=== PATIENT | female | born 1950 | race Caucasian/White ===

== ENCOUNTER → 2016-11-06 | Outpatient (CLI) | payer OTHER ==
[~2016-11-06] MED LIST: ASPI81TA21 PO; ATEN-175 PO; ATV/1 PO; BNC/4025 PO; CLX20 PO; COEN100C15 PO; INSU1INJ7 SC; LPT/40 PO; NAPR1TAB9 PO; OXYC-57 PO
[2016-11-06 18:10] LABS: ALT/SGPT 20 U/L (12-78); BLOOD UREA NITROGEN 31 mg/dl (7-18); BUN/CREATININE RATIO 24.1 (10-20); CALCIUM 9.5 mg/dl (8.5-10.1); CARBON DIOXIDE 25 mmol/L (21-32); CHLORIDE 103 mmol/L (98-107); GLUCOSE 123 mg/dl (70-99); POTASSIUM 4.5 mmol/L (3.5-5.1); SODIUM 139 mmol/L (136-145)
[2016-11-06 18:20] LABS: ALB/GLOB RATIO 0.8 (0.9-2); ALKALINE PHOSPHATASE 66 U/L (45-117); AST/SGOT 17 U/L (15-37)
[2016-11-06 18:44] LABS: BASO % 0.6 %; BASO ABS # 0.06 K/uL (0-0.2); COMPLETE YES; EOS % 3.8 %; HEMATOCRIT 38.4 % (37-47); IG% 0.2 %; LYMPH % 19.2 %; LYMPH ABS # 1.87 K/uL (1.2-3.4); MEAN CELL VOLUME 91.6 fL (80-100); MEAN CORPUSCULAR HGB CONC 34.9 g/dl (32-36); MEAN PLATELET VOLUME 10.2 fL (7.4-10.4); MONO % 5.8 %; NEUT % 70.4 %; PLATELET COUNT 258 K/uL (130-400); RED BLOOD COUNT 4.19 M/uL (4.2-5.4); WHITE BLOOD COUNT 9.76 K/uL (4.8-10.8)
[2016-11-07 05:57] LABS: ESTIMATED AVERAGE GLUCOSE 163 mg/dl; HA1C FLAG Normal (Normal)
== END | disposition home or self-care (01) ==
LOC: C.LABPBG 12:28
PROVIDERS: ATTEND Internal Medicine Geriatric Medicine
DX: I10 Essential (primary) hypertension (principal); I65.29 Occlusion and stenosis of unspecified carotid artery; E78.5 Hyperlipidemia, unspecified; E55.9 Vitamin D deficiency, unspecified; E11.51 Type 2 diabetes mellitus with diabetic peripheral angiopathy without gangrene; E11.65 Type 2 diabetes mellitus with hyperglycemia; Z86.2 Personal history of diseases of the blood and blood-forming organs and certain disorders involving the immune mechanism

== ENCOUNTER → 2017-03-21 | Outpatient (CLI) | payer OTHER ==
[~2017-03-21] MED LIST changes: +ASPI325T39 PO; +ATOR-26 PO; +CALC600T PO; +CHOL2000 PO; +CITA20TA9 PO; +CRG25 PO; +CZR25 PO; +FERR325T5 PO; +HYDR12.56 PO; +HYDR25TA4 PO; +HYG25 PO; +HYZ/10015 PO; +IMDSR30 PO; +INSDGI SC; +INSU100I SC; +LBT200 PO; +VITA400C3 PO
--- NOTE | 2017-03-22 14:23 | MAMMOGRAPHY REPORT ---
BILATERAL DIGITAL SCREENING MAMMOGRAM WITH CAD: 03/21/2017 CLINICAL HISTORY: Routine screening. Patient has no complaints. TECHNIQUE: Bilateral CC and MLO views were obtained. Current study was also evaluated with a Compute r Aided Detection (CAD) system. COMPARISON: Comparison is made to exams dated: 12/02/2015 mammogram, 09/18/2013 mammogram, 09/09/2013 mammogram - [facility], 09/05/2012 mammogram, and 08/30/2011 mammogram - [facility]. BREAST COMPOSITION: There are scattered areas of fibroglandular density in both breasts. FINDINGS: There are possible faint grouped microcalcifications in the upper outer middle to posterio r right breast, for which additional spot magnification views are recommended. There is a stable circumscribed lobulated 12 mm mass in the medial right breast. Stable benign-appea ring grouped round microcalcifications in the anterior upper outer right breast. No other suspicious mass, architectural distortion or cluster of microcalcifications is seen. IMPRESSION: ACR BI-RADS CATEGORY 0: INCOMPLETE EVALUATION: NEED ADDITIONAL IMAGING EVALUATION The possible faint grouped microcalcifications in the upper outer right breast need additional evalua tion. The patient will be called to schedule an appointment. Approximately 10% of breast cancers are not detected with mammography. A negative mammographic report should not delay biopsy if a clinically suggestive mass is present. Lexus Smart M.D. ay/:03/21/2017 16:31:33 Tugger Operator: Poppy ALEJANDRO(R)(Kevin)(BD), [facility] letter sent: Addl Imaging 0 BI-RADS Code: ACR BI-RADS Category 0: Incomplete Evaluation: Need Additional Imaging Evaluation
== END | disposition home or self-care (01) ==
LOC: C.MAMM 14:30
PROVIDERS: ATTEND Internal Medicine Geriatric Medicine
DX: Z12.31 Encounter for screening mammogram for malignant neoplasm of breast (principal); R92.0 Mammographic microcalcification found on diagnostic imaging of breast

== ENCOUNTER → 2017-03-28 | Outpatient (CLI) | payer OTHER ==
--- NOTE | 2017-03-28 14:44 | MAMMOGRAPHY REPORT ---
UNILATERAL RIGHT DIGITAL DIAGNOSTIC MAMMOGRAM: 03/28/2017 CLINICAL HISTORY: Callback from screening mammogram for right breast calcifications. TECHNIQUE: Spot magnification right cc and ML views were obtained. COMPARISON: Comparison is made to exams dated: 03/21/2017 mammogram, 12/02/2015 mammogram, 09/18/2013 m ammogram, 09/09/2013 mammogram - [facility], 09/05/2012 mammogram, and 08/30/2011 m ammogram - [facility]. BREAST COMPOSITION: There are scattered areas of fibroglandular density in the right breast. FINDINGS: Spot magnification views of the right breast demonstrate a small 9 mm group of faint calci fications in the right upper outer quadrant. The calcifications are predominately punctate but are s omewhat linear in distribution. Given the linear distribution, the calcifications are indeterminate and stereotactic biopsy is recommended for further evaluation. Other scattered benign-appearing calc ifications in the right breast on the additional views are stable compared to prior exams. IMPRESSION: ACR BI-RADS CATEGORY 4: SUSPICIOUS Grouped faint calcifications in a linear distribution in the right upper outer quadrant. The calcifi cations are indeterminate and stereotactic biopsy is recommended for further evaluation. A phone call was made to the physician's office to confirm faxed results were received. The patient has been verbally notified of the results. She tentatively scheduled the biopsy before leaving the [facility]. I will leave it up to the patient's physician if she can safely discontinue aspirin for 5 -7 days prior to the procedure. Approximately 10% of breast cancers are not detected with mammography. A negative mammographic report should not delay biopsy if a clinically suggestive mass is present. Katarina Alejandro M.D. /:03/28/2017 11:33:44 Individual Pension Consultant: Melonie ALEJANDRO(R)(M), [facility] letter sent: Abnormal 4/5 BI-RADS Code: ACR BI-RADS Category 4: Suspicious
== END | disposition home or self-care (01) ==
LOC: C.MAMM 10:56
PROVIDERS: ATTEND Internal Medicine Geriatric Medicine
DX: R92.0 Mammographic microcalcification found on diagnostic imaging of breast (principal)

== ENCOUNTER → 2017-04-02 | Outpatient (CLI) | payer OTHER ==
--- NOTE | 2017-04-02 13:30 | Discharge Instructions ---
Discharge Instructions Procedure Procedure Date: Apr 02, 2017. Reason for visit: Right Calcs. Discharge Discharge Date: Apr 02, 2017. Discharge Diagnosis: post right breast stereotactic guided biopsy Medications Restart Stopped Medication(s): Remain on Aspirin as per usual Instructions Activity Recommendations: Additional Limitations (see below) Return to School/Work: no limitations Recommended Home Diet: No Limitations Provider Instructions: ACTIVITY RECOMMENDATIONS: * No lifting, pushing, pulling or exercising the affected side for three days. RETURN TO SCHOOL/WORK: * You may return to work/school after the procedure, but do not perform any strenuous activities for 24 to 48 hours. MEDICATIONS: * Tylenol (two 325 mg) every four to six hours if needed for mild pain (if not allergic to Tylenol). DIET: * Resume previous diet. SPECIAL CARE INSTRUCTIONS: * Keep biopsy site dry for 24 hours. May shower after 24 hours, but do not soak (bathe) incision. * May remove Tegaderm (plastic patch) tomorrow AFTER showering. * Leave the steri-strips on for one week. Allow the steri-strips to fall off by themselves. If not off after one week, you may remove them. You may place a Bandaid crosswise over the strips, if desired. * Apply ice 10 minutes on and 10 minutes off as needed. * Wear a bra at bedtime to sleep more comfortably for 2-3 days. * Your referring physician should have the results after approximately 5 to 7 business days. * Call for unusual bleeding, fever, drainage, etc or if you have any questions call [phone] during normal business hours or after hours call Dr Smart, . FOLLOW UP VISIT: Follow-up with Referring Physician as scheduled. Allergies Coded Allergies: Hydrochlorothiazide (Unverified Allergy, Unknown, UNKNOWN, 04/28/13) Lisinopril (Unverified Allergy, Unknown, 04/28/13) Sulfa Drugs (Verified Allergy, Unknown, 04/28/13) Patrick Sexton Recommendations: Call your doctor if: * Temperature above 101 degrees * Pain not relieved by pain medicine ordered * There is increased drainage or redness from any incision * You have any unanswered questions or concerns. Your Doctors Instructions noted above were prepared by provider Lexus Smart. Patient Signature Section: Patient Instructions Signature Page Jessika Doll Patient (or Guardian) Signature/Date: I have read and understand the instructions given to me by my caregivers. Caregiver/RN/Doctor Signature/Date: The above-named patient and/or guardian has received patient instructions on this date. + Original Patient Signature Page (only) stays with chart. Please make copy for patient.
--- NOTE | 2017-04-02 14:43 | MAMMOGRAPHY REPORT ---
UNILATERAL RIGHT DIGITAL DIAGNOSTIC MAMMOGRAM: 04/02/2017 CLINICAL HISTORY: Status post right breast stereotactic guided biopsy of linear punctate microcalcifi cations in the right upper outer quadrant. Please refer to the report from right breast stereotactic biopsy performed at the same time for full detail. IMPRESSION: POST PROCEDURE IMAGING FOR MARKER PLACEMENT Please refer to the report from right breast stereotactic biopsy performed at the same time for full detail. Approximately 10% of breast cancers are not detected with mammography. A negative mammographic report should not delay biopsy if a clinically suggestive mass is present. Lexus Smart M.D. ay/:04/02/2017 13:32:04 Commodities Clerk: Elizabeth ALEJANDRO(R)(M), [facility] BI-RADS Code: Post Procedure Imaging For Marker Placement
--- NOTE | 2017-04-02 16:06 | MAMMOGRAPHY REPORT ---
STEREOTACTIC GUIDED BIOPSY RIGHT BREAST: 04/02/2017 CLINICAL HISTORY: Linear punctate microcalcifications in the upper outer quadrant of the right breast . Patient presents for stereotactic guided biopsy. COMPARISON: Comparison is made to exams dated: 03/28/2017 mammogram, 03/21/2017 mammogram, 12/02/2015 [facility] mogram, 09/18/2013 mammogram, 09/09/2013 mammogram - [facility], and 09/05/2012 [facility] mogram - [facility]. PATIENT CONSENT: After explaining the risks, benefits and alternatives of the procedure to the patien t, informed consent was obtained both verbally and in writing. Specific risks include: Bleeding, inf ection, puncture of adjacent structure, pain, nontarget biopsy, sampling error, metal allergy and med ication reaction. PROCEDURE DESCRIPTION: A time-out was performed and the right breast was confirmed as the site of bio psy. The patient was placed prone on the stereotactic biopsy table and the breast was placed in later almedial compression. A help desk coordinator image was obtained that faintly demonstrated the clustered microcalcif ications in question. They are amenable to sterotactic biopsy. Then +15 and -15 stereo pair images were obtained. The calcifications were targeted utilizing the coordinates obtained by the computer. The skin was prepped with Betadine. 1% Lidocaine with and without epinipherine was administered as l ocal anesthesia. A small skin incision was made. Through the incision, the needle was inserted to th e depth determined by the computer. 8 samples were obtained using a [employer] 9-gauge vacuum-assist ed biopsy device. The specimen radiograph demonstrated several petroleum products sales representative clustered microcalcific ations, therefore, a metallic marker was placed at the biopsy site. There was no immediate complicati on. Hemostasis was achieved after several minutes of manual compression. The samples were sent to [facility] in two appropriately labeled containers, "with calcifications" and "without calcifications". All of the samples were obtained from the same single biopsy site. Postprocedure CC and ML views of the right breast were obtained. There is a new dumbbell shaped met allic biopsy marker at the site of the biopsied microcalcifications in the upper outer middle one thi rd of the breast. There is distal (medial) migration of the biopsy marker from the site of the biops ied microcalcifications by approximately 17 mm, along the needle tract. A small, 1 cm hematoma is se en at the biopsy site, best appreciated on the MLO view. COMPARISON: Comparison is made to exams dated: 03/28/2017 mammogram, 03/21/2017 mammogram, 12/02/2015 [facility] mogram, 09/18/2013 mammogram, 09/09/2013 mammogram - [facility], and 09/05/2012 [facility] mogram - [facility]. A stereotactic guided biopsy was performed for the abnormality located in the right breast at 10 o'cl ock middle depth. The skin was prepped in the usual manner. A biopsy needle was placed adjacent to the abnormality under computer guidance and confirmatory stereotactic mammography images were obtaine d to document needle placement. Once the needle was documented to be in the correct location, a spec imen was obtained using an automated biopsy gun. The specimen was sent to the laboratory for patholo gical analysis. IMPRESSION: STEREOTACTIC GUIDED BIOPSY Status post right breast stereotactic guided biopsy of linear punctate microcalcifications in the upp er outer quadrant, with biopsy marker placed at the site. The patient will receive notification of the biopsy results from her referring physician. Lexus Smart M.D. ay/:04/02/2017 15:23:18 Information Resources Manager: Elizabeth MENDEZ)(M), [facility]
== END | disposition home or self-care (01) ==
LOC: C.MAMM 12:41
PROVIDERS: ATTEND Internal Medicine Geriatric Medicine
DX: R92.0 Mammographic microcalcification found on diagnostic imaging of breast (principal)

== ENCOUNTER → 2017-07-24 | Outpatient (CLI) | payer OTHER ==
[~2017-07-24] MED LIST changes: -ASPI325T39 PO; -ATOR-26 PO; -CALC600T PO; -CHOL2000 PO; -CITA20TA9 PO; -CRG25 PO; -CZR25 PO; -FERR325T5 PO; -HYDR12.56 PO; -HYDR25TA4 PO; -HYG25 PO; -HYZ/10015 PO; -IMDSR30 PO; -INSDGI SC; -INSU100I SC; -LBT200 PO; -VITA400C3 PO
[2017-07-24 17:49] LABS: URINE APPEARANCE CLEAR (CLEAR); URINE BILIRUBIN NEG (NEG); URINE COLOR DK YELLOW; URINE EPITHELIAL CELL AUTO >30 /lpf (0-5); URINE NITRITE NEG (NEG); URINE SPECIFIC GRAVITY 1.035 (1.000-1.030); UROBILINOGEN NEG (NEG)
[2017-07-24 17:58] LABS: MANUAL MICROSCOPIC REQUIRED? NO; REVIEW REQ? YES
== END | disposition home or self-care (01) ==
LOC: C.LABSPEC 16:53
PROVIDERS: ATTEND Physician Assistant
DX: R30.0 Dysuria (principal)

== ENCOUNTER → 2017-07-29 | Outpatient (CLI) | payer OTHER ==
--- NOTE | 2017-07-29 13:15 | DIAGNOSTIC IMAGING REPORT ---
ULTRASOUND KIDNEYS AND BLADDER CLINICAL HISTORY: Acute flank pain. COMPARISON STUDY: Renal ultrasound dated 09/07/2013. TECHNIQUE: Real-time, grayscale, and color flow sonography of the kidneys and bladder is performed. Images are reviewed in the transverse and longitudinal planes. FINDINGS: Kidneys: There is asymmetric cortical atrophy of the left kidney as compared to the right. The right kidney measures 11.8 cm in length and the left kidney measures 8.6 cm in length. The left kidney demonstrates increased echotexture consistent with medical renal disease. A 2.3 cm cyst is noted in the right kidney. There is no hydronephrosis. No shadowing renal calculi are identified. There is no sonographic evidence of contour deforming renal mass lesion. No perinephric fluid is identified. Bladder: The partially decompressed bladder is grossly normal in appearance. The right ureteral jet was seen. IMPRESSION: 1. There is asymmetric cortical atrophy of the left kidney as compared to the right. The left kidney is echogenic consistent with medical renal disease and this is similar to the 2013 examination. 2. There is no hydronephrosis. 3. The bladder is partially decompressed and normal as visualized. Electronically signed by: Fabio Shafer M.D. 07/29/2017 1:14 PM Dictated Date/Time: 07/29/2017 1:12 PM
== END | disposition home or self-care (01) ==
LOC: C.ULTR 12:21
PROVIDERS: ATTEND Physician Assistant
DX: R10.9 Unspecified abdominal pain (principal); N26.1 Atrophy of kidney (terminal)

== ENCOUNTER → 2017-08-06 | Outpatient (CLI) | payer OTHER ==
[2017-08-06 12:42] LABS: URINE APPEARANCE CLEAR (CLEAR); URINE BILIRUBIN NEG (NEG); URINE COLOR YELLOW; URINE EPITHELIAL CELL AUTO >30 /lpf (0-5); URINE NITRITE NEG (NEG); UROBILINOGEN NEG (NEG); ZZUR CULT IF INDIC CLEAN CATCH NO
[2017-08-06 12:44] LABS: MANUAL MICROSCOPIC REQUIRED? NO; REVIEW REQ? YES
== END | disposition home or self-care (01) ==
LOC: C.LABSPEC 09:03
PROVIDERS: ATTEND Physician Assistant
DX: R35.0 Frequency of micturition (principal)

== ENCOUNTER 2017-08-14 16:45 | Inpatient (IN) | payer OTHER ==
[~2017-08-14] VITALS: Ht 160 cm; Wt 88.9 kg
[2017-08-14] MEDS ORDERED: SODIUM CHLORIDE 0.9% 500ML 500 ML IV STA (17:10)
[2017-08-14] MEDS ORDERED: METOPROLOL TARTRATE 100 MG TAB PO STA (17:14)
[2017-08-14] MEDS ORDERED: INSULIN HUMAN REGULAR SC STA (17:21)
--- NOTE | 2017-08-14 17:21 | EMERGENCY ROOM VISIT NOTE ---
History Report prepared by Naomi: Marcelino Andrade Under the Supervision of: Dr. Ion Arroyo M.D. First contact with patient: 17:01 Chief Complaint: HYPERTENSION Stated Complaint: HIGH BLOOD PRESSURE, LEG HURT, CHEST, SOB History of Present Illness The patient is a 66 year old female who presents to the Emergency Room with complaints of waxing and waning hypertension beginning one year ago. The patient states that she went to the dentist today for a cleaning, where her dentist recognized that her blood pressure was hypertensive and told her to come to the emergency department. She notes that she was not anxious to go to the dentist. She reports that she was in [place] a year ago, and was taking Amlodipine for her hypertension. The patient states that when she returned to [employer], she began to develop a rash from the medication. She notes that her PCP took her off of the Amlodipine and that she has had difficulty controlling her blood pressure since then. She reports that she is also experiencing symptoms of SOB beginning a few weeks ago that worsens when she walks. The patient states that she has a previous history of heart attacks and blockages, but does not have a stent placed. She notes that the only blood thinner that she takes is an aspirin. 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 Source of History: patient Onset: a year ago Position: other (global) Quality: other Timing: waxes/wanes Associated Symptoms: + SOB Review of Systems See HPI for pertinent positives & negatives. A total of 10 systems reviewed and were otherwise negative. Past Medical & Surgical Medical Problems: (1) Heart attack Family History No pertinent family history stated. Social History Smoking Status: Never Smoker Marital Status: single Occupation Status: retired Current/Historical Medications Scheduled Aspirin (Aspirin Ec), 325 MG PO DAILY Atenolol (Tenormin), 100 MG PO DAILY Atorvastatin (Lipitor), 80 MG PO DAILY Calcium Carbonate (Calcium 600), 1 TAB PO DAILY Cholecalciferol (Vitamin D3), 1 CAP PO DAILY Citalopram Hydrobromide (Celexa), 20 MG PO DAILY Ferrous Sulfate (Ferrous Sulfate), 1 TAB PO DAILY Hctz/Losartan (Hyzaar 25MG/100MG), 1 TAB PO DAILY Hydrochlorothiazide (Hctz), 12.5 MG PO DAILY Hydrochlorothiazide (Hctz), 25 MG PO DAILY Insulin Glargine (Lantus), 34 UNITS SC BID Insulin Lispro (Human) (Humalog), 30 UNITS SC BID Vitamin E (Vitamin E 400 Iu), 400 INTER.UNIT PO DAILY Scheduled PRN Lorazepam (Ativan), 1 MG PO BID PRN for Anxiety and/or Sedation Allergies Coded Allergies: Hydrochlorothiazide (Unverified Allergy, Unknown, UNKNOWN, 04/28/13) Lisinopril (Unverified Allergy, Unknown, 04/28/13) Sulfa Drugs (Verified Allergy, Unknown, 04/28/13) Physical Exam Vital Signs Date Time Temp Pulse Resp B/P (MAP) Pulse Ox O2 Delivery O2 Flow Rate FiO2 08/14/17 17:28 69 12 197/90 99 Room Air 08/14/17 17:23 100 Room Air 08/14/17 17:23 100 Room Air 08/14/17 16:56 36.8 70 18 249/103 98 Room Air Physical Exam GENERAL: Patient is a healthy-appearing well-nourished female HEAD: Normocephalic atraumatic EYES: Ocular movements intact pupils equal and react to light OROPHARYNX mucous membranes are moist no exudates present no erythema or edema present NECK: Supple no nuchal rigidity CHEST: Good equal expansion LUNGS: Clear and equal to auscultation CARDIAC: Normal S1 and S2 ABDOMEN: Soft nontender no guarding BACK: No CVA tenderness EXTREMITIES: No pain upon palpation normal muscle strength in all groups no clubbing cyanosis or edema NEURO: Patient is following commands is answering questions appropriately. Alert and oriented x3 Cranial Nerves 2-12 grossly intact Medical Decision & Procedures ER Provider Diagnostic Interpretation: Radiology results as stated below per my review and radiologist interpretation: CHEST ONE VIEW PORTABLE FINDINGS: Cardiomediastinal and hilar silhouettes are within normal limits. Atherosclerosis of the aorta. No pneumothorax, pleural effusion, focal airspace consolidation or overt pulmonary edema. Bones appear grossly intact. IMPRESSION: No acute cardiopulmonary process. The above report was generated using voice recognition software. It may contain grammatical, syntax or spelling errors. Electronically signed by: Ton Dowell M.D. 08/14/2017 5:[address] NONCONTRAST Findings: The paranasal sinuses and mastoid air cells are clear. The calvarium and skull base are intact. The ventricles and sulci are within normal limits. There is no mass, hematoma, midline shift, or acute infarct. Focal area of encephalomalacia within the left frontal lobe consistent with an old MAREN territory infarct. Impression: No acute intracranial abnormality. Old left frontal lobe infarct. Electronically signed by: Andrez Frank M.D. 08/14/2017 6:10 PM Laboratory Results 08/14/17 17:22 Red Blood Count 4.35, Mean Corpuscular Volume 89.9, Mean Corpuscular Hemoglobin 30.1, Mean Corpuscular Hemoglobin Concent 33.5, Mean Platelet Volume 9.5, Neutrophils (%) (Auto) 62.9, Lymphocytes (%) (Auto) 24.5, Monocytes (%) (Auto) 6.9, Eosinophils (%) (Auto) 4.8, Basophils (%) (Auto) 0.5, Neutrophils # (Auto) 6.46, Lymphocytes # (Auto) 2.52, Monocytes # (Auto) 0.71, Eosinophils # (Auto) 0.49, Basophils # (Auto) 0.05 08/14/17 17:22 Test 08/14/17 17:22 08/14/17 17:47 08/14/17 17:50 White Blood Count 10.27 K/uL (4.8-10.8) Red Blood Count 4.35 M/uL (4.2-5.4) Hemoglobin 13.1 g/dL (12.0-16.0) Hematocrit 39.1 % (37-47) Mean Corpuscular Volume 89.9 fL (80-100) Mean Corpuscular Hemoglobin 30.1 pg (25-34) Mean Corpuscular Hemoglobin Concent 33.5 g/dl (32-36) Platelet Count 235 K/uL (130-400) Mean Platelet Volume 9.5 fL (7.4-10.4) Neutrophils (%) (Auto) 62.9 % Lymphocytes (%) (Auto) 24.5 % Monocytes (%) (Auto) 6.9 % Eosinophils (%) (Auto) 4.8 % Basophils (%) (Auto) 0.5 % Neutrophils # (Auto) 6.46 K/uL (1.4-6.5) Lymphocytes # (Auto) 2.52 K/uL (1.2-3.4) Monocytes # (Auto) 0.71 K/uL (0.11-0.59) Eosinophils # (Auto) 0.49 K/uL (0-0.5) Basophils # (Auto) 0.05 K/uL (0-0.2) Bedside Hemoglobin 12.6 g/dl (12.0-16.0) Bedside Hematocrit 37 % (37-47) RDW Standard Deviation 38.7 fL (36.4-46.3) RDW Coefficient of Variation 11.9 % (11.5-14.5) Immature Granulocyte % (Auto) 0.4 % Immature Granulocyte # (Auto) 0.04 K/uL (0.00-0.02) Prothrombin Time 10.0 SECONDS (9.0-12.0) Prothromb Time International Ratio 0.9 (0.9-1.1) Activated Partial Thromboplast Time 24.9 SECONDS (21.0-31.0) Partial Thromboplastin Ratio 1.0 Bedside Sodium 139 mEq/L (135-144) Bedside Potassium 4.0 mEq/L (3.3-5.0) Bedside Chloride 103 mEq/L (101-112) Bedside Total CO2 26 mEq/l (24-31) Anion Gap 16.0 mmol/L (16-25) Bedside Blood Urea Nitrogen 42 mg/dl (7-18) Bedside Creatinine 1.6 mg/dl (0.6-1.3) Est Creatinine Clear Calc Drug Dose 37.1 ml/min Estimated GFR () 36.0 Estimated GFR (Non- 31.1 BUN/Creatinine Ratio 25.6 (10-20) Bedside Glucose (other) 259 mg/dl (70-99) Calcium Level 8.4 mg/dl (8.5-10.1) Bedside Ionized Calcium (Rex) 1.19 mmol/l (1.12-1.32) Total Bilirubin 0.3 mg/dl (0.2-1) Direct Bilirubin < 0.1 mg/dl (0-0.2) Aspartate Amino Transf (AST/SGOT) 16 U/L (15-37) Alanine Aminotransferase (ALT/SGPT) 25 U/L (12-78) Alkaline Phosphatase 82 U/L (45-117) Total Creatine Kinase 142 U/L (26-192) Creatine Kinase MB 2.3 ng/ml (0.5-3.6) Creatine Kinase MB Ratio 1.6 (0-3.0) Troponin I < 0.015 ng/ml (0-0.045) Pro-B-Type Natriuretic Peptide 2264 pg/ml (0-900) Total Protein 7.4 gm/dl (6.4-8.2) Albumin 3.0 gm/dl (3.4-5.0) Lipase 254 U/L (73-393) Beta-Hydroxybutyric Acid 0.86 mg/dL (0.2-2.81) Thyroid Stimulating Hormone (TSH) 3.060 uIu/ml (0.300-4.500) Urine Color YELLOW Urine Appearance CLEAR (CLEAR) Urine pH 6.5 (4.5-7.5) Urine Specific [place] 1.015 (1.000-1.030) Urine Protein 3+ (NEG) Urine Glucose (UA) 2+ (NEG) Urine Ketones NEG (NEG) Urine Occult Blood TRACE (NEG) Urine Nitrite NEG (NEG) Urine Bilirubin NEG (NEG) Urine Urobilinogen NEG (NEG) Urine Leukocyte Esterase NEG (NEG) Urine WBC (Auto) 1-5 /hpf (0-5) Urine RBC (Auto) 0-4 /hpf (0-4) Urine Hyaline Casts (Auto) 0 /lpf (0-5) Urine Epithelial Cells (Auto) 10-20 /lpf (0-5) Urine Bacteria (Auto) NEG (NEG) Labs reviewed by ED physician. Medications Administered Medications (Trade) Dose Ordered Sig/[place] Route Start Time Stop Time Status Last Admin Dose Admin Sodium Chloride 500 ml @ 999 mls/hr Q31M STAT IV 08/14/17 17:10 08/14/17 17:40 DC 08/14/17 17:10 999 MLS/HR Metoprolol Tartrate (Lopressor Tab) 100 mg STK-MED ONCE .ROUTE 08/14/17 17:31 08/14/17 17:32 DC 08/14/17 17:41 100 MG Insulin Human Regular (novoLIN-R U-100 PER UNIT) 10 units NOW STAT SC 08/14/17 17:37 08/14/17 17:38 DC 08/14/17 17:49 10 UNITS ECG Indication: SOB/dyspnea Rate (beats per minute): 70 Rhythm: normal sinus Findings: PAC, no acute ischemic change Change: no significant change ED Course 1702: Past medical records reviewed. The patient was evaluated in room C9. A complete history and physical examination was performed. 1714: Metoprolol Tartrate 100mg PO 1721: Insulin Human Regular 10 units SC 1750: I reevaluated and updated the patient. Medical Decision Prior records/ancillary studies reviewed. Triage Nursing notes reviewed. Additional history obtained from the family. The patient's history was concerning for respiratory difficulties. Differential diagnosis: Etiologies such as infections, reactive airway disease, pneumonia, pneumothorax , COPD, CHF, cardiac ischemia, pulmonary embolism, musculoskeletal, gastrointestinal, as well as others were entertained. This is a 66 year old with a history of Left kidney failure. The patient's ultrasound of her kidney was reviewed from 2 weeks ago. The patient presents with concerns over out of control Blood pressure that has been ongoing for the past year since a return from [place]. The patient's blood pressure was found to be very elevated in the emergency department. She also has hyperglycemia. For this reason she was given a NSS bolus and Insulin. Because of the patient' s SOB as well as her heart history she was sent for a b/l US of her legs. This was found to be normal. The patient does have a large MAREN infarct to the frontal lobe and I believe this maybe affecting her decision making capacity. Based on the fact that the patient did not know about this CVA, her HTN, her kidney status and her diabetes, I believe she should be admitted for a CVA workup. I did discuss the case with both case management as well as the hospitalist who agreed to admit the patient. Pt took two 325 mg ASA tablets today. Medication Reconcilliation Current Medication List: was personally reviewed by me Blood Pressure Screening Patient's blood pressure: Elevated blood pressure Blood pressure disposition: Referred to PCP Impression Primary Impression: Hypertension Additional Impressions: CVA (cerebral vascular accident) Kidney disease Hyperglycemia Scribe Attestation The scribe's documentation has been prepared under my direction and personally reviewed by me in its entirety. I confirm that the note above accurately reflects all work, treatment, procedures, and medical decision making performed by me. Departure Information Dispostion Home / Self-Care Referrals Bob Guzman M.D. (PCP) Patient Instructions [facility] Problem Qualifiers Primary Impression: Hypertension Hypertension type: unspecified Qualified Codes: I10 - Essential (primary) hypertension Additional Impressions: CVA (cerebral vascular accident) CVA mechanism: unspecified Qualified Codes: I63.9 - Cerebral infarction, unspecified
[2017-08-14 17:26] LABS: BASO % 0.5 %; BASO ABS # 0.05 K/uL (0-0.2); COMPLETE YES; EOS % 4.8 %; HEMATOCRIT 39.1 % (37-47); IG% 0.4 %; LYMPH % 24.5 %; LYMPH ABS # 2.52 K/uL (1.2-3.4); MEAN CELL VOLUME 89.9 fL (80-100); MEAN CORPUSCULAR HEMOGLOBIN 30.1 pg (25-34); MEAN CORPUSCULAR HGB CONC 33.5 g/dl (32-36); MEAN PLATELET VOLUME 9.5 fL (7.4-10.4); MONO % 6.9 %; NEUT % 62.9 %; PLATELET COUNT 235 K/uL (130-400); RED BLOOD COUNT 4.35 M/uL (4.2-5.4); WHITE BLOOD COUNT 10.27 K/uL (4.8-10.8)
[2017-08-14] MEDS ORDERED: METOPROLOL TARTRATE 50 MG TAB ONE (17:31)
[2017-08-14 17:33] LABS: ISTAT CREATININE 1.6 mg/dl (0.6-1.3); ISTAT HEMOGLOBIN 12.6 g/dl (12.0-16.0); ISTAT IONIZED CALCIUM 1.19 mmol/l (1.12-1.32)
[2017-08-14] MEDS ORDERED: NovoLIN-R INSULIN PER UNIT CHARGE SC STA (17:37)
[2017-08-14 17:38] LABS: INR 0.9 (0.9-1.1)
[2017-08-14 17:44] LABS: ALT/SGPT 25 U/L (12-78); AST/SGOT 16 U/L (15-37); BLOOD UREA NITROGEN 44 mg/dl (7-18); BUN/CREATININE RATIO 25.6 (10-20); CALCIUM 8.4 mg/dl (8.5-10.1); CARBON DIOXIDE 25 mmol/L (21-32); CHLORIDE 106 mmol/L (98-107); GLUCOSE 263 mg/dl (70-99); SODIUM 138 mmol/L (136-145)
[2017-08-14 17:55] LABS: ALKALINE PHOSPHATASE 82 U/L (45-117); CKMB/CK RATIO 1.6 (0-3.0)
--- NOTE | 2017-08-14 17:57 | DIAGNOSTIC IMAGING REPORT ---
CHEST ONE VIEW PORTABLE HISTORY: 66 years-old Female severe hypertension acute hypertension COMPARISON: Chest CT 06/26/2016 TECHNIQUE: Portable upright AP view of the chest FINDINGS: Cardiomediastinal and hilar silhouettes are within normal limits. Atherosclerosis of the aorta. No pneumothorax, pleural effusion, focal airspace consolidation or overt pulmonary edema. Bones appear grossly intact. IMPRESSION: No acute cardiopulmonary process. The above report was generated using voice recognition software. It may contain grammatical, syntax or spelling errors. Electronically signed by: Ton Dowell M.D. 08/14/2017 5:56 PM Dictated Date/Time: 08/14/2017 5:55 PM
--- NOTE | 2017-08-14 18:12 | DIAGNOSTIC IMAGING REPORT ---
HEAD CT NONCONTRAST CT DOSE: 537.48 mGy.cm HISTORY: Headache. Pt c/o HTN TECHNIQUE: Multiaxial CT images of the head were performed without the use of intravenous contrast. Automated exposure control was utilized for this study. A dose lowering technique was utilized adhering to the principles of ALARA. Comparison: Head CT 05/22/2006. Findings: The paranasal sinuses and mastoid air cells are clear. The calvarium and skull base are intact. The ventricles and sulci are within normal limits. There is no mass, hematoma, midline shift, or acute infarct. Focal area of encephalomalacia within the left frontal lobe consistent with an old MAREN territory infarct. Impression: No acute intracranial abnormality. Old left frontal lobe infarct. Electronically signed by: Andrez Frank M.D. 08/14/2017 6:10 PM Dictated Date/Time: 08/14/2017 6:05 PM
[2017-08-14] MEDS ORDERED: ATOR-26 PO (18:16)
[2017-08-14] MEDS ORDERED: VITA400C3 PO (18:16)
[2017-08-14] MEDS ORDERED: INSDGI SC (18:16)
[2017-08-14] MEDS ORDERED: CHOL2000 PO (18:16)
[2017-08-14] MEDS ORDERED: HYDR25TA4 PO (18:16)
[2017-08-14] MEDS ORDERED: FERR325T5 PO (18:16)
[2017-08-14] MEDS ORDERED: ATV/1 PO (18:16)
[2017-08-14] MEDS ORDERED: HYZ/10015 PO (18:16)
[2017-08-14] MEDS ORDERED: ASPI325T39 PO (18:16)
[2017-08-14] MEDS ORDERED: HYDR12.56 PO (18:16)
[2017-08-14] MEDS ORDERED: CALC600T PO (18:16)
[2017-08-14] MEDS ORDERED: CITA20TA9 PO (18:16)
[2017-08-14] MEDS ORDERED: ATEN-175 PO (18:16)
[2017-08-14] MEDS ORDERED: INSU100I SC (18:16)
[2017-08-14 18:26] LABS: URINE APPEARANCE CLEAR (CLEAR); URINE BILIRUBIN NEG (NEG); URINE COLOR YELLOW; URINE NITRITE NEG (NEG); URINE PH 6.5 (4.5-7.5); URINE SPECIFIC GRAVITY 1.015 (1.000-1.030); UROBILINOGEN NEG (NEG)
[2017-08-14 18:31] LABS: MANUAL MICROSCOPIC REQUIRED? NO; REVIEW REQ? NO
--- NOTE | 2017-08-14 18:32 | DIAGNOSTIC IMAGING REPORT ---
BILATERAL LOWER EXTREMITY VENOUS DOPPLER HISTORY: Acute shortness of breath with concern for deep venous thrombosis Pt c/o SOB COMPARISON STUDY: DVT study 08/10/2016. FINDINGS: There is normal compressibility, flow, and augmentation within the bilateral lower extremity deep venous systems. IMPRESSION: No sonographic evidence of deep venous thrombosis within the right or left lower extremity. Electronically signed by: Ton Dowell M.D. 08/14/2017 6:31 PM Dictated Date/Time: 08/14/2017 6:30 PM
[2017-08-14] MEDS ORDERED: ACETAMINOPHEN 500 MG TAB PO STA (19:10)
[2017-08-14] MEDS ORDERED: POLYETHYLENE (MIRALAX) 17 GM PACK PO PRN (20:00)
[2017-08-14] MEDS ORDERED: ALUMINUM/MAGNESIUM/SIMETH (MAALOX MAX) 30 ML UDC PO PRN (20:00)
[2017-08-14] MEDS ORDERED: MAGNESIUM HYDROXIDE SUSP 30 ML UDC PO PRN (20:00)
[2017-08-14] MEDS ORDERED: ONDANSETRON INJ 2 MG/ML 2 ML VIAL IV PRN (20:00)
[2017-08-14] MEDS ORDERED: HydrALAZINE HCL 20 MG/ML VIAL IV. PRN (20:15)
[2017-08-14] MEDS ORDERED: HydrALAZINE HCL 20 MG/ML VIAL IV. ONE ×2 (20:30→22:45)
[2017-08-14 20:55] VITALS: BMI 38.9
--- NOTE | 2017-08-14 21:07 | History and Physical ---
History & Physical Date & Time of Service: Aug 14, 2017 at 20:58 Chief Complaint: High Blood Pressure, Leg Hurt, Chest, Sob Primary Care Physician: Bob Guzman M.D. History of Present Illness Source: patient, family Ms. 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 Patient has had difficulty maintaining BP and had recent adjustments to her HCTZ on 08/06. She was at the dentist today and reports they said her BP was 213/122 and was referred to the ED. She states her BP runs from 160-190s/90s on average and normally not this high. She reports better control while on Norvasc approx. one year ago but had to stop due to lower extremity edema and rash. She is currently on HCTZ 25 mg daily, Losartan/ HCTZ 100 mg/25 mg, and Atenolol 100 mg daily. She reports associated fluid retention that has continued since stopping Norvasc and feels that her lower extremities and abdomen seems to hold fluids. She denies H/O CHF. She also reports poor control of her diabetes and is meeting with a pharmaceutical operator to start implementing dietary changes. She reports her current regimen leaves her with normal glucose 120-200 but in the AM has 300+ glucose readings even with BID Lantus coverage. She is dietary non-compliant as she states she doesn't know how to properly eat with diabetes. She states she has not really felt well over the past year with easy fatigability and feeling rundown. She does report over the past couple days that she has had more YI than normal and reporting an epigastric/low chest discomfort that comes on after short ambulation. This discomfort wax and wanes and does not radiate. On head CT in ED she was found to have an old L frontal lobe infarct that was present on MRI in 2014. Patient initially did not recall knowing she had a stroke but after further discussion, slightly recalls being told she may have had a small one and was started on 325 mg ASA daily. She reports, and family confirms, that she has seemed to have a personality change person the past year. She reports easy irritability. She also reports some anxiousness and frustration with her medical conditions and not being as compliant as she should be. She denies new focal neurodeficits. As well, cannot recall a time where she had focal neuro deficits. Past Medical/Surgical History 1. Secondary Resistant HTN 2/2 Renal Artery Stenosis 2. CKD Stage III 2/2 Renal Artery Stenosis and T2DM 3. T2DM, Uncontrolled 4. CAD with RCA Disease and S/P HI 5. Carotid Stenosis 6. HLD Family History Diabetes mellitus Hypertension Social History Smoking Status: Never Smoker Smokeless Tobacco Use: No Alcohol Use: none Drug Use: none Marital Status: single Housing status: lives with family Occupational Status: retired Immunizations History of Tetanus Vaccine?: Unknown History of Pneumococcal: Unknown History of Hepatitis B Vaccine: Unknown Multi-Drug Resistant Organisms History of MDRO: No Allergies Coded Allergies: Hydrochlorothiazide (Unverified Allergy, Unknown, UNKNOWN, 04/28/13) Lisinopril (Unverified Allergy, Unknown, 04/28/13) Sulfa Drugs (Verified Allergy, Unknown, 04/28/13) Home Medications Scheduled Aspirin (Aspirin Ec), 325 MG PO DAILY Atenolol (Tenormin), 100 MG PO DAILY Atorvastatin (Lipitor), 80 MG PO DAILY Calcium Carbonate (Calcium 600), 1 TAB PO DAILY Cholecalciferol (Vitamin D3), 1 CAP PO DAILY Citalopram Hydrobromide (Celexa), 20 MG PO DAILY Ferrous Sulfate (Ferrous Sulfate), 1 TAB PO DAILY Hctz/Losartan (Hyzaar 25MG/100MG), 1 TAB PO DAILY Hydrochlorothiazide (Hctz), 12.5 MG PO DAILY Hydrochlorothiazide (Hctz), 25 MG PO DAILY Insulin Glargine (Lantus), 34 UNITS SC BID Insulin Lispro (Human) (Humalog), 30 UNITS SC BID Vitamin E (Vitamin E 400 Iu), 400 INTER.UNIT PO DAILY Scheduled PRN Lorazepam (Ativan), 1 MG PO BID PRN for Anxiety and/or Sedation Review of Systems Constitutional: + problem reported (posterior headache), No fever, No chills Eyes: No worsening of vision ENT: No nasal symptoms, No sore throat, No trouble swallowing Respiratory: + dyspnea on exertion, No cough Cardiovascular: No chest pain, No palpitations Abdomen: + pain (burning epigastric pain), No nausea, No vomiting, No diarrhea , No constipation Musculoskeletal: + swelling (bilateral lower legs), No calf pain Genitourinary - Female: No dysuria Neurologic: No weakness, No numbness/tingling, No balance problems Psychiatric: + anxiety, + problem reported (reporting easy irritibility), No substance abuse Hematologic / Lymphatic: No abnormal bleeding/bruising, No clotting problems Integumentary: No rash Physical Exam Vital Signs Date Time Temp Pulse Resp B/P (MAP) Pulse Ox O2 Delivery O2 Flow Rate FiO2 08/14/17 20:48 63 18 185/66 97 08/14/17 20:33 61 18 194/66 98 Room Air 08/14/17 20:21 61 08/14/17 19:45 64 18 218/90 99 Room Air 08/14/17 18:48 68 17 219/104 95 08/14/17 17:28 69 12 197/90 99 Room Air 08/14/17 17:23 100 Room Air 08/14/17 17:23 100 Room Air 08/14/17 16:56 36.8 70 18 249/103 98 Room Air General Appearance: WD/WN, no apparent distress, + obese Head: normocephalic, atraumatic Eyes: sclerae normal ENT: hearing grossly normal Neck: supple, no JVD, trachea midline Respiratory/Chest: lungs clear, normal breath sounds, no respiratory distress, no accessory muscle use Cardiovascular: regular rate, rhythm, no gallop, no murmur Abdomen/GI: normal bowel sounds, non tender, soft Extremities/Musculoskelatal: no calf tenderness, + swelling (trace bilateral lower extremity edema at ankles) Neurologic/Psych: alert, oriented x 3 Skin: normal color, warm/dry Diagnostics Laboratory Results Results Past 24 Hours Test 08/14/17 17:22 08/14/17 17:50 08/14/17 19:43 Range/Units White Blood Count 10.27 4.8-10.8 K/uL Red Blood Count 4.35 4.2-5.4 M/uL Hemoglobin 13.1 12.0-16.0 g/dL Hematocrit 39.1 37-47 % Mean Corpuscular Volume 89.9 80-100 fL Mean Corpuscular Hemoglobin 30.1 25-34 pg Mean Corpuscular Hemoglobin Concent 33.5 32-36 g/dl Platelet Count 235 130-400 K/uL Mean Platelet Volume 9.5 7.4-10.4 fL Neutrophils (%) (Auto) 62.9 % Lymphocytes (%) (Auto) 24.5 % Monocytes (%) (Auto) 6.9 % Eosinophils (%) (Auto) 4.8 % Basophils (%) (Auto) 0.5 % Neutrophils # (Auto) 6.46 1.4-6.5 K/uL Lymphocytes # (Auto) 2.52 1.2-3.4 K/uL Monocytes # (Auto) 0.71 0.11-0.59 K/uL Eosinophils # (Auto) 0.49 0-0.5 K/uL Basophils # (Auto) 0.05 0-0.2 K/uL Bedside Hemoglobin 12.6 12.0-16.0 g/dl Bedside Hematocrit 37 37-47 % RDW Standard Deviation 38.7 36.4-46.3 fL RDW Coefficient of Variation 11.9 11.5-14.5 % Immature Granulocyte % (Auto) 0.4 % Immature Granulocyte # (Auto) 0.04 0.00-0.02 K/uL Prothrombin Time 10.0 9.0-12.0 SECONDS Prothromb Time International Ratio 0.9 0.9-1.1 Activated Partial Thromboplast Time 24.9 21.0-31.0 SECONDS Partial Thromboplastin Ratio 1.0 Bedside Sodium 139 135-144 mEq/L Sodium Level 138 136-145 mmol/L Bedside Potassium 4.0 3.3-5.0 mEq/L Potassium Level 4.0 3.5-5.1 mmol/L Bedside Chloride 103 101-112 mEq/L Chloride Level 106 98-107 mmol/L Carbon Dioxide Level 25 21-32 mmol/L Bedside Total CO2 26 24-31 mEq/l Anion Gap 16.0 16-25 mmol/L Bedside Blood Urea Nitrogen 42 7-18 mg/dl Blood Urea Nitrogen 44 7-18 mg/dl Creatinine 1.70 0.60-1.20 mg/dl Bedside Creatinine 1.6 0.6-1.3 mg/dl Est Creatinine Clear Calc Drug Dose 37.1 ml/min Estimated GFR () 36.0 Estimated GFR (Non- 31.1 BUN/Creatinine Ratio 25.6 10-20 Bedside Glucose (other) 259 70-99 mg/dl Random Glucose 263 70-99 mg/dl Calcium Level 8.4 8.5-10.1 mg/dl Bedside Ionized Calcium (Rex) 1.19 1.12-1.32 mmol/l Total Bilirubin 0.3 0.2-1 mg/dl Direct Bilirubin < 0.1 0-0.2 mg/dl Aspartate Amino Transf (AST/SGOT) 16 15-37 U/L Alanine Aminotransferase (ALT/SGPT) 25 12-78 U/L Alkaline Phosphatase 82 45-117 U/L Total Creatine Kinase 142 26-192 U/L Creatine Kinase MB 2.3 0.5-3.6 ng/ml Creatine Kinase MB Ratio 1.6 0-3.0 Troponin I < 0.015 0-0.045 ng/ml Pro-B-Type Natriuretic Peptide 2264 0-900 pg/ml Total Protein 7.4 6.4-8.2 gm/dl Albumin 3.0 3.4-5.0 gm/dl Lipase 254 73-393 U/L Beta-Hydroxybutyric Acid 0.86 0.2-2.81 mg/dL Thyroid Stimulating Hormone (TSH) 3.060 0.300-4.500 uIu/ml Urine Color YELLOW Urine Appearance CLEAR CLEAR Urine pH 6.5 4.5-7.5 Urine Specific [place] 1.015 1.000-1.030 Urine Protein 3+ NEG Urine Glucose (UA) 2+ NEG Urine Ketones NEG NEG Urine Occult Blood TRACE NEG Urine Nitrite NEG NEG Urine Bilirubin NEG NEG Urine Urobilinogen NEG NEG Urine Leukocyte Esterase NEG NEG Urine WBC (Auto) 1-5 0-5 /hpf Urine RBC (Auto) 0-4 0-4 /hpf Urine Hyaline Casts (Auto) 0 0-5 /lpf Urine Epithelial Cells (Auto) 10-20 0-5 /lpf Urine Bacteria (Auto) NEG NEG Bedside Glucose 143 70-90 mg/dl Diagnostic Radiology HEAD CT NONCONTRAST Findings: The paranasal sinuses and mastoid air cells are clear. The calvarium and skull base are intact. The ventricles and sulci are within normal limits. There is no mass, hematoma, midline shift, or acute infarct. Focal area of encephalomalacia within the left frontal lobe consistent with an old MAREN territory infarct. Impression: No acute intracranial abnormality. Old left frontal lobe infarct. BILATERAL LOWER EXTREMITY VENOUS DOPPLER FINDINGS: There is normal compressibility, flow, and augmentation within the bilateral lower extremity deep venous systems. IMPRESSION: No sonographic evidence of deep venous thrombosis within the right or left lower extremity. EKG Sinus rhythm with Premature supraventricular complexes Possible Left atrial enlargement Borderline ECG When compared with ECG of 22-MAY-2006 11:13, Premature supraventricular complexes are now Present Confirmed by KIM SANTOS ([id number]) on 08/14/2017 8:30:14 PM Impression Assessment and Plan Ms. 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 Hypertensive Urgency: Resistent Secondary HTN 2/2 Renal Artery Stenosis - Patient is mentating appropriately, has mild MELCHOR but largely asymptomatic - Given Lopressor 100 mg po X 1 dose in ED which improved BP from 249/103 to 197 /90 but did not sustain - Give Hydralazine 2.5 mg IV x 1 dose (improved to 185/66) which is continuing to keep and continue this dose Q6H PRN for SBP >180 -- Overnight plan to keep SBP around 180 to prevent too quickly of correction - D/C Losartan/HCTZ - given renal stenosis and CKD this likely is not the best option - D/C Atenolol and convert to Labetolol 100 mg BID to start in AM - Leave HCTZ at 12.5 mg daily (was recently increased to 25 mg daily) - Possible DC reg may be Hydralazine, Labetolol, low-dose HCTZ Acute Elevation of Kidney Function and CKD Stage III: - Suggests baseline Cr 1.1-1.5 but has been up to 1.9 - currently 1.7 - continue to monitor - Was seen by nephrology in the past - possibly re-establishment would be warranted - UA with proteinuria and glucose Old L Frontal Lobe Infarct: - Documented on MRI in 2014 and currently on high dose ASA therapy - no focal neurological deficits - Would defer further neurological work-up at this time unless change in clinical status Possible Diastolic Dysfunction: - Reporting fluid retention and YI - no documented history but given co- morbidities and elevated BNP will obtain echo - BNP may be more related to HTN and known CAD - does not look in overt failure on exam or imaging T2DM: UNCONTROLLED - Obtain A1c - Lantus 34 units SC BID and hold Humalog 30 units SC BID - Cover with SSI with correction and carb coverage - Reporting rebound hyperglycemia in AM - documented non-compliance history vs Somogyi effect - Scheduled to see Boot Repairer in October - placed peer educator consultation CAD with RCA Disease S/P HI and Carotid Stenosis and HLD: - Significant vascular disease likely from uncontrolled DM and HLD - reinforced importance of dietary compliance and better control of diabetes as likely contributing to her overall feelings of easy fatigue - ASA 325 mg daily - Atorvastatin 80 mg daily DVT Prophylaxis: DAMIEN/SCD/Ambulation Disposition: - Trend BP and slowly improve - first 24 hours would recommend SBP around 180 - Would recommend a change in her BP regimen as increased dosing has not been effective - Continued education and encouragement on compliance is necessary - If blood pressure improved and feeling well can be D/C'd with outpatient follow-up - Recommendations for BP regimen -- HCTZ 12.5 mg daily, Labetolol 100 mg BID, and Hydralazine 25 mg TID Physician Supervision Note: I was present with Johanna COLON during the history and exam. I discussed the case with the PA and agree with the findings and plan as documented in the note. Any exceptions or clarifications are listed here: 66 y/o F Hx Solitary kidney and renal A stenosis, HPL, HTN, DMII - poorly controlled - presenting due to elevated BP reading which were confirmed at her dentist office. She has a mild MELCHOR but was otherwise asymptomatic - a CT head revealed a small old frontal CVA OE AAO x 3 S1,2 R CTAB NT, ND 1+ edema No deficits P: Provided with Metop in ER which has not had desired effect - administered low- dose Hydralazine which has been effective She takes Losartan which is not advised in presence of stenosis HCTZ was increased this week by PCP - renal function may have suffered due to both as creat shows slight increase We will decrease HCTZ and start Labetalol AM Possible DC reg may be Hydralazine, Labetolol, low-dose HCTZ Placed on SS from DM and is on ASA and Statin reg old/silent CVA Documented By: Ibrahima Infante Level of Care Telemetry Resuscitation Status FULL RESUSCITATION VTE Prophylaxis VTE Risk Assessment Done? Y/N: Yes Risk Level: Moderate Social Service Consult None Apply
[2017-08-14 21:08] VITALS: BP 182/92; PULSE 59; TEMP 37; O2SAT 98
[2017-08-14] MEDS ORDERED: IV FLUIDS COMPLETED PRN (21:15)
[2017-08-14] MEDS: LORAZEPAM 1 MG TAB PO PRN (21:22)
[2017-08-14] MEDS ORDERED: GLUCAGON FOR INJ 1 MG VIAL SQ PRN (21:45)
[2017-08-14] MEDS ORDERED: GLUCOSE 10 TABS/TUBE PO PRN (21:45)
[2017-08-14] MEDS ORDERED: GLUCOSE 40% GEL 15 GM TUBE PO PRN (21:45)
[2017-08-14] MEDS ORDERED: DEXTROSE 50% 50 ML SYR IV PRN (21:45)
[2017-08-14] MEDS: ATORVASTATIN 40 MG TAB PO SCH (21:52)
[2017-08-14 22:09] VITALS: BP_SYST 197; BP_SYST 224; BP_DIAS 114; BP_DIAS 81
[2017-08-14 22:40] VITALS: BP 220/90
[2017-08-14] MEDS ORDERED: NURSING VERBAL MED ORDER ONE ×2 (22:45→23:45)
[2017-08-14 22:54] VITALS: BP 161/83
[2017-08-15] VITALS (13 sets, daily range): BP systolic 123–191; BP diastolic 59–82; PULSE 61–86; TEMP 36.6–36.9; O2SAT 97–98; Ht 160 cm; Wt 88.9 kg
[2017-08-15 05:02] LABS: BLOOD UREA NITROGEN 41 mg/dl (7-18); BUN/CREATININE RATIO 25.5 (10-20); CALCIUM 8.4 mg/dl (8.5-10.1); CARBON DIOXIDE 25 mmol/L (21-32); CHLORIDE 108 mmol/L (98-107); CREATININE 1.62 mg/dl (0.60-1.20); GLUCOSE 94 mg/dl (70-99); POTASSIUM 3.9 mmol/L (3.5-5.1); SODIUM 141 mmol/L (136-145)
[2017-08-15 06:41] LABS: ESTIMATED AVERAGE GLUCOSE 220 mg/dl; HA1C FLAG Normal (Normal)
[2017-08-15 07:16] LABS: HEMATOCRIT 34.6 % (37-47); MEAN CELL VOLUME 90.1 fL (80-100); MEAN CORPUSCULAR HGB CONC 34.4 g/dl (32-36); MEAN PLATELET VOLUME 9.7 fL (7.4-10.4); PLATELET COUNT 213 K/uL (130-400); RED BLOOD COUNT 3.84 M/uL (4.2-5.4)
[2017-08-15] MEDS ORDERED: INSULIN ASPART 100 UNITS/ML 3 ML PEN SC SCH (07:30)
[2017-08-15] MEDS: INSULIN ASPART 100 UNITS/ML 3 ML PEN SC SCH ×4 (07:45→21:00)
[2017-08-15] MEDS: INSULIN GLARGINE SOLOSTAR 100 UNITS/ML 3 ML PEN SC SCH ×2 (07:47→21:32)
[2017-08-15] MEDS: CITALOPRAM 20 MG TAB PO SCH (07:50)
[2017-08-15] MEDS: ASPIRIN 325 MG ECTAB PO SCH (07:51)
[2017-08-15] MEDS: FERROUS SULFATE 325 MG TAB PO SCH (07:51)
[2017-08-15] MEDS: LABETALOL HCL 100 MG TAB PO SCH ×2 (07:52→19:20)
[2017-08-15] MEDS: HYDROCHLOROTHIAZIDE 25 MG TAB PO SCH (07:52)
[2017-08-15] MEDS: ACETAMINOPHEN 325 MG TAB PO PRN ×2 (09:56→16:12)
--- NOTE | 2017-08-15 10:15 | ECHOCARDIOGRAM REPORT ---
*NOTICE TO RECEIVING DEMOCRAT AGENCY This information is strictly Confidential and protected under [place] law. [place] law prohibits you from making any further disclosure of this information unless further disclosure is expressly permitted by the written consent of the person to whom it pertains or is authorized by law. A general authorization for the release of medical or other information is not sufficient for this purpose. Hospital accepts no responsibility if the information is made available to any other person, INCLUDING THE PATIENT. Interpretation Summary * Name: RUFUS HARTMAN Study Date: 08/15/2017 08:30 AM BP: 156/78 mmHg * [facility]: [facility] HR: 65 * : 1950 (M/d/yyyy) Gender: Female Height: 63 in * Age: 66 yrs Ethnicity: CA Weight: 219 lb * Ordering Physician: Johanna Hill * Referring Physician: Bob Guzman * Performed By: Liliya Montgomery RCS * * Reason For Study: CHF * BSA: 2.0 m2 * -- Conclusions -- * There is moderate concentric left ventricular hypertrophy. * Left ventricular systolic function is normal. * Grade I diastolic dysfunction, (abnormal relaxation pattern). * Borderline left atrial enlargement. Procedure Details * A complete two-dimensional transthoracic echocardiogram was performed (2D, M-mode, Doppler and color flow Doppler). Left Ventricle * The left ventricle is normal in size. * There is moderate concentric left ventricular hypertrophy. * Ejection Fraction = 60-65%. * Left ventricular systolic function is normal. * Grade I diastolic dysfunction, (abnormal relaxation pattern). * The left ventricular wall motion is normal. Right Ventricle * The right ventricle is normal in size and function. Atria * Borderline left atrial enlargement. * Right atrial size is normal. Mitral Valve * The mitral valve anatomy is normal. * Significant mitral regurgitation is absent. Tricuspid Valve * There is mild tricuspid regurgitation. * Right ventricular systolic pressure is normal. Aortic Valve * The aortic valve is normal in structure and function. * No hemodynamically significant valvular aortic stenosis. * No aortic regurgitation is present. Great Vessels * The aortic root is normal size. Pericardium/Pleural * There is no pericardial effusion. MMode 2D Measurements and Calculations IVSd 1.1 cm IVSs 1.6 cm LVIDd 4.5 cm LVIDs 2.7 cm LVPWd 1.1 cm LVPWs 1.5 cm IVS/LVPW 0.96 FS 40.8 % EDV(Teich) 94.3 ml ESV(Teich) 26.6 ml EF(Teich) 71.7 % EDV(cubed) 93.4 ml ESV(cubed) 19.3 ml EF(cubed) 79.3 % % IVS thick 42.2 % % LVPW thick 34.3 % LV mass(C)d 181.4 grams LV mass(C)dI 90.3 grams/m\S\2 LV mass(C)s 144.7 grams LV mass(C)sI 72.0 grams/m\S\2 SV(Teich) 67.6 ml SI(Teich) 33.7 ml/m\S\2 SV(cubed) 74.1 ml SI(cubed) 36.9 ml/m\S\2 Ao root diam 3.3 cm Ao root area 8.8 cm\S\2 ACS 1.5 cm LA dimension 4.0 cm asc Aorta Diam 3.2 cm LA/Ao 1.2 EDV(MOD-sp4) 95.8 ml ESV(MOD-sp4) 38.4 ml EF(MOD-sp4) 59.9 % EDV(MOD-sp2) 120.9 ml ESV(MOD-sp2) 35.9 ml EF(MOD-sp2) 70.3 % SV(MOD-sp4) 57.4 ml SI(MOD-sp4) 28.5 ml/m\S\2 SV(MOD-sp2) 85.0 ml SI(MOD-sp2) 42.3 ml/m\S\2 Doppler Measurements and Calculations MV E max josé miguel 99.2 cm/sec MV A max josé miguel 136.3 cm/sec MV E/A 0.73 MV P1/2t max josé miguel 93.2 cm/sec MV P1/2t 87.2 msec MVA(P1/2t) 2.5 cm\S\2 MV dec slope 312.8 cm/sec\S\2 MV dec time 0.34 sec Ao V2 max 86.7 cm/sec Ao max PG 5.5 mmHg Ao max PG (full) 1.0 mmHg LV V1 max PG 4.5 mmHg LV V1 max 105.9 cm/sec PA V2 max 148.9 cm/sec PA max PG 8.9 mmHg TR max josé miguel 221.7 cm/sec
--- NOTE | 2017-08-15 11:43 | Nephrology Consultation ---
Nephrology Consultation Date & Providers Date of Consultation: Aug 15, 2017. Primary Care Provider: Bob Guzman M.D. Referring Provider: Reason for Consultation Hypertensive urgency, CKD History of Present Illness Ms. Doll is a 66 year old white female who is seen at the request of Dr. Garcia for evaluation of hypertensive urgency and CKD. Medical records in the EMR were reviewed and are summarized as follows: Ms. Doll has stage III CKD ( moderate impairment). Her baseline creatinine has been 1.5 - 1.9 w/ EGFR 33 cc/ min. In the past she has been evaluated by myself. Ms. Doll was lost to follow up after 2013. More recently she has established care w/ Dr. Frye 11/06. Nephrology evaluation has revealed that the left kidney is atrophic and nonfunctional. Her medical history is significant for hypercholesterolemia, ASCVD, carotid stenosis, HEATHER w/ atrophy of L kidney, HTN, AODM, obesity and depression. Previously her vascular disease was being monitored by Dr. Boyd at [facility] [place]. She has recently transitioned her care locally to Dr. Carrizales. Ms. Doll reports that her blood pressure has been labile. She did not tolerate Amlodipine due to rash and fluid retention. Her most recent medical regimen has consisted of Atenolol 100 mg daily, Hyzaar 100/25 mg daily and HCTZ 25 mg daily. Over the last 10 months she has had blood pressure ranging from 160 - 190 mm HG. Yesterday Ms. Doll presented to the dentist for routine evaluation. SBP was > 200 mm HG. She was referred to [facility] ED for evaluation. In the ED bp was 249/103 w/ P 70. Creatinine was stable at 1.6. Patient has been admitted to PCU for monitoring. Hyzaar has been stopped. Blood pressure is now controlled (120 - 140 mm HG) with Labetalol 100 mg BID and HCTZ 12.5 mg daily. Past Medical/Surgical History Medical: # Stage III CKD w/ baseline creatinine has been 1.5 - 1.9 w/ EGFR 33 cc/min # Atrophic L kidney # HTN # Carotid stenosis # ASCVD # Hypercholesterolemia # AODM # Obesity # Depression Surgical: # Lumpectomy # Hysterectomy # Carpal tunnel decompression # PROMISE Allergies Coded Allergies: Lisinopril (Unverified Allergy, Unknown, 04/28/13) Sulfa Drugs (Verified Allergy, Unknown, 04/28/13) Inpatient Medications Current Inpatient Medications Medications (Trade) Dose Ordered Sig/[place] Route Start Time Stop Time Status Last Admin Dose Admin Acetaminophen (Tylenol Tab) 650 mg Q4H PRN PO 08/14/17 20:00 09/13/17 19:59 08/15/17 09:56 650 MG Al Hydrox/Mg Hydrox/Simethicone (Maalox Max Susp) 15 ml Q4H PRN PO 08/14/17 20:00 09/13/17 19:59 Magnesium Hydroxide (Milk Of Magnesia Susp) 30 ml Q12H PRN PO 08/14/17 20:00 09/13/17 19:59 Ondansetron HCl (Zofran Inj) 4 mg Q6H PRN IV 08/14/17 20:00 09/13/17 19:59 Polyethylene (Miralax Powder Packet) 17 gm DAILY PRN PO 08/14/17 20:00 09/13/17 19:59 Aspirin (Ecotrin Tab) 325 mg DAILY PO 08/15/17 09:00 09/14/17 08:59 08/15/17 07:51 325 MG Atorvastatin Calcium (Lipitor Tab) 80 mg DAILY PO 08/15/17 09:00 09/14/17 08:59 08/14/17 21:52 80 MG Citalopram Hydrobromide (celeXA TAB) 20 mg DAILY PO 08/15/17 09:00 09/14/17 08:59 Ferrous Sulfate (Feosol Tab) 325 mg DAILY PO 08/15/17 09:00 09/14/17 08:59 08/15/17 07:51 325 MG Hydrochlorothiazide (Hydrochlorothiazide Tab) 12.5 mg DAILY PO 08/15/17 09:00 09/14/17 08:59 08/15/17 07:52 12.5 MG Lorazepam (Ativan Tab) 1 mg BID PRN PO 08/14/17 20:15 09/13/17 20:14 08/14/17 21:22 1 MG Hydralazine HCl (HydrALAZINE INJ) 2.5 mg Q6H PRN IV. 08/14/17 20:15 09/13/17 20:14 Labetalol HCl (Normodyne Tab) 100 mg BID PO 08/15/17 09:00 09/14/17 08:59 08/15/17 07:52 100 MG Miscellaneous (Iv Fluids Completed) 1 ea PRN PRN N/A 08/14/17 21:15 08/14/18 21:14 Insulin Glargine (Lantus Solostar Pen) 34 units BID SC 08/15/17 09:00 09/14/17 08:59 08/15/17 07:47 34 UNITS Glucose (Glucose 40% Gel) 15-30 GRAMS 15 GRAMS... UD PRN PO 08/14/17 21:45 09/13/17 21:44 Glucose (Glucose Chew Tab) 4-8 Tablets 4 Tabl... UD PRN PO 08/14/17 21:45 09/13/17 21:44 Dextrose (Dextrose 50% 50ML Syringe) 25-50ML OF 50% DW IV FOR... UD PRN IV 08/14/17 21:45 09/13/17 21:44 Glucagon (Glucagon Inj) 1 mg UD PRN SQ 08/14/17 21:45 09/13/17 21:44 Insulin Aspart (novoLOG ASPART) SLIDING SCALE G... ACHS SC 08/15/17 07:00 09/14/17 06:59 08/15/17 07:45 3 UNITS Family History Diabetes mellitus Hypertension Negative for CKD / ESRD Social History Smoking Status: Never Smoker Smokeless Tobacco Use: No Alcohol Use: none Drug Use: none Marital Status: single Housing Status: lives with family Occupation: retired Lives in [place], [place]. . Two daughters in good health. 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 Denies tobacco or alcohol use. Review of Systems Constitutional: No fever Respiratory: No cough Cardiovascular: No chest pain Abdomen: No pain, No nausea, No vomiting Genitourinary - Female: No dysuria Neurologic: + problem reported (headache) A complete review of systems was performed. Pertinent positives are noted above. All other systems are negative. Physical Exam Date Time Temp Pulse Resp B/P (MAP) Pulse Ox O2 Delivery O2 Flow Rate FiO2 08/15/17 09:56 73 149/71 (97) 08/15/17 08:00 97 Room Air 08/15/17 07:58 36.9 65 18 156/78 (104) 97 Room Air 08/15/17 04:00 Room Air 08/15/17 03:08 36.6 61 18 123/59 (80) 97 Room Air 08/15/17 00:01 97 Room Air 08/15/17 00:00 36.6 64 16 150/71 (97) 97 Room Air 08/14/17 22:54 161/83 (109) 08/14/17 22:40 220/90 (133) 08/14/17 22:09 224/114 (150) 197/81 (119) 08/14/17 21:08 37.0 59 18 182/92 (122) 98 Room Air 08/14/17 20:55 Room Air 08/14/17 20:48 63 18 185/66 97 08/14/17 20:33 61 18 194/66 98 Room Air 08/14/17 20:21 61 08/14/17 19:45 64 18 218/90 99 Room Air 08/14/17 18:48 68 17 219/104 95 08/14/17 17:28 69 12 197/90 99 Room Air 08/14/17 17:23 100 Room Air 08/14/17 17:23 100 Room Air 08/14/17 16:56 36.8 70 18 249/103 98 Room Air General Appearance: no apparent distress Head: normocephalic, atraumatic Eyes: PERRL, EOMI Neck: no adenopathy Respiratory/Chest: lungs clear, no respiratory distress Cardiovascular: regular rate, rhythm Abdomen/GI: normal bowel sounds, non tender, soft Extremities/Musculoskelatal: no calf tenderness, no pedal edema Neurologic/Psych: alert, oriented x 3 Laboratory Results ECHOCARDIOGRAM 08/06: LVEF 60 - 65% w/ moderate LVH Last 24 Hours Test 08/14/17 17:22 08/14/17 17:50 08/14/17 19:43 08/14/17 21:57 White Blood Count 10.27 K/uL Red Blood Count 4.35 M/uL Hemoglobin 13.1 g/dL Hematocrit 39.1 % Mean Corpuscular Volume 89.9 fL Mean Corpuscular Hemoglobin 30.1 pg Mean Corpuscular Hemoglobin Concent 33.5 g/dl Platelet Count 235 K/uL Mean Platelet Volume 9.5 fL Neutrophils (%) (Auto) 62.9 % Lymphocytes (%) (Auto) 24.5 % Monocytes (%) (Auto) 6.9 % Eosinophils (%) (Auto) 4.8 % Basophils (%) (Auto) 0.5 % Neutrophils # (Auto) 6.46 K/uL Lymphocytes # (Auto) 2.52 K/uL Monocytes # (Auto) 0.71 K/uL Eosinophils # (Auto) 0.49 K/uL Basophils # (Auto) 0.05 K/uL Bedside Hemoglobin 12.6 g/dl Bedside Hematocrit 37 % RDW Standard Deviation 38.7 fL RDW Coefficient of Variation 11.9 % Immature Granulocyte % (Auto) 0.4 % Immature Granulocyte # (Auto) 0.04 K/uL Prothrombin Time 10.0 SECONDS Prothromb Time International Ratio 0.9 Activated Partial Thromboplast Time 24.9 SECONDS Partial Thromboplastin Ratio 1.0 Bedside Sodium 139 mEq/L Sodium Level 138 mmol/L Bedside Potassium 4.0 mEq/L Potassium Level 4.0 mmol/L Bedside Chloride 103 mEq/L Chloride Level 106 mmol/L Carbon Dioxide Level 25 mmol/L Bedside Total CO2 26 mEq/l Anion Gap 16.0 mmol/L Bedside Blood Urea Nitrogen 42 mg/dl Blood Urea Nitrogen 44 mg/dl Creatinine 1.70 mg/dl Bedside Creatinine 1.6 mg/dl Est Creatinine Clear Calc Drug Dose 37.1 ml/min Estimated GFR () 36.0 Estimated GFR (Non- 31.1 BUN/Creatinine Ratio 25.6 Bedside Glucose (other) 259 mg/dl Random Glucose 263 mg/dl Estimated Average Glucose 220 mg/dl Hemoglobin A1c 9.3 % Calcium Level 8.4 mg/dl Bedside Ionized Calcium (Rex) 1.19 mmol/l Total Bilirubin 0.3 mg/dl Direct Bilirubin < 0.1 mg/dl Aspartate Amino Transf (AST/SGOT) 16 U/L Alanine Aminotransferase (ALT/SGPT) 25 U/L Alkaline Phosphatase 82 U/L Total Creatine Kinase 142 U/L Creatine Kinase MB 2.3 ng/ml Creatine Kinase MB Ratio 1.6 Troponin I < 0.015 ng/ml Pro-B-Type Natriuretic Peptide 2264 pg/ml Total Protein 7.4 gm/dl Albumin 3.0 gm/dl Lipase 254 U/L Beta-Hydroxybutyric Acid 0.86 mg/dL Thyroid Stimulating Hormone (TSH) 3.060 uIu/ml Urine Color YELLOW Urine Appearance CLEAR Urine pH 6.5 Urine Specific [place] 1.015 Urine Protein 3+ Urine Glucose (UA) 2+ Urine Ketones NEG Urine Occult Blood TRACE Urine Nitrite NEG Urine Bilirubin NEG Urine Urobilinogen NEG Urine Leukocyte Esterase NEG Urine WBC (Auto) 1-5 /hpf Urine RBC (Auto) 0-4 /hpf Urine Hyaline Casts (Auto) 0 /lpf Urine Epithelial Cells (Auto) 10-20 /lpf Urine Bacteria (Auto) NEG Bedside Glucose 143 mg/dl 92 mg/dl Test 08/14/17 23:12 08/15/17 04:33 08/15/17 07:09 08/15/17 10:01 Troponin I < 0.015 ng/ml < 0.015 ng/ml White Blood Count 9.30 K/uL Red Blood Count 3.84 M/uL Hemoglobin 11.9 g/dL Hematocrit 34.6 % Mean Corpuscular Volume 90.1 fL Mean Corpuscular Hemoglobin 31.0 pg Mean Corpuscular Hemoglobin Concent 34.4 g/dl RDW Standard Deviation 39.7 fL RDW Coefficient of Variation 12.3 % Platelet Count 213 K/uL Mean Platelet Volume 9.7 fL Nucleated RBC Absolute Count (auto) 0.00 K/uL Nucleated Red Blood Cells % 0.0 % Sodium Level 141 mmol/L Potassium Level 3.9 mmol/L Chloride Level 108 mmol/L Carbon Dioxide Level 25 mmol/L Anion Gap 8.0 mmol/L Blood Urea Nitrogen 41 mg/dl Creatinine 1.62 mg/dl Est Creatinine Clear Calc Drug Dose 39.0 ml/min Estimated GFR () 38.2 Estimated GFR (Non- 33.0 BUN/Creatinine Ratio 25.5 Random Glucose 94 mg/dl Calcium Level 8.4 mg/dl Bedside Glucose 121 mg/dl 193 mg/dl Test 08/15/17 11:09 08/15/17 11:19 Bedside Glucose 192 mg/dl Impression (1) Hypertensive urgency (2) Atrophy of left kidney (3) Carotid stenosis, bilateral (4) Coronary artery disease (5) Hyperlipemia (6) Diabetes (7) Depression Recommendations CHRONIC KIDNEY DISEASE: -- Kidney function remains stable at this time. Will monitor PRP -- Urine sediment is acellular. Patient does have proteinuria. Will check UPCR once bp is controlled -- 11/06 Renal US report reviewed: L kidney is atrophic measuring < 8 cm HYPERTENSION: -- Will obtain renal artery doppler -- Low sodium diet -- Hypertension at presentation w/ HR 70's and immediate improvement with low dose Labetalol and low dose HCTZ raises concern for medication nonadherence -- Continue to monitor bp. If renal artery doppler is negative recommend reinstitution of ARB therapy PVD: -- Will order carotid doppler studies
--- NOTE | 2017-08-15 12:06 | Family Medicine Progress Note ---
Progress Note Date of Service Aug 15, 2017. Subjective Pt evaluation today including: conversation w/ patient, physical exam, chart review, lab review Pain: Denies any pain PO Intake: Good Voiding: no voiding problems 66-year-old female with a past medical history of secondary resistant hypertension, renal artery stenosis, CAD stage III, coronary artery disease with RCA disease, hyperlipidemia, carotid stenosis, history of frontal lobe infarct, Type 2 diabetes presents to the ER after she was found to have an elevated blood pressure at the dentist office. Her home medications for blood pressure were atenolol 100 mg daily, Hyzaar 100/ 25 mg daily and Hydrochlorothiazide 25 mg daily. She was admitted to telemetry and switched to labetalol 100 mg twice a day and Hydrochlorothiazide 12.5 mg daily. Complains of headaches, palpitations, dizziness and blurry vision. Denies any numbness, tingling, motor weakness. Constitutional: No fever, No chills Eyes: + worsening of vision, + problem reported (Blurriness of vision) ENT: No hearing loss Respiratory: No cough, No sputum Cardiovascular: + palpitations, No chest pain Breast: No breast lump Abdomen: No pain, No nausea Musculoskeletal: No joint pain Female : No dysuria Neurologic: + problem reported, No paralysis (Headache), No weakness, No numbness/tingling Heme: No abnormal bleeding/bruising Medications Current Inpatient Medications Medications (Trade) Dose Ordered Sig/[place] Route Start Time Stop Time Status Last Admin Dose Admin Acetaminophen (Tylenol Tab) 650 mg Q4H PRN PO 08/14/17 20:00 09/13/17 19:59 08/15/17 16:12 650 MG Al Hydrox/Mg Hydrox/Simethicone (Maalox Max Susp) 15 ml Q4H PRN PO 08/14/17 20:00 09/13/17 19:59 Magnesium Hydroxide (Milk Of Magnesia Susp) 30 ml Q12H PRN PO 08/14/17 20:00 09/13/17 19:59 Ondansetron HCl (Zofran Inj) 4 mg Q6H PRN IV 08/14/17 20:00 09/13/17 19:59 Polyethylene (Miralax Powder Packet) 17 gm DAILY PRN PO 08/14/17 20:00 09/13/17 19:59 Aspirin (Ecotrin Tab) 325 mg DAILY PO 08/15/17 09:00 09/14/17 08:59 08/15/17 07:51 325 MG Atorvastatin Calcium (Lipitor Tab) 80 mg DAILY PO 08/15/17 09:00 09/14/17 08:59 08/14/17 21:52 80 MG Citalopram Hydrobromide (celeXA TAB) 20 mg DAILY PO 08/15/17 09:00 09/14/17 08:59 Ferrous Sulfate (Feosol Tab) 325 mg DAILY PO 08/15/17 09:00 09/14/17 08:59 08/15/17 07:51 325 MG Hydrochlorothiazide (Hydrochlorothiazide Tab) 12.5 mg DAILY PO 08/15/17 09:00 09/14/17 08:59 08/15/17 07:52 12.5 MG Lorazepam (Ativan Tab) 1 mg BID PRN PO 08/14/17 20:15 09/13/17 20:14 08/14/17 21:22 1 MG Hydralazine HCl (HydrALAZINE INJ) 2.5 mg Q6H PRN IV. 08/14/17 20:15 09/13/17 20:14 Labetalol HCl (Normodyne Tab) 100 mg BID PO 08/15/17 09:00 09/14/17 08:59 08/15/17 07:52 100 MG Miscellaneous (Iv Fluids Completed) 1 ea PRN PRN N/A 08/14/17 21:15 08/14/18 21:14 Insulin Glargine (Lantus Solostar Pen) 34 units BID SC 08/15/17 09:00 09/14/17 08:59 08/15/17 07:47 34 UNITS Glucose (Glucose 40% Gel) 15-30 GRAMS 15 GRAMS... UD PRN PO 08/14/17 21:45 09/13/17 21:44 Glucose (Glucose Chew Tab) 4-8 Tablets 4 Tabl... UD PRN PO 08/14/17 21:45 09/13/17 21:44 Dextrose (Dextrose 50% 50ML Syringe) 25-50ML OF 50% DW IV FOR... UD PRN IV 08/14/17 21:45 09/13/17 21:44 Glucagon (Glucagon Inj) 1 mg UD PRN SQ 08/14/17 21:45 09/13/17 21:44 Insulin Aspart (novoLOG ASPART) SLIDING SCALE G... ACHS SC 08/15/17 07:00 09/14/17 06:59 08/15/17 16:59 3 UNITS Objective Vital Signs Date Time Temp Pulse Resp B/P (MAP) Pulse Ox O2 Delivery O2 Flow Rate FiO2 08/15/17 16:00 Room Air 08/15/17 15:33 36.6 71 19 168/81 (110) 98 Room Air 08/15/17 12:06 36.6 84 18 166/78 (107) 98 Room Air 08/15/17 12:00 97 Room Air 08/15/17 09:56 73 149/71 (97) 08/15/17 08:00 97 Room Air 08/15/17 07:58 36.9 65 18 156/78 (104) 97 Room Air 08/15/17 04:00 Room Air 08/15/17 03:08 36.6 61 18 123/59 (80) 97 Room Air 08/15/17 00:01 97 Room Air 08/15/17 00:00 36.6 64 16 150/71 (97) 97 Room Air 08/14/17 22:54 161/83 (109) 08/14/17 22:40 220/90 (133) 08/14/17 22:09 224/114 (150) 197/81 (119) 08/14/17 21:08 37.0 59 18 182/92 (122) 98 Room Air 08/14/17 20:55 Room Air 08/14/17 20:48 63 18 185/66 97 08/14/17 20:33 61 18 194/66 98 Room Air 08/14/17 20:21 61 08/14/17 19:45 64 18 218/90 99 Room Air 08/14/17 18:48 68 17 219/104 95 Physical Exam General Appearance: WD/WN Eyes: normal inspection ENT: hearing grossly normal, TMs normal Neck: supple Respiratory/Chest: lungs clear, normal breath sounds, no respiratory distress Cardiovascular: regular rate, rhythm Abdomen: normal bowel sounds, non tender, soft Extremities: normal range of motion, non-tender, no pedal edema Neurologic/Psychiatric: group art supervisor II-XII nml as tested, no motor/sensory deficits, alert, normal mood/affect, oriented x 3 Skin: normal color Laboratory Results 08/15/17 04:33 08/15/17 04:33 Test 08/14/17 17:50 08/15/17 04:33 08/15/17 11:09 08/15/17 11:35 Urine Color YELLOW Urine Appearance CLEAR (CLEAR) Urine pH 6.5 (4.5-7.5) Urine Specific [place] 1.015 (1.000-1.030) Urine Protein 3+ (NEG) Urine Glucose (UA) 2+ (NEG) Urine Ketones NEG (NEG) Urine Occult Blood TRACE (NEG) Urine Nitrite NEG (NEG) Urine Bilirubin NEG (NEG) Urine Urobilinogen NEG (NEG) Urine Leukocyte Esterase NEG (NEG) Urine WBC (Auto) 1-5 /hpf (0-5) Urine RBC (Auto) 0-4 /hpf (0-4) Urine Hyaline Casts (Auto) 0 /lpf (0-5) Urine Epithelial Cells (Auto) 10-20 /lpf (0-5) Urine Bacteria (Auto) NEG (NEG) Red Blood Count 3.84 M/uL (4.2-5.4) Mean Corpuscular Volume 90.1 fL (80-100) Mean Corpuscular Hemoglobin 31.0 pg (25-34) Mean Corpuscular Hemoglobin Concent 34.4 g/dl (32-36) RDW Standard Deviation 39.7 fL (36.4-46.3) RDW Coefficient of Variation 12.3 % (11.5-14.5) Mean Platelet Volume 9.7 fL (7.4-10.4) Nucleated RBC Absolute Count (auto) 0.00 K/uL (0-0) Nucleated Red Blood Cells % 0.0 % Anion Gap 8.0 mmol/L (3-11) Est Creatinine Clear Calc Drug Dose 39.0 ml/min Estimated GFR () 38.2 Estimated GFR (Non- 33.0 BUN/Creatinine Ratio 25.5 (10-20) Calcium Level 8.4 mg/dl (8.5-10.1) Troponin I < 0.015 ng/ml (0-0.045) Bedside Glucose 192 mg/dl (70-90) Random Cortisol 6.08 mcg/dl Assessment and Plan 66-year-old female with a past medical history of secondary resistant hypertension, renal artery stenosis, CAD stage III, coronary artery disease with RCA disease, hyperlipidemia, carotid stenosis, history of frontal lobe infarct, Type 2 diabetes presents to the ER after she was found to have an elevated blood pressure at the dentist office. Her home medications for blood pressure were atenolol 100 mg daily, Hyzaar 100/ 25 mg daily and Hydrochlorothiazide 25 mg daily. She was admitted to telemetry and switched to labetalol 100 mg twice a day and Hydrochlorothiazide 12.5 mg daily. Uncontrolled blood pressure: - Resistant secondary hypertension, history of renal artery stenosis - Continue Lopressor 100 mg twice a day and hydrochlorothiazide 12.5 mg daily, may use hydralazine as needed for blood pressures more than 170 - Renal artery ultrasound ordered - Other causes of secondary hypertension explored including nocturnal pulse ox for sleep apnea, 24-hour urine metanephrines for pheochromocytoma, renin/ aldosterone, cortisol level - Nephrology consult- appreciate input History of left frontal lobe infarct/history of carotid stenosis - No residual deficits - Ultrasound of the carotid arteries ordered - Continue high-dose aspirin CKD stage III/History of atrophic left kidney - Creatinine currently bumped at1.6 - Urine/creatinine ratio ordered - Nephrology consult Type 2 diabetes: History of noncompliance - Hemoglobin A1c at 9.3 - Poorly controlled diet- She will need education for managing diet and using insulin appropriately - Continue Lantus 34 units twice a day with sliding scale - project manager interior design consult CAD/RCA disease/Hyperlipidemia - Continue aspirin and atorvastatin - Echo ordered DVT Prophylaxis: SCDs Disposition: -Telemetry Resident Tracking Resident Involvement: Resident Care Provided Care Provided: Adult Hospital Medicine
--- NOTE | 2017-08-15 15:36 | DIAGNOSTIC IMAGING REPORT ---
DOPPLER ULTRASOUND OF THE RENAL ARTERIES CLINICAL HISTORY: Hypertension. COMPARISON STUDY: Renal ultrasound dated 07/29/2017. TECHNIQUE: Doppler sonography of the renal arteries was performed to assess renal artery stenosis. Images are reviewed in the transverse and longitudinal planes. Examination is degraded by large body habitus and by abdominal bowel gas. FINDINGS: There is asymmetric cortical atrophy of the left kidney as compared to the right. Right kidney measures 10.5 cm in length. The left Kidney measures 7.4 cm in length. There is no hydronephrosis. A 2.2 cm cyst is noted on the right. On the right, intrarenal arterial resistive indices range from 0.69 to 0.73. Intrarenal arterial waveforms are normal with brisk upstrokes. The right renal arterial waveform is normal, and velocities within the right renal artery measure up to 139 cm/sec. The right renal vein is patent. On the left, intrarenal arterial resistive indices range from 0.74 to 0.77. Intrarenal arterial waveforms are normal with brisk upstrokes. The proximal to mid portions of the left renal artery are not well visualized. The left renal arterial waveform is normal, and velocities in the distal left renal artery measure up to 74 cm/sec. The left renal vein is patent. The abdominal aorta is patent. Velocities within the abdominal aorta measure up to 170 cm/s. IMPRESSION: 1. There is no convincing sonographic evidence of renal artery stenosis. 2. There is asymmetric cortical atrophy of the left kidney as compared to the right. 3. Elevated resistive indices suggests medical renal disease. Electronically signed by: Fabio Shafer M.D. 08/15/2017 3:35 PM Dictated Date/Time: 08/15/2017 3:31 PM
--- NOTE | 2017-08-15 15:57 | DIAGNOSTIC IMAGING REPORT ---
CAROTID DOPPLER NECK ART CLINICAL HISTORY: 66 years-old Female with bruit, htn. Hypertension with carotid bruit. History of occluded right common carotid artery with retrograde flow within the right external carotid artery. Also, history of left ICA occlusion COMPARISON: Carotid ultrasound 10/05/2011 TECHNIQUE: Multiple real time sonographic images of the carotid bifurcations were obtained assessing woo scale, color Doppler and spectral wave form appearance FINDINGS: RIGHT CAROTID: The peak systolic velocity measured 94 cm/sec. The end diastolic velocity measured 37 cm/sec. These findings correlate with a stenosis of 0-50%. Chronic occlusion of the right common artery is again seen with retrograde flow of the external carotid artery supplying the right ICA. Extensive plaquing is seen at the right carotid bulb, mostly atheromatous. LEFT CAROTID: Left common carotid artery is patent. Chronic occlusion of the left internal carotid artery beginning at the level of the carotid bulb. This finding appears unchanged from comparison. There is normal antegrade vertebral flow bilaterally. IMPRESSION: 1. Stable exam with redemonstration of chronic occlusion involving the right common carotid artery with retrograde flow of the external carotid artery supplying the right ICA. 2. Chronic occlusion of the left internal carotid artery beginning at the level of the carotid bulb is also unchanged from comparison. 3. Antegrade flow of the bilateral vertebral arteries. The above report was generated using voice recognition software. It may contain grammatical, syntax or spelling errors. Electronically signed by: Ton Dowell M.D. 08/15/2017 3:56 PM Dictated Date/Time: 08/15/2017 3:50 PM
[2017-08-15] MEDS: LORAZEPAM 1 MG TAB PO PRN (21:33)
[2017-08-15] MEDS ORDERED: NURSING VERBAL MED ORDER STA (22:13)
[2017-08-16 00:01] VITALS: O2SAT 98
[2017-08-16 03:39] VITALS: BP 173/72; PULSE 92; TEMP 36.6; O2SAT 98
[2017-08-16] MEDS: INSULIN ASPART 100 UNITS/ML 3 ML PEN SC SCH ×2 (07:00→11:56)
[2017-08-16 07:17] LABS: HEMATOCRIT 33.9 % (37-47); MEAN CELL VOLUME 89.7 fL (80-100); MEAN CORPUSCULAR HEMOGLOBIN 30.7 pg (25-34); MEAN CORPUSCULAR HGB CONC 34.2 g/dl (32-36); MEAN PLATELET VOLUME 9.5 fL (7.4-10.4); PLATELET COUNT 195 K/uL (130-400); RED BLOOD COUNT 3.78 M/uL (4.2-5.4); WHITE BLOOD COUNT 7.15 K/uL (4.8-10.8)
[2017-08-16] MEDS: LABETALOL HCL 100 MG TAB PO SCH (07:26)
[2017-08-16] MEDS: ASPIRIN 325 MG ECTAB PO SCH (07:26)
[2017-08-16] MEDS: ATORVASTATIN 40 MG TAB PO SCH (07:27)
[2017-08-16] MEDS: HYDROCHLOROTHIAZIDE 25 MG TAB PO SCH (07:27)
[2017-08-16] MEDS: CITALOPRAM 20 MG TAB PO SCH ×2 (07:27→07:28)
[2017-08-16] MEDS: FERROUS SULFATE 325 MG TAB PO SCH (07:27)
[2017-08-16 07:30] VITALS: BP 157/82; PULSE 86; TEMP 36.7; O2SAT 97
[2017-08-16 07:47] LABS: BUN/CREATININE RATIO 27.8 (10-20); CALCIUM 8.8 mg/dl (8.5-10.1); CREATININE 1.52 mg/dl (0.60-1.20)
[2017-08-16] MEDS: INSULIN GLARGINE SOLOSTAR 100 UNITS/ML 3 ML PEN SC SCH (08:04)
--- NOTE | 2017-08-16 08:05 | Clinical Documentation Query ---
CLINICAL DOCUMENTATION QUERY QUERY 1 OF 2 A 66 y/o female with PMHx of Secondary Resistant HTN due to Renal Artery Stenosis, CKD Stage III, CAD with RCA Disease In your clinical opinion is this patient being managed for: ( x) Hypertensive urgency and CKD 3 with chronic diastolic CHF ( ) Not Agree ( ) Other explanation of clinical findings (Please Explain) ( ) Unable to determine (Please Define) ( ) Need to Discuss The medical record reflects the following clinical findings, treatment, and risk factors. Clinical Indicators: Documented hypertension, CKD 3, pro-BNP = 2264, echo = moderate left ventricular hypertrophy, EF = 60-65%, SOB with exertion Treatment: Telemetry, I&O, low sodium diet, echo, daily weights Risk Factors: HTN, atrophied left kidney, s/p NC, carotid stenosis, DM2 QUERY 2 OF 2 In your clinical opinion is this patient being managed for: (x ) Acute kidney failure ( ) Not Agree ( ) Other explanation of clinical findings (Please Explain) ( ) Unable to determine (Please Define) ( ) Need to Discuss The medical record reflects the following clinical findings, treatment, and risk factors. Clinical Indicators: Creatinine 1.7 trending up from baseline of 1.30, proteinuria, hypertension Treatment: Serial PRP's, I&Os, telemetry, low sodium diet Risk Factors: Atrophied left kidney, CKD 3, hypertensive urgency Please clarify and document your clinical opinion in the progress notes and discharge summary. Terms such as "probable", "suspected", "likely", "questionable", "possible", or "still to be ruled out" are acceptable. IF IN AGREEMENT, YOU MUST DOCUMENT ABOVE DIAGNOSTIC STATEMENT IN DAILY PROGRESS NOTES AND DISCHARGE SUMMARY. This document is not part of the patient's record. Thank You, Ameena Moran RN [phone]
[2017-08-16 09:00] VITALS: BP 126/74
[2017-08-16] MEDS ORDERED: LABETALOL HCL 100 MG TAB PO ONE (09:45)
[2017-08-16] MEDS ORDERED: HYDROCHLOROTHIAZIDE 25 MG TAB PO ONE (09:45)
--- NOTE | 2017-08-16 10:11 | Nephrology Progress Note ---
Nephrology Progress Note Date of Service Aug 16, 2017. Chief Complaint Hypertensive urgency, CKD Subjective Ms. Doll was seen & examined in the PCU this morning. She c/o mild MELCHOR but denies angina, dyspnea or visual change. She is tolerating Labetalol without palpitations. She reports SBP 150 - 170 mm Hg overnight. Ms. Doll reports that she has been compliant w/ her home medications. Review of Systems Constitutional: No fever Cardiovascular: No chest pain Respiratory: No dyspnea at rest Abdomen: No pain, No nausea, No vomiting Extremities: No leg edema A complete review of systems was performed. Pertinent positives are noted above. All other systems are negative. Vital Signs Last 8 Hrs Date Time Temp Pulse Resp B/P (MAP) Pulse Ox O2 Delivery O2 Flow Rate FiO2 08/16/17 09:00 126/74 (91) 08/16/17 08:00 Room Air 08/16/17 07:30 36.7 86 20 157/82 (107) 97 Room Air 08/16/17 04:00 Room Air 08/16/17 03:39 36.6 92 18 173/72 (105) 98 Room Air Last Recorded Weight Weight (Kilograms): 88.900 Physical Exam General Appearance: no apparent distress Head: normocephalic, atraumatic Eyes: PERRL, EOMI Neck: supple, no adenopathy Respiratory/Chest: lungs clear Cardiovascular: regular rate, rhythm Abdomen/GI: normal bowel sounds, non tender, soft Extremities/Musculoskelatal: no calf tenderness, no pedal edema Neurologic/Psych: alert, oriented x 3 Family History Diabetes mellitus Hypertension Negative for CKD / ESRD Social History Smoking Status: Never smoker Smokeless Tobacco Use: No Alcohol Use: none Drug Use: none Marital Status: single Housing Status: lives with family Occupation: retired Lives in [place], [place]. . Two daughters in good health. 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 Denies tobacco or alcohol use. Laboratory Results Past 24 Hours 08/16/17 06:55 08/16/17 06:55 Test 08/15/17 11:09 08/15/17 11:35 08/15/17 16:14 08/15/17 19:56 Bedside Glucose 192 mg/dl (70-90) 113 mg/dl (70-90) 168 mg/dl (70-90) Random Cortisol 6.08 mcg/dl Test 08/16/17 06:55 Red Blood Count 3.78 M/uL (4.2-5.4) Mean Corpuscular Volume 89.7 fL (80-100) Mean Corpuscular Hemoglobin 30.7 pg (25-34) Mean Corpuscular Hemoglobin Concent 34.2 g/dl (32-36) RDW Standard Deviation 39.5 fL (36.4-46.3) RDW Coefficient of Variation 12.3 % (11.5-14.5) Mean Platelet Volume 9.5 fL (7.4-10.4) Anion Gap 8.0 mmol/L (3-11) Est Creatinine Clear Calc Drug Dose 39.0 ml/min Estimated GFR () 41.3 Estimated GFR (Non- 35.6 BUN/Creatinine Ratio 27.8 (10-20) Calcium Level 8.8 mg/dl (8.5-10.1) Allergies Coded Allergies: Lisinopril (Unverified Allergy, Unknown, 04/28/13) Sulfa Drugs (Verified Allergy, Unknown, 04/28/13) Medications Current Inpatient Medications Medications (Trade) Dose Ordered Sig/[place] Route Start Time Stop Time Status Last Admin Dose Admin Acetaminophen (Tylenol Tab) 650 mg Q4H PRN PO 08/14/17 20:00 09/13/17 19:59 08/15/17 16:12 650 MG Al Hydrox/Mg Hydrox/Simethicone (Maalox Max Susp) 15 ml Q4H PRN PO 08/14/17 20:00 09/13/17 19:59 Magnesium Hydroxide (Milk Of Magnesia Susp) 30 ml Q12H PRN PO 08/14/17 20:00 09/13/17 19:59 Ondansetron HCl (Zofran Inj) 4 mg Q6H PRN IV 08/14/17 20:00 09/13/17 19:59 Polyethylene (Miralax Powder Packet) 17 gm DAILY PRN PO 08/14/17 20:00 09/13/17 19:59 Aspirin (Ecotrin Tab) 325 mg DAILY PO 08/15/17 09:00 09/14/17 08:59 08/16/17 07:26 325 MG Atorvastatin Calcium (Lipitor Tab) 80 mg DAILY PO 08/15/17 09:00 09/14/17 08:59 08/16/17 07:27 80 MG Citalopram Hydrobromide (celeXA TAB) 20 mg DAILY PO 08/15/17 09:00 09/14/17 08:59 Ferrous Sulfate (Feosol Tab) 325 mg DAILY PO 08/15/17 09:00 09/14/17 08:59 08/16/17 07:27 325 MG Lorazepam (Ativan Tab) 1 mg BID PRN PO 08/14/17 20:15 09/13/17 20:14 08/15/17 21:33 1 MG Hydralazine HCl (HydrALAZINE INJ) 2.5 mg Q6H PRN IV. 08/14/17 20:15 09/13/17 20:14 Miscellaneous (Iv Fluids Completed) 1 ea PRN PRN N/A 08/14/17 21:15 08/14/18 21:14 Insulin Glargine (Lantus Solostar Pen) 34 units BID SC 08/15/17 09:00 09/14/17 08:59 08/16/17 08:04 34 UNITS Glucose (Glucose 40% Gel) 15-30 GRAMS 15 GRAMS... UD PRN PO 08/14/17 21:45 09/13/17 21:44 Glucose (Glucose Chew Tab) 4-8 Tablets 4 Tabl... UD PRN PO 08/14/17 21:45 09/13/17 21:44 Dextrose (Dextrose 50% 50ML Syringe) 25-50ML OF 50% DW IV FOR... UD PRN IV 08/14/17 21:45 09/13/17 21:44 Glucagon (Glucagon Inj) 1 mg UD PRN SQ 08/14/17 21:45 09/13/17 21:44 Insulin Aspart (novoLOG ASPART) SLIDING SCALE G... ACHS SC 08/15/17 07:00 09/14/17 06:59 08/15/17 16:59 3 UNITS Labetalol HCl (Normodyne Tab) 200 mg BID PO 08/16/17 21:00 09/15/17 20:59 Chlorthalidone (Hygroton Tab) 25 mg DAILY@0600 PO 08/17/17 06:00 09/16/17 05:59 Impression (1) Hypertensive urgency (2) Atrophy of left kidney (3) Carotid stenosis, bilateral (4) Coronary artery disease (5) Hyperlipemia (6) Diabetes (7) Depression Recommendations CHRONIC KIDNEY DISEASE: -- Kidney function remains stable at this time. Will monitor PRP -- Urine sediment is acellular. Patient does have proteinuria. Will check UPCR once bp is controlled -- 08/06 Renal US report reviewed: L kidney is atrophic measuring < 8 cm. No HEATHER identified HYPERTENSION: -- Low sodium diet -- Blood pressure remained elevated yesterday. Will increase Labetalol to 200 mg po BID and change HCTZ to Chlorthalidone 25 mg each morning -- Patient educated today on how to download and use the free eloise "[employer] " to assist her with home medication administration PVD: -- Carotid doppler report reviewed. Patient has chronic obstruction of bilateral ICA. She fills from collateral flow via the ECA's OTHER: -- When discharge is anticipated please have patient schedule Nephrology follow up appointment w/ Dr. Denny for 1 - 2 weeks. I have placed orders in [facility] EMR to have NONfasting PRP and CBC completed 24 - 48 hours prior to her office visit
--- NOTE | 2017-08-16 10:51 | Family Medicine Progress Note ---
Progress Note Date of Service Aug 16, 2017.
[2017-08-16 12:10] VITALS: BP 144/69; PULSE 81; TEMP 37.1; O2SAT 96
[2017-08-16] MEDS ORDERED: HYG25 PO (13:14)
--- NOTE | 2017-08-16 15:07 | Discharge Instructions ---
Discharge Instructions Date of Service Aug 16, 2017. Admission Reason for Admission: Hypertension Discharge Discharge Diagnosis / Problem: Hypertensive Urgency Discharge Goals Goal(s): Decrease discomfort, Improve function, Increase independence, Improve disease control, Improve nutritional status, Learn about illness, Diagnostic testing, Therapeutic intervention, Screening, Prevent Disease Progression, Specific goals Activity Recommendations Activity Limitations: resume your previous activity . Instructions / Follow-Up Instructions / Follow-Up You came into the hospital with elevated Blood pressure. You were treated acutely with antihypertensive medication. Labs are pending to identify a particular cause of the hypertension. This can be followed up in clinic Follow up with your healthcare provider (Dr. Brothers) [facility] at [address] in addition to pet stylist Dr. Denny ( [facility]) within 1-2 wks : -You will need to return to have your blood pressure checked and other tests Monitor your blood pressure at home: -Take your blood pressure while in a seated position. -Take it at least twice a day, such as morning and evening. -Keep a log of your blood pressure readings and bring it to your follow-up visits. Contact your healthcare provider if: -You run out of medicine. -You have questions or concerns about your condition or care. Seek care immediately or call 911 if: You take your blood pressure and it is 180/110 or higher. -You have a severe headache. -You have chest pain or shortness of breath. -You have weakness or numbness in your face, arms, or legs. -You cannot see or talk as well as usual. Current Hospital Diet Patient's current hospital diet: Diabetes Type 2 Diet, AHA Diet (Heart Healthy) Discharge Diet Recommended Diet: Low Sodium Diet (2gm Na) Pending Studies Studies pending at discharge: yes List of pending studies: Renin Aldosterone Metanephrines Laboratory Results Hemoglobin A1c Test 08/14/17 17:22 Range/Units Estimated Average Glucose 220 mg/dl Hemoglobin A1c 9.3 H 4.5-5.6 % Medical Emergencies . Who to Call and When: Medical Emergencies: If at any time you feel your situation is an emergency, please call 911 immediately. . Non-Emergent Contact Non-Emergency issues call your: Primary Care Provider, Television Inspector Call Non-Emergent contact if: you have a fever, your pain is not controlled, your pain is worsening, your pain is unusual for you, your pain is concerning you, you have any medication questions . . "Provider Documentation" section prepared by Marco Brothers. . VTE Core Measure Inpt VTE Proph given/why not?: SCD's
[2017-08-16 15:16] VITALS: BP 144/69; PULSE 81; TEMP 37.1; O2SAT 96
[2017-08-16] MEDS ORDERED: LBT200 PO (15:42)
--- NOTE | 2017-08-16 19:23 | Discharge Summary ---
Discharge Summary Date of Service Aug 16, 2017. Discharge Summary Admission Date: Aug 15, 2017 at 17:19 Discharge Date: Aug 16, 2017 Discharge Disposition: Home Principal Diagnosis: Hypertensive Urgency Immunizations: History of Tetanus Vaccine?: Unknown History of Pneumococcal: Unknown History of Hepatitis B Vaccine: Unknown Procedures: CAROTID DOPPLER NECK ART CLINICAL HISTORY: 66 years-old Female with bruit, htn. Hypertension with carotid bruit. History of occluded right common carotid artery with retrograde flow within the right external carotid artery. Also, history of left ICA occlusion COMPARISON: Carotid ultrasound 10/05/2011 TECHNIQUE: Multiple real time sonographic images of the carotid bifurcations were obtained assessing woo scale, color Doppler and spectral wave form appearance FINDINGS: RIGHT CAROTID: The peak systolic velocity measured 94 cm/sec. The end diastolic velocity measured 37 cm/sec. These findings correlate with a stenosis of 0-50%. Chronic occlusion of the right common artery is again seen with retrograde flow of the external carotid artery supplying the right ICA. Extensive plaquing is seen at the right carotid bulb, mostly atheromatous. LEFT CAROTID: Left common carotid artery is patent. Chronic occlusion of the left internal carotid artery beginning at the level of the carotid bulb. This finding appears unchanged from comparison. There is normal antegrade vertebral flow bilaterally. IMPRESSION: 1. Stable exam with redemonstration of chronic occlusion involving the right common carotid artery with retrograde flow of the external carotid artery supplying the right ICA. 2. Chronic occlusion of the left internal carotid artery beginning at the level of the carotid bulb is also unchanged from comparison. 3. Antegrade flow of the bilateral vertebral arteries. DOPPLER ULTRASOUND OF THE RENAL ARTERIES CLINICAL HISTORY: Hypertension. COMPARISON STUDY: Renal ultrasound dated 07/29/2017. TECHNIQUE: Doppler sonography of the renal arteries was performed to assess renal artery stenosis. Images are reviewed in the transverse and longitudinal planes. Examination is degraded by large body habitus and by abdominal bowel gas. FINDINGS: There is asymmetric cortical atrophy of the left kidney as compared to the right. Right kidney measures 10.5 cm in length. The left Kidney measures 7.4 cm in length. There is no hydronephrosis. A 2.2 cm cyst is noted on the right. On the right, intrarenal arterial resistive indices range from 0.69 to 0.73. Intrarenal arterial waveforms are normal with brisk upstrokes. The right renal arterial waveform is normal, and velocities within the right renal artery measure up to 139 cm/sec. The right renal vein is patent. On the left, intrarenal arterial resistive indices range from 0.74 to 0.77. Intrarenal arterial waveforms are normal with brisk upstrokes. The proximal to mid portions of the left renal artery are not well visualized. The left renal arterial waveform is normal, and velocities in the distal left renal artery measure up to 74 cm/sec. The left renal vein is patent. The abdominal aorta is patent. Velocities within the abdominal aorta measure up to 170 cm/s. IMPRESSION: 1. There is no convincing sonographic evidence of renal artery stenosis. 2. There is asymmetric cortical atrophy of the left kidney as compared to the right. 3. Elevated resistive indices suggests medical renal disease. ] CHEST ONE VIEW PORTABLE HISTORY: 66 years-old Female severe hypertension acute hypertension COMPARISON: Chest CT 06/26/2016 TECHNIQUE: Portable upright AP view of the chest FINDINGS: Cardiomediastinal and hilar silhouettes are within normal limits. Atherosclerosis of the aorta. No pneumothorax, pleural effusion, focal airspace consolidation or overt pulmonary edema. Bones appear grossly intact. IMPRESSION: No acute cardiopulmonary process. HEAD CT NONCONTRAST CT DOSE: 537.48 mGy.cm HISTORY: Headache. Pt c/o HTN TECHNIQUE: Multiaxial CT images of the head were performed without the use of intravenous contrast. Automated exposure control was utilized for this study. A dose lowering technique was utilized adhering to the principles of ALARA. Comparison: Head CT 05/22/2006. Findings: The paranasal sinuses and mastoid air cells are clear. The calvarium and skull base are intact. The ventricles and sulci are within normal limits. There is no mass, hematoma, midline shift, or acute infarct. Focal area of encephalomalacia within the left frontal lobe consistent with an old MAREN territory infarct. Impression: No acute intracranial abnormality. Old left frontal lobe infarct. ] BILATERAL LOWER EXTREMITY VENOUS DOPPLER HISTORY: Acute shortness of breath with concern for deep venous thrombosis Pt c/o SOB COMPARISON STUDY: DVT study 08/10/2016. FINDINGS: There is normal compressibility, flow, and augmentation within the bilateral lower extremity deep venous systems. IMPRESSION: No sonographic evidence of deep venous thrombosis within the right or left lower extremity. Consultations: Nephrology Medication Reconciliation New Medications: Chlorthalidone (Chlorthalidone) 25 Mg Tab 25 MG PO DAILY@0600 for 30 Days, #30 TAB 2 Refills Labetalol HCl (Labetalol HCl) 200 Mg Tab 200 MG PO BID for 30 Days, #60 TAB 1 Refill Continued Medications: Aspirin (Aspirin Ec) 325 Mg Tab 325 MG PO DAILY Atorvastatin (Lipitor) 80 Mg Tab 80 MG PO DAILY, TAB Calcium Carbonate (Calcium 600) 600 Mg Tab 1 TAB PO DAILY Cholecalciferol (Vitamin D3) 2,000 Unit Cap 1 CAP PO DAILY, CAP Citalopram Hydrobromide (Celexa) 20 Mg Tab 20 MG PO DAILY, TAB Ferrous Sulfate (Ferrous Sulfate) 325 Mg Tab 1 TAB PO DAILY Insulin Glargine (Lantus) 100 Unit/Ml Inj 34 UNITS SC BID Insulin Lispro (Human) (Humalog) 100 Unit/Ml Inj 30 UNITS SC BID Lorazepam (Ativan) 1 Mg Tab 1 MG PO BID PRN for Anxiety and/or Sedation, TAB Vitamin E (Vitamin E 400 Iu) 400 Unit Cap 400 INTER.UNIT PO DAILY, CAP Discontinued Medications: Atenolol (Tenormin) 100 Mg Tab 100 MG PO DAILY, TAB Hctz/Losartan (Hyzaar 25MG/100MG) Tab 1 TAB PO DAILY, TAB Hydrochlorothiazide (Hctz) 12.5 Mg Cap 12.5 MG PO DAILY, TAB Hydrochlorothiazide (Hctz) 25 Mg Tab 25 MG PO DAILY, TAB Discharge Exam Review of Systems: Constitutional: No fever, No chills, No weakness Eyes: No worsening of vision, No diplopia Respiratory: No cough, No shortness of breath, No dyspnea on exertion Cardiovascular: No chest pain, No palpitations Abdomen: No pain, No nausea, No vomiting Genitourinary - Female: No dysuria, No urinary frequency, No urinary urgency Neurologic: + problem reported (MELCHOR), No weakness Integumentary: No rash, No itch Physical Exam: General Appearance: WD/WN, no apparent distress Eyes: normal inspection, PERRL, EOMI Neck: supple, no adenopathy, trachea midline Respiratory/Chest: lungs clear, normal breath sounds, no respiratory distress Cardiovascular: regular rate, rhythm, no edema Abdomen / GI: normal bowel sounds, non tender, soft Extremities: no calf tenderness, no pedal edema Neurologic/Psychiatric: wire winder II-XII nml as tested (grossly), no motor/ sensory deficits, alert, normal mood/affect Skin: normal color, warm/dry, no rash Hospital Course H&P Ms. 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 Patient has had difficulty maintaining BP and had recent adjustments to her HCTZ on 08/06. She was at the dentist today and reports they said her BP was 213/122 and was referred to the ED. She states her BP runs from 160-190s/90s on average and normally not this high. She reports better control while on Norvasc approx. one year ago but had to stop due to lower extremity edema and rash. She is currently on HCTZ 25 mg daily, Losartan/ HCTZ 100 mg/25 mg, and Atenolol 100 mg daily. She reports associated fluid retention that has continued since stopping Norvasc and feels that her lower extremities and abdomen seems to hold fluids. She denies H/O CHF. She also reports poor control of her diabetes and is meeting with a sheet metal erector to start implementing dietary changes. She reports her current regimen leaves her with normal glucose 120-200 but in the AM has 300+ glucose readings even with BID Lantus coverage. She is dietary non-compliant as she states she doesn't know how to properly eat with diabetes. She states she has not really felt well over the past year with easy fatigability and feeling rundown. She does report over the past couple days that she has had more YI than normal and reporting an epigastric/low chest discomfort that comes on after short ambulation. This discomfort wax and wanes and does not radiate. On head CT in ED she was found to have an old L frontal lobe infarct that was present on MRI in 2015. Patient initially did not recall knowing she had a stroke but after further discussion, slightly recalls being told she may have had a small one and was started on 325 mg ASA daily. 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 She reports easy irritability. She also reports some anxiousness and frustration with her medical conditions and not being as compliant as she should be. She denies new focal neurodeficits. As well , cannot recall a time where she had focal neuro deficits. Hospital course: Hypertensive Urgency: - Given Lopressor 100 mg po X 1 dose in ED which improved BP from 249/103 to 197 /90 but did not sustain - Given Hydralazine 2.5 mg IV x 1 dose (improved to 185/66) which is continuing to keep and continue this dose Q6H PRN for SBP >180 - Continued Lopressor 100 mg twice a day and hydrochlorothiazide 12.5 mg daily, may use hydralazine as needed for blood pressures more than 170 - Renal artery ultrasound ordered showing no evidence of Renal artery stenosis. - Nephrology consulted. Renin, Aldosterone, Metanephrines ordered to be discussed outpatient upon results. - Placed on new antihypertensive regimen of Labetolol 100mg BID and HCTZ 12.5 mg daily. BP responded well. On discharge she was placed on Labetolol 200 mg BID , Chlorthalidone 25 mg PO daily. Atenolol, Hyzaar , HCTZ were stopped History of left frontal lobe infarct/history of carotid stenosis - No residual deficits, Head CT s howed no new intracranial abnoramlity - Ultrasound of the carotid arteries ordered shwoing chornic occlusion osf Right common carotid a. and Left internal carotid unchanged from previous studies - Continued high-dose aspirin CKD stage III/History of atrophic left kidney - Creatinine eleavted at1.6 ( baseline (1.1-1.5) - Proteinuria found on UA Type 2 diabetes: History of noncompliance - Hemoglobin A1c at 9.3 - Poorly controlled diet- education for managing diet and using insulin appropriately - Continued Lantus 34 units twice a day with sliding scale - perioperative educator consulted CAD/RCA disease/Hyperlipidemia - Continued aspirin and atorvastatin Echo ordered showing moderate concentric left ventricular hypertrophy.Left ventricular systolic function is normal. Grade I diastolic dysfunction DVT Prophylaxis: SCDs Discharged with follow up to primary care and nephrology Total Time Spent: Less than 30 minutes This includes examination of the patient, discharge planning, medication reconciliation, and communication with other providers. Discharge Instructions Please refer to the electronic Patient Visit Report (Discharge Instructions) for additional information.
[2017-08-16] MEDS ORDERED: LABETALOL HCL 200 MG TAB PO SCH (21:00)
[2017-08-17] MEDS ORDERED: CHLORTHALIDONE 25 MG TAB PO SCH (06:00)
[2017-08-18 17:34] LABS: METANEPHRINE 82 mcg/24 h (90-315); NORMETANEPHRINE UR 208 mcg/24 h (122-676); TOTAL METANEPHRINE 290 mcg/24 h (224-832)
== END 2017-08-16 15:50 | disposition home or self-care (01) | DRG 292 ==
LOC: C.EDB 16:47 → C.2T 19:59 → ENRESERV 20:33 → OBSVTOIN 08-15 17:19
PROVIDERS: ADMIT Internal Medicine; ATTEND Hospitalist
DX: I13.0 Hypertensive heart and chronic kidney disease with heart failure and stage 1 through stage 4 chronic kidney disease, or unspecified chronic kidney disease (principal); I50.32 Chronic diastolic (congestive) heart failure; N17.9 Acute kidney failure, unspecified; I16.0 Hypertensive urgency; Z79.82 Long term (current) use of aspirin; Z79.4 Long term (current) use of insulin; I70.1 Atherosclerosis of renal artery; N18.3 Chronic kidney disease, stage 3 (moderate); E11.65 Type 2 diabetes mellitus with hyperglycemia; I25.10 Atherosclerotic heart disease of native coronary artery without angina pectoris; E78.5 Hyperlipidemia, unspecified; Z83.3 Family history of diabetes mellitus; Z82.49 Family history of ischemic heart disease and other diseases of the circulatory system; Z86.73 Personal history of transient ischemic attack (TIA), and cerebral infarction without residual deficits; I25.2 Old myocardial infarction; N26.1 Atrophy of kidney (terminal); E78.00 Pure hypercholesterolemia, unspecified; E66.9 Obesity, unspecified; F32.9 Major depressive disorder, single episode, unspecified; Z96.649 Presence of unspecified artificial hip joint

== ENCOUNTER 2017-09-23 11:30 | Inpatient (IN) | payer OTHER ==
[~2017-09-23] VITALS: Ht 160 cm; Wt 99.0 kg
[~2017-09-23 11:30] MED LIST changes: +ASPI325T39 PO; -ASPI81TA21 PO; -ATEN-175 PO; +ATOR-26 PO; -BNC/4025 PO; +CALC600T PO; +CHOL2000 PO; +CITA20TA9 PO; -CLX20 PO; -COEN100C15 PO; +FERR325T5 PO; +HYG25 PO; +INSDGI SC; +INSU100I SC; -INSU1INJ7 SC; +LBT200 PO; -LPT/40 PO; -NAPR1TAB9 PO; -OXYC-57 PO; +VITA400C3 PO
[2017-09-23] MEDS ORDERED: HYZ/10015 PO (12:35)
--- NOTE | 2017-09-23 13:00 | DIAGNOSTIC IMAGING REPORT ---
CHEST ONE VIEW PORTABLE CLINICAL HISTORY: Evaluate Fever/Sepsis fever COMPARISON STUDY: 08/14/2017 FINDINGS: The bones soft tissues and hemidiaphragms are normal. The cardiomediastinal silhouette is normal. The lungs are clear. The pulmonary vasculature is normal. IMPRESSION: Negative chest. The above report was generated using voice recognition software. It may contain grammatical, syntax or spelling errors. Electronically signed by: Mc Iraheta M.D. 09/23/2017 12:58 PM Dictated Date/Time: 09/23/2017 12:58 PM
[2017-09-23 13:25] LABS: HEMATOCRIT 34.5 % (37-47); MEAN CELL VOLUME 93.5 fL (80-100); MEAN CORPUSCULAR HEMOGLOBIN 30.9 pg (25-34); MEAN PLATELET VOLUME 9.9 fL (7.4-10.4); PLATELET COUNT 222 K/uL (130-400); RED BLOOD COUNT 3.69 M/uL (4.2-5.4); WHITE BLOOD COUNT 11.06 K/uL (4.8-10.8)
[2017-09-23 13:35] LABS: PARTIAL THROMBOPLASTIN RATIO 0.9
[2017-09-23 13:49] LABS: ALT/SGPT 22 U/L (12-78); BLOOD UREA NITROGEN 66 mg/dl (7-18); BUN/CREATININE RATIO 36.1 (10-20); CALCIUM 8.8 mg/dl (8.5-10.1); CARBON DIOXIDE 23 mmol/L (21-32); CHLORIDE 109 mmol/L (98-107); CREATININE 1.83 mg/dl (0.60-1.20); GLUCOSE 36 mg/dl (70-99); SODIUM 140 mmol/L (136-145)
[2017-09-23 13:55] LABS: ALKALINE PHOSPHATASE 65 U/L (45-117); AST/SGOT 15 U/L (15-37); CKMB/CK RATIO 2.4 (0-3.0)
[2017-09-23 14:26] LABS: BASO % 0.5 %; BASO ABS # 0.06 K/uL (0-0.2); COMPLETE YES; EOS % 4.2 %; IG% 0.6 %; LYMPH % 20.7 %; LYMPH ABS # 2.29 K/uL (1.2-3.4); MONO % 9.4 %; NEUT % 64.6 %
--- NOTE | 2017-09-23 14:26 | EMERGENCY ROOM VISIT NOTE ---
History Report prepared by Naomi: Gamal Robles Under the Supervision of: Dr. Ion Daniel D.O. First contact with patient: 12:26 Chief Complaint: CHEST PAIN Stated Complaint: CHEST PAIN Nursing Triage Summary: Pt reports substernal cp and SOB with exertion. Pt states sx started a couple weeks ago, being tx for HTN. Pts daughter states, "She was at her dr and when they would push on her liver they could see the fluid in her neck." Denies swelling in legs. History of Present Illness The patient is a 67 year old female who presents to the Emergency Room with complaints of constant burning chest pain starting two months ago. The patient additionally states that she has shortness of breath when she walks even small distances. She notes that these symptoms both started after she had an episode of hypertension. The patient reports that she took two full aspirins this morning. Additionally, she states that she has been having fluid in her neck. The patient states that she did not have a stress test or cardiac catheterization done. The patient denies any leg swelling or calf pain. She also notes that she feels like her sugars are low. Source of History: patient Onset: two months ago Position: chest Quality: burning Timing: constant Modifying Factors (Worsening): exertion Associated Symptoms: + SOB Review of Systems See HPI for pertinent positives & negatives. A total of 10 systems reviewed and were otherwise negative. Past Medical & Surgical Medical Problems: (1) accelerated HTN (2) Atrophy of left kidney (3) Carotid stenosis, bilateral (4) Coronary artery disease (5) Depression (6) Diabetes (7) Heart attack (8) Hyperlipemia (9) Hypertensive urgency Family History Diabetes mellitus Hypertension Social History Smoking Status: Never Smoker Drug Use: none Marital Status: single Occupation Status: retired Current/Historical Medications Scheduled Aspirin (Aspirin Ec), 325 MG PO DAILY Atorvastatin (Lipitor), 80 MG PO DAILY Calcium Carbonate (Calcium 600), 1 TAB PO DAILY Chlorthalidone (Chlorthalidone), 25 MG PO DAILY@0600 Cholecalciferol (Vitamin D3), 1 CAP PO DAILY Citalopram Hydrobromide (Celexa), 20 MG PO DAILY Ferrous Sulfate (Ferrous Sulfate), 1 TAB PO DAILY Hctz/Losartan (Hyzaar 25MG/100MG), 1 TAB PO DAILY Insulin Glargine (Lantus), 34 UNITS SC BID Insulin Lispro (Human) (Humalog), 30 UNITS SC BID Labetalol HCl (Labetalol HCl), 200 MG PO BID Vitamin E (Vitamin E 400 Iu), 400 INTER.UNIT PO DAILY Scheduled PRN Lorazepam (Ativan), 1 MG PO BID PRN for Anxiety and/or Sedation Allergies Coded Allergies: Lisinopril (Unverified Allergy, Unknown, 04/28/13) Sulfa Drugs (Verified Allergy, Unknown, 04/28/13) Physical Exam Vital Signs Date Time Temp Pulse Resp B/P (MAP) Pulse Ox O2 Delivery O2 Flow Rate FiO2 09/23/17 13:13 69 20 130/81 09/23/17 12:15 66 09/23/17 11:34 36.6 72 18 145/73 99 Room Air Physical Exam CONSTITUTIONAL/VITAL SIGNS: Reviewed / noted above. GENERAL: Non-toxic in appearance. INTEGUMENTARY: Warm, dry, and [place]. HEAD: Normocephalic. EYES: without scleral icterus or trauma. ENT/OROPHARYNX: clear and moist. LYMPHADENOPATHY/NECK: Is supple without lymphadenopathy or meningismus. RESPIRATORY: Lungs clear and equal. CARDIOVASCULAR: Regular rate and rhythm. GI/ABDOMEN: Soft and nontender. No organomegaly or pulsatile mass. No rebound or guarding. Normal bowel sounds. EXTREMITIES: Warm and well perfused. BACK: No CVA tenderness. NEUROLOGICAL: Intact without focal deficits. PSYCHIATRIC: normal affect. MUSCULOSKELETAL: Normally developed with good muscle tone. Medical Decision & Procedures ER Provider Diagnostic Interpretation: Radiology results as stated below per my review and radiologist interpretation: CHEST ONE VIEW PORTABLE CLINICAL HISTORY: Evaluate Fever/Sepsis fever COMPARISON STUDY: 08/14/2017 FINDINGS: The bones soft tissues and hemidiaphragms are normal. The cardiomediastinal silhouette is normal. The lungs are clear. The pulmonary vasculature is normal. IMPRESSION: Negative chest. The above report was generated using voice recognition software. It may contain grammatical, syntax or spelling errors. Electronically signed by: Mc Iraheta M.D. 09/23/2017 12:58 PM Dictated Date/Time: 09/23/2017 12:58 PM Laboratory Results 09/23/17 12:45 Red Blood Count 3.69, Mean Corpuscular Volume 93.5, Mean Corpuscular Hemoglobin 30.9, Mean Corpuscular Hemoglobin Concent 33.0, Mean Platelet Volume 9.9, Neutrophils (%) (Auto) 64.6, Lymphocytes (%) (Auto) 20.7, Monocytes (%) (Auto) 9.4, Eosinophils (%) (Auto) 4.2, Basophils (%) (Auto) 0.5, Neutrophils # (Auto) 7.14, Lymphocytes # (Auto) 2.29, Monocytes # (Auto) 1.04, Eosinophils # (Auto) 0.46, Basophils # (Auto) 0.06 09/23/17 12:45 Test 09/23/17 12:45 White Blood Count 11.06 K/uL (4.8-10.8) Red Blood Count 3.69 M/uL (4.2-5.4) Hemoglobin 11.4 g/dL (12.0-16.0) Hematocrit 34.5 % (37-47) Mean Corpuscular Volume 93.5 fL (80-100) Mean Corpuscular Hemoglobin 30.9 pg (25-34) Mean Corpuscular Hemoglobin Concent 33.0 g/dl (32-36) Platelet Count 222 K/uL (130-400) Mean Platelet Volume 9.9 fL (7.4-10.4) Neutrophils (%) (Auto) 64.6 % Lymphocytes (%) (Auto) 20.7 % Monocytes (%) (Auto) 9.4 % Eosinophils (%) (Auto) 4.2 % Basophils (%) (Auto) 0.5 % Neutrophils # (Auto) 7.14 K/uL (1.4-6.5) Lymphocytes # (Auto) 2.29 K/uL (1.2-3.4) Monocytes # (Auto) 1.04 K/uL (0.11-0.59) Eosinophils # (Auto) 0.46 K/uL (0-0.5) Basophils # (Auto) 0.06 K/uL (0-0.2) RDW Standard Deviation 42.5 fL (36.4-46.3) RDW Coefficient of Variation 12.5 % (11.5-14.5) Immature Granulocyte % (Auto) 0.6 % Immature Granulocyte # (Auto) 0.07 K/uL (0.00-0.02) Prothrombin Time 10.0 SECONDS (9.0-12.0) Prothromb Time International Ratio 1.0 (0.9-1.1) Activated Partial Thromboplast Time 23.6 SECONDS (21.0-31.0) Partial Thromboplastin Ratio 0.9 Anion Gap 8.0 mmol/L (3-11) Est Creatinine Clear Calc Drug Dose 34.1 ml/min Estimated GFR () 32.7 Estimated GFR (Non- 28.3 BUN/Creatinine Ratio 36.1 (10-20) Calcium Level 8.8 mg/dl (8.5-10.1) Total Bilirubin 0.3 mg/dl (0.2-1) Direct Bilirubin < 0.1 mg/dl (0-0.2) Aspartate Amino Transf (AST/SGOT) 15 U/L (15-37) Alanine Aminotransferase (ALT/SGPT) 22 U/L (12-78) Alkaline Phosphatase 65 U/L (45-117) Total Creatine Kinase 173 U/L (26-192) Creatine Kinase MB 4.1 ng/ml (0.5-3.6) Creatine Kinase MB Ratio 2.4 (0-3.0) Troponin I < 0.015 ng/ml (0-0.045) Total Protein 7.0 gm/dl (6.4-8.2) Albumin 3.1 gm/dl (3.4-5.0) Lipase 343 U/L (73-393) Thyroid Stimulating Hormone (TSH) 1.440 uIu/ml (0.300-4.500) Laboratory results as stated above per my review. ECG Indication: chest pain, SOB/dyspnea Rate (beats per minute): 70 Rhythm: sinus rhythm Findings: PAC, no ectopy, other (No acute injury) ED Course 1226: Previous medical records were reviewed. The patient was evaluated in room A2. A complete history and physical examination was performed. 1408: Discussed the patient's case with KARUNA Epsino. The patient will be evaluated for further treatment and disposition. 1418: I reevaluated the patient, and I updated her on the treatment plan, and she was agreeable. Medical Decision the differential that was considered includes acute myocardial infarction, acute coronary syndrome, myocarditis, pericarditis, pericardial effusions / tamponade, esophageal perforation, thoracic aortic dissection, pulmonary embolism, pneumonia, pneumothorax, pancreatitis, shingles, acute cholecystitis, perforated abdominal viscus. This is a 67-year-old female who presents to the ED with a chief complaint of chest discomfort and shortness of breath with exertion. The patient states that she had some chest pain this morning that is currently not present. She also reports exertional dyspnea since July. She was actually admitted in July for hypertension. At that time she did not have any stress testing or catheterization. The patient states that she took 2 full aspirin today. The patient states that she can walk about 10 and then becomes dyspneic and has to stop her exertion. Her vital signs here today are stable. Her physical exam was unremarkable. Her EKG shows a sinus rhythm at a rate of 70 with some PACs. No acute injury. The patient has a stable hemoglobin. Her glucose was 36 but prior to this, the patient did feel like her sugars were low and she was given something to eat and drink. On reassessment, those symptoms resolved after eating and drinking. Her BUN and creatinine are slightly higher than baseline. Troponin was negative. TSH was normal. Chest x-ray did not show acute process. Because of the exertional component of her symptoms, she will be evaluated as an inpatient for these symptoms. Spoke with the hospitalist who will see the patient. Medication Reconcilliation Current Medication List: was personally reviewed by me Blood Pressure Screening Patient's blood pressure: Elevated blood pressure Monitored by the hospitalist Consults Time Called: 1406 Consulting Physician: KARUNA Espino Returned Call: 1408 Discussed the patient's case with KARUNA Espino. The patient will be evaluated for further treatment and disposition. Impression Primary Impression: Exertional dyspnea Additional Impression: Unstable angina Scribe Attestation The scribe's documentation has been prepared under my direction and personally reviewed by me in its entirety. I confirm that the note above accurately reflects all work, treatment, procedures, and medical decision making performed by me. Departure Information Dispostion Being Evaluated By Hospitalist Referrals No Doctor, Assigned (PCP) Patient Instructions My [facility] Problem Qualifiers
[2017-09-23 14:41] VITALS: BP 131/59; PULSE 71; TEMP 36.6; O2SAT 97; BMI 39.0
[2017-09-23] MEDS ORDERED: POLYETHYLENE (MIRALAX) 17 GM PACK PO PRN (15:30)
[2017-09-23] MEDS ORDERED: ALUMINUM/MAGNESIUM/SIMETH (MAALOX MAX) 30 ML UDC PO PRN (15:30)
[2017-09-23] MEDS ORDERED: ONDANSETRON INJ 2 MG/ML 2 ML VIAL IV PRN (15:30)
[2017-09-23] MEDS ORDERED: ACETAMINOPHEN 325 MG TAB PO PRN (15:30)
[2017-09-23] MEDS ORDERED: ZOLPIDEM TARTRATE 5 MG TAB PO PRN (15:30)
[2017-09-23] MEDS ORDERED: MoRPHine SULFATE 2 MG/ML CARP IV PRN (15:30)
[2017-09-23] MEDS ORDERED: MAGNESIUM HYDROXIDE SUSP 30 ML UDC PO PRN (15:30)
--- NOTE | 2017-09-23 15:57 | History and Physical ---
History & Physical Date of Service Sep 23, 2017. History & Physical chest pain, YI, LORI on CKD, hypoglycemia [id number]
[2017-09-23] MEDS ORDERED: HydrALAZINE HCL 20 MG/ML VIAL IV. PRN (16:00)
[2017-09-23] MEDS ORDERED: INSULIN ASPART 100 UNITS/ML 3 ML PEN SC SCH (16:30)
--- NOTE | 2017-09-23 16:46 | HISTORY & PHYSICAL EXAMINATION ---
DATE OF ADMISSION: 09/23/2017 This is a level 3 inpatient admission, 40 minutes. CHIEF COMPLAINT: Dyspnea on exertion and chest pain. HISTORY OF PRESENT ILLNESS: The patient is a 67-year-old white female with a significant past medical history of accelerated hypertension, recent admission because of accelerated hypertension, history of CVA, CKD stage III; type 2 diabetic, insulin-dependent, uncontrolled diabetes with A1c 9.3; CAD, dyslipidemia, coming to the hospital Emergency Department because of the above chief complaint. The patient was admitted to this hospital in 08/15/2017 because of accelerated hypertension. In previous admission, she was complaining about high blood pressure and she was having history of CAD. Echo was done which shows concentric left ventricular hypertrophy, associated with normal left ventricular systolic function , there was grade 1 diastolic dysfunction. The patient reports after discharge from the hospital, she has been feeling persistent dyspnea on exertion. Sometimes, has middle chest pain, which is associated with when exertion. Denied lower extremity swelling. Denied orthopnea. At nighttime sleep, she only need one pillow. Denied fever or chills. Denied cough, sputum, shortness of breath. Denied lower extremity swelling. Denied cough, sputum, or hemoptysis. Denied nausea, vomiting, abdominal pain, diarrhea, or constipation. Denied dysuria, urgency and frequencies. Denied facial droop, slurry speeches. PAST MEDICAL HISTORY: Like I mentioned in the above, which includes: 1. 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 CKD stage III. 3. Type 2 diabetes, uncontrolled. 4. CAD with right RCA disease, STMI. 5. Carotid artery stenosis. 6. Dyslipidemia, coming to the hospital Emergency Room because of the above chief complaint. FAMILY HISTORY: Includes diabetes, hypertension. SOCIAL HISTORY: Never smoked. Denied alcohol abuse disorder, denied illicit drug abuse. Lives with family. ALLERGIES: HCTZ, LISINOPRIL, AND SULFA DRUGS. HOME MEDICATIONS: Currently include aspirin 325 mg p.o. daily, Lipitor 80 mg p.o. daily, calcium carbonate 600 mg p.o. daily, chlorthalidone 25 mg p.o. daily, Celexa 20 mg p.o. daily, ferrous sulfate 325 mg p.o. daily, Hyzaar 25/100 one tab p.o. daily, insulin Glargine 34 units b.i.d., insulin lispro 30 units subQ b.i.d., labetalol 200 mg p.o. b.i.d., Ativan 1 mg p.o. daily p.r.n. for anxiety, vitamin E 400 international units p.o. daily. REVIEW OF SYSTEMS: Please see HPI, otherwise 14 points organ system review were negative. PHYSICAL EXAMINATION: VITAL SIGNS: Temperature is 36.6, pulse 71, respiration rate 20, blood pressure 131/59 and pulse of 97% in room air. GENERAL: The patient is a white female, awake, alert and orientated, conversational, follows all commands, obesity, BMI 39. HEAD: Normocephalic. EYES: Pupils equal, round responds to light. EARS: Ear was normal. NOSE: Normal. NECK: Supple. Thyroid no enlargement. Trachea in the midline. HEART: Regular rhythm. S1, S2. LUNGS: Decreased breathing sounds. There was no wheezing, rhonchi or crackles. ABDOMEN: Soft, nontender. Bowel sound was positive. Bilateral CVA was nontender. BILATERAL LOWER EXTREMITIES: No swelling, no clubbing, no cyanosis. Pulse was positive and symmetric. SKIN: Has no rashes. NEUROLOGICAL EVALUATION: Cranial nerves II-XII was intact. There was no local deficits. LABORATORY STUDIES: WBC 11, hemoglobin 11, platelet 222. PT/INR was 10/1. BMP: Sodium 140, potassium 4, BUN 66, creatinine 1.83. Blood glucose 36 in the Emergency Room. AST 15, ALT 22. Total CK 173. Troponin negative. TSH 1.4, lipase 344. IMAGING STUDIES: Chest x-ray was negative. EKG in the Emergency Room which shows sinus rhythm with premature supraventricular complexes. There was no obvious ST-T wave changes. ASSESSMENT AND PLAN: A 67-year-old white female with the conditions below: 1. Chest pain with a significant history of coronary artery disease and myocardial infarction. 2. Dyspnea on exertion, etiology unknown. Differential diagnosis include PE, congestive heart failure exacerbation, and gastroesophageal reflux disease. 3. Acute on chronic kidney failure stage III, with creatinine 1.8 from 1.5. 4. Significant hyperglycemia with a history of insulin-dependent diabetes and uncontrolled. 5. History of hypertension. 6. Atrophic of left kidney. Follow up with qm consultant. 7. Bilateral carotid artery stenosis. 8. History of cerebrovascular accident. 9. Depression. 10. Dyslipidemia. The patient has chest pain with a significant history of CAD, SD. Current cardiac enzyme troponin was negative. She possibly need to have stress test to rule out ACS. Because complained about chest pain, like I mentioned in the above differential diagnosis include PE, she is obesity, BMI at 39. Bilateral lower extremity Doppler ultrasound were done in previous admission in July, which was negative. She is not able to do a CT of chest to rule out PE because of acute on chronic kidney failure, and it will be no help to order D-dimer. Therefore, I ordered a V/Q scan to rule out PE. Dyspnea on exertion, possibly from CHF exacerbation. However, patient has no lung crackles; bilateral lower extremity no edema; chest x-ray no pulmonary edema. BMP was not checked. Therefore, I feel CHF exacerbation is very less likely; echo LVEF was normal in July. She does have diastolic grade 1 dysfunction. Therefore, because of acute on chronic kidney failure, currently have no signs of fluid over loaded, I will not give any diuretics for now. Instead, I am holding the medicines any offensive to kidney function such as lisinopril, HCTZ, and chlorthalidone. I will give hydralazine for blood pressure control. I have ordered a BNP, will have cardiology consultation and nephrology consultation. The patient was having significant hypoglycemic episodes with blood glucose 36. I decreased Lantus insulin, start aspart for sliding scale. Diabetic diet. pt may need stress test. For other medical conditions such as coronary artery disease, dyslipidemia, anxiety; we will continue home medication. Deep vein thrombosis prophylaxis is ordered. The patient is full code. I discussed with patient and family and answered all the questions. RUDDY
[2017-09-23 17:00] VITALS: BP 163/91; PULSE 81; TEMP 37; O2SAT 96
[2017-09-23] MEDS ORDERED: GLUCOSE 40% GEL 15 GM TUBE PO PRN (17:00)
[2017-09-23] MEDS ORDERED: DEXTROSE 50% 50 ML SYR IV PRN (17:00)
[2017-09-23] MEDS ORDERED: GLUCOSE 10 TABS/TUBE PO PRN (17:00)
[2017-09-23] MEDS ORDERED: GLUCAGON FOR INJ 1 MG VIAL SQ PRN (17:00)
--- NOTE | 2017-09-23 18:57 | DIAGNOSTIC IMAGING REPORT ---
NUCLEAR MEDICINE VENTILATION AND PERFUSION STUDY CLINICAL HISTORY: Atypical chest pain. Dyspnea on exertion. Renal insufficiency. COMPARISON STUDY: Chest x-ray dated 09/23/2017 FINDINGS: The patient was ventilated utilizing 33 mCi of technetium 99m DTPA aerosol. The patient was subsequent perfusion lysing 5.7 mCi of technetium 99m MAA. There is mild central deposition of the aerosol, suggesting mild airway disease. There is a small matched defect involving the left posterior inferior lung. There are no significant VQ mismatches. This examination is of low probability for acute pulmonary embolism. IMPRESSION: Low probability for acute pulmonary embolism Electronically signed by: Abner Shannon M.D. 09/23/2017 6:56 PM Dictated Date/Time: 09/23/2017 6:54 PM
[2017-09-23 19:31] VITALS: BP 193/95; PULSE 79; TEMP 37.1; O2SAT 97
[2017-09-23] MEDS: INSULIN ASPART 100 UNITS/ML 3 ML PEN SC SCH ×2 (19:49→19:55)
[2017-09-23 19:50] VITALS: BP 188/71; PULSE 74
[2017-09-23] MEDS: LABETALOL HCL 200 MG TAB PO SCH (19:51)
[2017-09-23] MEDS: INSULIN GLARGINE SOLOSTAR 100 UNITS/ML 3 ML PEN SC SCH (19:55)
[2017-09-23] MEDS: HEPARIN SOD 5000 UNIT/0.5 ML CARP SQ SCH (20:50)
[2017-09-23] MEDS: LORAZEPAM 1 MG TAB PO PRN (23:29)
[2017-09-23 23:46] VITALS: BP 171/91; PULSE 64; TEMP 37.2; O2SAT 97
[2017-09-24] VITALS (9 sets, daily range): BP systolic 129–157; BP diastolic 75–81; PULSE 61–67; TEMP 36.3–37; O2SAT 94–98; Ht 160 cm; Wt 99.0 kg
[2017-09-24 05:47] LABS: BASO % 0.6 %; BASO ABS # 0.05 K/uL (0-0.2); COMPLETE YES; EOS % 5.1 %; HEMATOCRIT 32.5 % (37-47); IG% 0.3 %; LYMPH % 32.2 %; LYMPH ABS # 2.91 K/uL (1.2-3.4); MEAN CELL VOLUME 93.7 fL (80-100); MEAN CORPUSCULAR HEMOGLOBIN 30.5 pg (25-34); MEAN CORPUSCULAR HGB CONC 32.6 g/dl (32-36); MEAN PLATELET VOLUME 9.7 fL (7.4-10.4); NEUT % 54.8 %; PLATELET COUNT 181 K/uL (130-400); RED BLOOD COUNT 3.47 M/uL (4.2-5.4); WHITE BLOOD COUNT 9.05 K/uL (4.8-10.8)
[2017-09-24] MEDS ORDERED: CHLORTHALIDONE 25 MG TAB PO SCH (06:00)
[2017-09-24 06:02] LABS: PROTHROMBIN TIME (PATIENT) 10.3 SECONDS (9.0-12.0)
[2017-09-24 06:20] LABS: BLOOD UREA NITROGEN 58 mg/dl (7-18); BUN/CREATININE RATIO 34.8 (10-20); CALCIUM 8.7 mg/dl (8.5-10.1); CARBON DIOXIDE 26 mmol/L (21-32); CHLORIDE 109 mmol/L (98-107); CREATININE 1.66 mg/dl (0.60-1.20); GLUCOSE 80 mg/dl (70-99); MAGNESIUM 2.1 mg/dl (1.8-2.4); POTASSIUM 4.1 mmol/L (3.5-5.1); SODIUM 142 mmol/L (136-145)
[2017-09-24 06:25] LABS: CKMB/CK RATIO 2.1 (0-3.0); PHOSPHORUS 4.1 mg/dl (2.5-4.9)
[2017-09-24] MEDS: INSULIN ASPART 100 UNITS/ML 3 ML PEN SC SCH ×4 (06:30→20:57)
[2017-09-24] MEDS: FERROUS SULFATE 325 MG TAB PO SCH (07:51)
[2017-09-24] MEDS: ASPIRIN 325 MG ECTAB PO SCH (07:51)
[2017-09-24] MEDS: LABETALOL HCL 200 MG TAB PO SCH (07:51)
[2017-09-24] MEDS: CITALOPRAM 20 MG TAB PO SCH (07:51)
[2017-09-24] MEDS: CALCIUM CARBONATE 1250MG TAB PO SCH (07:52)
[2017-09-24] MEDS: TOCOPHERYL, DL-ALPHA 400 INTER.UNIT CAP PO SCH (07:52)
[2017-09-24] MEDS: CHOLECALCIFEROL 1000 INTER.UNIT TAB PO SCH (07:52)
[2017-09-24] MEDS: HEPARIN SOD 5000 UNIT/0.5 ML CARP SQ SCH ×2 (08:00→21:02)
[2017-09-24] MEDS: INSULIN GLARGINE SOLOSTAR 100 UNITS/ML 3 ML PEN SC SCH ×2 (08:00→21:01)
[2017-09-24] MEDS ORDERED: ATORVASTATIN 40 MG TAB PO SCH ×2 (09:00→21:00)
[2017-09-24] MEDS ORDERED: ATROPINE SULFATE 0.1 MG/ML 5ML SYR ONE (11:58)
[2017-09-24] MEDS ORDERED: METOPROLOL TARTRATE 1 MG/ML VIAL ONE (11:58)
[2017-09-24] MEDS ORDERED: DOBUTamine HCL 12.5 MG/ML 20 ML VIAL ONE (11:58)
--- NOTE | 2017-09-24 12:07 | Cardiology Consultation ---
Cardiology Consultation Date of Consultation: Sep 24, 2017. Requesting Physician: Dr. Garcia Attending Physician: Dr. Wilson Reason for Consultation: Chest pain Pt evaluation today including: conversation w/ patient, conversation w/ family , physical exam, chart review, lab review, review of studies, review of inpatient medication list, conversation w/ attending History of Present Illness Mrs. Doll is a 67 year old female with a medical history significant for coronary artery disease (history of NSTEMI, RCA stenosis), hypertension, CKD, dyslipidemia, carotid artery stenosis, renal artery stenosis and diabetes. She is followed in the cardiology clinic by Dr. Carlos. She has a history of coronary artery disease dating back to September 2000 when she suffered a non ST elevation myocardial infarction. She underwent cardiac catheterization October 23, 2000 with coronary calcifications, right dominant circulation, left main, mild irregularities in LAD, mild irregularities left circumflex, total mid RCA occlusion. Right to right and [id number] collaterals. Posterior basal hypokinesis. LV ejection fraction 60 percent. She underwent repeat cardiac catheterization February 21, 2004 with mild irregularities in LAD, collateral flow from LAD to distal RCA pump, 20 percent proximal and mid left circumflex stenosis, 30-40 percent ostial and proximal RCA stenosis, subtotal early distal RCA stenosis, the distal RCA gave rise to very small caliber posterior descending posterolateral arteries. Competitive flow from the left coronary artery collaterals present. She also reportedly underwent cardiac catheterization at [facility] with similar findings. She had a dobutamine stress echocardiogram in March 2014 which was negative for ischemia. She was hospitalized in July 2017 with hypertension and an echocardiogram during that admission demonstrated normal LV systolic function (EF 60-65%), normal wall motion, moderate concentric LVH, grade I diastolic dysfunction. She reports that since the time of her hospitalization in July 2017 she has been experiencing exertional dyspnea and chest discomfort. Her symptoms have been progressively worse. She experiences limiting dyspnea with little exertion such as ambulating around her home. She has associated "burning" central chest discomfort which feels like it radiates through to her back. No discomfort in her jaw or upper extremities. Her symptoms typically resolve within 5 minutes of rest. She denies having any chest discomfort or dyspnea at rest. She denies orthopnea, PND or peripheral edema. She was having difficulty with lower extremity edema last year which resolved after changing her antihypertensive regimen but she did not have dyspnea at that time. She reports having a long standing history of palpitations that she typically notices when lying down at night. She describes this as feeling like her heart is "pounding and skipping a beat." She denies presyncope or syncope. No abnormal bleeding including melena, hematochezia or hematuria. Yesterday (09/23/17) she was seen by her primary care physician and was referred to the emergency department because she was told they saw "fluid in my neck." Her chest x-ray upon admission showed no acute process. Her BNP level is normal. Her electrocardiogram shows no ischemic changes and cardiac enzymes have been negative. She currently has no acute complaints. She has not had chest discomfort or dyspnea since admission but she has not been exerting herself. The remainder of her review of systems is unremarkable. Family History Diabetes mellitus Hypertension Family history of CAD. Father of DE at 59. Social History and lives alone in [place]. 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 She has two daughters, Marie, is with her today. She also has multiple grandchildren and great grandchildren. No history of tobacco use. No alcohol or drug use. Allergies Coded Allergies: Lisinopril (Unverified Allergy, Unknown, 04/28/13) Sulfa Drugs (Verified Allergy, Unknown, 04/28/13) Medications Current Inpatient Medications Medications (Trade) Dose Ordered Sig/[place] Route Start Time Stop Time Status Last Admin Dose Admin Heparin Sodium (Porcine) (Heparin Sq 5000 Unit/0.5ml) 5,000 unit Q12 SQ 09/23/17 21:00 10/23/17 20:59 09/24/17 08:00 5,000 UNIT Acetaminophen (Tylenol Tab) 650 mg Q4H PRN PO 09/23/17 15:30 10/23/17 15:29 Al Hydrox/Mg Hydrox/Simethicone (Maalox Max Susp) 15 ml Q4H PRN PO 09/23/17 15:30 10/23/17 15:29 Magnesium Hydroxide (Milk Of Magnesia Susp) 30 ml Q12H PRN PO 09/23/17 15:30 10/23/17 15:29 Zolpidem Tartrate (Ambien Tab) 5 mg HSZ PRN PO 09/23/17 15:30 10/23/17 15:29 Ondansetron HCl (Zofran Inj) 4 mg Q6H PRN IV 09/23/17 15:30 10/23/17 15:29 Morphine Sulfate (MoRPHine SULFATE INJ) 2 mg Q30M PRN IV 09/23/17 15:30 10/07/17 15:29 Polyethylene (Miralax Powder Packet) 17 gm DAILY PRN PO 09/23/17 15:30 10/23/17 15:29 Aspirin (Ecotrin Tab) 325 mg DAILY PO 09/24/17 09:00 10/24/17 08:59 09/24/17 07:51 325 MG Atorvastatin Calcium (Lipitor Tab) 80 mg DAILY PO 09/24/17 09:00 10/24/17 08:59 09/23/17 23:29 80 MG Citalopram Hydrobromide (celeXA TAB) 20 mg DAILY PO 09/24/17 09:00 10/24/17 08:59 09/24/17 07:51 20 MG Ferrous Sulfate (Feosol Tab) 325 mg DAILY PO 09/24/17 09:00 10/24/17 08:59 09/24/17 07:51 325 MG Insulin Glargine (Lantus Solostar Pen) 30 units BID SC 09/23/17 21:00 10/23/17 20:59 09/24/17 08:00 30 UNITS Labetalol HCl (Normodyne Tab) 200 mg BID PO 09/23/17 21:00 10/23/17 20:59 09/24/17 07:51 200 MG Lorazepam (Ativan Tab) 1 mg BID PRN PO 09/23/17 15:45 10/23/17 15:44 09/23/17 23:29 1 MG pi-Sqtsb-Exefymhvvh Acetate (Vitamin E Cap) 400 interunit DAILY PO 09/24/17 09:00 10/24/17 08:59 09/24/17 07:52 400 INTERUNIT Calcium Carbonate (oS-Presley 500 TAB) 1,250 mg DAILY PO 09/24/17 09:00 10/24/17 08:59 09/24/17 07:52 1,250 MG Cholecalciferol (Vitamin D Tab) 2,000 inter.unit DAILY PO 09/24/17 09:00 10/24/17 08:59 09/24/17 07:52 2,000 INTER.UNIT Hydralazine HCl (HydrALAZINE INJ) 20 mg Q6 PRN IV. 09/23/17 16:00 10/23/17 15:59 Glucose (Glucose 40% Gel) 15-30 GRAMS 15 GRAMS... UD PRN PO 09/23/17 17:00 10/23/17 16:59 Glucose (Glucose Chew Tab) 4-8 Tablets 4 Tabl... UD PRN PO 09/23/17 17:00 10/23/17 16:59 Dextrose (Dextrose 50% 50ML Syringe) 25-50ML OF 50% DW IV FOR... UD PRN IV 09/23/17 17:00 10/23/17 16:59 Glucagon (Glucagon Inj) 1 mg UD PRN SQ 09/23/17 17:00 10/23/17 16:59 Insulin Aspart (novoLOG ASPART) SLIDING SCALE G... ACHS SC 09/23/17 17:30 10/23/17 17:29 09/23/17 19:55 4 UNITS Physical Exam Vital Signs Past 12 Hours Date Time Temp Pulse Resp B/P (MAP) Pulse Ox O2 Delivery O2 Flow Rate FiO2 09/24/17 08:01 98 Room Air 09/24/17 04:08 36.3 67 16 142/81 (101) 98 Room Air 09/24/17 04:00 94 Room Air 09/24/17 00:00 94 Room Air 09/23/17 23:46 37.2 64 18 171/91 (117) 97 Room Air General: No acute distress. Alert and oriented. HEENT: Head is normal. PERRLA. EOMI. Sclera anicteric. Ears, nose and throat unremarkable. Neck: Supple without JVD. Bilateral carotid bruits. Lungs: Clear to auscultation bilaterally without rales, rhonchi or wheezing. Cardiac: Regular rate and rhythm. S1 and S2 normal. No appreciable murmur, gallop or rub. Abdomen: Soft and nontender. Bowel sounds present. No mass or organomegaly. No abdominal bruit. Extremities: No cyanosis, clubbing or peripheral edema. Peripheral pulses intact. Skin: No rash or abnormal lesions. Normal turgor. Neurologic: No lateralizing changes. Psychiatric: Affect appropriate. Data Laboratory Results: Last 24 Hours Test 09/23/17 12:45 09/23/17 13:53 09/23/17 17:09 09/23/17 17:18 White Blood Count 11.06 K/uL Red Blood Count 3.69 M/uL Hemoglobin 11.4 g/dL Hematocrit 34.5 % Mean Corpuscular Volume 93.5 fL Mean Corpuscular Hemoglobin 30.9 pg Mean Corpuscular Hemoglobin Concent 33.0 g/dl Platelet Count 222 K/uL Mean Platelet Volume 9.9 fL Neutrophils (%) (Auto) 64.6 % Lymphocytes (%) (Auto) 20.7 % Monocytes (%) (Auto) 9.4 % Eosinophils (%) (Auto) 4.2 % Basophils (%) (Auto) 0.5 % Neutrophils # (Auto) 7.14 K/uL Lymphocytes # (Auto) 2.29 K/uL Monocytes # (Auto) 1.04 K/uL Eosinophils # (Auto) 0.46 K/uL Basophils # (Auto) 0.06 K/uL RDW Standard Deviation 42.5 fL RDW Coefficient of Variation 12.5 % Immature Granulocyte % (Auto) 0.6 % Immature Granulocyte # (Auto) 0.07 K/uL Prothrombin Time 10.0 SECONDS Prothromb Time International Ratio 1.0 Activated Partial Thromboplast Time 23.6 SECONDS Partial Thromboplastin Ratio 0.9 Sodium Level 140 mmol/L Potassium Level 4.0 mmol/L Chloride Level 109 mmol/L Carbon Dioxide Level 23 mmol/L Anion Gap 8.0 mmol/L Blood Urea Nitrogen 66 mg/dl Creatinine 1.83 mg/dl Est Creatinine Clear Calc Drug Dose 34.1 ml/min Estimated GFR () 32.7 Estimated GFR (Non- 28.3 BUN/Creatinine Ratio 36.1 Random Glucose 36 mg/dl Calcium Level 8.8 mg/dl Total Bilirubin 0.3 mg/dl Direct Bilirubin < 0.1 mg/dl Aspartate Amino Transf (AST/SGOT) 15 U/L Alanine Aminotransferase (ALT/SGPT) 22 U/L Alkaline Phosphatase 65 U/L Total Creatine Kinase 173 U/L Creatine Kinase MB 4.1 ng/ml Creatine Kinase MB Ratio 2.4 Troponin I < 0.015 ng/ml Total Protein 7.0 gm/dl Albumin 3.1 gm/dl Lipase 343 U/L Thyroid Stimulating Hormone (TSH) 1.440 uIu/ml Bedside Glucose 95 mg/dl 224 mg/dl D-Dimer 1500 ug/L FEU Test 09/23/17 19:35 09/23/17 22:03 09/24/17 05:15 09/24/17 07:14 Bedside Glucose 201 mg/dl 86 mg/dl Total Creatine Kinase 165 U/L 146 U/L Creatine Kinase MB 3.3 ng/ml 3.0 ng/ml Creatine Kinase MB Ratio 2.0 2.1 Troponin I < 0.015 ng/ml < 0.015 ng/ml White Blood Count 9.05 K/uL Red Blood Count 3.47 M/uL Hemoglobin 10.6 g/dL Hematocrit 32.5 % Mean Corpuscular Volume 93.7 fL Mean Corpuscular Hemoglobin 30.5 pg Mean Corpuscular Hemoglobin Concent 32.6 g/dl Platelet Count 181 K/uL Mean Platelet Volume 9.7 fL Neutrophils (%) (Auto) 54.8 % Lymphocytes (%) (Auto) 32.2 % Monocytes (%) (Auto) 7.0 % Eosinophils (%) (Auto) 5.1 % Basophils (%) (Auto) 0.6 % Neutrophils # (Auto) 4.97 K/uL Lymphocytes # (Auto) 2.91 K/uL Monocytes # (Auto) 0.63 K/uL Eosinophils # (Auto) 0.46 K/uL Basophils # (Auto) 0.05 K/uL RDW Standard Deviation 42.0 fL RDW Coefficient of Variation 12.5 % Immature Granulocyte % (Auto) 0.3 % Immature Granulocyte # (Auto) 0.03 K/uL Prothrombin Time 10.3 SECONDS Prothromb Time International Ratio 1.0 Sodium Level 142 mmol/L Potassium Level 4.1 mmol/L Chloride Level 109 mmol/L Carbon Dioxide Level 26 mmol/L Anion Gap 8.0 mmol/L Blood Urea Nitrogen 58 mg/dl Creatinine 1.66 mg/dl Est Creatinine Clear Calc Drug Dose 37.6 ml/min Estimated GFR () 36.8 Estimated GFR (Non- 31.8 BUN/Creatinine Ratio 34.8 Random Glucose 80 mg/dl Calcium Level 8.7 mg/dl Phosphorus Level 4.1 mg/dl Magnesium Level 2.1 mg/dl Pro-B-Type Natriuretic Peptide 476 pg/ml Test 09/24/17 09:37 Bedside Glucose 104 mg/dl Chest x-ray: Negative study. VQ lung scan: Low probability of PE Electrocardiogram 09/23/17: sinus rhythm with premature atrial complexes at 70 bpm. Cannot rule out anterior infarct. Telemetry reviewed: Sinus rhythm with PACs. No arrhythmia or pause. Assessment & Plan Patient was discussed with Dr. Wilson. 1. Chest pain: Exertional chest discomfort described as "burning" for greater than one month. Her cardiac enzymes are negative and electrocardiogram without ischemic changes. Recommend dobutamine stress echocardiogram to rule out cardiac ischemia as a cause of her symptoms. 2. Exertional dyspnea: She has also been experiencing significant exertional dyspnea which is new. An echocardiogram during her admission in July 2017 shows normal LV systolic function with diastolic dysfunction. She appears euvolemic on exam, BNP level is normal and chest x-ray is negative making acute CHF unlikely. As above recommend dobutamine stress echocardiogram for further evaluation. 3. Coronary artery disease: History of non ST elevation [place] in 1999 and RCA stenosis with collateral flow. No history of PCI. Recommend ischemic evaluation with dobutamine stress echocardiogram in the setting of her current symptoms. Continue medical therapy with ASA, statin and beta sarika. 4. Hypertension: Blood pressure significantly elevated upon admission and has improved since. Continue to monitor. 5. Dyslipidemia: Continue statin therapy. Addendum by Cardiology attending: Patient was seen and examined. Agree with above with the following additions. Exertional dyspnea accompanied by chest discomfort described as a burning sensation, has been occurring intermittently since her medications were change in July of 2017 symptoms resolved within minutes of rest. She denies any rest symptoms. She denies orthopnea. She had edema and rash on amlodipine labetalol was started in place of atenolol 100 mg daily, which she had tolerated well, due to ongoing hypertension. She follows with Nephrology. She said she felt better on her prior medications. Exam notable for: Vitals reviewed. Neck thick but no JVD. Cardiac: Normal S1 and S2. Regular no ventricular heave. 2/6 early peaking systolic ejection murmur best heard at the right upper sternal border. Lungs: Clear to auscultation bilaterally. Extremities: No edema or cyanosis. ECG personally reviewed. ECG 09/23/2017: Sinus rhythm with PACs. 70 bpm. Cannot rule out anterior infarct. ASSESSMENT/PLAN: 1. Exertional dyspnea and chest discomfort: Etiology uncertain. Could be secondary to underlying ischemic heart disease, especially with significant hypertension. Could also be secondary to hypertension itself recommend dobutamine stress echo, which was completed. Unfortunately she did not attain target heart rate. Recommend nuclear perfusion study. Medical therapy for ischemic heart disease also recommended. She appears euvolemic. 2. CAD: Has known occluded RCA with collaterals. Symptoms could be due to ischemic heart disease in the setting of hypertension. Will discontinue labetalol and start carvedilol 25 mg twice daily. Will start isosorbide mononitrate 30 mg daily. This can be further titrated. Optimize antihypertensive regimen if myocardial perfusion study demonstrates higher risk ischemic heart disease, would then consider cardiac catheterization. Otherwise , recommend medical therapy given her CKD and known occluded RCA. She prefers this approach as well. 3. Hypertension: Adjust medications as noted above. 4. Disposition: Cardiology will continue to follow. Plan of care was discussed with Dr. Sam, primary hospitalist.
--- NOTE | 2017-09-24 12:08 | Nephrology Consultation ---
Nephrology Consultation Date & Providers Date of Consultation: Sep 24, 2017. Primary Care Provider: No Doctor, Assigned Referring Provider: Reason for Consultation Evaluation and management for hypertensive urgency and chronic kidney disease History of Present Illness Mrs. Doll is a 67-year-old female with past medical history significant for hypertension, diabetes, chronic kidney disease is diabetic nephropathy admitted to the hospital with an episode of shortness of breath and hypertensive urgency. Nephrologic consult was requested to manage chronic kidney disease hypertensive urgency. Electronic medical records including labs and imaging are reviewed in detail during patient's visit. Jessika presented to ER with shortness of breath. On admission CXR, cardiac enzymes and EKG was unremarkable. V/Q scan was low probability. No sign of volume overload. BP was elevated. Lab showed cr 1.8, which is close to her baseline. She was started on hydralazine, losartan and chlorthalidone on hold. BP started to improve. She has stage 3 CKD b/l cr has been variable from 1.5-1 8. Chronic kidney disease most likely secondary to diabetic nephropathy. Has high grade proteinuria. She has hypertension which lately has been poorly controlled with recurrent hospital admission for hypertensive urgency. Prior workup revealed left atrophic kidney, right kidney 10.4 and left kidney 7.6 cm. She had renal artery Doppler which showed patent right renal artery, left renal artery artery was not well visualized but the visualized portion of the left renal artery did not have any significant stenosis. Resistive indices in both renal arteries were slightly elevated possibly due to chronic kidney disease. She has been following with Dr. Denny as an outpatient, recently her medications were adjusted. She was started on chlorthalidone 25, losartan 25 and labetalol was decreased to 100 twice a day as she was complaining of fatigue. Over last 1 month at home her blood pressure has been much better controlled, systolic for most of the time staying around 130s to 140s. On admission her creatinine was 1.8 which is her baseline. Electrolyte was acceptable. Overall she feels better denies any headache or visual changes. Denies any chest pain or shortness of Breath. Has been voiding normally. Allergies Coded Allergies: Lisinopril (Unverified Allergy, Unknown, 04/28/13) Sulfa Drugs (Verified Allergy, Unknown, 04/28/13) Inpatient Medications Current Inpatient Medications Medications (Trade) Dose Ordered Sig/[place] Route Start Time Stop Time Status Last Admin Dose Admin Heparin Sodium (Porcine) (Heparin Sq 5000 Unit/0.5ml) 5,000 unit Q12 SQ 09/23/17 21:00 10/23/17 20:59 09/24/17 08:00 5,000 UNIT Acetaminophen (Tylenol Tab) 650 mg Q4H PRN PO 09/23/17 15:30 10/23/17 15:29 Al Hydrox/Mg Hydrox/Simethicone (Maalox Max Susp) 15 ml Q4H PRN PO 09/23/17 15:30 10/23/17 15:29 Magnesium Hydroxide (Milk Of Magnesia Susp) 30 ml Q12H PRN PO 09/23/17 15:30 10/23/17 15:29 Zolpidem Tartrate (Ambien Tab) 5 mg HSZ PRN PO 09/23/17 15:30 10/23/17 15:29 Ondansetron HCl (Zofran Inj) 4 mg Q6H PRN IV 09/23/17 15:30 10/23/17 15:29 Morphine Sulfate (MoRPHine SULFATE INJ) 2 mg Q30M PRN IV 09/23/17 15:30 10/07/17 15:29 Polyethylene (Miralax Powder Packet) 17 gm DAILY PRN PO 09/23/17 15:30 10/23/17 15:29 Aspirin (Ecotrin Tab) 325 mg DAILY PO 09/24/17 09:00 10/24/17 08:59 09/24/17 07:51 325 MG Atorvastatin Calcium (Lipitor Tab) 80 mg DAILY PO 09/24/17 09:00 10/24/17 08:59 09/23/17 23:29 80 MG Citalopram Hydrobromide (celeXA TAB) 20 mg DAILY PO 09/24/17 09:00 10/24/17 08:59 09/24/17 07:51 20 MG Ferrous Sulfate (Feosol Tab) 325 mg DAILY PO 09/24/17 09:00 10/24/17 08:59 09/24/17 07:51 325 MG Insulin Glargine (Lantus Solostar Pen) 30 units BID SC 09/23/17 21:00 10/23/17 20:59 09/24/17 08:00 30 UNITS Labetalol HCl (Normodyne Tab) 200 mg BID PO 09/23/17 21:00 10/23/17 20:59 09/24/17 07:51 200 MG Lorazepam (Ativan Tab) 1 mg BID PRN PO 09/23/17 15:45 10/23/17 15:44 09/23/17 23:29 1 MG qk-Ccxjp-Cxebhumxyd Acetate (Vitamin E Cap) 400 interunit DAILY PO 09/24/17 09:00 10/24/17 08:59 09/24/17 07:52 400 INTERUNIT Calcium Carbonate (oS-Presley 500 TAB) 1,250 mg DAILY PO 09/24/17 09:00 10/24/17 08:59 09/24/17 07:52 1,250 MG Cholecalciferol (Vitamin D Tab) 2,000 inter.unit DAILY PO 09/24/17 09:00 10/24/17 08:59 09/24/17 07:52 2,000 INTER.UNIT Hydralazine HCl (HydrALAZINE INJ) 20 mg Q6 PRN IV. 09/23/17 16:00 10/23/17 15:59 Glucose (Glucose 40% Gel) 15-30 GRAMS 15 GRAMS... UD PRN PO 09/23/17 17:00 10/23/17 16:59 Glucose (Glucose Chew Tab) 4-8 Tablets 4 Tabl... UD PRN PO 09/23/17 17:00 10/23/17 16:59 Dextrose (Dextrose 50% 50ML Syringe) 25-50ML OF 50% DW IV FOR... UD PRN IV 09/23/17 17:00 10/23/17 16:59 Glucagon (Glucagon Inj) 1 mg UD PRN SQ 09/23/17 17:00 10/23/17 16:59 Insulin Aspart (novoLOG ASPART) SLIDING SCALE G... ACHS SC 09/23/17 17:30 10/23/17 17:29 09/23/17 19:55 4 UNITS Family History Diabetes mellitus Hypertension Social History Smoking Status: Never Smoker Drug Use: none Marital Status: single Housing Status: lives with family Occupation: retired Review of Systems A complete review of systems was performed. Pertinent positives are noted above. All other systems are negative. Physical Exam Date Time Temp Pulse Resp B/P (MAP) Pulse Ox O2 Delivery O2 Flow Rate FiO2 09/24/17 08:01 98 Room Air 09/24/17 04:08 36.3 67 16 142/81 (101) 98 Room Air 09/24/17 04:00 94 Room Air 09/24/17 00:00 94 Room Air 09/23/17 23:46 37.2 64 18 171/91 (117) 97 Room Air 09/23/17 20:00 Room Air 09/23/17 19:50 74 188/71 (110) 09/23/17 19:31 37.1 79 18 193/95 (127) 97 Room Air 09/23/17 17:00 37.0 81 18 163/91 (115) 96 Room Air 09/23/17 16:27 78 20 168/68 97 09/23/17 14:41 36.6 71 20 131/59 97 Room Air 09/23/17 14:31 131/59 09/23/17 14:30 72 22 97 09/23/17 14:01 118/55 09/23/17 14:00 70 22 97 09/23/17 13:31 150/62 09/23/17 13:30 67 19 99 09/23/17 13:13 69 20 130/81 09/23/17 13:12 130/81 09/23/17 12:15 66 09/23/17 12:01 143/62 09/23/17 11:34 36.6 72 18 145/73 99 Room Air GENERAL: middle aged female, AAA x 3, pleasant, healthy-appearing, not in any distress. HEENT: Atraumatic, normocephalic. NECK: Supple, no JVD, no carotid bruit appreciated. ENT: No sinus tenderness MOUTH and THROAT: Moist oral mucosa, no oral ulcer or pharyngeal erythema RESPIRATORY: Normal breathing efforts, no accessory muscle use, clear to auscultation bilaterally, no wheezes or rales. CARDIOVASCULAR: S1, S2 normal, rate rhythm regular. ABDOMEN: Soft, nontender, positive bowel sound. MUSCULOSKELETAL: No CVA tenderness. No joint swelling, erythema or tenderness. Normal range of motion. SKIN: No skin rash EXTREMITY: No lower extremity edema NEURO: No gross focal neurological deficit, speech fluent. PSYCHIATRY: Normal mood and judgment Laboratory Results Last 24 Hours Test 09/23/17 12:45 09/23/17 13:53 09/23/17 17:09 09/23/17 17:18 White Blood Count 11.06 K/uL Red Blood Count 3.69 M/uL Hemoglobin 11.4 g/dL Hematocrit 34.5 % Mean Corpuscular Volume 93.5 fL Mean Corpuscular Hemoglobin 30.9 pg Mean Corpuscular Hemoglobin Concent 33.0 g/dl Platelet Count 222 K/uL Mean Platelet Volume 9.9 fL Neutrophils (%) (Auto) 64.6 % Lymphocytes (%) (Auto) 20.7 % Monocytes (%) (Auto) 9.4 % Eosinophils (%) (Auto) 4.2 % Basophils (%) (Auto) 0.5 % Neutrophils # (Auto) 7.14 K/uL Lymphocytes # (Auto) 2.29 K/uL Monocytes # (Auto) 1.04 K/uL Eosinophils # (Auto) 0.46 K/uL Basophils # (Auto) 0.06 K/uL RDW Standard Deviation 42.5 fL RDW Coefficient of Variation 12.5 % Immature Granulocyte % (Auto) 0.6 % Immature Granulocyte # (Auto) 0.07 K/uL Prothrombin Time 10.0 SECONDS Prothromb Time International Ratio 1.0 Activated Partial Thromboplast Time 23.6 SECONDS Partial Thromboplastin Ratio 0.9 Sodium Level 140 mmol/L Potassium Level 4.0 mmol/L Chloride Level 109 mmol/L Carbon Dioxide Level 23 mmol/L Anion Gap 8.0 mmol/L Blood Urea Nitrogen 66 mg/dl Creatinine 1.83 mg/dl Est Creatinine Clear Calc Drug Dose 34.1 ml/min Estimated GFR () 32.7 Estimated GFR (Non- 28.3 BUN/Creatinine Ratio 36.1 Random Glucose 36 mg/dl Calcium Level 8.8 mg/dl Total Bilirubin 0.3 mg/dl Direct Bilirubin < 0.1 mg/dl Aspartate Amino Transf (AST/SGOT) 15 U/L Alanine Aminotransferase (ALT/SGPT) 22 U/L Alkaline Phosphatase 65 U/L Total Creatine Kinase 173 U/L Creatine Kinase MB 4.1 ng/ml Creatine Kinase MB Ratio 2.4 Troponin I < 0.015 ng/ml Total Protein 7.0 gm/dl Albumin 3.1 gm/dl Lipase 343 U/L Thyroid Stimulating Hormone (TSH) 1.440 uIu/ml Bedside Glucose 95 mg/dl 224 mg/dl D-Dimer 1500 ug/L FEU Test 12/4/17 19:35 09/23/17 22:03 09/24/17 05:15 09/24/17 07:14 Bedside Glucose 201 mg/dl 86 mg/dl Total Creatine Kinase 165 U/L 146 U/L Creatine Kinase MB 3.3 ng/ml 3.0 ng/ml Creatine Kinase MB Ratio 2.0 2.1 Troponin I < 0.015 ng/ml < 0.015 ng/ml White Blood Count 9.05 K/uL Red Blood Count 3.47 M/uL Hemoglobin 10.6 g/dL Hematocrit 32.5 % Mean Corpuscular Volume 93.7 fL Mean Corpuscular Hemoglobin 30.5 pg Mean Corpuscular Hemoglobin Concent 32.6 g/dl Platelet Count 181 K/uL Mean Platelet Volume 9.7 fL Neutrophils (%) (Auto) 54.8 % Lymphocytes (%) (Auto) 32.2 % Monocytes (%) (Auto) 7.0 % Eosinophils (%) (Auto) 5.1 % Basophils (%) (Auto) 0.6 % Neutrophils # (Auto) 4.97 K/uL Lymphocytes # (Auto) 2.91 K/uL Monocytes # (Auto) 0.63 K/uL Eosinophils # (Auto) 0.46 K/uL Basophils # (Auto) 0.05 K/uL RDW Standard Deviation 42.0 fL RDW Coefficient of Variation 12.5 % Immature Granulocyte % (Auto) 0.3 % Immature Granulocyte # (Auto) 0.03 K/uL Prothrombin Time 10.3 SECONDS Prothromb Time International Ratio 1.0 Sodium Level 142 mmol/L Potassium Level 4.1 mmol/L Chloride Level 109 mmol/L Carbon Dioxide Level 26 mmol/L Anion Gap 8.0 mmol/L Blood Urea Nitrogen 58 mg/dl Creatinine 1.66 mg/dl Est Creatinine Clear Calc Drug Dose 37.6 ml/min Estimated GFR () 36.8 Estimated GFR (Non- 31.8 BUN/Creatinine Ratio 34.8 Random Glucose 80 mg/dl Calcium Level 8.7 mg/dl Phosphorus Level 4.1 mg/dl Magnesium Level 2.1 mg/dl Pro-B-Type Natriuretic Peptide 476 pg/ml Test 09/24/17 09:37 Bedside Glucose 104 mg/dl Impression (1) Hypertensive urgency (2) CKD (chronic kidney disease) stage 3, GFR 30-59 ml/min (3) Proteinuria (4) Atrophy of left kidney (5) Exertional dyspnea (6) Diabetes 67 y o F with CKD with diabetic nephropathy, left atrophic kidney, Hypertension , DM with proteinuria, admitted with Exertional dyspnea and hypertensive urgency. W/U including V/Q scan, CXR, cardiac enzyme and EKG unremarkable. BP improving. Unclear etiology for exertional dyspnea, certainly there is possibility for underlying coronary artery disease with history of diabetes, prior history of carotid stenosis and questionable history of left renal artery stenosis. Prior renal imaging was inconclusive regarding left renal artery, right renal artery was patent. Has stage 3 CKD b/l cr 1.6-1.8 secondary to DM nephropathy. Cr at baseline Recommendations --Resume chlorthalidone and losartan, as her renal function remained at baseline , no contraindication to use those medications. BP already started to improve, expect to continue to improve. Had many w/u previously, unremarkable, no further w/u at this time. --avoid IV fluid, follow low salt diet, avoid NSAID --will check renal panel and electrolyte in am --continue on Labetalol --may need further cardiac w/u for exertional dyspnea Thank you for the consultation. It was a pleasure to see Jessika. Will follow
--- NOTE | 2017-09-24 12:48 | Clinical Documentation Query ---
AGAPITO Hunt : CLINICAL DOCUMENTATION QUERY Patient is a 67 year old female admitted for evaluation and treatment of dyspnea on exertion and chest pain. Chest pain cannot be assumed by the professional brand coordinator to be synonymous with angina, even in a patient with known CAD. As appropriate, consider documentation as suggested below in order to avoid brand coordinator uncertainty at time of discharge. Thank you. In your clinical opinion is this patient being managed for: ( ) Angina pectoris ( ) Not Agree ( ) Other explanation of clinical findings (Please Explain) ( x ) Unable to determine (Please Define) could be angina, could be from bronchospasm from beta sarika ( ) Need to Discuss The medical record reflects the following clinical findings, treatment, and risk factors. Clinical Indicators: As above Treatment: Telemetry, V/Q scan, cardiology consultation, serial cardiac enzymes Risk Factors: Age, obesity, diabetes, hypertension, CAD Please clarify and document your clinical opinion in the progress notes and discharge summary. Terms such as "probable", "suspected", "likely", "questionable", "possible", or "still to be ruled out" are acceptable. IF IN AGREEMENT, YOU MUST DOCUMENT ABOVE DIAGNOSTIC STATEMENT IN DAILY PROGRESS NOTES AND DISCHARGE SUMMARY. This document is not part of the patient's record. Thank You, Alexsander Phipps, RN [phone]
[2017-09-24] MEDS ORDERED: ISOSORBIDE MONONITRATE 30 MG TABCR PO ONE (13:15)
--- NOTE | 2017-09-24 17:25 | DOBUTAMINE ECHO ---
*NOTICE TO RECEIVING [employer] This information is strictly Confidential and protected under [place] law. [place] law prohibits you from making any further disclosure of this information unless further disclosure is expressly permitted by the written consent of the person to whom it pertains or is authorized by law. A general authorization for the release of medical or other information is not sufficient for this purpose. Hospital accepts no responsibility if the information is made available to any other person, INCLUDING THE PATIENT. Interpretation Summary * Name: RUFUS HARTMAN Study Date: 09/24/2017 11:41 AM BP: 167/56 mmHg * Patient Location: [facility]\S\N276\S\2 HR: 64 * : 1950 (M/d/yyyy) Gender: Female Height: 63 in * Age: 67 yrs Ethnicity: [place] Weight: 216 lb * Ordering Physician: Tia Santillan * Referring Physician: UNKNOWN * Performed By: Liliya Montgomery RCS * * Reason For Study: Chest Pain * BSA: 2.0 m2 * -- Conclusions -- * Dobutamine stress echo: * 1. There were no definite ischemic changes suggested on stress echo imaging at 47% MPHR. Target heart rate not attained. Nondiagnostic study. * 2. Nondiagnostic dobutamine ECG for ischemia as target heart rate was not attained. * 3. No arrhythmia. * 4. Hypertensive response to dobutamine and atropine. * 5. Study terminated due to hypertension. * 6. No chest pain reported. Procedure Details * DOBUTAMINE ECHO, CPT#30825 Left Ventricle * The left ventricle is normal in size. * (The inferior basal segment appeared akinetic in stress imaging. Rest imaging did not demonstrate this abnormality, however the two-chamber view act was issue an angle was not the same. Patient has documented akinetic inferior basal segment on prior study in July of 2017.) * There is moderate concentric left ventricular hypertrophy. * Left ventricular systolic function is normal. * At rest, septal basal segment appears akinetic. Two-chamber view at rest did not demonstrate akinesis of the inferior base, however angle acquisition of the two-chamber was different than stress images. Prior study on 08/15/2017 has similar wall motion at rest on the 2 chamber imaging as was seen on current stress imaging with small wall motion abnormality involving the inferior base. Stress Parameters * NSR at 64 bpm. Septal infarct. * Stress ECG: No ST changes. No arrhythmias. * No arrhythmia were noted with stress. * Rest heart rate was '64' BPM. * Rest blood pressure was '167/56' * Maximum heart rate achieved was 73 bpm. * Maximum heart rate was 47 % of maximum age-predicted heart rate. * Maximum blood pressure was '236/69' * Maximum Dobutamine infusion rate was '40' mcg/kg/min. * A total of .25 mg of intravenous Atropine was used to supplement Dobutamine for heart rate response. * Dobutamine infusion was terminated due to increased blood pressure and physician discretion * A total of 5 mg of IV Metoprolol was administered to reverse Dobutamine-induced tachycardia. * The patient exhibited a hypertensive response with stress. * The patient did not exhibit any symptoms during drug infusion. MMode 2D Measurements and Calculations IVSd 1.4 cm LVIDd 4.4 cm LVIDs 2.9 cm LVPWd 1.4 cm IVS/LVPW 0.99 FS 34.2 % EDV(Teich) 89.8 ml ESV(Teich) 32.9 ml EF(Teich) 63.4 % EDV(cubed) 87.8 ml ESV(cubed) 25.0 ml EF(cubed) 71.5 % LV mass(C)d 236.4 grams LV mass(C)dI 118.3 grams/m\S\2 SV(Teich) 56.9 ml SI(Teich) 28.5 ml/m\S\2 SV(cubed) 62.8 ml SI(cubed) 31.4 ml/m\S\2 Ao root diam 3.1 cm Ao root area 7.7 cm\S\2
[2017-09-24] MEDS ORDERED: NURSING VERBAL MED ORDER ONE (18:45)
[2017-09-24] MEDS: LORAZEPAM 1 MG TAB PO PRN (20:14)
[2017-09-24] MEDS: CARVEDILOL 25 MG TAB PO SCH (20:14)
--- NOTE | 2017-09-24 23:35 | Hospitalist Progress Note ---
Hospitalist Progress Note Date of Service Sep 24, 2017. Subjective Pt evaluation today including: conversation w/ patient, chart review, lab review, conversation w/ field technical support consultant (Cardiology) Pt reports having continued YI with minimal exertion here. All symptoms seem to have started after discharge on new BP meds last admission (labetalol and chlorthalidone). Has associated chest tightness with the YI. All Other Systems: Reviewed and Negative Objective Vital Signs Date Time Temp Pulse Resp B/P (MAP) Pulse Ox O2 Delivery O2 Flow Rate FiO2 09/24/17 20:01 36.7 65 18 129/77 (94) 96 Room Air 09/24/17 20:00 Room Air 09/24/17 16:00 Room Air 09/24/17 15:58 36.7 61 61 151/75 (100) 98 Room Air 09/24/17 12:05 98 Room Air 09/24/17 11:29 37.0 62 18 157/80 (105) 96 09/24/17 08:01 98 Room Air 09/24/17 04:08 36.3 67 16 142/81 (101) 98 Room Air 09/24/17 04:00 94 Room Air 09/24/17 00:00 94 Room Air 09/23/17 23:46 37.2 64 18 171/91 (117) 97 Room Air Physical Exam General Appearance: WD/WN, no apparent distress, + obese Eyes: normal inspection, sclerae normal ENT: hearing grossly normal Neck: trachea midline Respiratory/Chest: lungs clear, normal breath sounds, no respiratory distress, no accessory muscle use Cardiovascular: regular rate, rhythm, no edema, no gallop, no murmur Abdomen: normal bowel sounds, non tender, soft Extremities: normal inspection, no pedal edema, no calf tenderness Neurologic/Psychiatric: alert, normal mood/affect, oriented x 3 Skin: normal color, warm/dry, no rash Laboratory Results Last 24 Hours Test 09/24/17 05:15 09/24/17 07:14 09/24/17 09:37 09/24/17 11:35 White Blood Count 9.05 K/uL Red Blood Count 3.47 M/uL Hemoglobin 10.6 g/dL Hematocrit 32.5 % Mean Corpuscular Volume 93.7 fL Mean Corpuscular Hemoglobin 30.5 pg Mean Corpuscular Hemoglobin Concent 32.6 g/dl Platelet Count 181 K/uL Mean Platelet Volume 9.7 fL Neutrophils (%) (Auto) 54.8 % Lymphocytes (%) (Auto) 32.2 % Monocytes (%) (Auto) 7.0 % Eosinophils (%) (Auto) 5.1 % Basophils (%) (Auto) 0.6 % Neutrophils # (Auto) 4.97 K/uL Lymphocytes # (Auto) 2.91 K/uL Monocytes # (Auto) 0.63 K/uL Eosinophils # (Auto) 0.46 K/uL Basophils # (Auto) 0.05 K/uL RDW Standard Deviation 42.0 fL RDW Coefficient of Variation 12.5 % Immature Granulocyte % (Auto) 0.3 % Immature Granulocyte # (Auto) 0.03 K/uL Prothrombin Time 10.3 SECONDS Prothromb Time International Ratio 1.0 Sodium Level 142 mmol/L Potassium Level 4.1 mmol/L Chloride Level 109 mmol/L Carbon Dioxide Level 26 mmol/L Anion Gap 8.0 mmol/L Blood Urea Nitrogen 58 mg/dl Creatinine 1.66 mg/dl Est Creatinine Clear Calc Drug Dose 37.6 ml/min Estimated GFR () 36.8 Estimated GFR (Non- 31.8 BUN/Creatinine Ratio 34.8 Random Glucose 80 mg/dl Calcium Level 8.7 mg/dl Phosphorus Level 4.1 mg/dl Magnesium Level 2.1 mg/dl Total Creatine Kinase 146 U/L Creatine Kinase MB 3.0 ng/ml Creatine Kinase MB Ratio 2.1 Troponin I < 0.015 ng/ml Pro-B-Type Natriuretic Peptide 476 pg/ml Bedside Glucose 86 mg/dl 104 mg/dl 87 mg/dl Test 09/24/17 16:41 09/24/17 20:56 Bedside Glucose 165 mg/dl 141 mg/dl Assessment and Plan Pt is a 67 yo female with a h/o CAD, HTN, HL, chronic diastolic CHF, obesity, MITCHEL, h/o CVA, depression, CKD stage III, and DMII who presents with persistent YI and associated chest tightness since recent discharge 6 weeks ago for accelerated HTN. CP/YI/CAD/HTN/HL/Chronic diastolic CHF/MITCHEL/h/o CVA- CP and YI could be angina. Has known CAD, Dobutamine Stress today was submax and terminated due to severe HTN. All symptoms started after last admission after starting labetalol and chlorthalidone (after stopping atenolol, losartan/HCT). Recent ECHO with preserved EF. V/Q scan low prob for PE. CXR normal Trop neg x 3 Tele with sinus rhythm with PACs ECG with old anterior infarct but no acute ischemic changes -check Nuc Stress test in AM-keep NPO after midnight -Appreciate Cardio recommendations: dc labetalol in case is culprit for her symptoms, start Coreg 25 bid, start isosorbide mononitrate 30mg and titrate up as needed, restart chlorthalidone and losartan -should do informal 2-step to see if gets hypoxic with exertion -if Cardiac workup negative, consider formal PFTs as outpt -continue ASA, statin high intensity Acute renal insufficiency in setting of CKD stage III-engineering coordinator up to 1.83 on admission, now down to 1.66 at her baseline. Appreciate Nephrology recommendations. Has atrophic left kidney, medical renal dz on Renal US 07/2017 -ok to restart chlorthalidone and losartan -avoid nephrotoxins -renally dose meds Anxiety-stable -continue Celexa, lorazepam prn DMII-uncontrolled, last HgbA1C 9.3% in 07/2017 -continue Lantus and SSI, accuchecks achs -CDE consult Proph-heparin SQ Dispo- to home if BP controlled, Nuc Stress normal tomorrow
[2017-09-25] VITALS (7 sets, daily range): BP systolic 121–127; BP diastolic 72–80; PULSE 66–68; TEMP 36.5–36.6; O2SAT 97–98
[2017-09-25] MEDS: INSULIN ASPART 100 UNITS/ML 3 ML PEN SC SCH ×2 (06:30→11:00)
[2017-09-25] MEDS: CALCIUM CARBONATE 1250MG TAB PO SCH (07:38)
[2017-09-25] MEDS: ASPIRIN 325 MG ECTAB PO SCH (07:39)
[2017-09-25] MEDS: CITALOPRAM 20 MG TAB PO SCH (07:39)
[2017-09-25] MEDS: CHOLECALCIFEROL 1000 INTER.UNIT TAB PO SCH (07:39)
[2017-09-25] MEDS: FERROUS SULFATE 325 MG TAB PO SCH (07:39)
[2017-09-25] MEDS: TOCOPHERYL, DL-ALPHA 400 INTER.UNIT CAP PO SCH (07:39)
[2017-09-25] MEDS: CARVEDILOL 25 MG TAB PO SCH (07:42)
[2017-09-25] MEDS: HEPARIN SOD 5000 UNIT/0.5 ML CARP SQ SCH (07:56)
[2017-09-25] MEDS: INSULIN GLARGINE SOLOSTAR 100 UNITS/ML 3 ML PEN SC SCH (07:56)
[2017-09-25 08:04] LABS: BUN/CREATININE RATIO 32.7 (10-20); CALCIUM 8.8 mg/dl (8.5-10.1); CREATININE 1.71 mg/dl (0.60-1.20); POTASSIUM 4.2 mmol/L (3.5-5.1)
[2017-09-25] MEDS ORDERED: REGADENOSON 0.4 MG/5 ML SYR ONE (08:21)
[2017-09-25] MEDS ORDERED: LOSARTAN POTASSIUM 25 MG TAB PO SCH (09:00)
[2017-09-25] MEDS ORDERED: ISOSORBIDE MONONITRATE 30 MG TABCR PO SCH (09:00)
[2017-09-25] MEDS ORDERED: CHLORTHALIDONE 25 MG TAB PO SCH (09:00)
--- NOTE | 2017-09-25 09:48 | Nephrology Progress Note ---
Nephrology Progress Note Date of Service Sep 25, 2017. Chief Complaint F/U for hypertensive urgency and chronic kidney disease Subjective Jessika was seen and examined in her room this am. Overall feeling better, SOB resolved, was able to do things without getting SOB the way she used to. BP improved. Renal function, electrolyte stable. Review of Systems A complete review of systems was performed. Pertinent positives are noted above. All other systems are negative. Vital Signs Last 8 Hrs Date Time Temp Pulse Resp B/P (MAP) Pulse Ox O2 Delivery O2 Flow Rate FiO2 09/25/17 07:12 36.6 66 18 121/72 (88) 97 Room Air 09/25/17 04:15 36.5 68 16 127/80 (96) 97 Room Air 09/25/17 04:00 98 Room Air Last Recorded Weight Weight (Kilograms): 99.000 Physical Exam GENERAL: middle aged female, AAA x 3, pleasant, healthy-appearing, not in any distress. NECK: Supple, no JVD. RESPIRATORY: Normal breathing efforts, no accessory muscle use, clear to auscultation bilaterally, no wheezes or rales. CARDIOVASCULAR: S1, S2 normal, rate rhythm regular. EXTREMITY: No lower extremity edema NEURO: speech fluent. PSYCHIATRY: Normal mood and judgment Family History Diabetes mellitus Hypertension Social History Smoking Status: Never smoker Drug Use: none Marital Status: single Housing Status: lives with family Occupation: retired Laboratory Results Past 24 Hours 09/25/17 07:23 Test 09/24/17 11:35 09/24/17 16:41 09/24/17 20:56 09/25/17 07:23 Bedside Glucose 87 mg/dl (70-90) 165 mg/dl (70-90) 141 mg/dl (70-90) Anion Gap 6.0 mmol/L (3-11) Est Creatinine Clear Calc Drug Dose 36.3 ml/min Estimated GFR () 35.5 Estimated GFR (Non- 30.7 BUN/Creatinine Ratio 32.7 (10-20) Calcium Level 8.8 mg/dl (8.5-10.1) Test 09/25/17 07:30 Bedside Glucose 106 mg/dl (70-90) Allergies Coded Allergies: Lisinopril (Verified Allergy, Unknown, `, 09/24/17) Sulfa Antibiotics (Verified Allergy, Unknown, `, 09/24/17) Medications Current Inpatient Medications Medications (Trade) Dose Ordered Sig/[place] Route Start Time Stop Time Status Last Admin Dose Admin Heparin Sodium (Porcine) (Heparin Sq 5000 Unit/0.5ml) 5,000 unit Q12 SQ 09/23/17 21:00 10/23/17 20:59 09/25/17 07:56 5,000 UNIT Acetaminophen (Tylenol Tab) 650 mg Q4H PRN PO 09/23/17 15:30 10/23/17 15:29 09/24/17 18:57 650 MG Al Hydrox/Mg Hydrox/Simethicone (Maalox Max Susp) 15 ml Q4H PRN PO 09/23/17 15:30 10/23/17 15:29 Magnesium Hydroxide (Milk Of Magnesia Susp) 30 ml Q12H PRN PO 09/23/17 15:30 10/23/17 15:29 Zolpidem Tartrate (Ambien Tab) 5 mg HSZ PRN PO 09/23/17 15:30 10/23/17 15:29 Ondansetron HCl (Zofran Inj) 4 mg Q6H PRN IV 09/23/17 15:30 10/23/17 15:29 Morphine Sulfate (MoRPHine SULFATE INJ) 2 mg Q30M PRN IV 09/23/17 15:30 10/07/17 15:29 Polyethylene (Miralax Powder Packet) 17 gm DAILY PRN PO 09/23/17 15:30 10/23/17 15:29 Aspirin (Ecotrin Tab) 325 mg DAILY PO 09/24/17 09:00 10/24/17 08:59 09/25/17 07:39 325 MG Citalopram Hydrobromide (celeXA TAB) 20 mg DAILY PO 09/24/17 09:00 10/24/17 08:59 09/25/17 07:39 20 MG Ferrous Sulfate (Feosol Tab) 325 mg DAILY PO 09/24/17 09:00 10/24/17 08:59 09/25/17 07:39 325 MG Insulin Glargine (Lantus Solostar Pen) 30 units BID SC 09/23/17 21:00 10/23/17 20:59 09/25/17 07:56 30 UNITS Lorazepam (Ativan Tab) 1 mg BID PRN PO 09/23/17 15:45 10/23/17 15:44 09/24/17 20:14 1 MG [id number] Acetate (Vitamin E Cap) 400 interunit DAILY PO 09/24/17 09:00 10/24/17 08:59 09/25/17 07:39 400 INTERUNIT Calcium Carbonate (oS-Presley 500 TAB) 1,250 mg DAILY PO 09/24/17 09:00 10/24/17 08:59 09/25/17 07:38 1,250 MG Cholecalciferol (Vitamin D Tab) 2,000 inter.unit DAILY PO 09/24/17 09:00 10/24/17 08:59 09/25/17 07:39 2,000 INTER.UNIT Hydralazine HCl (HydrALAZINE INJ) 20 mg Q6 PRN IV. 09/23/17 16:00 10/23/17 15:59 Glucose (Glucose 40% Gel) 15-30 GRAMS 15 GRAMS... UD PRN PO 09/23/17 17:00 10/23/17 16:59 Glucose (Glucose Chew Tab) 4-8 Tablets 4 Tabl... UD PRN PO 09/23/17 17:00 10/23/17 16:59 Dextrose (Dextrose 50% 50ML Syringe) 25-50ML OF 50% DW IV FOR... UD PRN IV 09/23/17 17:00 10/23/17 16:59 Glucagon (Glucagon Inj) 1 mg UD PRN SQ 09/23/17 17:00 10/23/17 16:59 Insulin Aspart (novoLOG ASPART) SLIDING SCALE G... ACHS SC 09/23/17 17:30 10/23/17 17:29 09/24/17 17:29 5 UNITS Chlorthalidone (Hygroton Tab) 25 mg QAM PO 09/25/17 09:00 10/25/17 08:59 09/25/17 07:41 25 MG Losartan Potassium (coZAAR TAB) 25 mg QAM PO 09/25/17 09:00 10/25/17 08:59 09/25/17 07:40 25 MG Carvedilol (Coreg Tab) 25 mg BID PO 09/24/17 21:00 10/24/17 20:59 09/25/17 07:42 25 MG Isosorbide Mononitrate (Imdur Ext Rel Tab) 30 mg QAM PO 09/25/17 09:00 10/25/17 08:59 09/25/17 07:40 30 MG Atorvastatin Calcium (Lipitor Tab) 80 mg HS PO 09/24/17 21:00 10/24/17 20:59 09/24/17 20:14 80 MG Impression (1) Hypertensive urgency (2) CKD (chronic kidney disease) stage 3, GFR 30-59 ml/min (3) Proteinuria (4) Atrophy of left kidney (5) Exertional dyspnea (6) Diabetes 67 y o F with CKD with diabetic nephropathy, left atrophic kidney, Hypertension , DM with proteinuria, admitted with Exertional dyspnea and hypertensive urgency. W/U including V/Q scan, CXR, cardiac enzyme and EKG unremarkable. BP improving. Unclear etiology for exertional dyspnea, certainly there is possibility for underlying coronary artery disease with history of diabetes, prior history of carotid stenosis and questionable history of left renal artery stenosis. Prior renal imaging was inconclusive regarding left renal artery, right renal artery was patent. Has stage 3 CKD b/l cr 1.6-1.8 secondary to DM nephropathy. Cr at baseline Recommendations --Continue on labetalol 100 BID, chlorthalidone and losartan. --avoid IV fluid, follow low salt diet, avoid NSAID --will check renal panel daily Will follow
[2017-09-25] MEDS ORDERED: IMDSR30 PO (14:18)
[2017-09-25] MEDS ORDERED: CRG25 PO (14:18)
[2017-09-25] MEDS ORDERED: CZR25 PO (14:18)
--- NOTE | 2017-09-25 14:19 | Discharge Summary ---
Discharge Summary Date of Service Sep 25, 2017. Discharge Summary Admission Date: Sep 23, 2017 at 15:35 Discharge Date: Sep 25, 2017 Discharge Disposition: Home Principal Diagnosis: Dyspnea on exertion Problems/Secondary Diagnoses: CAD HTN HLD chronic diastolic CHF- compensated MITCHEL h/o CVA Acute renal insufficiency in setting of CKD stage III Anxiety T2DM- last HgbA1C 9.3% in 07/2017 Immunizations: History of Tetanus Vaccine?: Unknown History of Pneumococcal: Unknown History of Hepatitis B Vaccine: Unknown Procedures: CHEST ONE VIEW PORTABLE CLINICAL HISTORY: Evaluate Fever/Sepsis fever COMPARISON STUDY: 08/14/2017 FINDINGS: The bones soft tissues and hemidiaphragms are normal. The cardiomediastinal silhouette is normal. The lungs are clear. The pulmonary vasculature is normal. IMPRESSION: Negative chest. The above report was generated using voice recognition software. It may contain grammatical, syntax or spelling errors. Electronically signed by: Mc Iraheta M.D. 09/23/2017 12:58 PM Dictated Date/Time: 09/23/2017 12:58 PM The status of this report is Signed. Draft = Not yet reviewed or approved by Radiologist. Signed = Reviewed and approved by Radiologist. NUCLEAR MEDICINE VENTILATION AND PERFUSION STUDY CLINICAL HISTORY: Atypical chest pain. Dyspnea on exertion. Renal insufficiency. COMPARISON STUDY: Chest x-ray dated 09/23/2017 FINDINGS: The patient was ventilated utilizing 33 mCi of technetium 99m DTPA aerosol. The patient was subsequent perfusion lysing 5.7 mCi of technetium 99m MAA. There is mild central deposition of the aerosol, suggesting mild airway disease. There is a small matched defect involving the left posterior inferior lung. There are no significant VQ mismatches. This examination is of low probability for acute pulmonary embolism. IMPRESSION: Low probability for acute pulmonary embolism Electronically signed by: Abner Shannon M.D. 09/23/2017 6:56 PM Dictated Date/Time: 09/23/2017 6:54 PM The status of this report is Signed. Draft = Not yet reviewed or approved by Radiologist. Signed = Reviewed and approved by Radiologist. Myocardial Perfusion Study Rpt Myocardial Perfusion Study Rpt Date of Service 09/25/2017 Myocardial Perfusion Study Rpt Procedure: 1. Myocardial perfusion study performed in multiple views/images 2. Lexiscan pharmacologic stress ECG Indications: 1. Chest pain 2. Dyspnea with exertion 3. CAD 4. Nondiagnostic dobutamine stress echo Consent: Informed written consent was obtained prior to the procedure. Ordering physician: Dr. Wilson Procedural details: For the stress portion of the study, Lexiscan 0.4 mg was intravenously administered followed by a saline flush. This was followed by 33 mCi of technetium 99m Cardiolite, injected at 1:10 p.m. on 09/25/2017. 30 minutes following the injection, imaging of the heart was performed in multiple projections. For the rest portion of the study, 10.4 mCi technetium 99m Cardiolite was injected intravenously at 11:30 a.m. on 09/25/2017. 1 hour following the injection, imaging of the heart was performed in the same projections. Lexiscan stress ECG: Resting ECG demonstrated: NSR at 61 bpm Maximum heart rate: 91 bpm Resting blood pressure: 145/64 mmHg Maximum blood pressure: 147/55 mmHg Maximal, age-predicted heart rate: 59 % Significant ST changes: None Arrhythmia: No arrhythmia. PACs and atrial couplets noted. Symptoms: Transient chest tightness, which spontaneously resolved. Findings: Rotating raw imaging demonstrated no significant lung uptake. There is no significant motion artifact. Heart size appeared normal. Myocardial perfusion was normal without significant fixed or reversible defects to suggest infarct or ischemia. Ejection fraction: 61 % Wall motion: Normal No significant transient ischemic dilation. Impression: 1. Normal myocardial perfusion without significant reversible or fixed defect to suggest ischemia or infarct. 2. Normal left ventricular systolic function; EF 61%. 3. Normal wall motion. 4. Lexiscan induced chest tightness. 5. No arrhythmia. 6. Nondiagnostic Lexiscan ECG. <Electronically signed by Twan Wilson M.D.> Signed: 09/25/17 1537 Signed: The status of this report is Signed * If report status is Draft, the document has not been finalized by the responsible provider. Consultations: Cardiology, Nephrology Medication Reconciliation New Medications: Carvedilol (Carvedilol) 25 Mg Tab 25 MG PO BID for 30 Days, #60 TAB Isosorbide Mononitrate (Isosorbide Mononitrate ER) 30 Mg Tabcr 30 MG PO QAM for 30 Days, #30 TABS Losartan Potassium (Losartan Potassium) 25 Mg Tab 25 MG PO QAM for 30 Days, #30 TAB Continued Medications: Aspirin (Aspirin Ec) 325 Mg Tab 325 MG PO DAILY Atorvastatin (Lipitor) 80 Mg Tab 80 MG PO DAILY, TAB Calcium Carbonate (Calcium 600) 600 Mg Tab 1 TAB PO DAILY Chlorthalidone (Chlorthalidone) 25 Mg Tab 25 MG PO DAILY@0600 for 30 Days, #30 TAB 2 Refills Cholecalciferol (Vitamin D3) 2,000 Unit Cap 1 CAP PO DAILY, CAP Citalopram Hydrobromide (Celexa) 20 Mg Tab 20 MG PO DAILY, TAB Ferrous Sulfate (Ferrous Sulfate) 325 Mg Tab 1 TAB PO DAILY Insulin Glargine (Lantus) 100 Unit/Ml Inj 34 UNITS SC BID Insulin Lispro (Human) (Humalog) 100 Unit/Ml Inj 30 UNITS SC BID Lorazepam (Ativan) 1 Mg Tab 1 MG PO BID PRN for Anxiety and/or Sedation, TAB Vitamin E (Vitamin E 400 Iu) 400 Unit Cap 400 INTER.UNIT PO DAILY, CAP Discontinued Medications: Labetalol HCl (Labetalol HCl) 200 Mg Tab 200 MG PO BID for 30 Days, #60 TAB 1 Refill Referrals At Discharge Follow up Referrals: [facility] Referral - Within a Month with Jb Carlos M.D. Discharge Exam Review of Systems: Constitutional: No fever, No chills, No sweats, No weakness, No fatigue Eyes: No worsening of vision ENT: No hearing loss Respiratory: No cough, No shortness of breath, No dyspnea on exertion, No dyspnea at rest, No hemoptysis Cardiovascular: No chest pain, No edema, No palpitations Abdomen: No pain, No nausea, No vomiting, No diarrhea, No constipation Musculoskeletal: No joint pain, No muscle pain, No swelling, No calf pain Genitourinary - Female: No dysuria, No hematuria Neurologic: No weakness, No numbness/tingling Psychiatric: No depression symptoms, No anxiety Endocrine: No fatigue Hematologic / Lymphatic: No abnormal bleeding/bruising Integumentary: No rash, No itch, No new/changing skin lesions Physical Exam: General Appearance: no apparent distress Eyes: normal inspection, PERRL ENT: hearing grossly normal Neck: supple Respiratory/Chest: lungs clear, no respiratory distress, no accessory muscle use Cardiovascular: regular rate, rhythm Abdomen / GI: normal bowel sounds, non tender, soft Extremities: no calf tenderness, no pedal edema Neurologic/Psychiatric: alert, normal mood/affect, oriented x 3 Skin: normal color, warm/dry, no rash Hospital Course Admission H&P: HISTORY OF PRESENT ILLNESS: The patient is a 67-year-old white female with a significant past medical history of accelerated hypertension, recent admission because of accelerated hypertension, history of CVA, CKD stage III; type 2 diabetic, insulin-dependent, uncontrolled diabetes with A1c 9.3; CAD, dyslipidemia, coming to the hospital Emergency Department because of the above chief complaint. The patient was admitted to this hospital in 08/15/2017 because of accelerated hypertension. In previous admission, she was complaining about high blood pressure and she was having history of CAD. Echo was done which shows concentric left ventricular hypertrophy, associated with normal left ventricular systolic function , there was grade 1 diastolic dysfunction. The patient reports after discharge from the hospital, she has been feeling persistent dyspnea on exertion. Sometimes, has middle chest pain, which is associated with when exertion. Denied lower extremity swelling. Denied orthopnea. At nighttime sleep, she only need one pillow. Denied fever or chills. Denied cough, sputum, shortness of breath. Denied lower extremity swelling. Denied cough, sputum, or hemoptysis. Denied nausea, vomiting, abdominal pain, diarrhea, or constipation. Denied dysuria, urgency and frequencies. Denied facial droop, slurry speeches. PHYSICAL EXAMINATION: VITAL SIGNS: Temperature is 36.6, pulse 71, respiration rate 20, blood pressure 131/59 and pulse of 97% in room air. GENERAL: The patient is a white female, awake, alert and orientated, conversational, follows all commands, obesity, BMI 39. HEAD: Normocephalic. EYES: Pupils equal, round responds to light. EARS: Ear was normal. NOSE: Normal. NECK: Supple. Thyroid no enlargement. Trachea in the midline. HEART: Regular rhythm. S1, S2. LUNGS: Decreased breathing sounds. There was no wheezing, rhonchi or crackles. ABDOMEN: Soft, nontender. Bowel sound was positive. Bilateral CVA was nontender. BILATERAL LOWER EXTREMITIES: No swelling, no clubbing, no cyanosis. Pulse was positive and symmetric. SKIN: Has no rashes. NEUROLOGICAL EVALUATION: Cranial nerves II-XII was intact. There was no local deficits. Hospital Course: Patient is a 67 y/o female with a h/o CAD, HTN, HL, chronic diastolic CHF, obesity, MITCHEL, h/o CVA, depression, CKD stage III, and DMII who presents with persistent YI and associated chest tightness since recent discharge 6 weeks ago for accelerated HTN. CP, YI, ?secondary to Labetalol vs ACS vs HTN vs other etiology: - Admitted to [facility] for cardiac monitoring- no acute events - Trended cardiac enzymes- negative - EKG w/out acute ischemic changes - Recent change in BP medications- on Labetalol and Chlorthalidone at admission (previously on Atenolol, Losartan/HCTZ) -- New regimen: Losartan 25 mg daily, Chlorthalidone 25 mg daily, Imdur 30 mg daily, Coreg 25 mg BID - V/Q scan low prob for PE; CXR unremarkable - Dobutamine stress ECHO on 09/24- nondiagnostic, study terminated due to HTN -- Nuclear stress on 09/25- unremarkable - Cardiology consulted, appreciate recommendations -- f/u w/ Dr. Carlos within 1 month CAD, HTN, HLD, chronic diastolic CHF- compensated, MITCHEL, h/o CVA: ASA 325 mg daily, Lipitor 80 mg HS, Labetelol, Chlorthalidone, Imdur, Coreg Acute renal insufficiency in setting of CKD stage III- baseline Cr 1.6-1.8- STABLE: - Nephrology following, appreciate recommendations -- Continue on Labetalol, Chlorthalidone, Losartan -- Avoid IVF, follow low salt diet, avoid NSAID - Avoid nephrotoxic agents and renally dose medications - Continue to follow PRP Anxiety- STABLE: Continue Celexa 20 mg daily, Ativan 1 mg BID PRN T2DM- last HgbA1C 9.3% in 07/2017: - Lantus 30 u BID w/ BSG ACHS and ISS - Diabetic education counselling completed - Resume outpatient regimen at discharge- f/u w/ PCP DVT prophylaxis: Heparin SQ BID Code Status: LEVEL I, FULL Dispo: Discharge to home Total Time Spent: Greater than 30 minutes This includes examination of the patient, discharge planning, medication reconciliation, and communication with other providers. Discharge Instructions Please refer to the electronic Patient Visit Report (Discharge Instructions) for additional information. Follow-Up Please follow-up with your PCP within 5-7 days Follow-up with Cardiology within 1 month Please follow-up/keep all of your subspecialty appointments Additional Copies To Bob Guzman M.D. Reviewed: Pt Seen/Exam by Me History Physician Se[employer] Fisherman Supervision Note: I interviewed and examined the patient. Discussed with DARLENE Castillo and agree with findings and plan as documented in the note. Any exceptions or clarifications are listed here: Pt had negative Nuc Stress today. Feeling much less YI and no chest tightness since stopping labetalol this admission. Was most likely a medication side effect. She walked the halls and had very minimal dyspnea todya, POx remained at 97% Vitals reviewed, BP excellent control NAD RRR no mgr, very minimal JVD CTAB no wcr Abd +BS soft NT ND Ext no edema Pt is a 67 yo female with a h/o CAD, HTN, HL, chronic diastolic CHF, obesity, MITCHEL, h/o CVA, depression, CKD stage III, and DMII who presents with persistent YI and associated chest tightness since recent discharge 6 weeks ago for accelerated HTN. CP/YI/CAD/HTN/HL/Chronic diastolic CHF/MITCHEL/h/o CVA- CP and YI. Has known CAD, Dobutamine Stress was submax and terminated due to severe HTN. All symptoms started after last admission after starting labetalol and chlorthalidone (after stopping atenolol, losartan/HCT). Recent ECHO with preserved EF. V/Q scan low prob for PE. CXR normal Trop neg x 3 Tele with sinus rhythm with PACs ECG with old anterior infarct but no acute ischemic changes Nuc Stress test negative Symptoms resolving with discontinuation of labetalol -Coreg, isosorbide, chlorthalidone and losartan as above -continue ASA, statin high intensity -f/u Cardio within 1 month F/u PCP within 1 week Documented By: Sonali Sam
--- NOTE | 2017-09-25 15:18 | CARDIOLOGY PROGRESS NOTE ---
DATE: 09/25/2017 DATE: 09/25/2017 TIME: 1451 p.m. SUBJECTIVE: She feels much better today. She is tolerating carvedilol well which was started yesterday in place on labetalol. She has ambulated in her hospital room and denies dyspnea with exertion, feels overall much better. She denies chest pain, syncope, near syncope, palpitations, orthopnea, PND or edema. OBJECTIVE: VITAL SIGNS: Temperature 36.6 degrees, heart rate 66 beats per minute, respiration rate 18, blood pressure 121/72 mmHg and overall her blood pressure has been much improved since last evening. Oxygen saturation is 97% on room air. Weight 99 kg. GENERAL: In no acute distress. She is alert and oriented. NECK: No JVD. CARDIAC EXAMINATION: No ventricular heave. Regular, normal S1, S2. A 2/6 early peaking systolic ejection murmur best heard at the right upper sternal border. No rubs or gallops. LUNGS: Clear to auscultation bilaterally without wheezes, rales or rhonchi. ABDOMEN: Soft, nontender, nondistended. Normoactive bowel sounds. EXTREMITIES: No cyanosis or edema. PSYCHIATRIC: Affect appears appropriate. MEDICATIONS: Include aspirin 325 mg daily, Lipitor 80 mg at bedtime, carvedilol 25 mg p.o. b.i.d., chlorthalidone 25 mg daily, citalopram 20 mg daily, heparin 5,000 units subQ q. 12 hours, isosorbide mononitrate 30 mg daily, Losartan 25 mg daily. LABORATORY DATA: Sodium 141, potassium 4.2, BUN 56, creatinine 1.71. Telemetry personally reviewed. There was an atrial run of approximately 5 beats at 1728 yesterday evening, otherwise sinus rhythm. ASSESSMENT AND PLAN: 1. Exertional dyspnea and chest discomfort: Etiology remains uncertain. She was significantly hypertensive and does have underlying ischemic heart disease. She feels much better now that labetalol has been discontinued in favor of carvedilol and her blood pressure is better controlled. Myocardial perfusion study is pending. Recommend continuing current medical regimen. 2. Coronary artery disease: She has an occluded RCA with collaterals noted in the past. Symptoms could be due to ischemic heart disease, especially given the fact that she was hypertensive. She is doing much better on carvedilol, which has been started in place of labetalol yesterday. Continue isosorbide mononitrate 30 mg daily, which was started yesterday as well. Continue antiplatelet therapy. Aspirin 81 mg daily sufficient from a cardiac standpoint. Myocardial perfusion study is pending. If myocardial perfusion study does not demonstrate significant ischemic territory, would recommend continuation of medical therapy. It is likely that there will be some degree of RCA territory ischemia given known occlusion and filling by collaterals. 3. Hypertension: Blood pressure much better controlled. Continue carvedilol in place of labetalol. 4. Atrial tachycardia: She appeared to have an episode of atrial tachycardia last evening. Continue beta sarika. She denied any symptoms. 5. Disposition: No further inpatient cardiology evaluation recommended if myocardial perfusion study does not demonstrate high risk findings. If there are no high risk findings, would recommend continuation of medical therapy and follow up in the outpatient setting with Dr. Carlos, her primary medical assistant ob gyn.
--- NOTE | 2017-09-25 15:37 | Discharge Instructions ---
Discharge Instructions Date of Service Sep 25, 2017. Admission Reason for Admission: Chest Pain, Soares Discharge Discharge Diagnosis / Problem: dyspnea on exertion Discharge Goals Goal(s): Decrease discomfort, Improve function, Improve disease control, Learn about illness, Diagnostic testing, Therapeutic intervention, Prevent Disease Progression Activity Recommendations Activity Limitations: resume your previous activity . Instructions / Follow-Up Instructions / Follow-Up Hypertension: STOP Labetalol Coreg 25 mg twice daily Imdur 30 mg daily Losartan 25 mg daily Chlorthalidone 25 mg daily Resume all other regular home medications as prescribed FOLLOW-UPS: Please follow-up with your PCP within 5-7 days Follow-up with Dr. Carlos within 1 month Please follow-up/keep all of your subspecialty appointments Current Hospital Diet Patient's current hospital diet: Regular Diet, Diabetes Type 1 Diet, AHA Diet ( Heart Healthy) Discharge Diet Recommended Diet: AHA Diet (Heart Healthy), Diabetes Type 1 Diet Pending Studies Studies pending at discharge: no Laboratory Results Hemoglobin A1c Test 08/14/17 17:22 Range/Units Estimated Average Glucose 220 mg/dl Hemoglobin A1c 9.3 H 4.5-5.6 % Medical Emergencies . Who to Call and When: Medical Emergencies: If at any time you feel your situation is an emergency, please call 911 immediately. . Non-Emergent Contact Non-Emergency issues call your: Primary Care Provider . . "Provider Documentation" section prepared by Anupama Castillo. . VTE Core Measure Inpt VTE Proph given/why not?: Unfractionated heparin SQ
--- NOTE | 2017-09-25 15:37 | Myocardial Perfusion Study ---
Myocardial Perfusion Study Rpt Myocardial Perfusion Study Rpt Date of Service 09/25/2017 Myocardial Perfusion Study Rpt Procedure: 1. Myocardial perfusion study performed in multiple views/images 2. Lexiscan pharmacologic stress ECG Indications: 1. Chest pain 2. Dyspnea with exertion 3. CAD 4. Nondiagnostic dobutamine stress echo Consent: Informed written consent was obtained prior to the procedure. Ordering physician: Dr. Wilson Procedural details: For the stress portion of the study, Lexiscan 0.4 mg was intravenously administered followed by a saline flush. This was followed by 33 mCi of technetium 99m Cardiolite, injected at 1:10 p.m. on 09/25/2017. 30 minutes following the injection, imaging of the heart was performed in multiple projections. For the rest portion of the study, 10.4 mCi technetium 99m Cardiolite was injected intravenously at 11:30 a.m. on 09/25/2017. 1 hour following the injection, imaging of the heart was performed in the same projections. Lexiscan stress ECG: Resting ECG demonstrated: NSR at 61 bpm Maximum heart rate: 91 bpm Resting blood pressure: 145/64 mmHg Maximum blood pressure: 147/55 mmHg Maximal, age-predicted heart rate: 59 % Significant ST changes: None Arrhythmia: No arrhythmia. PACs and atrial couplets noted. Symptoms: Transient chest tightness, which spontaneously resolved. Findings: Rotating raw imaging demonstrated no significant lung uptake. There is no significant motion artifact. Heart size appeared normal. Myocardial perfusion was normal without significant fixed or reversible defects to suggest infarct or ischemia. Ejection fraction: 61 % Wall motion: Normal No significant transient ischemic dilation. Impression: 1. Normal myocardial perfusion without significant reversible or fixed defect to suggest ischemia or infarct. 2. Normal left ventricular systolic function; EF 61%. 3. Normal wall motion. 4. Lexiscan induced chest tightness. 5. No arrhythmia. 6. Nondiagnostic Lexiscan ECG.
[2017-09-25] MEDS ORDERED: HYG25 PO (15:39)
== END 2017-09-25 16:17 | disposition home or self-care (01) | DRG 313 ==
LOC: C.EDB 11:32 → C.MED 15:35 → ENRESERV 16:03 → C.MED 09-25 07:10
PROVIDERS: ADMIT Hospitalist; ATTEND Hospitalist
DX: R07.89 Other chest pain (principal); I50.32 Chronic diastolic (congestive) heart failure; I47.1 Supraventricular tachycardia; N17.9 Acute kidney failure, unspecified; I25.2 Old myocardial infarction; I12.9 Hypertensive chronic kidney disease with stage 1 through stage 4 chronic kidney disease, or unspecified chronic kidney disease; N18.3 Chronic kidney disease, stage 3 (moderate); E78.5 Hyperlipidemia, unspecified; I16.0 Hypertensive urgency; R80.9 Proteinuria, unspecified; E11.21 Type 2 diabetes mellitus with diabetic nephropathy; Z86.73 Personal history of transient ischemic attack (TIA), and cerebral infarction without residual deficits; F41.9 Anxiety disorder, unspecified; Z82.49 Family history of ischemic heart disease and other diseases of the circulatory system; Z79.82 Long term (current) use of aspirin; Z79.4 Long term (current) use of insulin; Z83.3 Family history of diabetes mellitus; I25.10 Atherosclerotic heart disease of native coronary artery without angina pectoris

== ENCOUNTER → 2017-10-17 | Outpatient (CLI) | payer OTHER ==
[~2017-10-17] MED LIST changes: +CRG25 PO; +CZR25 PO; +IMDSR30 PO; -LBT200 PO
[2017-10-17 17:30] LABS: HEMATOCRIT 35.9 % (37-47); MEAN CELL VOLUME 92.3 fL (80-100); MEAN CORPUSCULAR HEMOGLOBIN 30.8 pg (25-34); MEAN CORPUSCULAR HGB CONC 33.4 g/dl (32-36); PLATELET COUNT 249 K/uL (130-400); RED BLOOD COUNT 3.89 M/uL (4.2-5.4); WHITE BLOOD COUNT 9.54 K/uL (4.8-10.8)
[2017-10-17 17:54] LABS: URINE APPEARANCE CLEAR (CLEAR); URINE BILIRUBIN NEG (NEG); URINE COLOR YELLOW; URINE EPITHELIAL CELL AUTO >30 /lpf (0-5); URINE NITRITE NEG (NEG); URINE SPECIFIC GRAVITY 1.026 (1.000-1.030); UROBILINOGEN NEG (NEG)
[2017-10-17 18:11] LABS: MANUAL MICROSCOPIC REQUIRED? NO; REVIEW REQ? YES
[2017-10-17 18:12] LABS: URINE PROTIEN/CREAT RATIO 3.6 (0-0.2); URINE TOTAL PROTEIN 843.1 mg/dl (0-11.9)
[2017-10-17 18:16] LABS: ALT/SGPT 24 U/L (12-78); AST/SGOT 15 U/L (15-37); BLOOD UREA NITROGEN 41 mg/dl (7-18); BUN/CREATININE RATIO 22.5 (10-20); CALCIUM 8.9 mg/dl (8.5-10.1); CARBON DIOXIDE 22 mmol/L (21-32); CHLORIDE 110 mmol/L (98-107); GLUCOSE 136 mg/dl (70-99); POTASSIUM 4.4 mmol/L (3.5-5.1); SODIUM 139 mmol/L (136-145)
[2017-10-17 18:18] LABS: ALB/GLOB RATIO 0.9 (0.9-2); ALKALINE PHOSPHATASE 74 U/L (45-117)
== END | disposition home or self-care (01) ==
LOC: C.LABPBG 14:07
PROVIDERS: ATTEND Internal Medicine Nephrology
DX: I12.9 Hypertensive chronic kidney disease with stage 1 through stage 4 chronic kidney disease, or unspecified chronic kidney disease (principal); R80.9 Proteinuria, unspecified; E55.9 Vitamin D deficiency, unspecified; N18.3 Chronic kidney disease, stage 3 (moderate); I70.1 Atherosclerosis of renal artery

== ENCOUNTER → 2017-12-09 | Outpatient (CLI) | payer OTHER ==
[2017-12-09 15:41] LABS: BASO % 0.6 %; BASO ABS # 0.06 K/uL (0-0.2); EOS % 7.8 %; HEMATOCRIT 33.2 % (37-47); HEMOGLOBIN 11.6 g/dL (12.0-16.0); IG# 0.02 K/uL (0.00-0.02); LYMPH % 24.4 %; LYMPH ABS # 2.49 K/uL (1.2-3.4); MEAN CELL VOLUME 88.3 fL (80-100); MEAN CORPUSCULAR HEMOGLOBIN 30.9 pg (25-34); MEAN CORPUSCULAR HGB CONC 34.9 g/dl (32-36); MEAN PLATELET VOLUME 9.9 fL (7.4-10.4); MONO % 5.5 %; MONO ABS # 0.56 K/uL (0.11-0.59); NEUT % 61.5 %; NEUT ABS # 6.28 K/uL (1.4-6.5); PLATELET COUNT 212 K/uL (130-400); RED CELL DISTRIBUTION WIDTH SD 38.3 fL (36.4-46.3); WHITE BLOOD COUNT 10.21 K/uL (4.8-10.8)
[2017-12-09 16:24] LABS: ALBUMIN 3.3 gm/dl (3.4-5.0); ALT/SGPT 18 U/L (12-78); BLOOD UREA NITROGEN 74 mg/dl (7-18); CALCIUM 8.9 mg/dl (8.5-10.1); CARBON DIOXIDE 20 mmol/L (21-32); CREATININE 2.25 mg/dl (0.60-1.20); GLUCOSE 176 mg/dl (70-99); POTASSIUM 3.9 mmol/L (3.5-5.1); SODIUM 138 mmol/L (136-145)
[2017-12-09 16:26] LABS: ALKALINE PHOSPHATASE 78 U/L (45-117); AST/SGOT 11 U/L (15-37); TOTAL PROTEIN 7.3 gm/dl (6.4-8.2)
== END | disposition home or self-care (01) ==
LOC: C.LAB1850 14:38
PROVIDERS: ATTEND Internal Medicine Cardiovascular Disease
DX: I65.29 Occlusion and stenosis of unspecified carotid artery (principal)

== ENCOUNTER → 2017-12-12 | Outpatient (CLI) | payer OTHER ==
[2017-12-12 10:01] LABS: HEMATOCRIT 34.9 % (37-47); MEAN CELL VOLUME 88.8 fL (80-100); MEAN CORPUSCULAR HEMOGLOBIN 30.5 pg (25-34); MEAN CORPUSCULAR HGB CONC 34.4 g/dl (32-36); PLATELET COUNT 217 K/uL (130-400); RED CELL DISTRIBUTION WIDTH CV 11.8 % (11.5-14.5); RED CELL DISTRIBUTION WIDTH SD 38.1 fL (36.4-46.3); WHITE BLOOD COUNT 10.02 K/uL (4.8-10.8)
[2017-12-12 10:19] LABS: ALBUMIN 3.3 gm/dl (3.4-5.0); ALT/SGPT 19 U/L (12-78); BLOOD UREA NITROGEN 62 mg/dl (7-18); CALCIUM 8.9 mg/dl (8.5-10.1); CARBON DIOXIDE 24 mmol/L (21-32); CHOLESTEROL 133 mg/dl (0-200); CREATININE 1.86 mg/dl (0.60-1.20); GLUCOSE 144 mg/dl (70-99); POTASSIUM 3.8 mmol/L (3.5-5.1); SODIUM 138 mmol/L (136-145)
[2017-12-12 10:22] LABS: ALKALINE PHOSPHATASE 74 U/L (45-117); AST/SGOT 16 U/L (15-37); LDL CHOLESTEROL CALCULATED 70 mg/dl; TOTAL PROTEIN 7.2 gm/dl (6.4-8.2)
== END | disposition home or self-care (01) ==
LOC: C.LAB1850 08:56
PROVIDERS: ATTEND Internal Medicine Nephrology
DX: I12.9 Hypertensive chronic kidney disease with stage 1 through stage 4 chronic kidney disease, or unspecified chronic kidney disease (principal); N18.3 Chronic kidney disease, stage 3 (moderate); R80.9 Proteinuria, unspecified; E11.9 Type 2 diabetes mellitus without complications; E55.9 Vitamin D deficiency, unspecified; R19.7 Diarrhea, unspecified

== ENCOUNTER → 2018-01-24 | Day surgery (SDC) | payer OTHER ==
[2018-01-08 13:22] VITALS: Ht 160 cm; Wt 91.4 kg
[~2018-01-24] VITALS: Ht 160 cm; Wt 91.4 kg
[~2018-01-24] MED LIST changes: -ATV/1 PO; -CALC600T PO; +CALC600T9 PO; +CARV25TA2 PO; -CHOL2000 PO; -CRG25 PO; -CZR25 PO; +FERR1TAB23 PO; -FERR325T5 PO; +HYG/25 PO; -HYG25 PO; -IMDSR30 PO; +ISOS30TA3 PO; +LIDOCAINE HCL 2% 2 ML VIAL (20MG/ML) ONE; +LORA-741 PO; +LOSA1TAB PO; +MIDAZOLAM HCL 1 MG/ML 2ML VIAL ONE; +ONDANSETRON INJ 2 MG/ML 2 ML VIAL ONE; +PROPOFOL IV EMULSION 10 MG/ML 20 ML VIAL IV ONE; +SODIUM CHLORIDE 0.9% 500ML 500 ML IV ONE; -VITA400C3 PO
[2018-01-24 08:16] VITALS: TEMP 36.5
--- NOTE | 2018-01-24 08:32 | Endo History and Physical ---
History & Physical Date of Service: Jan 24, 2018. Chief Complaint: screening Referring Physician: Dr. Santy Cantu History of Present Illness 67 yo CF who presents for screening colonoscopy. Past Surgical History Hx Cardiac Surgery: No Hx Internal Defibrillator: No Hx Pacemaker: No Hx Abdominal Surgery: Yes ([facility]) Hx of Implantable Prosthesis: No Hx Post-Op Nausea and Vomiting: No Hx Cancer Surgery: No Hx Thoracic Surgery: No Hx Orthopedic: Yes (L PROMISE, RT LEG TUMOR REMOVED/RT FEMUR RX REPAIR (HARDWARE), RT/LEFT CTR) Hx Urinary Tract Surgery: No Family History None Social History Smoking Status: Never Smoker Hx Substance Use: No Hx Alcohol Use: No Allergies Coded Allergies: Lisinopril (Verified Allergy, Unknown, COULD NOT TAKE?, 01/08/18) Sulfa Antibiotics (Verified Allergy, Unknown, HIVES, 01/08/18) Current Medications Reported Home Medications Medications Dose Route/Sig Max Daily Dose Days Date Category Dose Instructions Cozaar (Losartan Potassium) 25 Mg Tab 25 Mg PO QAM 01/08/18 Reported Imdur Ext Rel (Isosorbide Mononitrate) 30 Mg Ertab 30 Mg PO QAM 01/08/18 Reported Hygroton (Chlorthalidone) 25 Mg Tab 25 Mg PO QAM 01/08/18 Reported Coreg (Carvedilol) 25 Mg Tab 0.5 Tab PO BID 01/08/18 Reported Ativan (Lorazepam) 0.5 Mg Tab 0.5 Mg PO Q6H PRN 01/08/18 Reported Iron (Ferrous Sulfate) 325 Mg Tab 1 Tab PO QAM 01/08/18 Reported Calcium + D (Calcium Carbonate-Vitamin D) 1 Tab Tab 1 Tab PO QAM 01/08/18 Reported Celexa (Citalopram Hydrobromide) 20 Mg Tab 20 Mg PO QAM 08/14/17 Reported Lipitor (Atorvastatin Calcium) 80 Mg Tab 80 Mg PO QPM 08/14/17 Reported Aspirin Ec (Aspirin) 325 Mg Tab 325 Mg PO QAM 08/14/17 Reported Lantus (Insulin Glargine) 100 Unit/Ml Inj 34 Units SC BID 08/14/17 Reported HAS NOT BEEN TAKING FOR 1 MONTH, INSURANCE/$ PROBLEMS Humalog (Insulin Lispro (Human)) 100 Unit/Ml Inj 30 Units SC BID 08/14/17 Reported Vital Signs Weight (Kilograms): 91.36 Height (Feet): 5 Height (Inches): 3 Date Time Temp Pulse Resp B/P (MAP) Pulse Ox O2 Delivery O2 Flow Rate FiO2 01/24/18 08:16 36.5 82 20 181/73 (109) 97 Room Air Physical Exam General Appearance: WD/WN, no apparent distress Respiratory/Chest: Auscultation: breath sounds normal Cardiovascular: Heart Auscultation: RRR Abdomen: Bowel Sounds: normal Inspection & Palpation: soft, non-distended, no tenderness, guarding & rebound Assessment and Plan Assessment: 67 yo CF who presents for screening colonoscopy. Plan: Proceed with colonoscopy.
--- NOTE | 2018-01-24 09:10 | GI REPORT ---
Procedure Date: 01/24/2018 8:24 AM Procedure: Colonoscopy Indications: Screening for colorectal malignant neoplasm Medicines: Monitored Anesthesia Care Complications: No immediate complications. Estimated Blood Loss: Estimated blood loss: none. Procedure: Pre-Anesthesia Assessment: - Prior to the procedure, a History and Physical was performed, and patient medications and allergies were reviewed. The patient's tolerance of previous anesthesia was also reviewed. The risks and benefits of the procedure and the sedation options and risks were discussed with the patient. All questions were answered, and informed consent was obtained. Prior Anticoagulants: The patient has taken aspirin, last dose was 1 day prior to procedure. ASA Grade Assessment: III - A patient with severe systemic disease. After reviewing the risks and benefits, the patient was deemed in satisfactory condition to undergo the procedure. After I obtained informed consent, the scope was passed under direct vision. Throughout the procedure, the patient's blood pressure, pulse, and oxygen saturations were monitored continuously. The scope was introduced through the anus and advanced to the terminal ileum. The colonoscopy was performed without difficulty. The patient tolerated the procedure well. The quality of the bowel preparation was good. The terminal ileum, ileocecal valve, appendiceal orifice, and rectum were photographed. Findings: The perianal and digital rectal examinations were normal. Non-bleeding internal hemorrhoids were found during retroflexion. The hemorrhoids were small. Impression: - Non-bleeding internal hemorrhoids. - No specimens collected. Recommendation: - Resume previous diet. - Continue present medications. - Repeat colonoscopy in 10 years for surveillance. - Return to primary care physician as previously scheduled. Gera Gomez DO 01/24/2018 9:09:44 AM This report has been signed electronically. Note Initiated On: 01/24/2018 8:24 AM I attest to the content of the Intraoperative Record and orders documented therein, exceptions below
--- NOTE | 2018-01-24 09:32 | Anesthesiology Progress Note ---
Anesthesia Post Op Note Date & Time Jan 24, 2018 at 09:32 Vital Signs Pain Intensity: 0 Vital Signs Past 12 Hours Date Time Temp Pulse Resp B/P (MAP) Pulse Ox O2 Delivery O2 Flow Rate FiO2 01/24/18 09:21 71 18 183/84 (117) 98 Room Air 01/24/18 09:04 70 16 155/65 (95) 98 Room Air 01/24/18 08:16 36.5 82 20 181/73 (109) 97 Room Air Notes Mental Status: alert / awake / arousable, participated in evaluation Pt Amnestic to Procedure: Yes Nausea / Vomiting: adequately controlled Pain: adequately controlled Airway Patency, RR, SpO2: stable & adequate BP & HR: stable & adequate Hydration State: stable & adequate Anesthetic Complications: no major complications apparent
[2018-01-24 09:35] VITALS: BP 189/77; PULSE 70; O2SAT 98
--- NOTE | 2018-01-24 09:38 | Discharge Instructions ---
Endoscopy Patient Instructions Date / Procedure(s) Performed Jan 24, 2018. Colonoscopy Allergy Information Coded Allergies: Lisinopril (Verified Allergy, Unknown, COULD NOT TAKE?, 01/08/18) Sulfa Antibiotics (Verified Allergy, Unknown, HIVES, 01/08/18) Discharge Date / Findings Jan 24, 2018. Internal hemorrhoids Medication Instructions Stopped Medication(s): stopped iron for 5 days,took ASA yesterday OK to resume all medications today as prescribed Reported Home Medications Medications Dose Route/Sig Max Daily Dose Days Date Category Dose Instructions Cozaar (Losartan Potassium) 25 Mg Tab 25 Mg PO QAM 01/08/18 Reported Imdur Ext Rel (Isosorbide Mononitrate) 30 Mg Ertab 30 Mg PO QAM 01/08/18 Reported Hygroton (Chlorthalidone) 25 Mg Tab 25 Mg PO QAM 01/08/18 Reported Coreg (Carvedilol) 25 Mg Tab 0.5 Tab PO BID 01/08/18 Reported Ativan (Lorazepam) 0.5 Mg Tab 0.5 Mg PO Q6H PRN 01/08/18 Reported Iron (Ferrous Sulfate) 325 Mg Tab 1 Tab PO QAM 01/08/18 Reported Calcium + D (Calcium Carbonate-Vitamin D) 1 Tab Tab 1 Tab PO QAM 01/08/18 Reported Celexa (Citalopram Hydrobromide) 20 Mg Tab 20 Mg PO QAM 08/14/17 Reported Lipitor (Atorvastatin Calcium) 80 Mg Tab 80 Mg PO QPM 08/14/17 Reported Aspirin Ec (Aspirin) 325 Mg Tab 325 Mg PO QAM 08/14/17 Reported Lantus (Insulin Glargine) 100 Unit/Ml Inj 34 Units SC BID 08/14/17 Reported HAS NOT BEEN TAKING FOR 1 MONTH, INSURANCE/$ PROBLEMS Humalog (Insulin Lispro (Human)) 100 Unit/Ml Inj 30 Units SC BID 08/14/17 Reported Provider Instructions Activity Restrictions - No exercising or heavy lifting for 24 hours. - Do not drink alcohol the day of the procedure. - Do not drive a car or operate machinery until the day after the procedure. - Do not make any important decisions or sign important papers in 24 hours after the procedure. Following Day: - Return to full activity which may include returning to work/school. Diet Start your diet with liquids and light foods (jello, soup, juice, toast). Then eat your usual diet if not nauseated. Treatment For Common After Affects For mild abdominal pain, bloating, or excessive gas: - Rest - Eat lightly - Lie on right side Follow-Up Information Follow-up with Dr. Santy Cantu as scheduled Anesthesia Information What You Should Know You have had a procedure that required some medicine to reduce anxiety and discomfort. This treatment is called moderate sedation. After receiving the treatment, you may be sleepy, but you will be able to breathe on your own. The effects of the treatment may last for several hours. Follow these instructions along with Activity/Diet recommendations noted above: * Do NOT do anything where dizziness or clumsiness would be dangerous. * Rest quietly at home today, then you can be up and about tomorrow. * Have a responsible person stay with you the rest of today. * You may have had an I.V. today. If so, you may take the dressing off later today. Recommendations Call your doctor if: * Trouble breathing * Continuous vomiting for more than 24 hours * Temperature above 101 degrees * Severe abdominal pain or bloating * Pain not relieved by pain medicine ordered * There is increased drainage or redness from any incision * A large amount of rectal bleeding greater than 2-3 tablespoons. (If you had a polyp/s removed or have hemorrhoids, a small amount of blood - from the rectum is to be expected.) * You have any unanswered questions or concerns. IN THE EVENT OF A SERIOUS EMERGENCY, GO TO THE NEAREST EMERGENCY ROOM Your discharge instructions were prepared by provider Gera Gomez. Patient Instructions Signature Page Jessika Doll Patient (or Guardian) Signature/Date: I have read and understand the instructions given to me by my caregivers. Caregiver/RN/Doctor Signature/Date: The above-named patient and/or guardian has received patient instructions on this date. + Original Patient Signature Page (only) stays with chart. Please make copy for patient.
== END | disposition home or self-care (01) ==
LOC: C.GI 07:49
PROVIDERS: ATTEND Internal Medicine
DX: Z12.11 Encounter for screening for malignant neoplasm of colon (principal); K64.8 Other hemorrhoids; E11.22 Type 2 diabetes mellitus with diabetic chronic kidney disease; I12.9 Hypertensive chronic kidney disease with stage 1 through stage 4 chronic kidney disease, or unspecified chronic kidney disease; N18.3 Chronic kidney disease, stage 3 (moderate); I25.10 Atherosclerotic heart disease of native coronary artery without angina pectoris; F32.9 Major depressive disorder, single episode, unspecified; F41.9 Anxiety disorder, unspecified; I25.2 Old myocardial infarction; Z86.73 Personal history of transient ischemic attack (TIA), and cerebral infarction without residual deficits; Z88.2 Allergy status to sulfonamides; Z88.8 Allergy status to other drugs, medicaments and biological substances; Z79.4 Long term (current) use of insulin; Z79.82 Long term (current) use of aspirin; Z79.899 Other long term (current) drug therapy; Z96.642 Presence of left artificial hip joint; Z98.890 Other specified postprocedural states

== ENCOUNTER → 2018-02-20 | Outpatient (CLI) | payer OTHER ==
[~2018-02-20] MED LIST changes: -LIDOCAINE HCL 2% 2 ML VIAL (20MG/ML) ONE; -MIDAZOLAM HCL 1 MG/ML 2ML VIAL ONE; -ONDANSETRON INJ 2 MG/ML 2 ML VIAL ONE; -PROPOFOL IV EMULSION 10 MG/ML 20 ML VIAL IV ONE; -SODIUM CHLORIDE 0.9% 500ML 500 ML IV ONE
--- NOTE | 2018-02-20 08:48 | DIAGNOSTIC IMAGING REPORT ---
(CHEST) THORAX WITHOUT CT DOSE: 610.80 mGycm CLINICAL HISTORY: 67 years-old Female with PULMONARY NODULES. Follow-up study in a patient with pulmonary nodules TECHNIQUE: Multiaxial CT images of the chest were performed without contrast. A dose lowering technique was utilized adhering to the principles of ALARA. COMPARISON: Chest CT 06/26/2016, 09/16/2015. FINDINGS: No dominant thyroid nodule or pathologic adenopathy identified. The heart is normal in size with coronary arterial calcifications noted within a three-vessel distribution. Mild to moderate calcification of the thoracic aorta and proximal great vessels without aneurysm. The unopacified pulmonary arterial tree appears unremarkable. There is no pneumothorax or pleural effusion. Minimal upper lobe predominant centrilobular emphysema. There is a lobulated solid noncalcified pulmonary nodule of the posterior basal segment left lower lobe measuring 7 x 6 mm on image 199 series 4, previously measuring 6 x 4 mm. Mild dependent subsegmental bibasilar atelectasis. 3 mm solid nodule of the left lower lobe is seen on image 131 series 4, unchanged. 3 mm solid nodule of the right lower lobe on image 200 series 4 is also unchanged. Stable left upper lobe 3 mm nodule on image 62 series 4. Unchanged right upper lobe 3 mm solid nodule. Central airways are patent. No lobar airspace consolidation to suggest pneumonia. No acute process of the imaged upper abdomen. Thickening of the left adrenal gland with suggested 10 mm adenoma redemonstrated. Soft tissues are within normal limits. The bones appear intact. Multilevel endplate spurring about the thoracic spine. IMPRESSION: 1. No acute intrathoracic abnormality identified. 2. Mildly increased size of the lobulated solid nodule of the left lower lobe now measuring 7 x 6 mm. Scattered solid noncalcified pulmonary nodules measuring up to 3 mm appear unchanged. 3. Coronary arterial disease. Please refer to below summary of Fleischner criteria recommendations for follow-up of incidental CT nodules (Catracho Winkler, Guidelines for management of small pulmonary nodules detected on CT scans: A statement from the Fleischner Society, Radiology 237: [phone].) SOLID NODULES Multiple nodules size: 6-8 mm * Low risk patients: follow-up at 3-6 months, then consider further follow-up at 18-24 months * high risk patients: follow-up at 3-6 months, then at 18-24 months if no change Note: newly detected indeterminate nodule in persons 35 years of age or older. * Low risk patients: minimal or absent history of smoking and/or other known risk factors * high risk patients: history of smoking or of other known risk factors (e.g. first degree relative with lung cancer, or exposure to asbestos, radon, uranium) * if a nodule up to 8 mm is partly solid or is ground glass further follow-up is required after 24 months to exclude possible slow growing adenocarcinoma (SUREKHA) The above report was generated using voice recognition software. It may contain grammatical, syntax or spelling errors. Electronically signed by: Ton Dowell M.D. 02/20/2018 8:46 AM Dictated Date/Time: 02/20/2018 8:30 AM
== END | disposition home or self-care (01) ==
LOC: C.CTS 08:05
PROVIDERS: ATTEND Internal Medicine
DX: R91.8 Other nonspecific abnormal finding of lung field (principal)

== ENCOUNTER → 2018-06-12 | Outpatient (CLI) | payer OTHER ==
[2018-06-12 17:07] LABS: ALBUMIN 3.1 gm/dl (3.4-5.0); BLOOD UREA NITROGEN 46 mg/dl (7-18); CALCIUM 8.4 mg/dl (8.5-10.1); CARBON DIOXIDE 22 mmol/L (21-32); CREATININE 1.97 mg/dl (0.60-1.20); GLUCOSE 244 mg/dl (70-99); PHOSPHORUS 3.5 mg/dl (2.5-4.9); POTASSIUM 4.2 mmol/L (3.5-5.1); SODIUM 135 mmol/L (136-145)
== END | disposition home or self-care (01) ==
LOC: C.LABPBG 11:38
PROVIDERS: ATTEND Internal Medicine Nephrology
DX: E55.9 Vitamin D deficiency, unspecified (principal)

== ENCOUNTER 2022-08-03 19:08 | Inpatient (IN) ==
[2022-08-03 20:00] LABS: Basophils # (auto) 0.08 K/uL (0-0.2); Basophils % (auto) 0.8 %; Eosinophils # (auto) 0.58 K/uL (0-0.50); Eosinophils % (auto) 5.6 %; Hematocrit (blood only) 25.3 % (34.1-44.9); Hemoglobin 8.3 g/dl (12.0-16.0); Immature Granulocytes # (auto) 0.04 K/uL (0.00-0.02); Immature Granulocytes % (auto) 0.4 %; Lymphocytes # (auto) 1.54 K/uL (1.2-3.4); Mean Corpuscular Hemoglobin 29.6 pg (25.0-34.0); Mean Corpuscular Hgb Conc 32.8 g/dL (32.0-36.0); Mean Corpuscular Volume 90.4 fL (80.0-100.0); Mean Platelet Volume 9.7 fL (9.4-12.3); Monocytes # (auto) 0.91 K/uL (0.24-0.82); Monocytes % (auto) 8.9 %; Neutrophils # (auto) 7.12 K/uL (1.4-6.5); Neutrophils % (auto) 69.3 %; Platelet Count 230 K/uL (130-400); RDW Coefficient of Variation 13.6 % (11.5-14.5); RDW Standard Deviation 44.8 fL (36.4-46.3); White Blood Count 10.27 K/ul (4.8-10.8)
[2022-08-03 20:22] LABS: INR 1.1 (0.9-1.1); Partial Thromboplastin Ratio 0.9; Partial Thromboplastin Time 24.2 Seconds (21.0-31.0); Prothrombin Time 11.2 Seconds (9.0-12.0)
[2022-08-03 20:23] LABS: Albumin Globulin Ratio 1.2 (0.9-2); Albumin Level 3.7 gm/dl (3.4-5.0); BUN Creatinine Ratio 19.2 (10-20); Bilirubin,Total 0.4 mg/dl (0.2-1.0); Calcium 8.8 mg/dl (8.5-10.1); Creatinine Clr Calc Pharmacy 10.8 ml/min; Est GFR (African American) 9.9 ml/min; Est GFR (Non-African American) 8.6 ml/min; Globulin 3.2 gm/dl (2.5-4.0); Magnesium 1.7 mg/dl (1.7-2.4); Potassium 4.1 mmol/L (3.5-5.1); Total Protein 6.9 gm/dl (6.0-8.3)
--- NOTE | 2022-08-03 20:28 | XRay Report ---
XR chest 1V portable CLINICAL HISTORY: SOB TECHNIQUE: Single frontal radiograph of the chest was obtained. Comparison: Comparison is made to chest radiograph 12/26/2020 FINDINGS: No lines and tubes are seen. Cardiomegaly is noted. The lungs are clear. No evidence of pleural effus ion or pneumothorax. IMPRESSION: No acute abnormalities and in particular no evidence of pneumonia. ACT 112: Negative or not required by law. Electronically signed by: Marko Zaldivar M.D. 08/03/2022 8:27 PM
[2022-08-03] MEDS ORDERED: FUROSEMIDE 40 MG/4 ML VIAL IV ONE (21:25)
[2022-08-03 21:51] LABS: Appearance Urine Clear (Clear); Bacteria Urine Automated Negative (Negative); Bilirubin Urine Negative (Negative); Blood Urine Trace (Negative); Color Urine Orange; Glucose Urine UA 2+ (Negative); Ketones Urine Negative (Negative); Leukocyte Esterase Urine Negative (Negative); Nitrite Urine Negative (Negative); Protein Urine 4+ (Negative); RBC Urine Automated 0-4 /hpf (0-4); Specific Gravity Urine 1.018 (1.000-1.030); Urobilinogen Urine Negative (Negative)
--- NOTE | 2022-08-03 22:12 | History & Physical Report ---
Date of Service August 03, 2022 Assessment & Plan (1) Dyspnea: Plan: 71 year old female w/ PMHx of ESRD, CAD (NSTEMI 2000), HTN, HLD, anxiety, depression, gout, and DM2 on insulin who presents w/ dyspnea and bilateral leg swelling for 2 weeks. - per 1+ BLE, BNP 1.6k, and possible JVD, diuresis started in the ED w/ IV Lasix 40mgx1. reassess in morning regarding if further orders needed. strict Is/Os - w/ ESRD, at higher risk of fluid overload - consulting nephrology (ED physician reached out to) and cardiology - differentials considered: diastolic CHF exacerbation, COPD exacerbation (hx of occupational exposures; consider outpatient PFTs), metabolic acidosis. cxr reassuring. 99% saturation on room air is reassuring. - Hb at 8.3; considered possibility of anemia contributing to dyspnea though usual transfusion threshold would be lower - 01/10/22 echo w/ normal LV systolic function EF 55-60%. moderate MR. mild TR. basal septal and inferior akinesis of LV. repeat echo in AM (2) Anemia: Plan: - normocytic. baseline Hb 9s in past year. considered progression of anemia of chronic disease (kidney function has also worsened), but also consider other etiologies - check iron studies and B12/folate in AM - defer peripheral smear for now - check fecal occult (3) Hyperglycemia: Plan: - reported elevation of BSGs to 400s in past 2 weeks; considered infection; though no obvious source at this time - lantus 15u BID + SSI ordered. adjust as needed as this is less than home regimen - follow BSG - check vbg. anion gap of 12 and low bicarb of 16 noted. consider intravascular depletion if vbg w/ significant acidosis; diuresing as per above - a1c 6.8 on 08/03/22 (4) End stage renal disease: Plan: - baseline Cr 4.0. Cr 5.06, 4.79 today. function is worse than baseline - has av fistula, though has not started dialysis - nephrology consulted as above (5) Coronary artery disease: Plan: - hx of NSTEMI and bilateral carotid disease - hold home aspirin in setting of anemia (6) Hypertension: Plan: - continue home regimen (7) Nonsustained paroxysmal supraventricular tachycardia: Plan: - monitor on tele, had an episode of tachycardia (8) Depression with anxiety: Plan: - was on mitazapine, but ran out of prescription. Per PCP visit, planning to restart. Will order. (9) Hyperlipemia: Plan: - continue home statin Plan FEN/GI: NPO until morning. Diet will be DM2, low Na. No maintenance fluids ordered ppx: SCDs only in context of anemia code: full dispo: med tele History of Present Illness Chief Complaint: anemia. dyspnea. BLE swelling. fell. general malaise x 2 weeks. was taking care of mother for 2 weeks after mother fell. cc: dyspnea. Primary Care Provider: Kisha Cosby MD 71 year old female w/ PMHx of ESRD, CAD (NSTEMI 2000), HTN, HLD, anxiety, depression, gout, and DM2 on insulin who presents w/ dyspnea and bilateral leg swelling for 2 weeks. She was sent from PCP's office for possible blood transfusion as her Hb was 8.0 this morning. She is chronically on chlorthalidone and does have intermittent dependent edema, but is not on any dedicated diuretics. 01/10/22 echo w/ normal EF 55-60%. Patient states she was treated by urgent care w/ fluoroquinolone fo UTI 3 wks ago for dysuria that has since resolved though she has intermittently had suprapubic pressure recently. During the past 2 wks, she has had general malaise and has had poorly controlled BSGs in the 400s. She normally takes Novolin N 30u BID and 10u of Novolin R if her sugars are >300. Denies significant cough, but feels slightly tighter. Denies fever/chills, chest pain, or abd pain. Denies tobacco hx. 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 Has not had pfts. Took AM meds, but did not take insulin today. States diet has not been the best in the past 2 weeks. Per pcp notes, patient does not like seeing doctors and has only had sporadic f/u w/ her specialists (e.g. cardiology, nephrology). She had a mild fall at home yesterday, did not hit head; has mild thigh pain only. ED course: IV Lasix 40mg x1. cxr w/o acute findings. labs: wbc 11.9, 10.27. Hb 8.0, 8.3. Baseline 9s. Anion gap 13, 12. CO2 16. Cr 5.06, 4.79, baseline 4.0. bnp 1652. hs trop 96.5. bsg 255. ecg: sinus 90. PVCs. Allergies Allergy/AdvReac Type Severity Reaction Status Date / Time amlodipine Allergy Unknown Rash Verified 08/03/22 08:08 Sulfa (Sulfonamide Allergy Unknown Hives Verified 08/03/22 08:08 Antibiotics) lisinopril AdvReac Unknown Cough Verified 08/03/22 08:08 Home Medications Medication Instructions Recorded Confirmed Type aspirin 325 mg tablet,delayed 325 mg PO QAM 02/25/19 08/03/22 History release insulin NPH isoph U-100 human 100 30 units subcut BID 02/25/19 08/03/22 History unit/mL subcutaneous suspension (Novolin N NPH U-100 Insulin isophane) insulin regular human 100 unit/mL See Rx Instructions .Route .COMPLEX 02/25/19 08/03/22 History injection solution (Novolin R Regular U-100 Insulin) carvedilol 25 mg tablet (Coreg) 25 mg PO QAM #135 tabs 12/07/21 08/03/22 Rx atorvastatin 80 mg tablet 80 mg PO HS #90 tabs 04/30/22 08/03/22 Rx chlorthalidone 25 mg tablet 25 mg PO QAM #90 tabs 04/30/22 08/03/22 Rx losartan 50 mg tablet 100 mg PO QAM #135 tabs 08/03/22 08/03/22 Rx mirtazapine 7.5 mg tablet 7.5 mg PO HS 08/03/22 08/03/22 History Past Med/Surg History Medical History Anemia Asymptomatic, chronic > monitoring per nephrology 08/2021 note Hgb 10-11 range per chart review Anemia due to chronic kidney disease Asthma Atrophy of left kidney Carotid stenosis, bilateral Chronic occlusion of the right CCA. Right ICA patent and flow is antegrade via retrograde flow from right ECA. Chronic occlusion of the left ICA. Less than 50% stenosis left ECA with antegrade flow. Right and left vertebrals are patent with antegrade flow. No significant change compared to previous 07/31/2019 per report. Chronic sinusitis CMF (chondromyxoid fibroma) Coronary artery disease Follows with Dr. Carlos Depression with anxiety Diabetes IDDM [facility] Gout Hyperglycemia Hyperlipemia Hyperparathyroidism, secondary renal Hyperphosphatemia Hypertension Metabolic acidosis Myocardial infarction NSTEMI 09/2000, cath 10/2000 with total mid RCA occlusion, collaterals present, medically managed Obesity Pulmonary nodules Under surveillance Renal artery stenosis Restless legs syndrome Stage 4 chronic kidney disease Follows with [facility] Plan for future dialysis Surgical History History of bilateral carpal tunnel release 2001 History of bone marrow biopsy 03/18/12 Bx bone trocar or needle deep performed by Dr. Albin Saenz at [facility] [place]. History of cardiac cath 2000 > with total mid RCA occlusion, collaterals present (medical management) 2003 > + collaterals (medical management) History of colonoscopy History of hip replacement, total 2008 History of hysterectomy History of knee surgery History of lumpectomy of both breasts History of open reduction and internal fixation (ORIF) procedure Open treatment femoral shaft fracture with plate performed by Albin Graham 06/10/12 [facility] [place] Excision, tumor, soft tissue of thigh or knee area, subfascial Open treatment proximal femur with fixation or prosthesis History of sinus surgery 1995 Dr. Morrow Family History Mother Heart disease Hypertension Coronary heart disease Anxiety Cancer Father , Age 59 of [place]. Heart disease Diabetes Hypertension Coronary heart disease Stroke Myocardial infarction Brother Hypertension Sister Hypertension Denies family history of Ovarian cancer Prostate cancer Kidney disease Breast cancer Lung cancer Social History Smoking Status: Never smoker Second Hand Exposure: No; Do You Dip or Chew Tobacco: No; Tobacco Cessation Education Requested by Patient: No Hx Alcohol Use: No Hx Substance Use: No Preferred Language: Turkish Communication Ability: Effective Visual Impairment: Limited Hearing Ability: Normal Presser Machine Required: No Beliefs That Will Affect Care: None marital status: Current Living Situation: Spouse current occupational status: 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 NAD. Cooperative. HEENT: Atraumatic, normocephalic. EOMI. Oropharynx wnl. Possible JVD on right. Pulm: CTAB. Good air movement. No respiratory distress. No crackles at bases. No wheezes. Cardiac: RRR, -mrg. Radial pulses intact and symmetrical. 1+ bilateral lower extremity edema. Abdominal: Nontender, nondistended, soft. Integ: Warm, dry, intact. Results & Data Results & Data ([facility]) Vital Signs (Past 12 Hours) Vital Signs Temp Pulse Pulse Resp BP BP Pulse Ox 08/03/22 20:24 171/109 H 08/03/22 19:50 110 H 26 H 97 08/03/22 19:50 08/03/22 19:17 36.7 C 79 24 179/83 H 100 O2 Del Method 08/03/22 20:24 08/03/22 19:50 Room Air 08/03/22 19:50 Room Air 08/03/22 19:17 Laboratory Results Cardiac Enzymes 08/03/22 08/03/22 08/03/22 Range/Units 18:32 19:37 19:37 AST 10 L (13-39) U/L Troponin I High Sens 96.5 H* (0-14) pg/ml B-Natriuretic Peptide 1652 H (0-100) pg/ml Coagulation 08/03/22 08/03/22 Range/Units 18:32 19:37 PT 11.2 (9.0-12.0) Seconds APTT 24.2 (21.0-31.0) Seconds B-Natriuretic Peptide 1652 H (0-100) pg/ml CBC 08/03/22 Range/Units 19:37 WBC 10.27 (4.8-10.8) K/ul RBC 2.80 L (3.93-5.22) M/uL Hgb 8.3 L (12.0-16.0) g/dl Hct 25.3 L (34.1-44.9) % Plt Count 230 (130-400) K/uL Neut # (Auto) 7.12 H (1.4-6.5) K/uL Lymph # (Auto) 1.54 (1.2-3.4) K/uL [place] # (Auto) 0.91 H (0.24-0.82) K/uL Eos # (Auto) 0.58 H (0-0.50) K/uL Baso # (Auto) 0.08 (0-0.2) K/uL Comprehensive Metabolic Panel 08/03/22 Range/Units 19:37 Sodium 136 (136-145) mmol/L Potassium 4.1 (3.5-5.1) mmol/L Chloride 108 H (98-107) mmol/L Carbon Dioxide 16 L (21-32) mmol/L BUN 92 H (6-23) mg/dl Creatinine 4.79 H* (0.6-1.2) mg/dl Glucose 255 H (70-99(Fasting)) mg/dl Calcium 8.8 (8.5-10.1) mg/dl AST 10 L (13-39) U/L ALT 9 (7-52) U/L Alkaline Phosphatase 63 (34-104) U/L Total Protein 6.9 (6.0-8.3) gm/dl Albumin 3.7 (3.4-5.0) gm/dl Intake and Output 08/03/22 08/03/22 08/03/22 06:59 14:59 22:59 Other: Weight 81.1 kg Weight Measurement Method Chair Scale Patient Weight 08/04/22 06:59 Weight 81.1 kg Diagnostic Findings Chest X-Ray 08/03/22 19:24 XR chest 1V portable CLINICAL HISTORY: SOB TECHNIQUE: Single frontal radiograph of the chest was obtained. Comparison: Comparison is made to chest radiograph 12/26/2020 FINDINGS: No lines and tubes are seen. Cardiomegaly is noted. The lungs are clear. No evidence of pleural effusion or pneumothorax. IMPRESSION: No acute abnormalities and in particular no evidence of pneumonia. ACT 112: Negative or not required by law. Electronically signed by: Marko Zaldivar M.D. 08/03/2022 8:27 PM Code Status & VTE Plan Code Status full VTE Prophylaxis Plan VTE Prophylaxis will be ordered: Yes Supervising Physician Co-Signing Physician Notes Attending addendum: I have physically seen this patient, have supervised the medical residents activities, and agree with the H&P unless as otherwise noted. Assessment and Plan: Elevated troponin/CHF/hypertension/CAD- The patient will be admitted to telemetry for serial cardiac enzymes, serial EKG's, cardiac rhythm monitoring. Most recent echo 01/10/22 with EF 55-60, moderate MR, mild TR Continue carvedilol, aspirin, chlorthalidone and losartan Given furosemide 40 mg IV from the ED, continue every morning Anemia- Hemoglobin 8.3 on admission, with range 8.0-9.9 Check iron, B12 folic acid Check Hemoccult Likely due to anemia of chronic disease No indication for transfusion at this time End-stage renal disease- Creatinine 4.79, with range 2.61-5.06 Has left arm AV fistula Has not started dialysis at this point Consult nephrology Diabetes mellitus- Continue Novolin N 30 and subcu twice daily Hold Novolin R Placed on Accu-Cheks with NovoLog coverage per scale Remaining orders and notations as noted Resident Activity Tracking Resident Involvement: Resident Care Provided Care Provided: Adult Hospital Medicine
[2022-08-03] MEDS ORDERED: GLUCOSE 10 TAB/TUBE PO PRN (23:22)
[2022-08-03] MEDS ORDERED: GLUCOSE 40% GEL 15 GM TUBE PO PRN (23:22)
[2022-08-03] MEDS ORDERED: LANTUS PER UNIT CHARGE SQ STA (23:22)
[2022-08-03] MEDS ORDERED: CARBOHYDRATES FOR HYPOGLYCEMIA PO PRN (23:22)
[2022-08-03] MEDS ORDERED: DEXTROSE 50% 50 ML SYRINGE IV PRN (23:22)
[2022-08-03] MEDS ORDERED: GLUCAGON FOR INJ 1 MG VIAL SQ PRN (23:22)
--- NOTE | 2022-08-03 23:33 | Emergency Department Note ---
History of Present Illness General Chief Complaint: Shortness of Breath/Dyspnea Stated Complaint: SHORT OF BREATH, BLOOD TRANSFUSION Time Seen by Provider: 08/03/22 20:26 History of Present Illness Provider Complaint: shortness of breath Onset (ago): week(s) (1) Severity: moderate Consistency/Duration: + progressively worsening Relieved By: + nothing Exacerbated By: + lying flat and + exertion Context: no choking/aspiration or no recent travel Associated symptoms: + chest congestion; no chest pain, no fever, no cough, no wheezing, no sputum production, no polyuria, no paresthesias, no palpitations, no hemoptysis, no diaphoresis, no nausea/vomiting, no syncope, no abdominal pain or no rash HPI Narrative: Patient has CKD stage V and was referred to her doctor because they are concerned that her hemoglobin might be low. Patient has an AV fistula in her left upper extremity but has not started dialysis yet. Home Medications Medication Instructions Recorded Confirmed Type aspirin 325 mg tablet,delayed 325 mg PO QAM 02/25/19 08/03/22 History release insulin NPH isoph U-100 human 100 30 units subcut BID 02/25/19 08/03/22 History unit/mL subcutaneous suspension (Novolin N NPH U-100 Insulin isophane) insulin regular human 100 unit/mL See Rx Instructions .Route .COMPLEX 02/25/19 08/03/22 History injection solution (Novolin R Regular U-100 Insulin) carvedilol 25 mg tablet (Coreg) 25 mg PO QAM #135 tabs 12/07/21 08/03/22 Rx atorvastatin 80 mg tablet 80 mg PO HS #90 tabs 04/30/22 08/03/22 Rx chlorthalidone 25 mg tablet 25 mg PO QAM #90 tabs 04/30/22 08/03/22 Rx losartan 50 mg tablet 100 mg PO QAM #135 tabs 08/03/22 08/03/22 Rx mirtazapine 7.5 mg tablet 7.5 mg PO HS 08/03/22 08/03/22 History Allergies Allergy/AdvReac Type Severity Reaction Status Date / Time amlodipine Allergy Unknown Rash Verified 08/03/22 08:08 Sulfa (Sulfonamide Allergy Unknown Hives Verified 08/03/22 08:08 Antibiotics) lisinopril AdvReac Unknown Cough Verified 08/03/22 08:08 Past Med/Surg History Medical History Anemia Asymptomatic, chronic > monitoring per nephrology 08/2021 note Hgb 10-11 range per chart review Asthma Atrophy of left kidney Carotid stenosis, bilateral Chronic occlusion of the right CCA. Right ICA patent and flow is antegrade via retrograde flow from right ECA. Chronic occlusion of the left ICA. Less than 50% stenosis left ECA with antegrade flow. Right and left vertebrals are patent with antegrade flow. No significant change compared to previous 07/31/2019 per report. Chronic sinusitis CMF (chondromyxoid fibroma) Coronary artery disease Follows with Dr. Carlos Depression with anxiety Diabetes IDDM [facility] Gout Hyperglycemia Hyperlipemia Hyperparathyroidism, secondary renal Hypertension Myocardial infarction NSTEMI 09/2000, cath 10/2000 with total mid RCA occlusion, collaterals present, medically managed Obesity Pulmonary nodules Under surveillance Renal artery stenosis Restless legs syndrome Stage 4 chronic kidney disease Follows with [facility] Plan for future dialysis Surgical History History of bilateral carpal tunnel release 2001 History of bone marrow biopsy 03/18/12 Bx bone trocar or needle deep [place]. Albin Saenz [place] [facility] [place] of cardiac cath 2000 > with total mid RCA occlusion, collaterals present (medical management) 2003 > + collaterals (medical management) History of colonoscopy History of hip replacement, total 2008 History of hysterectomy History of knee surgery History of lumpectomy of both breasts History of open reduction and internal fixation (ORIF) procedure Open treatment femoral shaft fracture with plate performed by Albin Graham 06/10/12 [facility] [place]cision, tumor, soft tissue of thigh or knee area, subfascial Open treatment proximal femur with fixation or prosthesis History of sinus surgery 1995 Dr. Morrow Family History Mother Heart disease Hypertension Coronary heart disease Anxiety Cancer Father , Age 59 of [place]. 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 Beliefs That Will Affect Care: None marital status: Current Living Situation: Alone current occupational status: 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 Safe at Home: Yes Childhood Exposure to Second-Hand Smoke: No caffeine: Yes Dental Care, Regularly: Yes Physical Activity Frequency: Does not Exercise Seatbelt Use: always Sunscreen Use: Yes Assistive Devices: Contacts and Glasses Review of Systems A total of 10 systems reviewed and were otherwise negative Physical Exam Vital Signs: Vital Signs - 24 hr 08/03/22 19:17 08/03/22 19:50 08/03/22 19:50 Temperature 36.7 C Temperature Source Temporal Artery Sc an Pulse Rate 79 Pulse Rate [Right Finger] 110 H Respiratory Rate 24 26 H Respiratory Effort / Characteristics Non-Labored Sponta neous Labored Respiratory Depth Normal Blood Pressure 179/83 H Blood Pressure [Ri ght Arm] Blood Pressure Patience n 115 Blood Pressure Patience n [Right Arm] Blood Pressure Pos ition Sitting Pulse Oximetry 100 97 Oxygen Delivery Me thod Room Air Room Air Sepsis Recent Feve r Within 48 Hours No Sepsis New/Unexpla ined Change in Men hang Status N/A Sepsis Action Take n by Nursing No Action Required Pulse Oximetry Pos t Tiitration 97 08/03/22 20:24 08/03/22 22:44 Temperature Temperature Source Pulse Rate Pulse Rate [Right Finger] 81 Respiratory Rate 22 Respiratory Effort / Characteristics Respiratory Depth Blood Pressure Blood Pressure [Ri ght Arm] 171/109 H Blood Pressure Patience n Blood Pressure Patience n [Right Arm] 129 Blood Pressure Pos ition Pulse Oximetry 100 Oxygen Delivery Me thod Room Air Sepsis Recent Feve r Within 48 Hours Sepsis New/Unexpla ined Change in Men hang Status Sepsis Action Take n by Nursing Pulse Oximetry Pos t Tiitration Physical Exam: Physical Exam HENT: Exam performed. -Head: Normocephalic and atraumatic. -Right Ear: External ear normal. No mastoid tenderness. -Left Ear: External ear normal. No mastoid tenderness. -Mouth/Throat: The oropharynx is clear and moist. No trismus in the jaw. No dental abscesses or uvula swelling. No oropharyngeal exudate or tonsillar abscesses. EYES: Conjunctivae and EOM are normal. Pupils are equal, round, and reactive to light. Right eye exhibits no discharge. Left eye exhibits no discharge. No scleral icterus. NECK: Normal range of motion. Neck supple. JVD present. No spinous process tenderness present. No carotid bruit present. No rigidity. No tracheal deviation and normal range of motion present. No Brudzinski's sign and no Kernig's sign noted. CV: Normal rate, regular rhythm, normal heart sounds and intact distal pulses. 1+ pitting edema of the bilateral lower extremities. Palpable radial pulses bue. PULM/CHEST: Slight rales at the bases of the bilateral lungs. ABD: The abdomen is soft. Bowel sounds are normal. She has no distension. No mass is present. There is no tenderness. There is no rebound, no guarding, no Edwards's sign and no tenderness at McBurney's point. Rovsig negative MUSC/SKEL: Normal range of motion. There is no tenderness or deformity. LYMPH: No cervical adenopathy. NEURO: She is alert and oriented to person, place, and time. She has normal strength. No cranial nerve deficit or sensory deficit. Coordination and gait normal. GCS eye subscore is 4. GCS verbal subscore is 5. GCS motor subscore is 6. Cerebellar tests wnl. SKIN: Skin is warm and dry. She is not diaphoretic. PSYCH: She has a normal mood and affect. Behavior is normal. Judgment and thought content normal. Course Course 2025: The patient was evaluated in room A9. A complete history and physical exam was performed Cardiac monitoring: An order was placed for continuous cardiac monitoring. The monitor shows a rate of 80 with sinus rhythm EMR reviewed. Blood work from today she had a hemoglobin of 8 and a BUN of 91. Creatinine 5.06. It appears that his BUN usually runs from 60 and his creatinine usually runs around 4. 2125: Vital signs stable. Repeat labs in the emergency department show a BUN of 92 creatinine 4.79 potassium 4.1. Troponin is elevated at 96.5 and BNP is elevated at 1652. Patient reports no chest pain. It is thought that the troponin elevation is secondary to her CKD. Patient does appear clinically fluid overloaded. Discussed with Dr. Padilla nephrology both she and I feel like the patient should be admitted for IV diuresis and evaluation by nephrology in the morning. Patient is in agreement. Dr. Fernandez [facility] hospitalist team will be notified. Administered Medications Discontinued Medications Furosemide (Furosemide 40 Mg/4 Ml Vial) 40 mg IV ONE ONE Stop: 08/03/22 21:26 Last Admin: 08/03/22 21:35 Dose: 40 mg Documented By: ELIEZER Medical Decision Making Laboratory Data Result diagrams: 08/03/22 19:37 08/03/22 19:37 Lab Results 08/03/22 08/03/22 08/03/22 Range/Units 18:32 19:37 19:37 WBC 10.27 (4.8-10.8) K/ul RBC 2.80 L (3.93-5.22) M/uL Hgb 8.3 L (12.0-16.0) g/dl Hct 25.3 L (34.1-44.9) % MCV 90.4 (80.0-100.0) fL MCH 29.6 (25.0-34.0) pg MCHC 32.8 (32.0-36.0) g/dL RDW Std Deviation 44.8 (36.4-46.3) fL RDW Coeff of Nilda 13.6 (11.5-14.5) % Plt Count 230 (130-400) K/uL MPV 9.7 (9.4-12.3) fL Immature Gran % (Auto) 0.4 % Neut % (Auto) 69.3 % Lymph % (Auto) 15.0 % Tift % (Auto) 8.9 % Eos % (Auto) 5.6 % Baso % (Auto) 0.8 % Neut # (Auto) 7.12 H (1.4-6.5) K/uL Lymph # (Auto) 1.54 (1.2-3.4) K/uL Tift # (Auto) 0.91 H (0.24-0.82) K/uL Eos # (Auto) 0.58 H (0-0.50) K/uL Baso # (Auto) 0.08 (0-0.2) K/uL Immature Gran # (Auto) 0.04 H (0.00-0.02) K/uL PT 11.2 (9.0-12.0) Seconds INR 1.1 (0.9-1.1) APTT 24.2 (21.0-31.0) Seconds PTT Ratio 0.9 Sodium (136-145) mmol/L Potassium (3.5-5.1) mmol/L Chloride (98-107) mmol/L Carbon Dioxide (21-32) mmol/L Anion Gap (3-11) BUN (6-23) mg/dl Creatinine (0.6-1.2) mg/dl Est Cr Clr Drug Dosing ml/min Est GFR ( Amer) ml/min Est GFR (Non-Af Amer) ml/min BUN/Creatinine Ratio (10-20) Glucose (70-99(Fasting)) mg/dl Calcium (8.5-10.1) mg/dl Magnesium (1.7-2.4) mg/dl Total Bilirubin (0.2-1.0) mg/dl AST (13-39) U/L ALT (7-52) U/L Alkaline Phosphatase (34-104) U/L Troponin I High Sens (0-14) pg/ml B-Natriuretic Peptide 1652 H (0-100) pg/ml Total Protein (6.0-8.3) gm/dl Albumin (3.4-5.0) gm/dl Globulin (2.5-4.0) gm/dl Albumin/Globulin Ratio (0.9-2) Urine Color Urine Appearance (Clear) Urine pH (4.5-7.5) Ur Specific Norton (1.000-1.030) Urine Protein (Negative) Urine Glucose (UA) (Negative) Urine Ketones (Negative) Urine Blood (Negative) Urine Nitrite (Negative) Urine Bilirubin (Negative) Urine Urobilinogen (Negative) Ur Leukocyte Esterase (Negative) Urine WBC (Auto) (0-5) /hpf Urine RBC (Auto) (0-4) /hpf U Hyaline Cast (Auto) (0-5) /lpf U Epithel Cells (Auto) (0-5) /lpf Urine Bacteria (Auto) (Negative) SARS-CoV-2, RNA, NAAT (NEGATIVE) 08/03/22 08/03/22 08/03/22 Range/Units 19:37 19:37 19:37 WBC (4.8-10.8) K/ul RBC (3.93-5.22) M/uL Hgb (12.0-16.0) g/dl Hct (34.1-44.9) % MCV (80.0-100.0) fL MCH (25.0-34.0) pg MCHC (32.0-36.0) g/dL RDW Std Deviation (36.4-46.3) fL RDW Coeff of Nilda (11.5-14.5) % Plt Count (130-400) K/uL MPV (9.4-12.3) fL Immature Gran % (Auto) % Neut % (Auto) % Lymph % (Auto) % Tift % (Auto) % Eos % (Auto) % Baso % (Auto) % Neut # (Auto) (1.4-6.5) K/uL Lymph # (Auto) (1.2-3.4) K/uL Tift # (Auto) (0.24-0.82) K/uL Eos # (Auto) (0-0.50) K/uL Baso # (Auto) (0-0.2) K/uL Immature Gran # (Auto) (0.00-0.02) K/uL PT (9.0-12.0) Seconds INR (0.9-1.1) APTT (21.0-31.0) Seconds PTT Ratio Sodium 136 (136-145) mmol/L Potassium 4.1 (3.5-5.1) mmol/L Chloride 108 H (98-107) mmol/L Carbon Dioxide 16 L (21-32) mmol/L Anion Gap 12 H (3-11) BUN 92 H (6-23) mg/dl Creatinine 4.79 H* (0.6-1.2) mg/dl Est Cr Clr Drug Dosing 10.8 ml/min Est GFR ( Amer) 9.9 ml/min Est GFR (Non-Af Amer) 8.6 ml/min BUN/Creatinine Ratio 19.2 (10-20) Glucose 255 H (70-99(Fasting)) mg/dl Calcium 8.8 (8.5-10.1) mg/dl Magnesium 1.7 (1.7-2.4) mg/dl Total Bilirubin 0.4 (0.2-1.0) mg/dl AST 10 L (13-39) U/L ALT 9 (7-52) U/L Alkaline Phosphatase 63 (34-104) U/L Troponin I High Sens 96.5 H* (0-14) pg/ml B-Natriuretic Peptide (0-100) pg/ml Total Protein 6.9 (6.0-8.3) gm/dl Albumin 3.7 (3.4-5.0) gm/dl Globulin 3.2 (2.5-4.0) gm/dl Albumin/Globulin Ratio 1.2 (0.9-2) Urine Color Urine Appearance (Clear) Urine pH (4.5-7.5) Ur Specific Norton (1.000-1.030) Urine Protein (Negative) Urine Glucose (UA) (Negative) Urine Ketones (Negative) Urine Blood (Negative) Urine Nitrite (Negative) Urine Bilirubin (Negative) Urine Urobilinogen (Negative) Ur Leukocyte Esterase (Negative) Urine WBC (Auto) (0-5) /hpf Urine RBC (Auto) (0-4) /hpf U Hyaline Cast (Auto) (0-5) /lpf U Epithel Cells (Auto) (0-5) /lpf Urine Bacteria (Auto) (Negative) SARS-CoV-2, RNA, NAAT NEGATIVE (NEGATIVE) 08/03/22 Range/Units 21:09 WBC (4.8-10.8) K/ul RBC (3.93-5.22) M/uL Hgb (12.0-16.0) g/dl Hct (34.1-44.9) % MCV (80.0-100.0) fL MCH (25.0-34.0) pg MCHC (32.0-36.0) g/dL RDW Std Deviation (36.4-46.3) fL RDW Coeff of Nilda (11.5-14.5) % Plt Count (130-400) K/uL MPV (9.4-12.3) fL Immature Gran % (Auto) % Neut % (Auto) % Lymph % (Auto) % Tift % (Auto) % Eos % (Auto) % Baso % (Auto) % Neut # (Auto) (1.4-6.5) K/uL Lymph # (Auto) (1.2-3.4) K/uL Tift # (Auto) (0.24-0.82) K/uL Eos # (Auto) (0-0.50) K/uL Baso # (Auto) (0-0.2) K/uL Immature Gran # (Auto) (0.00-0.02) K/uL PT (9.0-12.0) Seconds INR (0.9-1.1) APTT (21.0-31.0) Seconds PTT Ratio Sodium (136-145) mmol/L Potassium (3.5-5.1) mmol/L Chloride (98-107) mmol/L Carbon Dioxide (21-32) mmol/L Anion Gap (3-11) BUN (6-23) mg/dl Creatinine (0.6-1.2) mg/dl Est Cr Clr Drug Dosing ml/min Est GFR ( Amer) ml/min Est GFR (Non-Af Amer) ml/min BUN/Creatinine Ratio (10-20) Glucose (70-99(Fasting)) mg/dl Calcium (8.5-10.1) mg/dl Magnesium (1.7-2.4) mg/dl Total Bilirubin (0.2-1.0) mg/dl AST (13-39) U/L ALT (7-52) U/L Alkaline Phosphatase (34-104) U/L Troponin I High Sens (0-14) pg/ml B-Natriuretic Peptide (0-100) pg/ml Total Protein (6.0-8.3) gm/dl Albumin (3.4-5.0) gm/dl Globulin (2.5-4.0) gm/dl Albumin/Globulin Ratio (0.9-2) Urine Color [place] Urine Appearance Clear (Clear) Urine pH 5.0 (4.5-7.5) Ur Specific Norton 1.018 (1.000-1.030) Urine Protein 4+ H (Negative) Urine Glucose (UA) 2+ H (Negative) Urine Ketones Negative (Negative) Urine Blood Trace H (Negative) Urine Nitrite Negative (Negative) Urine Bilirubin Negative (Negative) Urine Urobilinogen Negative (Negative) Ur Leukocyte Esterase Negative (Negative) Urine WBC (Auto) 1-5 (0-5) /hpf Urine RBC (Auto) 0-4 (0-4) /hpf U Hyaline Cast (Auto) 1-5 (0-5) /lpf U Epithel Cells (Auto) 10-20 H (0-5) /lpf Urine Bacteria (Auto) Negative (Negative) SARS-CoV-2, RNA, NAAT (NEGATIVE) Imaging Data Radiologist's Impression: Chest X-Ray 08/03/22 19:24 XR chest 1V portable CLINICAL HISTORY: SOB TECHNIQUE: Single frontal radiograph of the chest was obtained. Comparison: Comparison is made to chest radiograph 12/26/2020 FINDINGS: No lines and tubes are seen. Cardiomegaly is noted. The lungs are clear. No evidence of pleural effusion or pneumothorax. IMPRESSION: No acute abnormalities and in particular no evidence of pneumonia. ACT 112: Negative or not required by law. Electronically signed by: Marko Zaldivar M.D. 08/03/2022 8:27 PM ECG Data Interpretation: Sinus rhythm with a rate of 90. HI QRS and QTc intervals within normal limits. No ST elevation or ST depression. PVC present. [facility] Narrative 2025: The patient was evaluated in room A9. A complete history and physical exam was performed Cardiac monitoring: An order was placed for continuous cardiac monitoring. The monitor shows a rate of 80 with sinus rhythm EMR reviewed. Blood work from today she had a hemoglobin of 8 and a BUN of 91. Creatinine 5.06. It appears that his BUN usually runs from 60 and his creatinine usually runs around 4. 2125: Vital signs stable. Repeat labs in the emergency department show a BUN of 92 creatinine 4.79 potassium 4.1. Troponin is elevated at 96.5 and BNP is elevated at 1652. Patient reports no chest pain. It is thought that the troponin elevation is secondary to her CKD. Patient does appear clinically f luid overloaded. Discussed with Dr. Padilla nephrology both she and I feel like the patient should be admitted for IV diuresis and evaluation by nephrology in the morning. Patient is in agreement. Dr. Fernandez [facility] hospitalist team will be notified. Impression & Plan Acute kidney injury superimposed on CKD, Fluid overload Discharge Plan Visit Data Chief Complaint: Shortness of Breath/Dyspnea Stated Complaint: SHORT OF BREATH, BLOOD TRANSFUSION ED Provider: Torin Ambrosio Discharge Problem: Acute kidney injury superimposed on CKD, Fluid overload Patient Disposition: Admitted As Inpatient Forms Stand Alone Forms: My [facility] Prescriptions Prescriptions: No Action carvedilol [Coreg] 25 mg tablet 25 mg PO QAM Qty: 135 3RF atorvastatin 80 mg tablet 80 mg PO HS Qty: 90 3RF chlorthalidone 25 mg tablet 25 mg PO QAM Qty: 90 3RF losartan 50 mg tablet 100 mg PO QAM Qty: 135 1RF aspirin 325 mg Tablet,Delayed Release (Dr/Ec) 325 mg PO QAM Novolin R Regular U-100 Insuln 100 unit/mL solution See Rx Instructions .ROUTE .COMPLEX Rx Instructions: sliding scale ...pt using when feels as though she needs it. but usually only checks her bsg at bedtime Novolin N NPH U-100 Insulin 100 unit/mL suspension 30 units subcut BID mirtazapine 7.5 mg tablet 7.5 mg PO HS Referrals Referrals: Kisha Cosby MD [Primary Care Provider] -
[2022-08-03] MEDS ORDERED: MIRTAZAPINE TAB 15 MG TAB PO STA (23:56)
[2022-08-03] MEDS ORDERED: ATORVASTATIN 40 MG TAB PO STA (23:56)
[2022-08-04 00:06] LABS: Base Excess VBG -11.2 mEq/L; HCO3 VBG 14 mmol/L; Oxygen Saturation VBG 81.8 %; PCO2 VBG 29 mmHg (38-50); PO2 VBG 51 mmHg; pH VBG 7.29 (7.36-7.41)
[2022-08-04] MEDS ORDERED: INSULIN HUMAN REGULAR PER UNIT 7 UNITS in SYRINGE 6.93 ML IV ONE (02:30)
[2022-08-04 07:32] LABS: Basophils # (auto) 0.09 K/uL (0-0.2); Eosinophils # (auto) 0.65 K/uL (0-0.50); Eosinophils % (auto) 7.2 %; Hematocrit (blood only) 23.7 % (34.1-44.9); Hemoglobin 7.8 g/dl (12.0-16.0); Immature Granulocytes # (auto) 0.02 K/uL (0.00-0.02); Immature Granulocytes % (auto) 0.2 %; Lymphocytes # (auto) 1.46 K/uL (1.2-3.4); Lymphocytes % (auto) 16.1 %; Mean Corpuscular Hemoglobin 29.5 pg (25.0-34.0); Mean Corpuscular Hgb Conc 32.9 g/dL (32.0-36.0); Mean Corpuscular Volume 89.8 fL (80.0-100.0); Mean Platelet Volume 9.5 fL (9.4-12.3); Monocytes # (auto) 0.87 K/uL (0.24-0.82); Monocytes % (auto) 9.6 %; Neutrophils # (auto) 5.96 K/uL (1.4-6.5); Neutrophils % (auto) 65.9 %; Platelet Count 209 K/uL (130-400); RDW Coefficient of Variation 13.8 % (11.5-14.5); RDW Standard Deviation 44.7 fL (36.4-46.3); Red Blood Count 2.64 M/uL (3.93-5.22); White Blood Count 9.05 K/ul (4.8-10.8)
[2022-08-04 07:34] LABS: Base Excess VBG -9.8 mEq/L; HCO3 VBG 15 mmol/L; Oxygen Saturation VBG 79.5 %; PCO2 VBG 30 mmHg (38-50); PO2 VBG 47 mmHg; pH VBG 7.31 (7.36-7.41)
[2022-08-04] MEDS: carvediloL 25 MG TAB PO SCH (08:00)
[2022-08-04] MEDS: CHLORTHALIDONE 25 MG TAB PO SCH (08:00)
[2022-08-04] MEDS: LOSARTAN POTASSIUM 50 MG TAB PO SCH (08:00)
[2022-08-04] MEDS: INSULIN ASPART PER UNIT SC SCH ×5 (08:03→22:04)
[2022-08-04] MEDS: LANTUS PER UNIT CHARGE SQ SCH ×2 (08:04→22:04)
[2022-08-04 08:06] LABS: Ovalocytes 1+
--- NOTE | 2022-08-04 08:17 | Hospitalist Progress Note ---
Date of Service August 04, 2022 Assessment & Plan (1) Dyspnea: Plan: Jessika is a 71 y/o F with history of anemia, asthma, carotid stenosis, CAD, DM, CKD4, and renal artery stenosis who presented for 2 weeks of dyspnea and BL lower extremity edema with associated malaise. ESRD w/ associated dyspnea (pleural effusion) and LE Edema - Received Lasix 40 mg IV in ED w/ subsequent symptom (dyspnea/edema) resolution - Ongoing hypertension (BP 171/63), anemia (7.8), elevated BUN/Cr (91/4.4), and hyperphosphatemia (5.9) - AV fistula in place - Nephrology Consultation * Recommended initation of dialysis today, will perform 2 hours 08/04 and monitor overnight, considering discharge 08/05 if stable * Discussed with case management to refer to [facility] for outpatient dialysis, nurse will be in touch with patient and [facility] admission on Saturday to set up next dialysis either next Saturday or Saturday * Starting Venofer 200 mg IV daily, Epogen 61846 units w/ dialysis, low potassium diet, avoidance of NSAIDS, and 40 mg Lasix daily * Initiating left arm nephrology precautions and dosing medications for eGFR < 10 - Cardiology Consultation * Echo unchanged from 12/2021 and ECG enzymes do not suggest acute ischemia, raya specting renal insufficiency, moderate left ventricular hypertrophy with associated diastolic dysfunction and recent dietary indiscretion have resulted in volume overload. * She is mildly hypertensive and should be continued on carvedilol, suspect her BP will improve with volume unloading * Not recommending stress testing or ischemic evaluation since asymptomatic - Trop: 96.5 to 112.3, asymptomatic - Hgb 7.8 from 8.3, no evidence of acute bleeding, FOBT pending Hyperglycemia: - Patient endorsement of uncontrolled BSG at home (>400) - Inpatient regimen Lantus 15u BID + SSI ordered - Will follow BSG and asjust PRN - A1c 08/03 6.8 Coronary artery disease: - hx of NSTEMI and bilateral carotid disease - hold home aspirin in setting of anemia Hypertension: - continue home regimen of Carvedilol - Hypertensive today, will monitor, suspect will diminish with hemodialysis Nonsustained paroxysmal supraventricular tachycardia: - monitor on tele, had an episode of tachycardia Depression with anxiety: - No active medications - Planning to restart management with PCP, was on Mirtazapine Hyperlipemia: - continue home statin (2) Anemia: (3) Hyperglycemia: (4) End stage renal disease: (5) Coronary artery disease: (6) Hypertension: (7) Nonsustained paroxysmal supraventricular tachycardia: (8) Depression with anxiety: (9) Hyperlipemia: Plan FEN/GI: DM2 diet, low Na, low K Ppx: SCDs only in context of anemia Code: Full Dispo: med tele, possible d/c tomorrow pending dialysis Admission and Anticipated Discharge Date Admission Date: August 03, 2022 Supervising Physician Co-Signing Physician Notes I personally examined the patient and verified all mondragon points of history and exam, discussed case, and agree with decision making with Dr Page. Main complaint is needing to have a bowel movement. Case discussed with nephrology, input greatly appreciated. Vitals noted, in general she is awake and alert pleasant no distress. HEENT normocephalic atraumatic mucous membranes moist. Breathing unlabored no accessory muscle use good effort. Skin shows no rashes no pallor or icterus. ESRDpulmonary edema likely more due to her ESRD than truly HFpEF, although hard to rule out both. Improved with Lasix, starting dialysis. Otherwise as above Subjective Jessika is a 71 y/o F with history of anemia, asthma, carotid stenosis, CAD, DM, CKD4, and renal artery stenosis who presented for 2 weeks of dyspnea and BL lower extremity edema with associated malaise. 08/04/22 - Sinus arrhythmia w/ PAC on Tele - Patient notes she is feeling much improved today, her breathing and swelling are alot better - She notes that she was sent here by her PCP for anemia - Patient has had diarrhea for the last 3 years, but denies any hematochezia, hematemasis, or hematuria - Shortness of breath was ongoing for the last two weeks (can be at rest or with activity, feels like her air is shutting off), has not felt that way since Lasix dose in ED - No headaches or vision changes, no abdominal pain - Urinating regularly Review of Systems Review of Systems: - As per HPI Physical Exam Physical Exam: Gen: NAD, alert, interactive HEENT: Supple, no LAD, no thyromegaly, no JVD Resp:Non-labored, no wheezing/rhonchi/rales, CTAB CV:RRR, occasional premature beat, normal S1/S2, no M/R/G Abd: Soft, non-distended, no TTP, normoactive bowels, no masses Extr: 2+ dp bilaterally, trace LE edema bilaterally Results & Data Results & Data ([facility]) Vital Signs (Past 12 Hours) Vital Signs Temp Pulse Pulse Resp BP Pulse Ox O2 Del Method 08/04/22 07:33 36.7 C 95 H 18 171/82 H 100 Room Air 08/04/22 00:45 93 H 08/04/22 04:00 36.7 C 77 18 143/64 H 100 Room Air 08/04/22 01:52 36.4 C L 08/04/22 00:00 75 18 135/79 97 Room Air 08/03/22 22:44 81 22 100 Room Air 08/03/22 20:24 171/109 H Resident Activity Tracking Resident Involvement: Resident Care Provided Care Provided: Adult Hospital Medicine
[2022-08-04 08:29] LABS: Albumin Globulin Ratio 1.2 (0.9-2); Albumin Level 3.5 gm/dl (3.4-5.0); BUN Creatinine Ratio 19.6 (10-20); Bilirubin,Total 0.5 mg/dl (0.2-1.0); Calcium 8.7 mg/dl (8.5-10.1); Creatinine Clr Calc Pharmacy 11.1 ml/min; Est GFR (African American) 10.3 ml/min; Est GFR (Non-African American) 8.9 ml/min; Globulin 2.9 gm/dl (2.5-4.0); Magnesium 1.7 mg/dl (1.7-2.4); Phosphorus 5.8 mg/dl (2.5-4.9); Potassium 3.8 mmol/L (3.5-5.1); Total Protein 6.4 gm/dl (6.0-8.3)
[2022-08-04 09:09] LABS: Ferritin 69.7 ng/ml (8-388)
[2022-08-04 09:18] LABS: Troponin I High Sensitivity 112.3 pg/ml (0-14)
--- NOTE | 2022-08-04 09:34 | XCELERA ---
[id number]
[2022-08-04] MEDS ORDERED: SODIUM BICARBONATE 650 MG TAB PO SCH (10:45)
[2022-08-04] MEDS: IRON SUCROSE 200 MG in 0.9 % SODIUM CHLORIDE 100 ML IV SCH (11:09)
--- NOTE | 2022-08-04 12:00 | Nephrology Consultation ---
Date of Consultation August 04, 2022 Assessment & Plan (1) End stage renal disease: (2) Diabetes: (3) Fluid overload: (4) Anemia due to chronic kidney disease: (5) Metabolic acidosis: (6) Hyperphosphatemia: (7) Hypertension: (8) Hyperparathyroidism, secondary renal: (9) Atrophy of left kidney: Plan 71-year-old female with end-stage renal disease in the setting of hypertension, diabetes, PVD, nephrotic range proteinuria and left atrophic kidney. baseline creatinine was staying around 3.7-3.8, admitted with creatinine of 5.1, multiple electrolyte abnormality including metabolic acidosis, Hyperphosphatemia, volume overload with respiratory distress and anemia. she missed follow-up with Nephrology and last follow-up was almost a year ago. Considering underlying advanced CKD, missed f/u and concern for non compliance, current further worsening of renal function with low eGFR, anemia, metabolic acidosis, hyperphosphatemia and volume overload, recommended to start on dialysis to correct volume status, anemia, electrolyte abnormality and blood pressure. Although patient was initially reluctant but after discussion and over telephone discussion with her daughter she is agreeable to start on dialysis. -- Will plan for 2 hours dialysis today and monitor overnight and if clinically stable will plan for possible discharge tomorrow. Discussed with case management to referred to [facility] admission to set up outpatient dialysis at [facility] dialysis unit as per patient preference. discussed with the dialysis unit nurse will be in touch with patient and [facility] admission on Saturday to set up next dialysis either next Saturday or Saturday. -- start on Venofer 200 mg IV daily -- Epogen 76684 units x 1 dose with dialysis today -- Advised to avoid high potassium diet, avoid NSAIDs -- continue on Lasix 40 mg daily. -- left arm nephrology precaution, dose medications for eGFR less than 10 Will follow. Thank you for allowing me to participate in your patient's care. It was a pleasure to see Jessika. History of Present Illness Reason for Consultation: ESRD Attending Physician: Jefe Bose DO History of Present Illness Ms. Jessika Dlol is a 71-year-old female with past medical history significant for stage IV/5 CKD with nephrotic range proteinuria, left atrophic kidney, hypertension, diabetes admitted to the hospital with volume overload and shortness of breath. Nephrology consult was requested as she was noted to have further worsening of kidney function with multiple electrolyte abnormality and significant anemia. EMR records are reviewed in detail during patient's visit. Discussed with her daughter Felicity over telephone during the visit. Jessika has stage IV/5 CKD baseline creatinine has been around 3.5-3.8, has more than 7 g of proteinuria. Considering left atrophic kidney no kidney biopsy was done and advanced CKD and high-grade proteinuria was thought to be secondary to underlying diabetes and vasculopathy. She had left radiocephalic AV fistula placed on 09/20/[address] Baltazar. She has been following with Dr. Denny however her last appointment was almost a year ago and her last lab was in December of this year. Previous SPEP, UPEP was unremarkable. She presented to the hospital yesterday with progressive shortness of breath, lower extremity edema and weight gain over last 2 weeks. At home she was on chlorthalidone 25 mg daily. On admission she was noted to have creatinine 5.1, BUN 90s, metabolic acidosis, bicarbonate was 16, phosphate was 5.6. Her hemoglobin was 8.3 which dropped to 7.8 this morning. She was also noted to be iron deficient but without any history of active bleeding or history of GI bleeding. Troponin was initially elevated and 2nd troponin was slightly higher than initial 1. She did not have any chest pain. She received IV Lasix in ER with some improvement in her shortness of breath. Never smoker. No known family history of CKD. Hypertension, reported to be well controlled at home however since admission her blood pressure has been running high. History of diabetes for more than 20 years seems to be generally poorly control, on insulin, no known history of retinopathy. History of bilateral carotid stenosis status post carotid endarterectomy. This morning she reports feeling better, shortness of breath improved and she just wants to go home. Allergies Allergy/AdvReac Type Severity Reaction Status Date / Time amlodipine Allergy Unknown Rash Verified 08/03/22 08:08 Sulfa (Sulfonamide Allergy Unknown Hives Verified 08/03/22 08:08 Antibiotics) lisinopril AdvReac Unknown Cough Verified 08/03/22 08:08 Home Medications Medication Instructions Recorded Confirmed Type aspirin 325 mg tablet,delayed 325 mg PO QAM 02/25/19 08/03/22 History release insulin NPH isoph U-100 human 100 30 units subcut BID 02/25/19 08/03/22 History unit/mL subcutaneous suspension (Novolin N NPH U-100 Insulin isophane) insulin regular human 100 unit/mL See Rx Instructions .Route .COMPLEX 02/25/19 08/03/22 History injection solution (Novolin R Regular U-100 Insulin) carvedilol 25 mg tablet (Coreg) 25 mg PO QAM #135 tabs 12/07/21 08/03/22 Rx atorvastatin 80 mg tablet 80 mg PO HS #90 tabs 04/30/22 08/03/22 Rx chlorthalidone 25 mg tablet 25 mg PO QAM #90 tabs 04/30/22 08/03/22 Rx losartan 50 mg tablet 100 mg PO QAM #135 tabs 08/03/22 08/03/22 Rx mirtazapine 7.5 mg tablet 7.5 mg PO HS 08/03/22 08/03/22 History Patient History Medical History (Updated 08/04/22 @ 12:16 by Henrietta Soria MD) Anemia Asymptomatic, chronic > monitoring per nephrology 08/2021 note Hgb 10-11 range per chart review Anemia due to chronic kidney disease Asthma Atrophy of left kidney Carotid stenosis, bilateral Chronic occlusion of the right CCA. Right ICA patent and flow is antegrade via retrograde flow from right ECA. Chronic occlusion of the left ICA. Less than 50% stenosis left ECA with antegrade flow. Right and left vertebrals are patent with antegrade flow. No significant change compared to previous 07/31/2019 per report. Chronic sinusitis CMF (chondromyxoid fibroma) Coronary artery disease Follows with Dr. Carlos Depression with anxiety Diabetes IDDM [place] [facility] Gout Hyperglycemia Hyperlipemia Hyperparathyroidism, secondary renal Hyperphosphatemia Hypertension Metabolic acidosis Myocardial infarction NSTEMI 09/2000, cath 10/2000 with total mid RCA occlusion, collaterals present, medically managed Obesity Pulmonary nodules Under surveillance Renal artery stenosis Restless legs syndrome Stage 4 chronic kidney disease Follows with [place] nephrology Plan for future dialysis Surgical History History of bilateral carpal tunnel release 2001 History of bone marrow biopsy 03/18/12 Bx bone trocar or needle deep performed by Dr. Albin Saenz at [facility]. History of cardiac cath 2000 > with total mid RCA occlusion, collaterals present (medical management) 2003 > + collaterals (medical management) History of colonoscopy History of hip replacement, total 2008 History of hysterectomy History of knee surgery History of lumpectomy of both breasts History of open reduction and internal fixation (ORIF) procedure Open treatment femoral shaft fracture with plate performed by Albin Graham 06/10/12 [facility] Excision, tumor, soft tissue of thigh or knee area, subfascial Open treatment proximal femur with fixation or prosthesis History of sinus surgery 1995 Dr. Morrow Family History Mother Heart disease Hypertension Coronary heart disease Anxiety Cancer Father , Age 59 of [place]. Heart disease Diabetes Hypertension Coronary heart disease Stroke Myocardial infarction Brother Hypertension Sister Hypertension Denies family history of Ovarian cancer Prostate cancer Kidney disease Breast cancer Lung cancer Social History Smoking Status: Never smoker Second Hand Exposure: No; Do You Dip or Chew Tobacco: No; Tobacco Cessation Education Requested by Patient: No Hx Alcohol Use: No Hx Substance Use: No Preferred Language: Portuguese Communication Ability: Effective Visual Impairment: Limited Hearing Ability: Normal Speeder Frame Tender Required: No Beliefs That Will Affect Care: None marital status: Current Living Situation: Spouse 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 occupational 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 Physical Exam Constitutional: WD/WN, vitals as above no acute distress Eyes: + anicteric sclerae ENMT: Ears: no hearing impairment Neck: normal visual inspection Respiratory: no respiratory distress and no cough Auscultation: + rales (rales at b/l bases); no wheezes Cardiovascular: Rate/Rhythm: regular rate and regular rhythm Heart Sounds: normal S1 and normal S2 Extremities: + edema and + AV fistula ( Left radiocephalic AV fistula with decent thrill and bruit.) Gastrointestinal (Abdomen): Inspection/Auscultation: abdomen normal to inspection and normal bowel sounds Percussion/Palpation: abdomen soft; abdomen nontender Musculoskeletal: Extremities: extremities normal to inspection Skin: no rashes Neurologic: no focal motor deficits and not confused Psychiatric: Orientation: alert and oriented x 3 Affect: euthymic affect Results & Data ([facility]) Vital Signs (Past 12 Hours) Vital Signs Temp Pulse Pulse Resp BP Pulse Ox O2 Del Method 08/04/22 11:17 36.8 C 79 18 160/74 H 96 Room Air 08/04/22 10:10 36.7 C 95 H 18 171/82 H 100 08/04/22 07:30 62 08/04/22 08:00 Room Air 08/04/22 07:33 36.7 C 95 H 18 171/82 H 100 Room Air 08/04/22 00:45 93 H 08/04/22 04:00 36.7 C 77 18 143/64 H 100 Room Air 08/04/22 01:52 36.4 C L PG Care Time/CCT Total # of Minutes Spent Total Time Spent with Patient: Total time spent is greater than 50% in coordination of care (as documented) at patient's floor/unit and/or counseling patient: Coding Level of Care Code 46095 Inpt Consult Level 5 Diagnoses End stage renal disease N18.6 Diabetes E11.9 Fluid overload E87.70 Hypervolemia type: unspecified Anemia due to chronic kidney disease N18.9; D63.1 Metabolic acidosis E87.20 Hyperphosphatemia E83.39 Hypertension I10 Hyperparathyroidism, secondary renal N25.81 Atrophy of left kidney N26.1 (1) Fluid overload Hypervolemia type: unspecified Qualified Code(s): E87.70 - Fluid overload, unspecified
--- NOTE | 2022-08-04 12:46 | Cardiology Consultation ---
Date of Consultation August 04, 2022 Assessment & Plan (1) Acute heart failure with preserved ejection fraction (HFpEF): (2) Acute kidney injury superimposed on CKD: (3) Hypertension: (4) Coronary artery disease: Plan 71-year-old woman with known CAD and history of PSVT but no prior congestive heart failure presents with subacute symptoms of volume overload. Echocardiogram is unchanged from December 2021 and her ECG/enzyme pattern does not suggest any acute ischemic event. Most likely, combination of significant renal insufficiency, moderate left ventricular hypertrophy with associated diastolic dysfunction and recent dietary indiscretion have resulted in volume overload. Agree with furosemide for volume unloading, she likely could lose another 5-8 pounds of fluid weight. Upon discharge, her volume could either be managed through dialysis or a weight-based diuretic regimen (aiming for 5 to 8 pounds below her current weight). She is mildly hypertensive and should be continued on carvedilol, suspect her BP will improve with volume unloading. In the absence of anginal symptoms and given her symptomatic improvement, do not see the need for stress testing or other ischemic evaluation at this time. She is followed by Dr Carlos, outpatient cardiology follow-up with him. I will follow her while she is an inpatient. History of Present Illness Reason for Consultation: CHF Requesting Physician: Jefe Bose DO Attending Physician: Jefe Bose DO History of Present Illness 71-year-old woman with CAD (occluded RCA with collaterals on 2000 cath), chronic right carotid occlusion, PSVT, diabetes mellitus (on insulin) and end-stage renal disease (dialysis planned for later today) who presents with 2-week history of increasing dyspnea on exertion, weight gain, and progressive leg edema. Of note, she had been staying with her mother the past 2 weeks and admits to a marked increase in her salt/sodium intake during this time (potato chips, etc.). She is on chronic chlorthalidone and has had leg edema, but not to the degree she presented with this admission. She notes some chest fullness when she is working to breathe but denies any anginal type symptoms. Mild orthopnea but no PND. She feels much better after significant diuresis post intravenous furosemide upon admission. ECG showed sinus rhythm with no major ST deviations, troponin was moderately elevated but flat (consistent with end-stage renal disease), telemetry showed sinus rhythm with PACs. As noted, she feels much better today with less leg edema and no dyspnea at rest. No chest pain or other symptoms. Allergies Allergy/AdvReac Type Severity Reaction Status Date / Time amlodipine Allergy Unknown Rash Verified 08/03/22 08:08 Sulfa (Sulfonamide Allergy Unknown Hives Verified 08/03/22 08:08 Antibiotics) lisinopril AdvReac Unknown Cough Verified 08/03/22 08:08 Home Medications Medication Instructions Recorded Confirmed Type aspirin 325 mg tablet,delayed 325 mg PO QAM 02/25/19 08/03/22 History release insulin NPH isoph U-100 human 100 30 units subcut BID 02/25/19 08/03/22 History unit/mL subcutaneous suspension (Novolin N NPH U-100 Insulin isophane) insulin regular human 100 unit/mL See Rx Instructions .Route .COMPLEX 02/25/19 08/03/22 History injection solution (Novolin R Regular U-100 Insulin) carvedilol 25 mg tablet (Coreg) 25 mg PO QAM #135 tabs 12/07/21 08/03/22 Rx atorvastatin 80 mg tablet 80 mg PO HS #90 tabs 04/30/22 08/03/22 Rx chlorthalidone 25 mg tablet 25 mg PO QAM #90 tabs 04/30/22 08/03/22 Rx losartan 50 mg tablet 100 mg PO QAM #135 tabs 08/03/22 08/03/22 Rx mirtazapine 7.5 mg tablet 7.5 mg PO HS 08/03/22 08/03/22 History Patient History Medical History Anemia Asymptomatic, chronic > monitoring per nephrology 08/2021 note Hgb 10-11 range per chart review Anemia due to chronic kidney disease Asthma Atrophy of left kidney Carotid stenosis, bilateral Chronic occlusion of the right CCA. Right ICA patent and flow is antegrade via retrograde flow from right ECA. Chronic occlusion of the left ICA. Less than 50% stenosis left ECA with antegrade flow. Right and left vertebrals are patent with antegrade flow. No significant change compared to previous 07/31/2019 per report. Chronic sinusitis CMF (chondromyxoid fibroma) Coronary artery disease Follows with Dr. Carlos Depression with anxiety Diabetes IDDM [place] [facility] Gout Hyperglycemia Hyperlipemia Hyperparathyroidism, secondary renal Hyperphosphatemia Hypertension Metabolic acidosis Myocardial infarction NSTEMI 09/2000, cath 10/2000 with total mid RCA occlusion, collaterals present, medically managed Obesity Pulmonary nodules Under surveillance Renal artery stenosis Restless legs syndrome Stage 4 chronic kidney disease Follows with [place] nephrology Plan for future dialysis Surgical History History of bilateral carpal tunnel release 2001 History of bone marrow biopsy 03/18/12 Bx bone trocar or needle deep performed by Dr. Albin Saenz at [facility]. History of cardiac cath 2000 > with total mid RCA occlusion, collaterals present (medical management) 2003 > + collaterals (medical management) History of colonoscopy History of hip replacement, total 2008 History of hysterectomy History of knee surgery History of lumpectomy of both breasts History of open reduction and internal fixation (ORIF) procedure Open treatment femoral shaft fracture with plate performed by Albin Graham 06/10/12 [facility] Excision, tumor, soft tissue of thigh or knee area, subfascial Open treatment proximal femur with fixation or prosthesis History of sinus surgery 1995 Dr. Morrow Family History Mother Heart disease Hypertension Coronary heart disease Anxiety Cancer Father , Age 59 of [place]. Heart disease Diabetes Hypertension Coronary heart disease Stroke Myocardial infarction Brother Hypertension Sister Hypertension Denies family history of Ovarian cancer Prostate cancer Kidney disease Breast cancer Lung cancer Social History Smoking Status: Never smoker Second Hand Exposure: No; Do You Dip or Chew Tobacco: No; Tobacco Cessation Education Requested by Patient: No Hx Alcohol Use: No Hx Substance Use: No Preferred Language: Luxembourgish Communication Ability: Effective Visual Impairment: Limited Hearing Ability: Normal Piping Supervisor Required: No Beliefs That Will Affect Care: None marital status: Current Living Situation: Spouse 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 BP mildly hypertensive. Pulse 78 bpm and regular with ectopy. Skin: no ecchymoses or generalized lesions. HEENT: unremarkable. Neck: Jugular venous pulse retirement to the angle of the jaw at 90 degrees, no obvious carotid bruits. Lungs: clear, no obvious wheezing or crackles. No accessory muscle use. Cardiac: regular rhythm, normal S1 and S2, 2/6 apical holosystolic murmur rating to the axilla, no diastolic murmur, rub or distinct gallop. Abdomen: benign. Extremities: 12+ pretibial edema, pulses intact. Neurologic: normal affect and conversation, nonfocal. Results & Data ([facility]) Laboratory Results Hemoglobin was 7.8 with a normal white count and normal platelet count. Normal sodium and potassium, CO2 16, BUN 91, creatinine 4.64. Troponin 96 and 112. Diagnostic Findings ECG on admission showed sinus rhythm at 90 bpm with frequent PACs and rare PVC, old septal infarct, and minor nonspecific lateral T wave flattening with minimal ST depression. Compared with 2018 ECG, no significant change. Echocardiogram showed EF 55 to 60% with small areas of akinesis involving the basal septal and basal and mid inferior [place] (unchanged from prior), moderate LVH, mild to moderate MR/mild TR, normal right ventricular systolic pressure with mildly dilated inferior vena cava. Compared with December 2021 study, inferior vena cava not dilated, otherwise no significant change. Chest x-ray showed no acute abnormalities. PG Care Time/CCT Total # of Minutes Spent Total Time Spent with Patient: Total time spent is greater than 50% in coordination of care (as documented) at patient's floor/unit and/or counseling patient: Coding Level of Care Code 80637 Inpt Consult Level 4 Diagnoses Acute heart failure with preserved ejection fraction (HFpEF) I50.31 Acute kidney injury superimposed on CKD N17.9; N18.9 Hypertension I10 Coronary artery disease I25.10
[2022-08-04] MEDS ORDERED: Nursing to Pharmacy Communication SCH (13:00)
[2022-08-04] MEDS ORDERED: EPOETIN ALFA 4,000 UNIT/ML VIAL SC ONE (14:00)
[2022-08-04] MEDS ORDERED: EPOETIN ALFA 4,000 UNIT/ML VIAL IV ONE (14:00)
--- NOTE | 2022-08-04 14:42 | Electrocardiogram Report ---
Test Reason : Blood Pressure : / mmHG Vent. Rate : 090 BPM Atrial Rate : 090 BPM P-R Int : 186 ms QRS Dur : 088 ms QT Int : 368 ms P-R-T Axes : 037 005 107 degrees QTc Int : 450 ms Poor data quality, interpretation may be adversely affected Sinus rhythm with frequent Premature atrial complexes with occasional Premature ventricular complexes Old Septal infarct (cited on or before 04-MAR-2019) Abnormal ECG When compared with ECG of 04-MAR-2019 10:21, Premature ventricular complexes are now Present Confirmed by Ayo Raya ([id number]) on 08/04/2022 2:42:20 PM Referred By: REFERRED SELF Confirmed By:Ayo Raya
--- NOTE | 2022-08-04 15:44 | Billing Data ---
Date of Service August 04, 2022 Coding Level of Care Code 87399 Subseq Obs Care Lvl 3
[2022-08-04] MEDS: MIRTAZAPINE TAB 15 MG TAB PO SCH (21:59)
[2022-08-04] MEDS: ATORVASTATIN 40 MG TAB PO SCH (21:59)
--- NOTE | 2022-08-05 02:35 | Billing Data ---
Date of Service August 05, 2022 Coding Level of Care Code 42102 Initial Inpt Care Lvl 3
--- NOTE | 2022-08-05 06:47 | Hospitalist Progress Note ---
Date of Service August 05, 2022 Assessment & Plan (1) Dyspnea: Plan: Jessika is a 71 y/o F with history of anemia, asthma, carotid stenosis, CAD, DM, CKD4, and renal artery stenosis who presented for 2 weeks of dyspnea and BL lower extremity edema with associated malaise. ESRD w/ associated dyspnea (pleural effusion) and LE Edema - Received Lasix 40 mg IV in ED w/ subsequent symptom (dyspnea/edema) resolution - Ongoing hypertension (BP 142/82 downtrending), anemia (7.9), elevated BUN/Cr (94/4.8), and hyperphosphatemia (6.2) - No evidence of acute blood loss, FOBT negative - Nephrology Consultation * Ongoing Venofer 200 mg IV daily, Epogen 70683 units w/ dialysis, low potassium diet, avoidance of NSAIDS, and 40 mg Lasix daily * Initiating left arm nephrology precautions and dosing medications for eGFR < 10 * Anticipating outpatient dialysis at [facility] - Cardiology Consultation * Recommending Lasix 40 mg IV d/t hypervolemia and ongoing sodium bicarbonate treatment * Notes that BP should improve with further volume unloading - Trop: 96.5 to 112.3, asymptomatic --- Rx placed for Lasix per Nephrology and Cardiology recommendation --- Needs dialysis --- AV fistula in place, insufficient for dialysis 08/05, patient scheduled for vascular evaluation Saturday to place TDC and evaluated AVF --- CM Pending [facility] in [place] for outpatient dialysis Hyperglycemia: - Patient endorsement of uncontrolled BSG at home (>400) - Inpatient regimen Lantus 15u BID + SSI ordered - Will follow BSG and adjust PRN - A1c 08/03 6.8 Coronary artery disease: - hx of NSTEMI and bilateral carotid disease - hold home aspirin in setting of anemia Hypertension: - continue home regimen of Carvedilol - Hypertensive today, will monitor, suspect will diminish with hemodialysis --- Elevated, continuing to follow --- Elevation suspected 2/2 ESRD and missed dialysis, will volume unload Nonsustained paroxysmal supraventricular tachycardia: - monitor on tele, had an episode of tachycardia --- Tele discontinued 08/05 Depression with anxiety: - No active medications - Planning to restart management with PCP, was on Mirtazapine Hyperlipemia: - continue home statin (2) Anemia: (3) Hyperglycemia: (4) End stage renal disease: (5) Coronary artery disease: (6) Hypertension: (7) Nonsustained paroxysmal supraventricular tachycardia: (8) Depression with anxiety: (9) Hyperlipemia: Plan FEN/GI: DM2 diet, low Na, low K Ppx: SCDs only in context of anemia Code: Full Dispo: med tele, possible d/c tomorrow pending dialysis Admission and Anticipated Discharge Date Admission Date: August 04, 2022 Supervising Physician Co-Signing Physician Notes I personally examined the patient and verified all mondragon points of history and exam, discussed case, and agree with decision making with Dr Page. Generally feeling fatigue and malaise. Looking forward to dialysishoping this will help. Vitals noted, in general she is awake and alert pleasant no distress. HEENT normocephalic atraumatic mucous membranes moist. Breathing unlabored no accessory muscle use good effort. Skin shows no rashes no pallor or icterus. ESRDpulmonary edema likely more due to her ESRD than truly HFpEF, although hard to rule out both. Improved with Lasix, continue for now until starting dialysis. Otherwise as above Subjective Jessika is a 71 y/o F with history of anemia, asthma, carotid stenosis, CAD, DM, CKD4, and renal artery stenosis who presented for 2 weeks of dyspnea and BL lower extremity edema with associated malaise. 08/05/22 - Unable to receive dialysis yesterday d/t problems with fistula, notes that she will receive a dialysis port tomorrow in an attempt to complete a session of dialysis before transitioning home for outpatient dialysis in [place] - Continues to go without shortness of breath and lower extremity swelling - Patient continues to urinate and move bowels, no abdominal pain - She denies any headaches or vision changes - No fevers, chills, or diaphoresis Review of Systems Review of Systems: - As per HPI Physical Exam Physical Exam: Gen: NAD, alert, interactive HEENT: Supple, no LAD, no thyromegaly, no JVD Resp:Non-labored, no wheezing/rhonchi/rales, CTAB CV:RRR, occasional premature beat, normal S1/S2, no M/R/G Abd: Soft, non-distended, no TTP, normoactive bowels, no masses Extr: 2+ dp bilaterally, trace LE edema bilaterally Results & Data Results & Data ([facility]) Vital Signs (Past 12 Hours) Vital Signs Temp Pulse Resp BP Pulse Ox O2 Del Method 08/04/22 23:00 37.9 C H 95 H 18 165/75 H 97 Room Air 08/04/22 19:20 37.5 C 95 H 20 204/85 H 99 Room Air Resident Activity Tracking Resident Involvement: Resident Care Provided Care Provided: Adult Hospital Medicine
[2022-08-05 07:18] LABS: Hematocrit (blood only) 24.4 % (34.1-44.9); Hemoglobin 7.9 g/dl (12.0-16.0); Mean Corpuscular Hemoglobin 29.4 pg (25.0-34.0); Mean Corpuscular Hgb Conc 32.4 g/dL (32.0-36.0); Mean Corpuscular Volume 90.7 fL (80.0-100.0); Mean Platelet Volume 9.9 fL (9.4-12.3); Platelet Count 206 K/uL (130-400); RDW Coefficient of Variation 13.7 % (11.5-14.5); Red Blood Count 2.69 M/uL (3.93-5.22); White Blood Count 8.05 K/ul (4.8-10.8)
[2022-08-05 07:42] LABS: Albumin Level 3.2 gm/dl (3.4-5.0); BUN Creatinine Ratio 19.5 (10-20); Calcium 8.3 mg/dl (8.5-10.1); Creatinine Clr Calc Pharmacy 10.7 ml/min; Est GFR (African American) 9.9 ml/min; Est GFR (Non-African American) 8.5 ml/min; Phosphorus 6.2 mg/dl (2.5-4.9); Potassium 4.2 mmol/L (3.5-5.1)
[2022-08-05] MEDS: LOSARTAN POTASSIUM 50 MG TAB PO SCH (08:01)
[2022-08-05] MEDS: carvediloL 25 MG TAB PO SCH (08:01)
[2022-08-05] MEDS: CHLORTHALIDONE 25 MG TAB PO SCH (08:01)
[2022-08-05] MEDS: INSULIN ASPART PER UNIT SC SCH ×4 (08:03→21:27)
[2022-08-05] MEDS: IRON SUCROSE 200 MG in 0.9 % SODIUM CHLORIDE 100 ML IV SCH (08:07)
[2022-08-05] MEDS: LANTUS PER UNIT CHARGE SQ SCH ×2 (08:10→21:26)
[2022-08-05] MEDS: SODIUM BICARBONATE 650 MG TAB PO SCH ×2 (09:56→21:28)
--- NOTE | 2022-08-05 11:12 | Nephrology Progress Note ---
Date of Service August 05, 2022 Assessment & Plan (1) End stage renal disease: (2) Metabolic acidosis: (3) Hyperphosphatemia: (4) Anemia due to chronic kidney disease: Plan 71-year-old female with end-stage renal disease in the setting of hypertension, diabetes, PVD, nephrotic range proteinuria and left atrophic kidney. baseline creatinine was staying around 3.7-3.8, admitted with creatinine of 5.1, multiple electrolyte abnormality including metabolic acidosis, Hyperphosphatemia, volume overload with respiratory distress and anemia. she missed follow-up with Nephrology and last follow-up was almost a year ago. Considering underlying advanced CKD, missed f/u and concern for non compliance, current further worsening of renal function with low eGFR, anemia, metabolic acidosis, hyperphosphatemia and volume overload, started on dialysis on 08/04/22 but dialysis was not done as the fistula was found to be too small and she had infiltration. Received Epogen 39022 units on 08/04/2022. Labs this morning showed persistent azotemia, anemia, metabolic acidosis and hyperphosphatemia. She is overall otherwise asymptomatic except fatigue. -- consult vascular for TDC in am and evaluation of AVF. Case management consulted to set up outpatient dialysis at [facility] dialysis unit as per patient preference. --start on sodium bicarb 650 mg bid, can be stopped once started on HD, start on Renvela 1 tab TIDM, NPO post midnight. -- started on Venofer 200 mg IV daily for total 45 doses. -- Advised to avoid high potassium diet, avoid NSAIDs -- left arm nephrology precaution, dose medications for eGFR less than 10 Will follow. Admission and Anticipated Discharge Date Admission Date: August 04, 2022 Subjective Jessika was seen and evaluated at this morning. Overall she feels well, denies nausea, abdominal pain. Feels tired and fatigued which she has been feeling over last few weeks. Denies shortness of breath. blood pressure has been relatively high. Decent urine output. Did not have dialysis yesterday as AV fistula infiltrated. Review of Systems Review of Systems: detailed review of system was done and pertinent positives and negatives were mentioned above. Physical Exam Constitutional: WD/WN, vitals as above no acute distress Eyes: + anicteric sclerae ENMT: Ears: no hearing impairment Neck: normal visual inspection Respiratory: no respiratory distress and no cough Auscultation: + rales (rales at b/l bases); no wheezes Cardiovascular: Rate/Rhythm: regular rate and regular rhythm Heart Sounds: normal S1 and normal S2 Extremities: + AV fistula ( Left radiocephalic AV fistula with decent thrill and bruit.) Musculoskeletal: Extremities: extremities normal to inspection Skin: no rashes Neurologic: no focal motor deficits Psychiatric: Orientation: alert and oriented x 3 Affect: euthymic affect Results & Data ([facility]) Vital Signs (Past 12 Hours) Vital Signs Temp Pulse Resp BP Pulse Ox O2 Del Method 08/05/22 09:00 36.8 C 66 16 147/82 H 99 Room Air 08/05/22 07:55 36.6 C 67 18 155/80 H 97 Room Air 08/05/22 07:00 Room Air PG Care Time/CCT Total # of Minutes Spent Total Time Spent with Patient: Total time spent is greater than 50% in coordination of care (as documented) at patient's floor/unit and/or counseling patient: Coding Level of Care Code 49416 Subseq Hosp Care Lvl 3 Diagnoses End stage renal disease N18.6 Metabolic acidosis E87.20 Hyperphosphatemia E83.39 Anemia due to chronic kidney disease N18.9; D63.1
[2022-08-05] MEDS: SEVELAMER HCL 800 MG TABLET PO SCH ×2 (12:00→17:22)
--- NOTE | 2022-08-05 12:57 | Cardiology Progress Note ---
Date of Service August 05, 2022 Assessment & Plan (1) Acute heart failure with preserved ejection fraction (HFpEF): (2) Acute kidney injury superimposed on CKD: (3) Hypertension: (4) Coronary artery disease: Plan After initial diuresis from 40 mg IV furosemide on 08/03/2022 her clinical status improved and she is doing well from a cardiac standpoint. However, she still appears hypervolemic and it does not appear she received additional diuretic. Perhaps further diuretic was avoided since she was intended for dialysis, but since she had issues with her AV fistula and would not be dialyzed would recommend additional furosemide to further volume unload (perhaps furosemide 40 mg IV). This may become more important as she will be receiving sodium bicarbonate with its obvious tendency to contribute to fluid retention. BP reasonable, likely will improve further with volume unloading. No anginal symptoms or evidence of ongoing myocardial ischemia. Will continue to follow while she is an inpatient. Admission and Anticipated Discharge Date Admission Date: August 04, 2022 Subjective No complaints, she feels well. No chest pain, dyspnea, or subjective palpitations. She was unable to undergo dialysis yesterday due to inability to access her AV graft. Weight not documented, I/O slightly positive. Telemetry was benign with sinus rhythm. Physical Exam Physical Exam: No distress. BP mildly hypertensive. Pulse 62 bpm and regular with ectopy. Skin: no ecchymoses or generalized lesions. HEENT: unremarkable. Neck: Jugular venous pulse still fci to the angle of the jaw at 90 degrees, no obvious carotid bruits. Lungs: clear, no obvious wheezing or crackles. No accessory muscle use. Cardiac: regular rhythm, normal S1 and S2, 2/6 apical holosystolic murmur rating to the axilla, no diastolic murmur, rub or distinct gallop. Abdomen: benign. Extremities: 12+ pretibial edema, pulses intact. Neurologic: normal affect and conversation, nonfocal. Results & Data ([facility]) Vital Signs (Past 12 Hours) Vital Signs Temp Pulse Resp BP Pulse Ox O2 Del Method 08/05/22 11:35 97.9 F 62 16 142/82 H 96 Room Air 08/05/22 09:00 98.2 F 66 16 147/82 H 99 Room Air 08/05/22 07:55 97.9 F 67 18 155/80 H 97 Room Air 08/05/22 07:00 Room Air Laboratory Results Hemoglobin 7.9. Normal electrolytes, BUN 94, creatinine 4.81. PG Care Time/CCT Total # of Minutes Spent Total Time Spent with Patient: Total time spent is greater than 50% in coordination of care (as documented) at patient's floor/unit and/or counseling patient: Coding Level of Care Code 54803 Subseq Hosp Care Lvl 3 Diagnoses Acute heart failure with preserved ejection fraction (HFpEF) I50.31 Acute kidney injury superimposed on CKD N17.9; N18.9 Hypertension I10 Coronary artery disease I25.10
[2022-08-05] MEDS ORDERED: FUROSEMIDE 40 MG/4 ML VIAL IV ONE (14:15)
--- NOTE | 2022-08-05 15:31 | Billing Data ---
Date of Service August 05, 2022 Coding Level of Care Code 79186 Subseq Hosp Care Lvl 3
[2022-08-05] MEDS: MIRTAZAPINE TAB 15 MG TAB PO SCH (21:27)
[2022-08-05] MEDS: ATORVASTATIN 40 MG TAB PO SCH (21:29)
[2022-08-06] MEDS ORDERED: ACETAMINOPHEN 1,000 MG/100 ML VIAL IV ONE (00:15)
[2022-08-06 06:16] LABS: Hemoglobin 8.1 g/dl (12.0-16.0); Mean Corpuscular Hgb Conc 32.4 g/dL (32.0-36.0); Mean Corpuscular Volume 89.6 fL (80.0-100.0); Platelet Count 205 K/uL (130-400); RDW Coefficient of Variation 13.7 % (11.5-14.5); RDW Standard Deviation 44.5 fL (36.4-46.3); Red Blood Count 2.79 M/uL (3.93-5.22); White Blood Count 9.15 K/ul (4.8-10.8)
--- NOTE | 2022-08-06 06:40 | Hospitalist Progress Note ---
Date of Service August 06, 2022 Assessment & Plan (1) Dyspnea: Plan: Jessika is a 71 y/o F with history of anemia, asthma, carotid stenosis, CAD, DM, CKD4, and renal artery stenosis who presented for 2 weeks of dyspnea and BL lower extremity edema with associated malaise. ESRD w/ associated dyspnea (pleural effusion) and LE Edema - Received Lasix 40 mg IV in ED w/ subsequent symptom (dyspnea/edema) resolution - Ongoing hypertension (BP 142/82 downtrending), anemia (7.9), elevated BUN/Cr (94/4.8), and hyperphosphatemia (6.2) - No evidence of acute blood loss, FOBT negative - Nephrology Consultation * Ongoing Venofer 200 mg IV daily, Epogen 52328 units w/ dialysis, low potassium diet, avoidance of NSAIDS, and 40 mg Lasix daily * Initiating left arm nephrology precautions and dosing medications for eGFR < 10 * Anticipating outpatient dialysis at [facility] - Cardiology Consultation * Recommending Lasix 40 mg IV d/t hypervolemia and ongoing sodium bicarbonate treatment * Notes that BP should improve with further volume unloading * Will continue daily Lasix 40mg IV and plan to switch to oral upon discharge. - Trop: 96.5 to 112.3, asymptomatic - AV fistula in place, insufficient for dialysis 08/05 and 08/06, US of her AVG ordered and permcath will be done tomorrow in the OR. NPO after midnight. - CM Pending [facility] in [place] for outpatient dialysis R knee pain s/p fall: -Patient has diffuse leg pain. Legs are neurovascular in tack. Some tenderness along the medial aspect of the knee. -Knee xray ordered -Most likely MSK injury but will continue to monitor. -PT/OT eval ordered. DM with Hyperglycemia: - Patient endorsement of uncontrolled BSG at home (>400) - Inpatient regimen Lantus 15u BID + SSI ordered - Will follow BSG and adjust PRN - A1c 08/03 6.8 Coronary artery disease: - hx of NSTEMI and bilateral carotid disease - hold home aspirin in setting of anemia Hypertension: - continue home regimen of Carvedilol - BP Elevation suspected 2/2 ESRD and missed dialysis, will volume unload Nonsustained paroxysmal supraventricular tachycardia: - monitor on tele, had an episode of tachycardia - Tele discontinued 08/05 Depression with anxiety: - No active medications - Planning to restart management with PCP, was on Mirtazapine Hyperlipemia: - continue home statin FEN/GI: DM2 diet, low Na, low K Ppx: Heparin 5,000 units given now. Will hold on anymore DVT prophylaxis until after surgery. Plan to continue heparin Q12 after surgery. Code: Full Dispo: med tele, D/C once able to have dialysis (2) Anemia: (3) Hyperglycemia: (4) End stage renal disease: (5) Coronary artery disease: (6) Hypertension: (7) Nonsustained paroxysmal supraventricular tachycardia: (8) Depression with anxiety: (9) Hyperlipemia: (10) Right knee pain: Admission and Anticipated Discharge Date Admission Date: August 04, 2022 Supervising Physician Co-Signing Physician Notes Resident Physician Supervision Note: I independently interviewed and examined the patient and verified the mondragon history and physical, reviewed labs and image studies and agree with resident findings and care plan. Subjective Patient was seen bedside this AM. She states that her SOB is much improved since yesterday. She still complains of diffuse R leg diffuse pain w/o any back or hip pain. Patient states that when she fell before that she fell onto her butt. She denies any N/T or pain down the back of the leg. Pain and swelling mostly localized to the R knee. Patient was scheduled to have dialysis today but failed due to AV fistula issues. Review of Systems Review of Systems: All systems reviewed & are unremarkable except as noted in HPI & below She denies any fevers, chills, N/V, ab pain, CP, back pain, or SOB. Physical Exam Constitutional: WD/WN, vitals as above Eyes: PERRL, conjunctivae normal, anicteric sclerae Respiratory: normal respiratory effort, lungs clear to auscultation Cardiovascular: RRR, no murmur, no edema Gastrointestinal (Abdomen): normal bowel sounds, soft, nontender, no hepatosplenomegaly Musculoskeletal: no cyanosis or clubbing, extremities motor strength 5/5 Knee: + effusion (R) and + limited ROM of knee (R ) Skin: no rashes, warm and dry Psychiatric: A+Ox3, euthymic affect Results & Data Results & Data ([facility]) Vital Signs (Past 12 Hours) Vital Signs Temp Pulse Resp BP Pulse Ox O2 Del Method 08/06/22 00:09 37.0 C 98 H 20 109/73 98 Room Air 08/05/22 19:00 37.0 C 79 20 128/75 98 Room Air Resident Activity Tracking Resident Involvement: Resident Care Provided Care Provided: Adult Hospital Medicine
[2022-08-06 07:02] LABS: Albumin Level 3.1 gm/dl (3.4-5.0); BUN Creatinine Ratio 18.3 (10-20); Calcium 8.3 mg/dl (8.5-10.1); Creatinine Clr Calc Pharmacy 9.4 ml/min; Est GFR (African American) 8.5 ml/min; Est GFR (Non-African American) 7.3 ml/min; Potassium 3.9 mmol/L (3.5-5.1)
[2022-08-06] MEDS ORDERED: INSULIN ASPART PER UNIT SC SCH (08:15)
[2022-08-06] MEDS ORDERED: Nursing to Pharmacy Communication SCH ×2 (08:15→11:00)
[2022-08-06] MEDS: IRON SUCROSE 200 MG in 0.9 % SODIUM CHLORIDE 100 ML IV SCH (08:40)
[2022-08-06] MEDS: SODIUM BICARBONATE 650 MG TAB PO SCH ×2 (08:43→20:26)
[2022-08-06] MEDS: SEVELAMER HCL 800 MG TABLET PO SCH ×3 (08:44→17:09)
[2022-08-06] MEDS: LANTUS PER UNIT CHARGE SQ SCH ×2 (08:59→20:35)
[2022-08-06] MEDS: INSULIN ASPART PER UNIT SC SCH ×4 (09:00→20:35)
--- NOTE | 2022-08-06 09:27 | Nephrology Progress Note ---
Date of Service August 06, 2022 Assessment & Plan (1) End stage renal disease: Plan: Orders for HD today entered into the EHR and reviewed with HD RN. Attempt 2 hours at Qb 200 via AVF. Electrolytes acceptable. Treatment stopped this weekend due to infiltration of AVF. If we are unable to access fistula today, may consider TDC placement. Medications appropriately dosed for IHD. Start calcitriol 0.25 daily for sPTH. Case management to assist in arranging outpatient HD at [facility] under the care of Dr. Soria. (2) Metabolic acidosis: Plan: Continue PO NaHCO3 supplement. Dialysate adjusted. (3) Hyperphosphatemia: Plan: Low phosphorus diet. (4) Anemia due to chronic kidney disease: Plan: Epogen 55670 units provided 08/04. Venofer 200 mg IV daily. Admission and Anticipated Discharge Date Admission Date: August 04, 2022 Subjective No acute events overnight. Jessika is resting comfortably in bed this AM. AVF evaluated by vascular surgery and HD nurse. Jessika is willing to attempt AVF use for HD today. Review of Systems Review of Systems: All systems reviewed & are unremarkable except as noted in HPI & below Physical Exam Constitutional: well developed; no acute distress Eyes: no scleral abnormality and no corneal abnormality Neck: normal visual inspection and trachea midline Respiratory: normal respiratory effort Auscultation: lungs clear to auscultation bilaterally Cardiovascular: Rate/Rhythm: regular rate Heart Sounds: normal S1 and normal S2 Vessels: + JVD Extremities: + edema and + AV fistula Musculoskeletal: Extremities: no cyanosis and no clubbing Skin: normal turgor; no lesions Neurologic: Motor/Sensory: no tremor and no asterixis Psychiatric: Orientation: alert and oriented x 3 Results & Data ([facility]) Vital Signs (Past 12 Hours) Vital Signs Temp Pulse Resp BP Pulse Ox O2 Del Method 08/06/22 07:56 36.8 C 70 18 104/65 99 Room Air 08/06/22 00:09 37.0 C 98 H 20 109/73 98 Room Air Laboratory Results Laboratory Results - last 24 hr 08/05/22 08/05/22 08/05/22 11:36 16:34 20:07 WBC RBC Hgb Hct MCV MCH MCHC RDW Std Deviation RDW Coeff of Nilda Plt Count MPV Sodium Potassium Chloride Carbon Dioxide Anion Gap BUN Creatinine Est Cr Clr Drug Dosing Est GFR ( Amer) Est GFR (Non-Af Amer) BUN/Creatinine Ratio Glucose POC Glucose 180 H 187 H 177 H Calcium Phosphorus Albumin PTH Intact 08/06/22 08/06/22 08/06/22 05:32 05:32 05:32 WBC 9.15 RBC 2.79 L Hgb 8.1 L Hct 25.0 L MCV 89.6 MCH 29.0 MCHC 32.4 RDW Std Deviation 44.5 RDW Coeff of Nilda 13.7 Plt Count 205 MPV 10.0 Sodium 137 Potassium 3.9 Chloride 108 H Carbon Dioxide 17 L Anion Gap 12 H BUN 100 H Creatinine 5.47 H* D Est Cr Clr Drug Dosing 9.4 Est GFR ( Amer) 8.5 Est GFR (Non-Af Amer) 7.3 BUN/Creatinine Ratio 18.3 Glucose 147 H POC Glucose Calcium 8.3 L Phosphorus 6.0 H Albumin 3.1 L PTH Intact 267.1 H 08/06/22 07:39 WBC RBC Hgb Hct MCV MCH MCHC RDW Std Deviation RDW Coeff of Nilda Plt Count MPV Sodium Potassium Chloride Carbon Dioxide Anion Gap BUN Creatinine Est Cr Clr Drug Dosing Est GFR ( Amer) Est GFR (Non-Af Amer) BUN/Creatinine Ratio Glucose POC Glucose 140 H Calcium Phosphorus Albumin PTH Intact PG Care Time/CCT Total # of Minutes Spent Total Time Spent with Patient: Total time spent is greater than 50% in coordination of care (as documented) at patient's floor/unit and/or counseling patient: Coding Level of Care Code 40433 Subseq Hosp Care Lvl 3 Diagnoses End stage renal disease N18.6 Metabolic acidosis E87.20 Hyperphosphatemia E83.39 Anemia due to chronic kidney disease N18.9; D63.1
--- NOTE | 2022-08-06 09:30 | Consultation ---
Date of Consultation August 06, 2022 Assessment & Plan (1) End stage renal disease: Pt with ESRD, now starting HD. Her LUE AVF has excellent thrill/bruit. There are some branches present which do travel distally and loop around medially, but there does not appear to be a significant change in the thrill when compressing this branch. Pt discussed with HD RN, he will attempt to access the patient again and call if he has further problems. Can place permcath in OR tomorrow if needed, but pt is reluctant to have this. Will also order US of her AVF to eval the branches. History of Present Illness Reason for Consultation: ESRD Attending Physician: Alethea Mendoza MD History of Present Illness 71 yo f with hx of DMII, osteopenia, CKD V, HTN, CAD, carotid stenosis/occlusion, PAC, lung nodule, hyperlipidemia, gout, anemia, depression/anxiety, admitted with acute on chronic kidney disease, seen in consultation today for eval of her AVF. Pt underwent L forearm AVF creation in 10/[address] Baltazar, and was seen in f/u and felt to be maturing well. She is now admitted and needs to start HD. THe inpt HD unit attempted to access her yesterday, but infiltrated her AVF and then was unable to access her. No imaging was ordered, but request was placed for permcath insertion. Pt admits fatigue, but states her breathing is much improved. Denies MELCHOR, fever, chest pain, SOB, abd pain, N/V, rest pain, claudication, other complaints. Allergies Allergy/AdvReac Type Severity Reaction Status Date / Time amlodipine Allergy Unknown Rash Verified 08/03/22 08:08 Sulfa (Sulfonamide Allergy Unknown Hives Verified 08/03/22 08:08 Antibiotics) lisinopril AdvReac Unknown Cough Verified 08/03/22 08:08 Home Medications Medication Instructions Recorded Confirmed Type aspirin 325 mg tablet,delayed 325 mg PO QAM 02/25/19 08/03/22 History release insulin NPH isoph U-100 human 100 30 units subcut BID 02/25/19 08/03/22 History unit/mL subcutaneous suspension (Novolin N NPH U-100 Insulin isophane) insulin regular human 100 unit/mL See Rx Instructions .Route .COMPLEX 02/25/19 08/03/22 History injection solution (Novolin R Regular U-100 Insulin) carvedilol 25 mg tablet (Coreg) 25 mg PO QAM #135 tabs 12/07/21 08/03/22 Rx atorvastatin 80 mg tablet 80 mg PO HS #90 tabs 04/30/22 08/03/22 Rx chlorthalidone 25 mg tablet 25 mg PO QAM #90 tabs 04/30/22 08/03/22 Rx losartan 50 mg tablet 100 mg PO QAM #135 tabs 08/03/22 08/03/22 Rx mirtazapine 7.5 mg tablet 7.5 mg PO HS 08/03/22 08/03/22 History cyanocobalamin (vitamin B-12) 1,000 mcg PO DAILY #30 caps 08/05/22 Rx 1,000 mcg capsule Patient History Medical History Anemia Asymptomatic, chronic > monitoring per nephrology 08/2021 note Hgb 10-11 range per chart review Anemia due to chronic kidney disease Asthma Atrophy of left kidney Carotid stenosis, bilateral Chronic occlusion of the right CCA. Right ICA patent and flow is antegrade via retrograde flow from right ECA. Chronic occlusion of the left ICA. Less than 50% stenosis left ECA with antegrade flow. Right and left vertebrals are patent with antegrade flow. No significant change compared to previous 07/31/2019 per report. Chronic sinusitis CMF (chondromyxoid fibroma) Coronary artery disease Follows with Dr. Carlos Depression with anxiety Diabetes IDDM [facility] Gout Hyperglycemia Hyperlipemia Hyperparathyroidism, secondary renal Hyperphosphatemia Hypertension Metabolic acidosis Myocardial infarction NSTEMI 09/2000, cath 10/2000 with total mid RCA occlusion, collaterals present, medically managed Obesity Pulmonary nodules Under surveillance Renal artery stenosis Restless legs syndrome Stage 4 chronic kidney disease Follows with [place] neph[facility] Plan for future dialysis Surgical History History of bilateral carpal tunnel release 2001 History of bone marrow biopsy 03/18/12 Bx bone trocar or needle deep [place] [facility] [place] of cardiac cath 2000 > with total mid RCA occlusion, collaterals present (medical management) 2003 > + collaterals (medical management) History of colonoscopy History of hip replacement, total 2009 History of hysterectomy History of knee surgery History of lumpectomy of both breasts History of open reduction and internal fixation (ORIF) procedure Open treatment femoral shaft fracture with plate performed by Albin Graham 06[place]10[place] [facility] [place]cision, tumor, soft tissue of thigh or knee area, subfascial Open treatment proximal femur with fixation or prosthesis History of sinus surgery 1995 Dr. Morrow Family History Mother Heart disease Hypertension Coronary heart disease Anxiety Cancer Father , Age 59 of [place]. Heart disease Diabetes Hypertension Coronary heart disease Stroke Myocardial infarction Brother Hypertension Sister Hypertension Denies family history of Ovarian cancer Prostate cancer Kidney disease Breast cancer Lung cancer Social History Smoking Status: Never smoker Second Hand Exposure: No; Do You Dip or Chew Tobacco: No; Tobacco Cessation Education Requested by Patient: No Hx Alcohol Use: No Hx Substance Use: No Preferred Language: Citizen Of [place] Communication Ability: Effective Visual Impairment: Limited Hearing Ability: Normal Registration Specialist Required: No Beliefs That Will Affect Care: None marital status: Current Living Situation: Spouse current occupational status: 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 Safe at Home: No Is there a partner from a previous relationship who is making you feel unsafe now?: No Any Concerns about Your Family Situation: No Would You Like to Speak to Someone About Your Situation: No Childhood Exposure to Second-Hand Smoke: No caffeine: Yes Dental Care, Regularly: Yes Physical Activity Frequency: Does not Exercise Seatbelt Use: always Sunscreen Use: Yes Assistive Devices: None Review of Systems Review of Systems: All systems reviewed & are unremarkable except as noted in HPI & below Physical Exam Constitutional: WD/WN, vitals as above cooperative and comfortable; not in distress ENMT: Ears: no hearing impairment Neck: trachea midline Respiratory: normal respiratory effort, lungs clear to auscultation Auscultation: + diminished lung sounds Cardiovascular: Rate/Rhythm: regular rate and regular rhythm Vessels: posterior tibial pulses present, dorsalis pedis pulses present and radial pulses present; + abnormal peripheral pulses Extremities: normal capillary refill and + AV fistula (L forearm AVF +thrill/bruit, small hematoma); no edema Gastrointestinal (Abdomen): Inspection/Auscultation: abdomen normal to inspection and normal bowel sounds Percussion/Palpation: abdomen soft; abdomen nontender Musculoskeletal: no cyanosis or clubbing, extremities motor strength 5/5 Skin: no rashes, warm and dry Neurologic: moves all extremities and awake; no focal motor deficits and not confused Psychiatric: A+Ox3, euthymic affect Results & Data ([facility]) Vital Signs (Past 12 Hours) Vital Signs Temp Pulse Resp BP Pulse Ox O2 Del Method 08/06/22 07:56 36.8 C 70 18 104/65 99 Room Air 08/06/22 00:09 37.0 C 98 H 20 109/73 98 Room Air
[2022-08-06] MEDS: carvediloL 25 MG TAB PO SCH ×2 (09:55→10:33)
[2022-08-06] MEDS: CHLORTHALIDONE 25 MG TAB PO SCH ×2 (09:55→10:32)
[2022-08-06] MEDS: LOSARTAN POTASSIUM 50 MG TAB PO SCH ×2 (09:55→10:32)
[2022-08-06] MEDS: CALCITRIOL 0.25 MCG CAPSULE PO SCH (10:23)
--- NOTE | 2022-08-06 10:55 | Cardiology Progress Note ---
Date of Service August 06, 2022 Assessment & Plan (1) Acute heart failure with preserved ejection fraction (HFpEF): (2) Acute kidney injury superimposed on CKD: (3) Hypertension: (4) Coronary artery disease: Plan After initial diuresis from 40 mg IV furosemide on 08/03/2022 her clinical status improved and she is doing well from a cardiac standpoint. Still appears hypervolemic, while anticipating this will be corrected with dialysis would continue to give furosemide 40 mg (IV or p.o.) daily to avoid recurrent congestive heart failure. BP reasonable, likely will improve further with volume unloading. No anginal symptoms or evidence of ongoing myocardial ischemia. Will continue to follow while she is an inpatient. Admission and Anticipated Discharge Date Admission Date: August 04, 2022 Subjective Attempt at dialysis failed due to AV fistula issues. She states that she feels "bloated" but denies any dyspnea, orthopnea, or PND. No chest discomfort or subjective palpitations. Weight not obtained and I/O roughly even. She did receive additional IV furosemide and notes brisk diuresis. Physical Exam Physical Exam: No distress. BP mildly hypertensive. Pulse 76 bpm and regular with ectopy. Skin: no ecchymoses or generalized lesions. HEENT: unremarkable. Neck: Jugular venous pulse still fdc to the angle of the jaw at 90 degrees, no obvious carotid bruits. Lungs: clear, no obvious wheezing or crackles. No accessory muscle use. Cardiac: regular rhythm, normal S1 and S2, 2/6 apical holosystolic murmur radiating to the axilla, no diastolic murmur, rub or distinct gallop. Abdomen: benign. Extremities: Trace pretibial edema, pulses intact. Neurologic: normal affect and conversation, nonfocal. Results & Data ([facility]) Vital Signs (Past 12 Hours) Vital Signs Temp Pulse Pulse Resp BP Pulse Ox O2 Del Method 08/06/22 10:32 77 146/72 H 08/06/22 07:56 98.2 F 70 18 104/65 99 Room Air 08/06/22 00:09 98.6 F 98 H 20 109/73 98 Room Air Laboratory Results Normal electrolytes, BUN 100, creatinine 5.47. PG Care Time/CCT Total # of Minutes Spent Total Time Spent with Patient: Total time spent is greater than 50% in coordination of care (as documented) at patient's floor/unit and/or counseling patient: Coding Level of Care Code 64788 Subseq Hosp Care Lvl 3 Diagnoses Acute heart failure with preserved ejection fraction (HFpEF) I50.31 Acute kidney injury superimposed on CKD N17.9; N18.9 Hypertension I10 Coronary artery disease I25.10
[2022-08-06] MEDS ORDERED: FUROSEMIDE 40 MG/4 ML VIAL IV ONE (11:19)
--- NOTE | 2022-08-06 12:31 | Medical Student Progress Note ---
Date of Service August 06, 2022 Assessment & Plan (1) Acute heart failure with preserved ejection fraction (HFpEF): (2) Acute kidney injury superimposed on CKD: (3) Hypertension: (4) Coronary artery disease: Plan (1) Dyspnea: Plan: Jessika is a 71 y/o F with history of anemia, asthma, carotid stenosis, CAD, DM, CKD4, and renal artery stenosis who presented for 2 weeks of dyspnea and BL lower extremity edema with associated malaise. ESRD w/ associated dyspnea (pleural effusion) and LE Edema - Received Lasix 40 mg IV in ED w/ subsequent symptom (dyspnea/edema) resolution - Ongoing hypertension (BP 142/82 downtrending), anemia (7.9), elevated BUN/Cr (94/4.8), and hyperphosphatemia (6.2) - No evidence of acute blood loss, FOBT negative - Nephrology Consultation * Ongoing Venofer 200 mg IV daily, Epogen 90232 units w/ dialysis, low potassium diet, avoidance of NSAIDS, and 40 mg Lasix daily * Initiating left arm nephrology precautions and dosing medications for eGFR < 10 * Anticipating outpatient dialysis at [facility]- Cardiology Consultation * Recommending Lasix 40 mg IV d/t hypervolemia and ongoing sodium bicarbonate treatment * Notes that BP should improve with further volume unloading- Trop: 96.5 to 112.3, asymptomatic --- Rx placed for Lasix per Nephrology and Cardiology recommendation --- Needs dialysis --- AV fistula in place, insufficient for dialysis 08/05 or 08/06, patient scheduled for vascular evaluation Saturday to place TDC and evaluated AVF --- Pending [facility] in [place] for outpatient dialysis Hyperglycemia: - Patient endorsement of uncontrolled BSG at home (>400) - Inpatient regimen Lantus 15u BID + SSI ordered - Will follow BSG and adjust PRN - A1c 08/03 6.8 Coronary artery disease: - hx of NSTEMI and bilateral carotid disease - hold home aspirin in setting of anemia Hypertension: - continue home regimen of Carvedilol - Hypertensive today, will monitor, suspect will diminish with hemodialysis --- Elevated, continuing to follow --- Elevation suspected 2/2 ESRD and missed dialysis, will volume unload Nonsustained paroxysmal supraventricular tachycardia: - monitor on tele, had an episode of tachycardia --- Tele discontinued 08/05 Depression with anxiety: - No active medications - Planning to restart management with PCP, was on Mirtazapine Hyperlipemia: - continue home statin Right Knee Pain - Consult PT/OT to ensure safe ambulation Plan FEN/GI: DM2 diet, low Na, low K Ppx: SCDs only in context of anemia Code: Full Dispo: med tele/ Admission and Anticipated Discharge Date Admission Date: August 04, 2022 Subjective Pain in right knee after fall before admission. Knee is swollen. Attempt at dialysis failed due to AV fistula issues. She states that she feels "bloated" but denies any dyspnea, orthopnea, or PND. No chest discomfort or subjective palpitations. Weight not obtained and I/O roughly even. No fever, night sweats, N/V, diarrhea. Review of Systems Review of Systems: as per HPI Physical Exam Physical Exam: GA: well appearing, no acute distress Cardio: rrr no mrg; no JVD Lungs: vesicular breathing b/l ext: no edema; right thigh swollen but not tender or presence of bruising Results & Data ([facility]) Vital Signs (Past 12 Hours) Vital Signs Temp Pulse Pulse Resp BP Pulse Ox O2 Del Method 08/06/22 10:32 77 146/72 H 08/06/22 07:56 36.8 C 70 18 104/65 99 Room Air
--- NOTE | 2022-08-06 12:59 | XRay Report ---
XR knee RT 4V HISTORY: 71 years-old Female rt knee swelling/pain acute pain and swelling of the right knee COMPARISON: Knee radiographs 06/10/2012 TECHNIQUE: 4 views of the right knee FINDINGS: Healed chronic fracture deformity of the distal femur with lateral plate and screw fusion hardware. L ateral plate and screw fusion hardware. The fourth from the most caudal cannulated screw is fractured . The fixation plate is displaced laterally 5 mm. No acute fracture or dislocation identified. Modera te lateral and patellofemoral with mild medial compartment osteoarthritis. Moderate size joint effusi on. Arterial calcifications. IMPRESSION: 1. Moderate size joint effusion without acute fracture or dislocation. 2. Healed chronic fracture deformity of the distal femur with lateral plate and screw fusion. One of the distal cannulated screws is fractured and the lateral plate is mildly displaced laterally. ACT 112: Negative or not required by law. The above report was generated using voice recognition software. It may contain grammatical, syntax o r spelling errors. Electronically signed by: Markell Dowell M.D. 08/06/2022 12:58 PM
[2022-08-06] MEDS ORDERED: HEPARIN SOD 5,000 UNIT/0.5 ML VIAL SQ STA (13:24)
[2022-08-06] MEDS: MIRTAZAPINE TAB 15 MG TAB PO SCH (20:25)
[2022-08-06] MEDS: ATORVASTATIN 40 MG TAB PO SCH (20:25)
[2022-08-07 06:21] LABS: Basophils # (auto) 0.07 K/uL (0-0.2); Basophils % (auto) 0.8 %; Eosinophils # (auto) 0.62 K/uL (0-0.50); Eosinophils % (auto) 7.2 %; Hemoglobin 8.6 g/dl (12.0-16.0); Immature Granulocytes # (auto) 0.03 K/uL (0.00-0.02); Immature Granulocytes % (auto) 0.3 %; Lymphocytes # (auto) 1.65 K/uL (1.2-3.4); Lymphocytes % (auto) 19.1 %; Mean Corpuscular Hemoglobin 29.4 pg (25.0-34.0); Mean Corpuscular Hgb Conc 33.1 g/dL (32.0-36.0); Mean Corpuscular Volume 88.7 fL (80.0-100.0); Mean Platelet Volume 9.8 fL (9.4-12.3); Monocytes # (auto) 0.99 K/uL (0.24-0.82); Monocytes % (auto) 11.5 %; Neutrophils # (auto) 5.26 K/uL (1.4-6.5); Neutrophils % (auto) 61.1 %; Platelet Count 230 K/uL (130-400); RDW Coefficient of Variation 13.7 % (11.5-14.5); RDW Standard Deviation 44.3 fL (36.4-46.3); Red Blood Count 2.93 M/uL (3.93-5.22); White Blood Count 8.62 K/ul (4.8-10.8)
[2022-08-07 06:48] LABS: BUN Creatinine Ratio 19.7 (10-20); Calcium 8.7 mg/dl (8.5-10.1); Creatinine Clr Calc Pharmacy 9.7 ml/min; Est GFR (African American) 8.7 ml/min; Est GFR (Non-African American) 7.5 ml/min; Potassium 3.6 mmol/L (3.5-5.1)
[2022-08-07] MEDS ORDERED: Nursing to Pharmacy Communication SCH ×2 (07:00→16:45)
--- NOTE | 2022-08-07 07:02 | Hospitalist Progress Note ---
Date of Service August 07, 2022 Assessment & Plan (1) Dyspnea: Plan: Jessika is a 71 y/o F with history of anemia, asthma, carotid stenosis, CAD, DM, CKD4, and renal artery stenosis who presented for 2 weeks of dyspnea and BL lower extremity edema with associated malaise. ESRD w/ associated dyspnea (pleural effusion) and LE Edema - Received Lasix 40 mg IV in ED w/ subsequent symptom (dyspnea/edema) resolution - Ongoing hypertension (BP 142/82 downtrending), anemia (7.9), elevated BUN/Cr (94/4.8), and hyperphosphatemia (6.2) - No evidence of acute blood loss, FOBT negative - Nephrology Consultation * Ongoing Venofer 200 mg IV daily, Epogen 18703 units w/ dialysis, low potassium diet, avoidance of NSAIDS, and 40 mg Lasix daily * Initiating left arm nephrology precautions and dosing medications for eGFR < 10 * Anticipating outpatient dialysis at [facility]. Pending Hep B results, most likely won't be able to get started with [facility] until 08/14. - Cardiology Consultation * Recommending Lasix 40 mg IV d/t hypervolemia and ongoing sodium bicarbonate treatment * Notes that BP should improve with further volume unloading * Will continue daily Lasix 40mg IV and plan to switch to oral upon discharge. - Trop: 96.5 to 112.3, asymptomatic - AV fistula in place, insufficient for dialysis 08/05 and 08/06, US of her AVG ordered and states patent AV fistula with narrowing at the distal anastomosis. Permathcath will be performed today in the OR. NPO for the day and then can go back on a regular diet after surgery. - CM Pending [facility] in [place] for outpatient dialysis. [place] for 9:30am on 08/09 pending Hep B results. If unable to have Hep B results in time then most likely won't be able to get in until next week. R knee pain s/p fall: -Patient has diffuse leg pain. Legs are neurovascular in tack. Some tenderness along the medial aspect of the knee. -Knee xray ordered -Most likely MSK injury but will continue to monitor. -PT states that pt is independent, recommend ice for R knee. No further acute PT needed at this time. DM with Hyperglycemia: - Patient endorsement of uncontrolled BSG at home (>400) - Inpatient regimen Tomeka 15u BID + SSI ordered - Will follow BSG and adjust PRN - A1c 08/03 6.8 Coronary artery disease: - hx of NSTEMI and bilateral carotid disease - hold home aspirin in setting of anemia Hypertension: - continue home regimen of Carvedilol - BP Elevation suspected 2/2 ESRD and missed dialysis, will volume unload Nonsustained paroxysmal supraventricular tachycardia: - monitor on tele, had an episode of tachycardia - Tele discontinued 08/05 Depression with anxiety: - No active medications - Planning to restart management with PCP, was on Mirtazapine Hyperlipemia: - continue home statin FEN/GI: NPO until surgery then DM2 diet, low Na, low K Ppx: Heparin 5,000 units given on 08/06. Will discuss putting on heparin Q12 starting tomorrow once cleared from surgery. Code: Full Dispo: med tele, D/C once able to have dialysis Thank you for allowing me to participate in the care of your patient. -Dr. Fabio Zamora PGY1 (2) Anemia: (3) Hyperglycemia: (4) End stage renal disease: (5) Coronary artery disease: (6) Hypertension: (7) Nonsustained paroxysmal supraventricular tachycardia: (8) Depression with anxiety: (9) Hyperlipemia: (10) Right knee pain: Admission and Anticipated Discharge Date Admission Date: August 04, 2022 Supervising Physician Co-Signing Physician Notes Resident Physician Supervision Note: I independently interviewed and examined the patient and verified the mondragon history and physical, reviewed labs and image studies and agree with resident findings and care plan. Subjective Patient was seen bedside this AM. States that she is doing good and has no issues. States that she is ready to walk home unless her sx can be done today. Review of Systems Review of Systems: Constitutional: denies fever, chills, fatigue HEENT: denies congestion, sore throat CV: denies chest pain, palpitations Resp: denies shortness of breath, cough GI: denies abdominal pain, nausea, vomiting, constipation, diarrhea : denies pain with urination, change in urinary frequency Neuro: denies new numbness, tingling, weakness Physical Exam Constitutional: WD/WN, vitals as above Eyes: PERRL, conjunctivae normal, anicteric sclerae Respiratory: normal respiratory effort, lungs clear to auscultation Cardiovascular: RRR, no murmur, no edema Gastrointestinal (Abdomen): normal bowel sounds, soft, nontender, no hepatosplenomegaly Musculoskeletal: no cyanosis or clubbing, extremities motor strength 5/5 Knee: + effusion (R) and + limited ROM of knee (R ) Skin: no rashes, warm and dry Psychiatric: A+Ox3, euthymic affect Results & Data Results & Data ([facility]) Vital Signs (Past 12 Hours) Vital Signs Temp Pulse Resp BP Pulse Ox O2 Del Method 08/07/22 04:00 36.4 C L 87 18 148/78 H 99 Room Air 08/06/22 23:36 37.2 C 80 18 99 Room Air Resident Activity Tracking Resident Involvement: Resident Care Provided Care Provided: Adult Hospital Medicine
[2022-08-07] MEDS: INSULIN ASPART PER UNIT SC SCH ×4 (07:06→20:10)
[2022-08-07] MEDS: IRON SUCROSE 200 MG in 0.9 % SODIUM CHLORIDE 100 ML IV SCH (08:43)
[2022-08-07] MEDS: LOSARTAN POTASSIUM 50 MG TAB PO SCH (08:53)
[2022-08-07] MEDS: CHLORTHALIDONE 25 MG TAB PO SCH (08:54)
[2022-08-07] MEDS: SEVELAMER HCL 800 MG TABLET PO SCH ×3 (08:54→17:27)
[2022-08-07] MEDS: carvediloL 25 MG TAB PO SCH (08:54)
[2022-08-07] MEDS: CALCITRIOL 0.25 MCG CAPSULE PO SCH (08:54)
[2022-08-07] MEDS: SODIUM BICARBONATE 650 MG TAB PO SCH ×2 (08:54→20:11)
[2022-08-07] MEDS: FUROSEMIDE 40 MG/4 ML VIAL IV SCH (08:55)
[2022-08-07] MEDS: LANTUS PER UNIT CHARGE SQ SCH ×2 (08:59→20:10)
--- NOTE | 2022-08-07 09:59 | Nephrology Progress Note ---
Date of Service August 07, 2022 Assessment & Plan (1) End stage renal disease: Plan: AVF unfortunately unable to be accessed for HD. Will require future intervention to assist maturation. US pending. Anticipated HD permcath placement today. Electrolytes acceptable. Medications appropriately dosed for IHD. Continue calcitriol 0.25 daily for sPTH. Case management to assist in arranging [facility] under the care of Dr. Soria. Once we have a secure access and reasonable plan for outpatient HD, Jessika should be stable for discharge from a nephrology standpoint. I discussed potential disposition with Dr. Zamora and Case Management this AM. (2) Metabolic acidosis: Plan: Continue PO NaHCO3 supplement. (3) Hyperphosphatemia: Plan: Low phosphorus diet. (4) Anemia due to chronic kidney disease: Plan: Epogen 00272 units provided 08/04. Venofer 200 mg IV daily. Admission and Anticipated Discharge Date Admission Date: August 04, 2022 Subjective No acute events overnight. Jessika feels reasonably well this AM. No shortness of breath. Appetite is good. Expressed frustration regarding continued inpatient stay. Jessika would like to be discharged home today if possible. Review of Systems Review of Systems: All systems reviewed & are unremarkable except as noted in HPI & below Physical Exam Constitutional: well developed; no acute distress Eyes: no scleral abnormality and no corneal abnormality Neck: normal visual inspection and trachea midline Respiratory: normal respiratory effort Auscultation: lungs clear to auscultation bilaterally Cardiovascular: Rate/Rhythm: regular rate Heart Sounds: normal S1 and normal S2 Vessels: + JVD Extremities: + edema and + AV fistula Musculoskeletal: Extremities: no cyanosis and no clubbing Skin: normal turgor; no lesions Neurologic: Motor/Sensory: no tremor and no asterixis Psychiatric: Orientation: alert and oriented x 3 Results & Data ([facility]) Vital Signs (Past 12 Hours) Vital Signs Temp Pulse Pulse Resp BP Pulse Ox O2 Del Method 08/07/22 07:32 36.7 C 101 H 16 161/87 H 97 Room Air 08/07/22 04:00 36.4 C L 87 18 148/78 H 99 Room Air 08/06/22 23:36 37.2 C 80 18 99 Room Air Laboratory Results Laboratory Results - last 24 hr 08/06/22 08/06/22 08/06/22 11:23 16:42 20:24 WBC RBC Hgb Hct MCV MCH MCHC RDW Std Deviation RDW Coeff of Nilda Plt Count MPV Immature Gran % (Auto) Neut % (Auto) Lymph % (Auto) Stevens % (Auto) Eos % (Auto) Baso % (Auto) Neut # (Auto) Lymph # (Auto) Stevens # (Auto) Eos # (Auto) Baso # (Auto) Immature Gran # (Auto) Sodium Potassium Chloride Carbon Dioxide Anion Gap BUN Creatinine Est Cr Clr Drug Dosing Est GFR ( Amer) Est GFR (Non-Af Amer) BUN/Creatinine Ratio Glucose POC Glucose 157 H 194 H 175 H Calcium 08/07/22 08/07/22 08/07/22 05:44 05:44 07:51 WBC 8.62 RBC 2.93 L Hgb 8.6 L Hct 26.0 L MCV 88.7 MCH 29.4 MCHC 33.1 RDW Std Deviation 44.3 RDW Coeff of Nilda 13.7 Plt Count 230 MPV 9.8 Immature Gran % (Auto) 0.3 Neut % (Auto) 61.1 Lymph % (Auto) 19.1 Stevens % (Auto) 11.5 Eos % (Auto) 7.2 Baso % (Auto) 0.8 Neut # (Auto) 5.26 Lymph # (Auto) 1.65 Stevens # (Auto) 0.99 H Eos # (Auto) 0.62 H Baso # (Auto) 0.07 Immature Gran # (Auto) 0.03 H Sodium 139 Potassium 3.6 Chloride 109 H Carbon Dioxide 17 L Anion Gap 13 H BUN 105 H Creatinine 5.34 H* Est Cr Clr Drug Dosing 9.7 Est GFR ( Amer) 8.7 Est GFR (Non-Af Amer) 7.5 BUN/Creatinine Ratio 19.7 Glucose 96 POC Glucose 118 H Calcium 8.7 PG Care Time/CCT Total # of Minutes Spent Total Time Spent with Patient: Total time spent is greater than 50% in coordination of care (as documented) at patient's floor/unit and/or counseling patient: Coding Level of Care Code 84339 Subseq Hosp Care Lvl 3 Diagnoses End stage renal disease N18.6 Metabolic acidosis E87.20 Hyperphosphatemia E83.39 Anemia due to chronic kidney disease N18.9; D63.1
--- NOTE | 2022-08-07 10:31 | Ultrasound Report ---
US hemodialysis access HISTORY: 71 years-old Female fistula malfunction left upper extremity AV fistula with reported malfu nction COMPARISON: None TECHNIQUE: Multiple real-time sonographic images of the left upper extremity vascular structures were obtained assessing grayscale appearance, color and spectral flow FINDINGS: Left radial artery to cephalic vein AV fistula appears patent. Peak systolic velocities within the fi stula measure up to 410 cm/s with low resistance waveforms. Minimal narrowing is noted at the distal anastomotic site. IMPRESSION: Patent AV fistula with narrowing at the distal anastomosis. ACT 112: Negative or not required by law. The above report was generated using voice recognition software. It may contain grammatical, syntax o r spelling errors. Electronically signed by: Markell Dowell M.D. 08/07/2022 10:29 AM
--- NOTE | 2022-08-07 10:35 | Cardiology Progress Note ---
Date of Service August 07, 2022 Assessment & Plan (1) Acute heart failure with preserved ejection fraction (HFpEF): (2) Acute kidney injury superimposed on CKD: (3) Hypertension: (4) Coronary artery disease: Plan After diuresis, clinical status improved and she is doing well from a cardiac standpoint. Still appears hypervolemic, while anticipating this will be corrected with dialysis would continue to give furosemide 40 mg (IV or p.o.) daily to avoid recurrent congestive heart failure. If she is discharged home, would continue with daily furosemide 40 mg p.o. until she loses 3 to 5 pounds or undergoes dialysis. Further dosing could be sliding scale weight-based regimen. BP still mildly elevated, likely will improve further with volume unloading. No anginal symptoms or evidence of ongoing myocardial ischemia. Cardiology follow-up with Dr. Carlos, she may not need Heart Failure clinic follow-up, since dialysis will likely resolve her volume issues. Admission and Anticipated Discharge Date Admission Date: August 04, 2022 Subjective She feels well and is anxious to go home. No chest pain or dyspnea. Weight unchanged, I/os slightly negative. Did receive additional furosemide 40 mg IV yesterday. Physical Exam Physical Exam: No distress. BP mildly hypertensive. Pulse 90 bpm and regular with ectopy. Skin: no ecchymoses or generalized lesions. HEENT: unremarkable. Neck: Jugular venous pulse 1/3 way to the angle of the jaw at 90 degrees, no o bvious carotid bruits. Lungs: clear, no obvious wheezing or crackles. No accessory muscle use. Cardiac: regular rhythm, normal S1 and S2, 2/6 apical holosystolic murmur radiating to the axilla, no diastolic murmur, rub or distinct gallop. Abdomen: benign. Extremities: Trace pretibial edema, pulses intact. Neurologic: normal affect and conversation, nonfocal. Results & Data ([facility]) Vital Signs (Past 12 Hours) Vital Signs Temp Pulse Pulse Resp BP Pulse Ox O2 Del Method 08/07/22 07:32 98.1 F 101 H 16 161/87 H 97 Room Air 08/07/22 04:00 97.5 F L 87 18 148/78 H 99 Room Air 08/06/22 23:36 99.0 F 80 18 99 Room Air Laboratory Results Normal electrolytes, BUN 105, creatinine 5.34. PG Care Time/CCT Total # of Minutes Spent Total Time Spent with Patient: Total time spent is greater than 50% in coordination of care (as documented) at patient's floor/unit and/or counseling patient: Coding Level of Care Code 54197 Subseq Hosp Care Lvl 3 Diagnoses Acute heart failure with preserved ejection fraction (HFpEF) I50.31 Acute kidney injury superimposed on CKD N17.9; N18.9 Hypertension I10 Coronary artery disease I25.10
--- NOTE | 2022-08-07 13:15 | Medical Student Progress Note ---
Date of Service August 07, 2022 Assessment & Plan (1) Acute heart failure with preserved ejection fraction (HFpEF): (2) Acute kidney injury superimposed on CKD: (3) Hypertension: (4) Coronary artery disease: Plan (1) Dyspnea: Plan: Jessika is a 71 y/o F with history of anemia, asthma, carotid stenosis, CAD, DM, CKD4, and renal artery stenosis who presented for 2 weeks of dyspnea and BL lower extremity edema with associated malaise. ESRD w/ associated dyspnea (pleural effusion) and LE Edema - Received Lasix 40 mg IV in ED w/ subsequent symptom (dyspnea/edema) resolution - Ongoing hypertension (BP 174/98 downtrending), anemia (8.6), elevated BUN & Cr 105 & 5.34 , and hyperphosphatemia (6.0) - No evidence of acute blood loss, FOBT negative - Nephrology Consultation * Ongoing Venofer 200 mg IV daily, Epogen 11532 units w/ dialysis, low potassium diet, avoidance of NSAIDS, and 40 mg Lasix daily; * Initiating left arm nephrology precautions and dosing medications for eGFR < 10 * Anticipating outpatient dialysis at [facility]- Cardiology Consultation * Recommending Lasix 40 mg IV d/t hypervolemia and ongoing sodium bicarbonate treatment * Notes that BP should improve with further volume unloading- Trop: 96.5 to 112.3, asymptomatic --- Rx placed for Lasix per Nephrology and Cardiology recommendation --- Needs dialysis --- AV fistula in place, insufficient for dialysis 08/05 or 08/06, --- To place permanent catheter (3:30 pm) and evaluated AVF (08/07/2022). --- Case managment Pending [facility] in [place] for outpatient dialysis; Dialysis scheduled for the Aug 09 --- DC tonight; dialysis outpt; family present DM2 with Hyperglycemia: - Patient endorsement of uncontrolled BSG at home (>400) - Inpatient regimen Lantus 15u BID + SSI ordered - Will follow BSG and adjust PRN - A1c 08/03 6.8 Coronary artery disease: - hx of NSTEMI and bilateral carotid disease - hold home aspirin in setting of anemia Hypertension: - continue home regimen of Carvedilol - Hypertensive today, will monitor, suspect will diminish with hemodialysis --- Elevated, continuing to follow --- Elevation suspected 2/2 ESRD and missed dialysis, will volume unload Nonsustained paroxysmal supraventricular tachycardia: - monitor on tele, had an episode of tachycardia --- Tele discontinued 08/05 Depression with anxiety: - No active medications - Planning to restart management with PCP, was on Mirtazapine Hyperlipemia: - continue home statin Right Knee Pain - Consult PT/OT to ensure safe ambulation (complete; no recommendations) Plan FEN/GI dm2, low na low k ppx: heparin 5000 u ; hold midnight ; q12 after surg full code med/tele; dc after dialysis Admission and Anticipated Discharge Date Admission Date: August 04, 2022 Subjective She feels well and is anxious to go home. No chest pain or dyspnea. Weight unchanged, I/os neg today but overall positive (not being measured consistently). Feels tired but can manage ambulating with caution (no PT restrictions). Review of Systems Review of Systems: as per HPI Physical Exam Physical Exam: GA: well appearing, no acute distress Cardio: rrr no mrg; no JVD Lungs: coarse inspiratory noises b/l ext: no edema; right thigh swollen but not tender or presence of bruising Results & Data ([facility]) Vital Signs (Past 12 Hours) Vital Signs Temp Pulse Pulse Resp BP Pulse Ox O2 Del Method 08/07/22 11:44 36.6 C 85 16 158/52 H 99 Room Air 08/07/22 07:32 36.7 C 101 H 16 161/87 H 97 Room Air 08/07/22 04:00 36.4 C L 87 18 148/78 H 99 Room Air
[2022-08-07] MEDS: ceFAZolin 2000MG 2,000 MG/15 ML SYR IV ONE ×2 (14:59→15:40)
--- NOTE | 2022-08-07 15:13 | History & Physical Bridge Note ---
Date of Service August 07, 2022 History & Physical Bridge Note I have examined the patient, reviewed the History & Physical and in the interval since the performance of the History & Physical I have noted the following changes of clinical significance: no changes noted
--- NOTE | 2022-08-07 15:13 | Pre Anesthesia Assessment ---
Date of Service August 07, 2022 Pre Sedation Assessment Vital Signs Temp Pulse Pulse Resp BP Pulse Ox O2 Del Method 08/07/22 14:31 36.8 C 82 18 174/98 H 100 08/07/22 11:44 36.6 C 85 16 158/52 H 99 Room Air 08/07/22 07:32 36.7 C 101 H 16 161/87 H 97 Room Air 08/07/22 04:00 36.4 C L 87 18 148/78 H 99 Room Air 08/06/22 23:36 37.2 C 80 18 99 Room Air 08/06/22 16:00 36.3 C L 80 18 98 Room Air 08/06/22 15:55 132/64 Cardiovascular RRR, no murmur, no edema Respiratory normal respiratory effort, lungs clear to auscultation Pre-Sedation Airway Assessment Smoking Status: Never smoker Hx Sleep Apnea: No Short, Thick Neck: No Thyromental Distance: > or= 3.5 Finger Breadths Oral Cavity: + WNL Mallampati Class: II ASA: ASA4 NPO Status Date of Last Intake of Fluids: 08/07/22 Time of Last Intake of Fluids: 10:00 Last Oral Intake of Fluids Comment: sip with medication Date of Last Intake of Solid Food: 08/06/22 Time of Last Intake of Solid Foods: 17:00 Procedure Planning Contraindications for Sedation: none Current Medications Reviewed: Yes Notes The planned sedation has been discussed with the patient. Informed Consent was obtained. I have identified the patient, determined the appropriateness of sedation and have assessed the patient immediately prior to the procedure. All medicine(s) and interventions are by my order.
[2022-08-07] MEDS ORDERED: MIDAZOLAM HCL 1 MG/ML 2ML VIAL ONE (15:31)
[2022-08-07] MEDS ORDERED: fentaNYL citrate 100 MCG/2 ML VIAL ONE (15:31)
[2022-08-07] MEDS ORDERED: LIDOCAINE 1% LOCAL 20 ML VIAL ONE (15:31)
[2022-08-07] MEDS ORDERED: HEPARIN SOD (PORCINE) 5,000 UNITS/ML VIAL ONE (15:32)
--- NOTE | 2022-08-07 16:17 | Operative Report ---
Post Operative Report Pre & Post Diagnosis Operation Date: 08/07/22 15:30 Pre-Op Diagnosis: Malfunctioning Fistula Post-Op Diagnosis: Malfunctioning Fistula I identified the patient and participated in the time-out.: Yes Procedure Operation Date: 08/07/22 15:30 Actual Procedures p Perm Catheter Placement, Right Internal Jugular Approach, Ultrasound Localization of RIght Internal Jugular Vein, Fluroscopy for Positioning, Moderate Sedation [id number](Right) - Hong Baltazar MD Surgeon Hong Baltazar MD Esl Instructional Assistant none Estimated Blood Loss 3 Findings Consistent with Post-Op Diagnosis Specimens none Anesthesia Type RN Sedation Disposition Accompanied Patient To Recovery: No Disposition: Recovery Room Indications This is a 71-year-old female with end-stage renal disease in need of dialysis. Her fistula infiltrated and was not able to be used. PermCath was recommended. I have discussed the risks options and benefits of the procedure with the patient. The patient understands the risks options and benefits and agrees to the procedure. Description of Procedure Patient was taken to the angio suite and placed in the supine position. The right side of the neck and chest wall were prepped and draped in a sterile manner. The patient was identified and a timeout performed. Local anesthesia was then administered to the appropriate areas of the neck and chest wall. Ultrasound was then used to locate the right internal jugular vein. The vein compressed easily, had no filing defects, and was patent. The vein was then punctured under direct ultrasound imaging. A guidewire was then passed centrally under fluoroscopic imaging. A stab wound was then made in the anterior chest wall and a 19 cm permcath was passed from the stab wound on the chest wall to the puncture site on the neck. The puncture site was then dilated till the 14Fr peel away sheath was inserted. The permcath was then inserted through the sheath to a central position in the distal superior vena cava. The peel away sheath was then removed. The catheter was then sutured in place using nylon sutures. The puncture was then closed using a 4-0 Vicryl subcuticular suture. Dermabond was used for a dressing on the puncture site. Both ports aspirated and flushed easily and were then packed with heparin. A sterile dressing was applied to the catheter. The patient left the operation room in satisfactory condition and tolerated the procedure well. All needle and sponge counts were correct at the end of the procedure. I attest to the content of the Intraoperative Record and any orders documented therein. Any exceptions are noted below.
[2022-08-07] MEDS ORDERED: ACETAMINOPHEN 325 MG TAB PO PRN (19:48)
[2022-08-07] MEDS: MIRTAZAPINE TAB 15 MG TAB PO SCH (20:10)
[2022-08-07] MEDS: ATORVASTATIN 40 MG TAB PO SCH (20:10)
[2022-08-08 06:47] LABS: Basophils # (auto) 0.06 K/uL (0-0.2); Basophils % (auto) 0.6 %; Eosinophils # (auto) 0.66 K/uL (0-0.50); Eosinophils % (auto) 6.9 %; Hematocrit (blood only) 26.6 % (34.1-44.9); Hemoglobin 8.6 g/dl (12.0-16.0); Immature Granulocytes # (auto) 0.04 K/uL (0.00-0.02); Immature Granulocytes % (auto) 0.4 %; Lymphocytes # (auto) 1.51 K/uL (1.2-3.4); Lymphocytes % (auto) 15.8 %; Mean Corpuscular Hgb Conc 32.3 g/dL (32.0-36.0); Mean Corpuscular Volume 89.6 fL (80.0-100.0); Mean Platelet Volume 9.9 fL (9.4-12.3); Monocytes # (auto) 1.18 K/uL (0.24-0.82); Monocytes % (auto) 12.4 %; Neutrophils # (auto) 6.09 K/uL (1.4-6.5); Neutrophils % (auto) 63.9 %; Platelet Count 218 K/uL (130-400); RDW Coefficient of Variation 13.7 % (11.5-14.5); RDW Standard Deviation 44.6 fL (36.4-46.3); Red Blood Count 2.97 M/uL (3.93-5.22); White Blood Count 9.54 K/ul (4.8-10.8)
[2022-08-08 07:20] LABS: BUN Creatinine Ratio 17.1 (10-20); Calcium 8.6 mg/dl (8.5-10.1); Creatinine Clr Calc Pharmacy 8.2 ml/min; Est GFR (African American) 7.1 ml/min; Est GFR (Non-African American) 6.2 ml/min; Potassium 3.7 mmol/L (3.5-5.1)
[2022-08-08] MEDS: SEVELAMER HCL 800 MG TABLET PO SCH ×2 (08:00→11:54)
[2022-08-08] MEDS: SODIUM BICARBONATE 650 MG TAB PO SCH (08:01)
[2022-08-08] MEDS: IRON SUCROSE 200 MG in 0.9 % SODIUM CHLORIDE 100 ML IV SCH (08:01)
[2022-08-08] MEDS: CALCITRIOL 0.25 MCG CAPSULE PO SCH (08:01)
[2022-08-08] MEDS: LANTUS PER UNIT CHARGE SQ SCH (08:06)
[2022-08-08] MEDS: INSULIN ASPART PER UNIT SC SCH ×2 (08:06→11:58)
[2022-08-08] MEDS ORDERED: EPOETIN ALFA 4,000 UNIT/ML VIAL IV STA (09:00)
[2022-08-08] MEDS: LOSARTAN POTASSIUM 50 MG TAB PO SCH (09:37)
[2022-08-08] MEDS: FUROSEMIDE 40 MG/4 ML VIAL IV SCH (09:37)
[2022-08-08] MEDS: CHLORTHALIDONE 25 MG TAB PO SCH (09:38)
[2022-08-08] MEDS: carvediloL 25 MG TAB PO SCH (09:38)
--- NOTE | 2022-08-08 10:10 | Nephrology Progress Note ---
Date of Service August 08, 2022 Assessment & Plan (1) End stage renal disease: Plan: Jessika is completing her first HD treatment today via permcath. I was able to contact [facility] this AM and have results of hepatitis B testing faxed to the dialysis unit. Hep B sAb negative, sAg negative, core negative. Results will be faxed to [facility] so that outpatient HD arrangements can be finalized. Medications appropriately dosed for IHD. Continue calcitriol 0.25 daily for sPTH. (2) AVF (arteriovenous fistula): Plan: AVF unfortunately L RC AVF infiltrated during 2 prior attempts to access. We are resting the vessel now. Duplex reviewed and I discussed the plan with Dr. Baltazar. The vessel is patent. Unfortunately, we do not have transverse diameter but Dr. Baltazar did feel size was good. Unclear if future intervention for BAM would provide benefit. Peak velocities of 410 cm/s with low resistance and minimal narrowing at anastomosis. No branching vessels to ligate and Dr. Baltazar did not think a graft would provide better access. Will continue to rest for now and re-evaluate use in the outpatient setting with follow up with vascular surgery. (3) Metabolic acidosis: Plan: May continue PO NaHCO3 supplement for now which can be stopped once stable on HD. (4) Hyperphosphatemia: Plan: Low phosphorus diet. (5) Anemia due to chronic kidney disease: Plan: Epogen 4000 units provided 08/04. Venofer 200 mg IV daily. Additional 4000 units Epogen to be provided with HD today. Admission and Anticipated Discharge Date Admission Date: August 04, 2022 Subjective No acute events overnight. TDC placed yesterday without complications. Jessika was seen and evaluated during HD this AM. Vagal symptoms of nausea and lightheadedness early during treatment which improved after adjusting UFR and Qb. Catheter providing Qb 300 early on. BP acceptable. Jessika feels well and hopes to be discharged home [place]. Review of Systems Review of Systems: All systems reviewed & are unremarkable except as noted in HPI & below Physical Exam Constitutional: well developed; no acute distress Eyes: no scleral abnormality and no corneal abnormality Neck: normal visual inspection and trachea midline Respiratory: normal respiratory effort Auscultation: lungs clear to auscultation bilaterally Cardiovascular: Rate/Rhythm: regular rate Heart Sounds: normal S1 and normal S2 Extremities: + edema and + AV fistula Musculoskeletal: Extremities: no cyanosis and no clubbing Skin: normal turgor; no lesions Neurologic: Motor/Sensory: no tremor and no asterixis Psychiatric: Orientation: alert and oriented x 3 Results & Data ([facility]) Vital Signs (Past 12 Hours) Vital Signs Temp Pulse Pulse Resp BP Pulse Ox O2 Del Method 08/08/22 07:53 36.4 C L 71 18 158/76 H 97 Room Air 08/07/22 23:00 37.1 C 74 18 155/68 H 97 Room Air Laboratory Results Laboratory Results - last 24 hr 08/07/22 08/07/22 08/07/22 11:23 16:29 19:58 WBC RBC Hgb Hct MCV MCH MCHC RDW Std Deviation RDW Coeff of Nilda Plt Count MPV Immature Gran % (Auto) Neut % (Auto) Lymph % (Auto) [place] % (Auto) Eos % (Auto) Baso % (Auto) Neut # (Auto) Lymph # (Auto) [place] # (Auto) Eos # (Auto) Baso # (Auto) Immature Gran # (Auto) Sodium Potassium Chloride Carbon Dioxide Anion Gap BUN Creatinine Est Cr Clr Drug Dosing Est GFR ( Amer) Est GFR (Non-Af Amer) BUN/Creatinine Ratio Glucose POC Glucose 116 H 75 111 H Calcium 08/08/22 08/08/22 08/08/22 06:13 06:13 07:48 WBC 9.54 RBC 2.97 L Hgb 8.6 L Hct 26.6 L MCV 89.6 MCH 29.0 MCHC 32.3 RDW Std Deviation 44.6 RDW Coeff of Nilda 13.7 Plt Count 218 MPV 9.9 Immature Gran % (Auto) 0.4 Neut % (Auto) 63.9 Lymph % (Auto) 15.8 [place] % (Auto) 12.4 Eos % (Auto) 6.9 Baso % (Auto) 0.6 Neut # (Auto) 6.09 Lymph # (Auto) 1.51 [place] # (Auto) 1.18 H Eos # (Auto) 0.66 H Baso # (Auto) 0.06 Immature Gran # (Auto) 0.04 H Sodium 139 Potassium 3.7 Chloride 109 H Carbon Dioxide 18 L Anion Gap 12 H BUN 108 H Creatinine 6.30 H* D Est Cr Clr Drug Dosing 8.2 Est GFR ( Amer) 7.1 Est GFR (Non-Af Amer) 6.2 BUN/Creatinine Ratio 17.1 Glucose 78 POC Glucose 86 Calcium 8.6 08/08/22 09:30 WBC RBC Hgb Hct MCV MCH MCHC RDW Std Deviation RDW Coeff of Nilda Plt Count MPV Immature Gran % (Auto) Neut % (Auto) Lymph % (Auto) [place] % (Auto) Eos % (Auto) Baso % (Auto) Neut # (Auto) Lymph # (Auto) [place] # (Auto) Eos # (Auto) Baso # (Auto) Immature Gran # (Auto) Sodium Potassium Chloride Carbon Dioxide Anion Gap BUN Creatinine Est Cr Clr Drug Dosing Est GFR ( Amer) Est GFR (Non-Af Amer) BUN/Creatinine Ratio Glucose POC Glucose 131 H Calcium PG Care Time/CCT Total # of Minutes Spent Total Time Spent with Patient: Total time spent is greater than 50% in coordination of care (as documented) at patient's floor/unit and/or counseling patient: Coding Level of Care Code 99362 Subseq Hosp Care Lvl 3 Diagnoses End stage renal disease N18.6 AVF (arteriovenous fistula) I77.0 Metabolic acidosis E87.20 Hyperphosphatemia E83.39 Anemia due to chronic kidney disease N18.9; D63.1
--- NOTE | 2022-08-08 12:41 | Hospitalist Progress Note ---
Date of Service August 08, 2022 Assessment & Plan (1) Dyspnea: Plan: XX prelim note XXX Jessika is a 71 y/o F with history of anemia, asthma, carotid stenosis, CAD, DM, CKD4, and renal artery stenosis who presented for 2 weeks of dyspnea and BL lower extremity edema with associated malaise. ESRD w/ associated dyspnea (pleural effusion) and LE Edema - Received Lasix 40 mg IV in ED w/ subsequent symptom (dyspnea/edema) resolution - Ongoing hypertension (BP 142/82 downtrending), anemia (7.9), elevated BUN/Cr (94/4.8), and hyperphosphatemia (6.2) - No evidence of acute blood loss, FOBT negative - Nephrology Consultation * Ongoing Venofer 200 mg IV daily, Epogen 55340 units w/ dialysis, low potassium diet, avoidance of NSAIDS, and 40 mg Lasix daily * Initiating left arm nephrology precautions and dosing medications for eGFR < 10 * Anticipating outpatient dialysis at [facility]. Pending Hep B results, most likely won't be able to get started with [facility] until 08/14. - Cardiology Consultation * Recommending Lasix 40 mg IV d/t hypervolemia and ongoing sodium bicarbonate treatment * Notes that BP should improve with further volume unloading * Will continue daily Lasix 40mg IV and plan to switch to oral upon discharge. - Trop: 96.5 to 112.3, asymptomatic - AV fistula in place, insufficient for dialysis 08/05 and 08/06, US of her AVG ordered and states patent AV fistula with narrowing at the distal anastomosis. Permathcath will be performed today in the OR. NPO for the day and then can go back on a regular diet after surgery. - CM Pending [facility] in [place] for outpatient dialysis. [place] for 9:30am on 08/09 pending Hep B results. If unable to have Hep B results in time then most likely won't be able to get in until next week. R knee pain s/p fall: -Patient has diffuse leg pain. Legs are neurovascular in tack. Some tenderness along the medial aspect of the knee. -Knee xray ordered -Most likely MSK injury but will continue to monitor. -PT states that pt is independent, recommend ice for R knee. No further acute PT needed at this time. DM with Hyperglycemia: - Patient endorsement of uncontrolled BSG at home (>400) - Inpatient regimen Lantus 15u BID + SSI ordered - Will follow BSG and adjust PRN - A1c 08/03 6.8 Coronary artery disease: - hx of NSTEMI and bilateral carotid disease - hold home aspirin in setting of anemia Hypertension: - continue home regimen of Carvedilol - BP Elevation suspected 2/2 ESRD and missed dialysis, will volume unload Nonsustained paroxysmal supraventricular tachycardia: - monitor on tele, had an episode of tachycardia - Tele discontinued 08/05 Depression with anxiety: - No active medications - Planning to restart management with PCP, was on Mirtazapine Hyperlipemia: - continue home statin FEN/GI: NPO until surgery then DM2 diet, low Na, low K Ppx: Heparin 5,000 units given on 08/06. Will discuss putting on heparin Q12 starting tomorrow once cleared from surgery. Code: Full Dispo: med tele, D/C once able to have dialysis Thank you for allowing me to participate in the care of your patient. -Dr. Fabio Zamora PGY1 (2) Anemia: (3) Hyperglycemia: (4) End stage renal disease: (5) Coronary artery disease: (6) Hypertension: (7) Nonsustained paroxysmal supraventricular tachycardia: (8) Depression with anxiety: (9) Hyperlipemia: (10) Right knee pain: Admission and Anticipated Discharge Date Admission Date: August 04, 2022 Results & Data Results & Data ([facility]) Vital Signs (Past 12 Hours) Vital Signs Temp Pulse Pulse Pulse Resp BP BP 08/08/22 10:30 73 156/83 H 08/08/22 10:50 36.7 C 86 162/101 H 08/08/22 10:00 60 154/57 H 08/08/22 11:34 36.8 C 96 H 16 177/64 H 08/08/22 09:45 60 120/56 L 08/08/22 09:30 62 121/66 08/08/22 09:15 53 L 113/76 08/08/22 09:00 70 158/63 H 08/08/22 08:41 73 212/90 H 08/08/22 08:33 37 C 81 08/08/22 07:53 36.4 C L 71 18 158/76 H Pulse Ox O2 Del Method 08/08/22 10:30 08/08/22 10:50 10/19/22 10:00 08/08/22 11:34 100 Room Air 08/08/22 09:45 08/08/22 09:30 08/08/22 09:15 08/08/22 09:00 08/08/22 08:41 08/08/22 08:33 08/08/22 07:53 97 Room Air
[2022-08-08 15:46] LABS: HBSAG NON-REACTIVE (NON-REACTIVE); Hepatitis B Core Antibody Total NON-REACTIVE (NON-REACTIVE); Hepatitis B Surface Ab, Quant <5 mIU/mL (> OR = 10); Hepatitis C Vira RNA (Log) PCR <1.18 NOT DETECTED Log IU/mL (NOT DETECTED); Hepatitis C Viral RNA by PCR <15 NOT DETECTED IU/mL (NOT DETECTED)
--- NOTE | 2022-08-08 17:31 | Discharge Summary ---
Date of Service August 08, 2022 Admission HPI Per Admitting Provider 71 year old female w/ PMHx of ESRD, CAD (NSTEMI 2000), HTN, HLD, anxiety, depression, gout, and DM2 on insulin who presents w/ dyspnea and bilateral leg swelling for 2 weeks. She was sent from PCP's office for possible blood transfusion as her Hb was 8.0 this morning. She is chronically on chlorthalidone and does have intermittent dependent edema, but is not on any dedicated diuretics. 01/10/22 echo w/ normal EF 55-60%. Patient states she was treated by urgent care w/ fluoroquinolone fo UTI 3 wks ago for dysuria that has since resolved though she has intermittently had suprapubic pressure recently. During the past 2 wks, she has had general malaise and has had poorly controlled BSGs in the 400s. She normally takes Novolin N 30u BID and 10u of Novolin R if her sugars are >300. Denies significant cough, but feels slightly tighter. Denies fever/chills, chest pain, or abd pain. Denies tobacco hx. 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 Has not had pfts. Took AM meds, but did not take insulin today. States diet has not been the best in the past 2 weeks. Per pcp notes, patient does not like seeing doctors and has only had sporadic f/u w/ her specialists (e.g. cardiology, nephrology). She had a mild fall at home yesterday, did not hit head; has mild thigh pain only. ED course: IV Lasix 40mg x1. cxr w/o acute findings. labs: wbc 11.9, 10.27. Hb 8.0, 8.3. Baseline 9s. Anion gap 13, 12. CO2 16. Cr 5.06, 4.79, baseline 4.0. bnp 1652. hs trop 96.5. bsg 255. ecg: sinus 90. PVCs. Admission Exam Per Admitting Provider General: Grossly A&O. NAD. Cooperative. HEENT: Atraumatic, normocephalic. EOMI. Oropharynx wnl. Possible JVD on right. Pulm: CTAB. Good air movement. No respiratory distress. No crackles at bases. No wheezes. Cardiac: RRR, -mrg. Radial pulses intact and symmetrical. 1+ bilateral lower extremity edema. Abdominal: Nontender, nondistended, soft. Integ: Warm, dry, intact. Principal Diagnosis ESRD w/ associated dyspnea (pleural effusion) and LE Edema Discharge Exam Constitutional: WD/WN, vitals as above Eyes: PERRL, conjunctivae normal, anicteric sclerae Respiratory: normal respiratory effort, lungs clear to auscultation Cardiovascular: RRR, no murmur, no edema Gastrointestinal (Abdomen): normal bowel sounds, soft, nontender, no hepatosplenomegaly Musculoskeletal: no cyanosis or clubbing, extremities motor strength 5/5 Knee: + effusion (R) and + limited ROM of knee (R ) Skin: no rashes, warm and dry Psychiatric: A+Ox3, euthymic affect Discharge Data Allergies Allergy/AdvReac Type Severity Reaction Status Date / Time amlodipine Allergy Unknown Rash Verified 08/03/22 08:08 Sulfa (Sulfonamide Allergy Unknown Hives Verified 08/03/22 08:08 Antibiotics) lisinopril AdvReac Unknown Cough Verified 08/03/22 08:08 Consultations 08/03/22 21:28 ED Decision to Admit Stat 08/04/22 07:00 Consult Cardiology Routine Consult Nephrology Routine 08/05/22 11:18 Consult Vascular Surgery Routine Procedures Performed Operation Date: 08/07/22 15:30 Actual Procedures p Perm Catheter Placement, Right Internal Jugular Approach, Ultrasound Localizat ion of RIght Internal Jugular Vein, Fluroscopy for Positioning, Moderate Sedation [id number](Right) - Hong Baltazar MD Ordered Studies 08/06/22 09:09 US hemodialysis access Routine 08/07/22 07:20 EV cvc insrt tunnel wo prt/criminal justice lawyer Routine Hospital Course (1) Dyspnea: (2) Anemia: (3) Hyperglycemia: (4) End stage renal disease: (5) Coronary artery disease: (6) Hypertension: (7) Nonsustained paroxysmal supraventricular tachycardia: (8) Depression with anxiety: (9) Hyperlipemia: (10) Right knee pain: Plan Jessika is a 71 y/o F with history of anemia, asthma, carotid stenosis, CAD, DM, CKD4, and renal artery stenosis who presented for 2 weeks of dyspnea and BL lower extremity edema with associated malaise. ESRD w/ associated dyspnea (pleural effusion) and LE Edema - Received Lasix 40 mg IV in ED w/ subsequent symptom (dyspnea/edema) resolution - Lasix continued until HD set up. -Vascular surgery consulted since fistula wasn't ready for use. Perm cath place -Patient underwent HD and outpatient HD set up before discharge at [facility]. ESRD - Ongoing hypertension (BP 142/82 downtrending), anemia (7.9), elevated BUN/Cr (94/4.8), and hyperphosphatemia (6.2) - No evidence of acute blood loss, FOBT negative - Nephrology Consultation * Ongoing Venofer 200 mg IV daily, Epogen 62969 units w/ dialysis, low potassium diet, avoidance of NSAIDS, * Left arm nephrology precautions and dosing medications for eGFR < 10 * Hemodialysis set up R knee pain s/p fall: -Patient has diffuse leg pain. Legs are neurovascular in tack. Some tenderness along the medial aspect of the knee. -Knee xray ordered -PT states that pt is independent, recommend ice for R knee. No further acute PT needed at this time. DM with Hyperglycemia: - Patient endorsement of uncontrolled BSG at home (>400) - A1c 08/03 6.8 - continue home regimen of insulin Coronary artery disease: - hx of NSTEMI and bilateral carotid disease - held home aspirin in setting of anemia. Restarted on discharge Hypertension: - continue home regimen of Carvedilol - Elevated reading likely from volume overload. further med titration as outpatient. Nonsustained paroxysmal supraventricular tachycardia: - No further events. Continue coreg. Depression with anxiety: - No active medications - Planning to restart management with PCP, was on Mirtazapine Hyperlipemia: - continue home statin Total Time Total Time Spent Total Time Spent (In Minutes): 30 Discharge Plan Discharge Items Patient Disposition: Home - Self-Care Reason For Visit: DYSNEA, LE EDEMA, ANEMIA Discharge Diagnosis: ESRD Activity: Per Instructions section Non-emergency contact: Primary Care Provider Call non-emergency contact if: you have any medication questions and your symptoms worsen Follow-up/Referrals: Jessika Rodriguez PA-C [Physician Hide Dropper] - 08/17/22 11:00 am Kisha Cosby MD [Primary Care Provider] - Diet: Carb Consistent or DM2, Low Potassium (2gm) and Low Sodium (2gm) Addtl Attending Provider Instructions: You were admitted to [facility] due to 2 weeks of shortness of breath and swelling of your lower extremities. It is thought that you had fluid overload due to your end-stage renal disease. As such, nephrology and cardiology were consulted. You were initially treated with intravenous diuretics to help remove excess fluid from your system. Nephrology recommended initiation of dialysis due to your advanced kidney disease. You received hemodialysis on August 08 and tolerated it well. Through our patient case manager, we were able to arrange outpatient dialysis starting Wednesday, August 10, 2022 at [facility]. This information should have been provided to you by our patient case manager. If you have any questions, please call the hospital and ask to communicate with case management for assistance. You will have 3 new medications for home which are as follows: * Furosemide 40 mg daily * Calcitriol 0.25 mg daily * Sodium bicarbonate 650 mg twice daily Please continue to take all your other medications as prescribed. Additionally, please follow-up with your animator, electroplating technician, and primary care provider for continued care of your chronic conditions. If you develop any new, concerning or worsening symptoms please return to the emergency room for reevaluation. Pending Studies at Discharge: No Stand-Alone Forms: My [facility], Smoking Cessation Medications and DC Order Prescriptions: New cyanocobalamin (vitamin B-12) 1,000 mcg capsule 1,000 mcg PO DAILY Qty: 30 0RF sodium bicarbonate 650 mg Tablet 650 mg PO BID 30 Days Qty: 60 0RF calcitriol 0.25 mcg Capsule 0.25 mcg PO QAM 30 Days Qty: 30 0RF furosemide 40 mg tablet 40 mg PO DAILY 30 Days Qty: 30 0RF Continued carvedilol [Coreg] 25 mg tablet 25 mg PO QAM Qty: 135 3RF atorvastatin 80 mg tablet 80 mg PO HS Qty: 90 3RF chlorthalidone 25 mg tablet 25 mg PO QAM Qty: 90 3RF losartan 50 mg tablet 100 mg PO QAM Qty: 135 1RF aspirin 325 mg Tablet,Delayed Release (Dr/Ec) 325 mg PO QAM Novolin R Regular U-100 Insuln 100 unit/mL solution See Rx Instructions .ROUTE .COMPLEX Rx Instructions: sliding scale ...pt using when feels as though she needs it. but usually only checks her bsg at bedtime Novolin N NPH U-100 Insulin 100 unit/mL suspension 30 units subcut BID mirtazapine 7.5 mg tablet 7.5 mg PO HS Discharge Orders: Discharge Order (Routine); Ordered 08/08/22 Ordered By: Michael Thakkar Admission Data Admit Date/Time: 08/04/22 16:21 Attending Provider: Alethea Mendoza Admit Provider: Jefe Bose Primary Care Provider: Kisha Cosby Other Providers: Jefe Bose ; Larry Manuel ; Ayo Raya ; Henrietta Soria Eugene J Other Interventions: Discharge Summary Assessment (RN) Last Done: 08/08/22 14:24 Supervising Physician Co-Signing Physician Notes Resident Physician Supervision Note: I independently interviewed and examined the patient and verified the mondragon history and physical, reviewed labs and image studies and agree with resident findings and care plan. Resident Activity Tracking Resident Involvement: Resident Care Provided Care Provided: Adult Hospital Medicine
== END 2022-08-08 15:55 | disposition home or self-care (01) | DRG 291 ==
LOC: ED 19:08 → 2N 19:08 → SUATTDRO 23:18 → 2N 08-04 00:20 → SUATTDRO 08-04 16:21

== ENCOUNTER 2022-08-14 23:31 | Observation (INO) ==
--- NOTE | 2022-08-15 00:11 | Emergency Department Note ---
History of Present Illness General Chief complaint: Shortness of Breath/Dyspnea Stated complaint: SOB, Palpitations, Blurry Vision Time Seen by Provider: 08/14/22 23:49 History of Present Illness 71-year-old female presents emergency department she has end-stage renal disease currently is on hemodialysis and has received 4 sessions of hemodialysis states that she received dialysis today in [place] for 4 hours which was the longest period of time between 6 AM and 10 AM. After dialysis she felt like she was short of breath that she felt dizzy she had blurred vision. Patient denies double vision. Patient denies chest pain she does state occasional palpitations she states generalized weakness as well. There is been no slurred speech no headache no neck pain. There are no mitigating or alleviating factors. Patient states in one of the prior dialysis sessions she had an episode of hypotension. Home Medications Medication Instructions Recorded Confirmed Type aspirin 325 mg tablet,delayed 325 mg PO QAM 02/25/19 08/14/22 History release insulin NPH isoph U-100 human 100 30 units subcut BID 02/25/19 08/14/22 History unit/mL subcutaneous suspension (Novolin N NPH U-100 Insulin isophane) insulin regular human 100 unit/mL See Rx Instructions .Route .COMPLEX 02/25/19 08/14/22 History injection solution (Novolin R Regular U-100 Insulin) carvedilol 25 mg tablet (Coreg) 25 mg PO QAM #135 tabs 12/07/21 08/14/22 Rx atorvastatin 80 mg tablet 80 mg PO HS #90 tabs 04/30/22 08/14/22 Rx chlorthalidone 25 mg tablet 25 mg PO QAM #90 tabs 04/30/22 08/14/22 Rx losartan 50 mg tablet 100 mg PO QAM #135 tabs 08/03/22 08/14/22 Rx mirtazapine 7.5 mg tablet 7.5 mg PO HS 08/03/22 08/14/22 History cyanocobalamin (vitamin B-12) 1,000 mcg PO DAILY #30 caps 08/05/22 08/14/22 Rx 1,000 mcg capsule calcitriol 0.25 mcg capsule 0.25 mcg PO QAM 30 days #30 caps 08/08/22 08/14/22 Rx furosemide 40 mg tablet 40 mg PO DAILY 30 days #30 tabs 08/08/22 08/14/22 Rx sodium bicarbonate 650 mg tablet 650 mg PO BID 30 days #60 tabs 08/08/22 08/14/22 Rx Allergies Allergy/AdvReac Type Severity Reaction Status Date / Time amlodipine Allergy Intermediate Rash Verified 08/14/22 23:53 Sulfa (Sulfonamide Allergy Intermediate Hives Verified 08/14/22 23:53 Antibiotics) lisinopril AdvReac Intermediate Cough Verified 08/14/22 23:53 Past Med/Surg History Medical History Anemia Asymptomatic, chronic > monitoring per nephrology 08/2021 note Hgb 10-11 range per chart review Anemia due to chronic kidney disease Asthma Atrophy of left kidney Carotid stenosis, bilateral Chronic occlusion of the right CCA. Right ICA patent and flow is antegrade via retrograde flow from right ECA. Chronic occlusion of the left ICA. Less than 50% stenosis left ECA with antegrade flow. Right and left vertebrals are patent with antegrade flow. No significant change compared to previous 07/31/2019 per report. Chronic sinusitis CMF (chondromyxoid fibroma) Coronary artery disease Follows with Dr. Carlos Depression with anxiety Diabetes IDDM [facility] Gout Hyperglycemia Hyperlipemia Hyperparathyroidism, secondary renal Hyperphosphatemia Hypertension Metabolic acidosis Myocardial infarction NSTEMI 09/2000, cath 10/2000 with total mid RCA occlusion, collaterals present, medically managed Obesity Pulmonary nodules Under surveillance Renal artery stenosis Restless legs syndrome Stage 4 chronic kidney disease Follows with [place] [facility] Plan for future dialysis Surgical History History of bilateral carpal tunnel release 2001 History of bone marrow biopsy 03/18/12 Bx bone trocar or needle deep performed by Dr. Albin Saenz at [facility]. History of cardiac cath 2000 > with total mid RCA occlusion, collaterals present (medical management) 2003 > + collaterals (medical management) History of colonoscopy History of hip replacement, total 2009 History of hysterectomy History of knee surgery History of lumpectomy of both breasts History of open reduction and internal fixation (ORIF) procedure Open treatment femoral shaft fracture with plate performed by Albin Graham 06/10/12 [facility] Excision, tumor, soft tissue of thigh or knee area, subfascial Open treatment proximal femur with fixation or prosthesis History of sinus surgery 1995 Dr. Beresny Family History Mother Heart disease Hypertension Coronary heart disease Anxiety Cancer Father , Age 59 of [place]. Heart disease Diabetes Hypertension Coronary heart disease Stroke Myocardial infarction Brother Hypertension Sister Hypertension Denies family history of Ovarian cancer Prostate cancer Kidney disease Breast cancer Lung cancer Social History Smoking Status: Never smoker Second Hand Exposure: No; Hx Alcohol Use: No Hx Substance Use: No Preferred Language: Martiniquais Communication Ability: Effective Visual Impairment: Limited Hearing Ability: Normal Whipped Topping Finisher Required: No Beliefs That Will Affect Care: None marital status: Current Living Situation: Spouse current occupational status: 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 Safe at Home: Yes Childhood Exposure to Second-Hand Smoke: No caffeine: Yes Dental Care, Regularly: Yes Physical Activity Frequency: Does not Exercise Seatbelt Use: always Sunscreen Use: Yes Assistive Devices: None Review of Systems A total of 10 systems reviewed and were otherwise negative Constitutional: no fever Eyes: no decreased night vision Blurry vision Respiratory: + dyspnea; no cough Cardiovascular: no chest pain Neurologic: + generalized weakness Physical Exam Vital Signs Vital Signs - 24 hr 08/14/22 23:48 08/14/22 23:48 08/15/22 01:00 Temperature 36.9 C Temperature Source Oral Pulse Rate 96 H Pulse Rate [Apical] 87 Respiratory Rate 16 18 Respiratory Effort / Characteristics Non-Labored Spontaneous Non-Labored Spontaneous Respiratory Depth Normal Normal Blood Pressure 191/82 H Blood Pressure [Right Arm] 197/100 H Blood Pressure Mean 118 Blood Pressure Mean [Right Arm] 132 Blood Pressure Position [Right Arm] Pulse Oximetry 97 97 96 Oxygen Delivery Method Room Air Room Air Room Air Sepsis Recent Fever Within 48 Hours No Sepsis New/Unexplained Change in Mental Status No Sepsis Action Taken by Nursing No Action Required 08/15/22 02:22 08/15/22 03:00 08/15/22 03:04 Temperature Temperature Source Pulse Rate Pulse Rate [Apical] 90 Respiratory Rate 18 Respiratory Effort / Characteristics Respiratory Depth Blood Pressure Blood Pressure [Right Arm] 184/96 H 138/109 H 156/85 H Blood Pressure Mean Blood Pressure Mean [Right Arm] 125 118 108 Blood Pressure Position [Right Arm] Semi-fowlers Pulse Oximetry 97 Oxygen Delivery Method Room Air Sepsis Recent Fever Within 48 Hours Sepsis New/Unexplained Change in Mental Status Sepsis Action Taken by Nursing GENERAL: Patient is awake alert in no acute distress patient is resting comfortably and showing no signs of anxiety EYES: The conjunctivae are clear. The pupils are round and reactive. EARS, NOSE, MOUTH AND THROAT: The nose is without any evidence of any deformity. Mucous membranes are moist. Tongue is midline. NECK: The neck is nontender and supple. RESPIRATORY: Normal respiratory effort is noted there is no evidence of wheezing rhonchi or rales CARDIOVASCULAR: Regular rate and rhythm noted there no murmurs rubs or gallops normal S1 normal S2. Chest; there is a dialysis catheter present in the right subclavian GASTROINTESTINAL: The abdomen is soft. Abdomen is nontender. PELVIS: The Pelvis is stable. No tenderness to palpation is noted. BACK: No midline tenderness or or step-off noted range of motion in flexion extension as well as rotation no signs of muscle spasm noted MUSCULOSKELETAL/EXTREMITIES: There is no evidence of gross deformity full range of motion is noted in the hips and shoulders. SKIN: There is no obvious evidence of any rash. There are no petechiae, pallor or cyanosis noted. NEUROLOGIC: Patient is awake alert and oriented x3 strength is symmetric; NIH is 0 Course Reevaluation(s) Reevaluation #1: Patient was resting in no distress had an NIH of 0 is not a tPA candidate for stroke. Patient has an elevated blood pressure elevated troponin. She has no current chest pain she has some shortness of breath. The case was discussed with the hospitalist for admission. They had given the patient IV labetalol with some improvement in her blood pressure but due to the symptoms and elevated troponin patient is admitted to the hospital Time: 03:26 Consultations Consultation #1: [facility] Hospitalist Time: 02:30 Administered Medications Discontinued Medications Carvedilol (Carvedilol 12.5 Mg Tab) 12.5 mg PO NOW STA Stop: 08/15/22 03:00 Last Admin: 08/15/22 03:33 Dose: Not Given Documented By: AN Labetalol HCl (Labetalol Hcl Iv 5 Mg/Ml 20ml) 10 mg IV NOW STA Stop: 08/15/22 02:32 Last Admin: 08/15/22 02:51 Dose: 10 mg Documented By: AN Co-signed By: ZOE Medical Decision Making Medical Records Attestation: I reviewed the patient's medical records. Home Medications Current Medication List: was personally reviewed by me Laboratory Data Attestation: I reviewed the patient's lab results. Result diagrams: 08/15/22 00:05 08/15/22 00:05 Lab Results 08/15/22 08/15/22 08/15/22 Range/Units 00:05 00:05 00:05 WBC 11.40 H (4.8-10.8) K/ul RBC 2.74 L (3.93-5.22) M/uL Hgb 8.2 L (12.0-16.0) g/dl Hct 25.1 L (34.1-44.9) % MCV 91.6 (80.0-100.0) fL MCH 29.9 (25.0-34.0) pg MCHC 32.7 (32.0-36.0) g/dL RDW Std Deviation 46.5 H (36.4-46.3) fL RDW Coeff of Nilda 14.1 (11.5-14.5) % Plt Count 188 (130-400) K/uL MPV 9.5 (9.4-12.3) fL Immature Gran % (Auto) 0.6 % Neut % (Auto) 70.4 % Lymph % (Auto) 12.1 % [place] % (Auto) 9.3 % Eos % (Auto) 6.9 % Baso % (Auto) 0.7 % Neut # (Auto) 8.02 H (1.4-6.5) K/uL Lymph # (Auto) 1.38 (1.2-3.4) K/uL [place] # (Auto) 1.06 H (0.24-0.82) K/uL Eos # (Auto) 0.79 H (0-0.50) K/uL Baso # (Auto) 0.08 (0-0.2) K/uL Immature Gran # (Auto) 0.07 H (0.00-0.02) K/uL PT 10.8 (9.0-12.0) Seconds INR 1.0 (0.9-1.1) APTT 26.0 (21.0-31.0) Seconds PTT Ratio 0.9 Sodium 126 L (136-145) mmol/L Potassium 4.1 (3.5-5.1) mmol/L Chloride 90 L (98-107) mmol/L Carbon Dioxide 25 (21-32) mmol/L Anion Gap 11 (3-11) BUN 29 H (6-23) mg/dl Creatinine 3.09 H (0.6-1.2) mg/dl Est Cr Clr Drug Dosing 16.9 ml/min Est GFR ( Amer) 16.9 ml/min Est GFR (Non-Af Amer) 14.6 ml/min BUN/Creatinine Ratio 9.4 L (10-20) Glucose 235 H (70-99(Fasting)) mg/dl Calcium 8.0 L (8.5-10.1) mg/dl Phosphorus 3.2 (2.5-4.9) mg/dl Magnesium 1.7 (1.7-2.4) mg/dl Total Bilirubin 0.7 (0.2-1.0) mg/dl AST 31 (13-39) U/L ALT 14 (7-52) U/L Alkaline Phosphatase 54 (34-104) U/L Troponin I High Sens 402.2 H* D (0-14) pg/ml Total Protein 6.6 (6.0-8.3) gm/dl Albumin 3.4 (3.4-5.0) gm/dl Globulin 3.2 (2.5-4.0) gm/dl Albumin/Globulin Ratio 1.1 (0.9-2) SARS-CoV-2, RNA, NAAT (NEGATIVE) 08/15/22 Range/Units 01:30 WBC (4.8-10.8) K/ul RBC (3.93-5.22) M/uL Hgb (12.0-16.0) g/dl Hct (34.1-44.9) % MCV (80.0-100.0) fL MCH (25.0-34.0) pg MCHC (32.0-36.0) g/dL RDW Std Deviation (36.4-46.3) fL RDW Coeff of Nilda (11.5-14.5) % Plt Count (130-400) K/uL MPV (9.4-12.3) fL Immature Gran % (Auto) % Neut % (Auto) % Lymph % (Auto) % [place] % (Auto) % Eos % (Auto) % Baso % (Auto) % Neut # (Auto) (1.4-6.5) K/uL Lymph # (Auto) (1.2-3.4) K/uL [place] # (Auto) (0.24-0.82) K/uL Eos # (Auto) (0-0.50) K/uL Baso # (Auto) (0-0.2) K/uL Immature Gran # (Auto) (0.00-0.02) K/uL PT (9.0-12.0) Seconds INR (0.9-1.1) APTT (21.0-31.0) Seconds PTT Ratio Sodium (136-145) mmol/L Potassium (3.5-5.1) mmol/L Chloride (98-107) mmol/L Carbon Dioxide (21-32) mmol/L Anion Gap (3-11) BUN (6-23) mg/dl Creatinine (0.6-1.2) mg/dl Est Cr Clr Drug Dosing ml/min Est GFR ( Amer) ml/min Est GFR (Non-Af Amer) ml/min BUN/Creatinine Ratio (10-20) Glucose (70-99(Fasting)) mg/dl Calcium (8.5-10.1) mg/dl Phosphorus (2.5-4.9) mg/dl Magnesium (1.7-2.4) mg/dl Total Bilirubin (0.2-1.0) mg/dl AST (13-39) U/L ALT (7-52) U/L Alkaline Phosphatase (34-104) U/L Troponin I High Sens (0-14) pg/ml Total Protein (6.0-8.3) gm/dl Albumin (3.4-5.0) gm/dl Globulin (2.5-4.0) gm/dl Albumin/Globulin Ratio (0.9-2) SARS-CoV-2, RNA, NAAT NEGATIVE (NEGATIVE) Imaging Data Attestation: I personally reviewed and interpreted this imaging study as follows: My Impression: Chest x-ray interpreted by me negative for infiltrate catheter present right chest; no pneumothorax Radiologist's Impression: CT head per radiology there is approximately 3.5 x 1.8 cm area of encephalo malacia in the left frontal lobe consistent with old infarct that is unchanged there is no scalp hematoma or skull fracture seen ECG Data Attestation: I personally reviewed and interpreted this ECG as follows: Additional Comments: EKG interpreted by me sinus rhythm rate of 98 occasional PACs no obvious ST segment elevation or depression poor R wave progression the precordium normal axis MDM Narrative Medical decision making differential diagnosis includes electrolyte abnormality, intracranial process, pulmonary edema, cardiac dysrhythmia; Plan is to check labs EKG CT brain, chest x-ray, observe Patient had undergone CT imaging has an elevated troponin but a nonischemic EKG, this could be related to her elevated creatinine. Patient's symptoms may be related to her hypertension they also may be related to the fact that she received 4 hours of dialysis today. Patient will be admitted for further evaluation of blood pressure elevated creatinine and elevated troponin Impression & Plan Dizziness, Elevated troponin, Acute renal failure, Hypertension Discharge Plan Visit Data Chief Complaint: Shortness of Breath/Dyspnea Stated Complaint: SOB, Palpitations, Blurry Vision ED Provider: Gabo Still Discharge Problem: Dizziness, Elevated troponin, Acute renal failure, Hypertension Patient Disposition: Being Evaluated by Hospitalist Forms Stand Alone Forms: My [facility] Prescriptions Prescriptions: No Action carvedilol [Coreg] 25 mg tablet 25 mg PO QAM Qty: 135 3RF atorvastatin 80 mg tablet 80 mg PO HS Qty: 90 3RF chlorthalidone 25 mg tablet 25 mg PO QAM Qty: 90 3RF losartan 50 mg tablet 100 mg PO QAM Qty: 135 1RF aspirin 325 mg Tablet,Delayed Release (Dr/Ec) 325 mg PO QAM Novolin R Regular U-100 Insuln 100 unit/mL solution See Rx Instructions .ROUTE .COMPLEX Rx Instructions: sliding scale ...pt using when feels as though she needs it. but usually only checks her bsg at bedtime Novolin N NPH U-100 Insulin 100 unit/mL suspension 30 units subcut BID mirtazapine 7.5 mg tablet 7.5 mg PO HS cyanocobalamin (vitamin B-12) 1,000 mcg capsule 1,000 mcg PO DAILY Qty: 30 0RF sodium bicarbonate 650 mg Tablet 650 mg PO BID 30 Days Qty: 60 0RF calcitriol 0.25 mcg Capsule 0.25 mcg PO QAM 30 Days Qty: 30 0RF furosemide 40 mg tablet 40 mg PO DAILY 30 Days Qty: 30 0RF Referrals Referrals: PCP,NO [Physician] -
[2022-08-15 00:23] LABS: Basophils # (auto) 0.08 K/uL (0-0.2); Basophils % (auto) 0.7 %; Eosinophils # (auto) 0.79 K/uL (0-0.50); Eosinophils % (auto) 6.9 %; Hematocrit (blood only) 25.1 % (34.1-44.9); Hemoglobin 8.2 g/dl (12.0-16.0); Immature Granulocytes # (auto) 0.07 K/uL (0.00-0.02); Immature Granulocytes % (auto) 0.6 %; Lymphocytes # (auto) 1.38 K/uL (1.2-3.4); Lymphocytes % (auto) 12.1 %; Mean Corpuscular Hemoglobin 29.9 pg (25.0-34.0); Mean Corpuscular Hgb Conc 32.7 g/dL (32.0-36.0); Mean Corpuscular Volume 91.6 fL (80.0-100.0); Mean Platelet Volume 9.5 fL (9.4-12.3); Monocytes # (auto) 1.06 K/uL (0.24-0.82); Monocytes % (auto) 9.3 %; Neutrophils # (auto) 8.02 K/uL (1.4-6.5); Neutrophils % (auto) 70.4 %; Platelet Count 188 K/uL (130-400); RDW Coefficient of Variation 14.1 % (11.5-14.5); RDW Standard Deviation 46.5 fL (36.4-46.3); Red Blood Count 2.74 M/uL (3.93-5.22)
[2022-08-15 00:43] LABS: Partial Thromboplastin Ratio 0.9; Prothrombin Time 10.8 Seconds (9.0-12.0)
[2022-08-15 00:56] LABS: Troponin I High Sensitivity 402.2 pg/ml (0-14)
[2022-08-15 01:10] LABS: Albumin Globulin Ratio 1.1 (0.9-2); Albumin Level 3.4 gm/dl (3.4-5.0); BUN Creatinine Ratio 9.4 (10-20); Bilirubin,Total 0.7 mg/dl (0.2-1.0); Creatinine Clr Calc Pharmacy 16.9 ml/min; Est GFR (African American) 16.9 ml/min; Est GFR (Non-African American) 14.6 ml/min; Globulin 3.2 gm/dl (2.5-4.0); Potassium 4.1 mmol/L (3.5-5.1); Total Protein 6.6 gm/dl (6.0-8.3)
--- NOTE | 2022-08-15 01:44 | History & Physical Report ---
Date of Service August 15, 2022 Assessment & Plan (1) Blurry vision: Plan: 71 y/o female w/ PMHx of ESRD, CAD (NSTEMI 2000), HTN, HLD, anxiety, depression, gout, and DM2 on insulinwho presents via EMS w/ shortness of breath. - blurry vision and headache; considered secondary to elevated bps. improved headache after dose of labetalol - hx of stroke. will order MRI brain. also in context of hypertensive urgency w/o known trigger; typically would expect hypotension not hypertension after dialysis (2) Hypertensive urgency: Plan: - coreg 25mg home dose is qam. given that normally bid dosing is recommended, will add 12.5mg qhs - otherwise continue home regimen. - considered cva on differential but lower suspicion per normal neuro exam. MRI brain ordered as per above (3) Elevated troponin: Plan: - esrd, but hstrop of 400 is elevated from the 150 at last admission - no chest pain - hx of nstemi - trend trop. consulting cardiology. as per above, no specific etiology for the hypertensive urgency. considered cardiac on differential (4) Dialysis patient: Plan: - consult nephro - overall, patient felt malaise and weak after the 4 hour dialysis session. electrolytes reviewed, reasonable. notable for hyponatremia. (5) Diabetes: Plan: - SSI + lantus while inpatient. check bsg achs Plan DM2, dialysis renal diet. no IV fluids scds full code pcu History of Present Illness Chief Complaint: blurry vision and lightheadedness. Primary Care Provider: Jessika Rodriguez PA-C 71 y/o female w/ PMHx of ESRD, CAD (NSTEMI 2000), HTN, HLD, anxiety, depression, gout, and DM2 on insulinwho presents via EMS w/ shortness of breath. This started after a 4 hour dialysis session (longest she has had thus far) at [place], and was accompanied by lightheadedness, palpitation, and generalized weakness/fatigue. Increased palpitations. Still has headache and blurry vision. 5/10 MELCHOR (was 7/10). occipital. She was recently admitted to [facility] 08/03-08/08 for dyspnea and BLE edema; HD cath was placed at R chest wall and dialysis was started at that admission. She does have a nonfunctioning AV fistula at L arm. Her BP was 200s/100s in the ED. Manual BP was 180s/90s. Denies current SOB though at times "hard to catch breath." ED course: IV labetalol 10mg ordered by me. Improved BPs to 150s systolic w/ improvement in the headache and overall feeling better. After initial labetalol was starting to wear off (systolic 170), ordered PO Coreg 12.5mg. Head CT w/o acute changes. 3.5x1.8cm area of encephalomalacia and surrounding gliosis in L frontal lobe consistent w/ old infarct, unchanged. per statrad. Sinus 90s w/ pvcs. BP 197/100. 96% on room air. afeb. wbc 11.4. Hb 8.2, baseline. Na 126 (128-129 corrected). bsg 235. Corrected Ca 8.5. hstrop 402.2. cxr w/ cardiomegaly, unchanged from 08/03 Allergies Allergy/AdvReac Type Severity Reaction Status Date / Time amlodipine Allergy Intermediate Rash Verified 08/14/22 23:53 Sulfa (Sulfonamide Allergy Intermediate Hives Verified 08/14/22 23:53 Antibiotics) lisinopril AdvReac Intermediate Cough Verified 08/14/22 23:53 Home Medications Medication Instructions Recorded Confirmed Type aspirin 325 mg tablet,delayed 325 mg PO QAM 02/25/19 08/14/22 History release insulin NPH isoph U-100 human 100 30 units subcut BID 02/25/19 08/14/22 History unit/mL subcutaneous suspension (Novolin N NPH U-100 Insulin isophane) insulin regular human 100 unit/mL See Rx Instructions .Route .COMPLEX 02/25/19 08/14/22 History injection solution (Novolin R Regular U-100 Insulin) carvedilol 25 mg tablet (Coreg) 25 mg PO QAM #135 tabs 12/07/21 08/14/22 Rx atorvastatin 80 mg tablet 80 mg PO HS #90 tabs 04/30/22 08/14/22 Rx chlorthalidone 25 mg tablet 25 mg PO QAM #90 tabs 04/30/22 08/14/22 Rx losartan 50 mg tablet 100 mg PO QAM #135 tabs 08/03/22 08/14/22 Rx mirtazapine 7.5 mg tablet 7.5 mg PO HS 08/03/22 08/14/22 History cyanocobalamin (vitamin B-12) 1,000 mcg PO DAILY #30 caps 08/05/22 08/14/22 Rx 1,000 mcg capsule calcitriol 0.25 mcg capsule 0.25 mcg PO QAM 30 days #30 caps 08/08/22 08/14/22 Rx furosemide 40 mg tablet 40 mg PO DAILY 30 days #30 tabs 08/08/22 08/14/22 Rx sodium bicarbonate 650 mg tablet 650 mg PO BID 30 days #60 tabs 08/08/2207/22 Rx Past Med/Surg History Medical History Anemia Asymptomatic, chronic > monitoring per nephrology 08/2021 note Hgb 10-11 range per chart review Anemia due to chronic kidney disease Asthma Atrophy of left kidney Carotid stenosis, bilateral Chronic occlusion of the right CCA. Right ICA patent and flow is antegrade via retrograde flow from right ECA. Chronic occlusion of the left ICA. Less than 50% stenosis left ECA with antegrade flow. Right and left vertebrals are patent with antegrade flow. No significant change compared to previous 07/31/2019 per report. Chronic sinusitis CMF (chondromyxoid fibroma) Coronary artery disease Follows with Dr. Carlos Depression with anxiety Diabetes IDDM [facility] Gout Hyperglycemia Hyperlipemia Hyperparathyroidism, secondary renal Hyperphosphatemia Hypertension Metabolic acidosis Myocardial infarction NSTEMI 09/2000, cath 10/2000 with total mid RCA occlusion, collaterals present, medically managed Obesity Pulmonary nodules Under surveillance Renal artery stenosis Restless legs syndrome Stage 4 chronic kidney disease Follows with [facility] Plan for future dialysis Surgical History History of bilateral carpal tunnel release 2001 History of bone marrow biopsy 03/18/12 Bx bone trocar or needle deep [place] Albin Sa[place] [facility] History of cardiac cath 2000 > with total mid RCA occlusion, collaterals present (medical management) 2003 > + collaterals (medical management) History of colonoscopy History of hip replacement, total 2008 History of hysterectomy History of knee surgery History of lumpectomy of both breasts History of open reduction and internal fixation (ORIF) procedure Open treatment femoral shaft fracture with plate performed by Albin Graham 06/10/12 [facility] [place]cision, tumor, soft tissue of thigh or knee area, subfascial Open treatment proximal femur with fixation or prosthesis History of sinus surgery 1995 Dr. Morrow Family History Mother Heart disease Hypertension Coronary heart disease Anxiety Cancer Father , Age 59 of [place]. 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 NAD. Cooperative. HEENT: Atraumatic, normocephalic. EOMI. PERRL. No nystagmus. Pulm: CTAB. -wheezes, -rales, -rhonchi. No respiratory distress. Cardiac: RRR, -mrg. Radial pulses intact and symmetrical. Abdominal: Nontender, nondistended, soft. Integ: Warm, dry, intact. R chest wall HD site w/o erythema. Neuro: CN II-XII intact. No dysmetria. Normal strength and sensation of extrem. Results & Data Results & Data ([facility]) Vital Signs (Past 12 Hours) Vital Signs Temp Pulse Pulse Resp BP BP Pulse Ox 08/15/22 01:00 87 18 197/100 H 96 08/14/22 23:48 97 08/14/22 23:48 36.9 C 96 H 16 191/82 H 97 O2 Del Method 08/15/22 01:00 Room Air 08/14/22 23:48 Room Air 08/14/22 23:48 Room Air Laboratory Results Cardiac Enzymes 10/26/22 Range/Units 00:05 AST 31 (13-39) U/L Troponin I High Sens 402.2 H* D (0-14) pg/ml Coagulation 08/15/22 Range/Units 00:05 PT 10.8 (9.0-12.0) Seconds APTT 26.0 (21.0-31.0) Seconds CBC 08/15/22 Range/Units 00:05 WBC 11.40 H (4.8-10.8) K/ul RBC 2.74 L (3.93-5.22) M/uL Hgb 8.2 L (12.0-16.0) g/dl Hct 25.1 L (34.1-44.9) % Plt Count 188 (130-400) K/uL Neut # (Auto) 8.02 H (1.4-6.5) K/uL Lymph # (Auto) 1.38 (1.2-3.4) K/uL [place] # (Auto) 1.06 H (0.24-0.82) K/uL Eos # (Auto) 0.79 H (0-0.50) K/uL Baso # (Auto) 0.08 (0-0.2) K/uL Comprehensive Metabolic Panel 08/15/22 Range/Units 00:05 Sodium 126 L (136-145) mmol/L Potassium 4.1 (3.5-5.1) mmol/L Chloride 90 L (98-107) mmol/L Carbon Dioxide 25 (21-32) mmol/L BUN 29 H (6-23) mg/dl Creatinine 3.09 H (0.6-1.2) mg/dl Glucose 235 H (70-99(Fasting)) mg/dl Calcium 8.0 L (8.5-10.1) mg/dl AST 31 (13-39) U/L ALT 14 (7-52) U/L Alkaline Phosphatase 54 (34-104) U/L Total Protein 6.6 (6.0-8.3) gm/dl Albumin 3.4 (3.4-5.0) gm/dl Intake and Output 08/14/22 08/14/22 08/15/22 14:59 22:59 06:59 Other: Weight 82.7 kg Patient Weight 08/15/22 06:59 Weight 82.7 kg Code Status & VTE Plan Code Status full VTE Prophylaxis Plan VTE Prophylaxis will be ordered: Yes Supervising Physician Co-Signing Physician Notes Attending addendum: I have physically seen this patient, have supervised the medical residents activities, and agree with the H&P unless as otherwise noted. Assessment and Plan: Elevated troponin/hypertensive urgency- The patient will be admitted to telemetry for serial cardiac enzymes, serial EKG's, cardiac rhythm monitoring and a 2-D echocardiogram with Dopplers. Continue Coreg 25 mg every morning, and add a 12.5 mg dose now and at bedtime Has been given labetalol 10 mg IV x1 Will give Lopressor 5 mg IV every 4 hours as needed systolic blood pressure greater than 160 Further adjustments in medications overnight as response to above treatment involves Target for blood pressure will be taken to consideration if patient has had acute CVA/TIA versus NSTEMI Blurry vision with headache- Symptoms improved after initial lowering of blood pressure with labetalol CT head negative Order MRI brain to assess for possible CVA ESRD on HD- Consult nephrology Diabetes mellitus- Continue Lantus and place on sliding scale as noted Check hemoglobin A1c Remaining orders and notations as noted Resident Activity Tracking Resident Involvement: Resident Care Provided Care Provided: Adult Hospital Medicine
[2022-08-15 02:28] LABS: Magnesium 1.7 mg/dl (1.7-2.4); Phosphorus 3.2 mg/dl (2.5-4.9)
[2022-08-15] MEDS ORDERED: LABETALOL HCL IV 5 MG/ML 20ML IV STA (02:31)
[2022-08-15] MEDS ORDERED: carvediloL 12.5 MG TAB PO STA ×2 (02:59→04:11)
[2022-08-15] MEDS ORDERED: LANTUS PER UNIT CHARGE SQ STA (03:46)
[2022-08-15] MEDS ORDERED: GLUCAGON FOR INJ 1 MG VIAL SQ PRN (03:47)
[2022-08-15] MEDS ORDERED: CARBOHYDRATES FOR HYPOGLYCEMIA PO PRN (03:47)
[2022-08-15] MEDS ORDERED: DEXTROSE 50% 50 ML SYRINGE IV PRN (03:47)
[2022-08-15] MEDS ORDERED: GLUCOSE 40% GEL 15 GM TUBE PO PRN (03:47)
[2022-08-15] MEDS ORDERED: INSULIN ASPART PER UNIT SC STA (03:47)
[2022-08-15] MEDS ORDERED: GLUCOSE 10 TAB/TUBE PO PRN (03:47)
[2022-08-15] MEDS ORDERED: METOPROLOL TARTRATE 1 MG/ML VIAL IV STA (06:53)
[2022-08-15 07:11] LABS: Basophils # (auto) 0.05 K/uL (0-0.2); Basophils % (auto) 0.5 %; Eosinophils # (auto) 0.66 K/uL (0-0.50); Eosinophils % (auto) 6.3 %; Hematocrit (blood only) 23.3 % (34.1-44.9); Hemoglobin 7.6 g/dl (12.0-16.0); Immature Granulocytes # (auto) 0.06 K/uL (0.00-0.02); Immature Granulocytes % (auto) 0.6 %; Lymphocytes % (auto) 15.3 %; Mean Corpuscular Hemoglobin 29.5 pg (25.0-34.0); Mean Corpuscular Hgb Conc 32.6 g/dL (32.0-36.0); Mean Corpuscular Volume 90.3 fL (80.0-100.0); Mean Platelet Volume 9.7 fL (9.4-12.3); Monocytes # (auto) 0.99 K/uL (0.24-0.82); Monocytes % (auto) 9.5 %; Neutrophils # (auto) 7.07 K/uL (1.4-6.5); Neutrophils % (auto) 67.8 %; Platelet Count 186 K/uL (130-400); RDW Coefficient of Variation 13.9 % (11.5-14.5); RDW Standard Deviation 45.6 fL (36.4-46.3); Red Blood Count 2.58 M/uL (3.93-5.22); White Blood Count 10.43 K/ul (4.8-10.8)
[2022-08-15 07:29] LABS: Albumin Globulin Ratio 1.1 (0.9-2); Albumin Level 3.3 gm/dl (3.4-5.0); BUN Creatinine Ratio 9.3 (10-20); Bilirubin,Total 0.6 mg/dl (0.2-1.0); Calcium 7.9 mg/dl (8.5-10.1); Creatinine Clr Calc Pharmacy 16.3 ml/min; Est GFR (African American) 16.1 ml/min; Est GFR (Non-African American) 13.9 ml/min; Globulin 2.9 gm/dl (2.5-4.0); Magnesium 1.6 mg/dl (1.7-2.4); Potassium 3.6 mmol/L (3.5-5.1); Total Protein 6.2 gm/dl (6.0-8.3)
[2022-08-15 07:40] LABS: Troponin I High Sensitivity 419.3 pg/ml (0-14)
--- NOTE | 2022-08-15 07:56 | Magnetic Resonance Report ---
MR brain wo con HISTORY: 71 years-old Female blurry vision, headache acute dizziness with shortness of breath, and h eadache COMPARISON: Head CT of same day, brain MRI 01/13/2015 TECHNIQUE: Multiplanar multisequence MRI of the brain was obtained without use of IV contrast. FINDINGS: Encephalomalacia and gliosis related to chronic left anterior cerebral artery infarct redemonstrated. There is chronic occlusion of the left internal carotid artery with reconstitution of flow noted at the [place] of [place]. No restricted diffusion to suggest acute or subacute infarct. Study is mildly m otion degraded. Degenerative changes of the imaged cervical spine. Midline structures are otherwise u nremarkable. There is no acute intracranial hemorrhage, midline shift, abnormal extra axial collection, hydrocepha cody or intracranial mass identified. No pathologic blooming artifact on the T2 star series. Involutio nal changes. Mild T2/FLAIR hyperintense foci noted throughout the white matter. Cerebral venous sinus es are patent. Skull, orbits and soft tissues are unremarkable. Postoperative changes of the paranasa l sinuses. Leftward bowing and spurring the nasal septum. Mastoid air cells are clear. IMPRESSION: 1. No acute intracranial abnormality. No acute or subacute infarct. 2. Chronic left anterior cerebral artery infarct redemonstrated along with chronic occlusion of the l eft internal carotid artery. 3. Involutional changes with mild chronic microvascular ischemic disease. ACT 112: Negative or not required by law. The above report was generated using voice recognition software. It may contain grammatical, syntax o r spelling errors. Electronically signed by: Markell Dowell M.D. 08/15/2022 7:53 AM
--- NOTE | 2022-08-15 08:12 | XRay Report ---
XR chest 1V portable HISTORY: 71 years-old Female Chest Pain acute atypical chest pain COMPARISON: 08/03/2022 TECHNIQUE: AP view of the chest FINDINGS: Cardiac silhouette is enlarged. Pulmonary vascular congestion with mild interstitial coarsening. Dual lumen right IJ hemodialysis catheter is noted with distal tip in the expected location of the mid SV C. Atherosclerosis of the aorta. No pneumothorax. Question trace pleural effusions. Bones appear annabel sly intact. IMPRESSION: 1. Cardiomegaly with pulmonary vascular congestion. 2. Possible trace pleural effusions. 3. Dual lumen right IJ hemodialysis catheter in place. ACT 112: Negative or not required by law. The above report was generated using voice recognition software. It may contain grammatical, syntax o r spelling errors. Electronically signed by: Markell Dowell M.D. 08/15/2022 8:10 AM
[2022-08-15] MEDS: INSULIN ASPART PER UNIT SC SCH ×4 (08:18→20:56)
[2022-08-15] MEDS: LOSARTAN POTASSIUM 50 MG TAB PO SCH (08:18)
[2022-08-15] MEDS: CALCITRIOL 0.25 MCG CAPSULE PO SCH (08:18)
[2022-08-15] MEDS: LANTUS PER UNIT CHARGE SQ SCH ×2 (08:18→23:40)
[2022-08-15] MEDS ORDERED: FUROSEMIDE 40 MG TAB PO SCH (09:00)
[2022-08-15] MEDS ORDERED: SODIUM BICARBONATE 650 MG TAB PO SCH (09:00)
[2022-08-15] MEDS ORDERED: CHLORTHALIDONE 25 MG TAB PO SCH (09:00)
[2022-08-15] MEDS ORDERED: carvediloL 25 MG TAB PO SCH (09:00)
--- NOTE | 2022-08-15 09:02 | CT Scan Report ---
CT head/brain wo con CLINICAL HISTORY: blurred vision Technique: Contiguous axial CT images of the head were acquired from the base of the skull to the linda reinier without intravenous contrast administration. Images were viewed in brain, subdural and [facility]. Automated dose lowering techniques and/or adjustment according to patient size were utilized for this exam. Comparison: Comparison is made to CT head 08/14/2017 Findings: The ventricles, basal cisterns, and cerebral sulci are normal. There is no acute intracranial hemorrh age or evidence of acute territorial infarction. Neither mass effect, shift of the midline structures , nor abnormal extra-axial fluid collections are shown. Old left frontal infarct is unchanged. Imaged portions of the paranasal sinuses and mastoid air cells are clear. The orbits appear normal. There are no acute fractures of the calvaria or scalp swelling. Impression: No acute intracranial hemorrhage, no evidence of acute territorial infarction or other acute intracra nial disease process. ACT 112: Negative or not required by law. Electronically signed by: Marko Zaldivar M.D. 08/15/2022 9:01 AM
--- NOTE | 2022-08-15 09:33 | XCELERA ---
[id number]
--- NOTE | 2022-08-15 10:53 | Nephrology Progress Note ---
Date of Service August 15, 2022 Assessment & Plan (1) ESRD (end stage renal disease) on dialysis: Plan: * Recent hospitalization w/ CHF. Now presents w/ hypertensive urgency. Last renal US 2016. Will order follow up study * Volume status and electrolyte balance are acceptable. No acute indication for HD today * Will plan next dialysis for am to maintain TTS schedule (2) Hypertensive urgency: Plan: * Stop NaHCO3 tablets as this may have contributed to poorly controlled HTN and patient is now on HD * Stop thiazide diuretic and increase Furosemide from 40 to 80 mg daily. Patient does still make urine * Continue Losartan 100 mg daily * HR has been relatively high since admission. Will increase Carvedilol to 25 mg po BID (3) Coronary artery disease: Plan: * Elevated troponin on admission * Echocardiogram 08/15/22 with preserved LVEF. No WMA. Pulmonary HTN reported (4) Anemia: Plan: * Will order iron studies * Will consider JOSE ELIAS once BP adequately controlled Admission and Anticipated Discharge Date Admission Date: August 15, 2022 Subjective Ms. Doll is a 71 year old white female who is seen at the request of the hospitalist service to provide inpatient HD and assist w/ medical management. Medical records in the EMR were reviewed today and are summarized as follows: Ms. Doll has ESKD due to renal vascular disease, DKD and hypertensive nephrosclerosis. Outpatient evaluation 09/10 revealed atrophic/nonfunctional L kidney, Cr 3.0, negative SPEP. ORTHOPEDIC SHOES SALESPERSON was discssed w/ patient and she did undergo L RC AVF 10/10. She was then lost to outpatient follow up. Ms. Doll presented to [facility] 08/03/22 w/ CHF. HD was attempted but her AVF infiltrated x2. On 08/07/22 she underwent IJ THC and her 1st dialysis was as an inpatient 08/08/22. Ms. Doll has since been dialyzing TTS at [facility]. She was dialyzed yesterday and reports hypotension following her treatment. She presented to the [facility] EMD last evening with c/o dizziness and blurred vision. SBP was 191 mm Hg w/ HR 96. She was treated for hypertensive urgency w/ IV Labetalol and admitted to the hospitalist service. Echocardiogram this am reveals LVEF 50 - 55%, mild pulmonary HTN w/ PASP [address] and brain MRI revealed chronic L ICA thrombosis but were negative for acute CVA PMH: atrophic/nonfunctional L kidney, hypercholesterolemia, ASCVD, h/o SVT (managed w/ beta sarika), PVD w/ carotid stenosis, AODM, BMI 35, depression Review of Systems Constitutional: no fever Eyes: + problem reported (blurred vision - now resolved) Ear, Nose, Mouth, Throat: no problem reported Respiratory: no cough and no dyspnea Cardiovascular: no chest pain Gastrointestinal: no abdominal pain, no nausea, no vomiting and no diarrhea/loose stools Genitourinary: no dysuria Physical Exam Constitutional: not in distress Eyes: PERRL, conjunctivae normal, anicteric sclerae ENMT: external ear and nose normal, oropharynx normal Neck: trachea midline, no thyromegaly Respiratory: normal respiratory effort, lungs clear to auscultation Cardiovascular: Rate/Rhythm: regular rate and regular rhythm Extremities: + edema (trace pretibial edema) L AVF + bruit, surrounding ecchymosis Gastrointestinal (Abdomen): normal bowel sounds, soft, nontender, no hepatosplenomegaly Neurologic: Speech / Cognition: normal speech and normal cognition Results & Data ([facility]) Vital Signs (Past 12 Hours) Vital Signs Temp Pulse Pulse Resp BP BP Pulse Ox 08/15/22 08:04 36.8 C 83 20 129/66 98 08/15/22 05:00 08/15/22 04:41 36.7 C 103 H 20 189/65 H 95 08/15/22 04:00 76 18 171/97 H 97 08/15/22 03:04 156/85 H 08/15/22 03:00 90 18 138/109 H 97 08/15/22 02:22 184/96 H 08/15/22 01:00 87 18 197/100 H 96 08/14/22 23:48 97 08/14/22 23:48 36.9 C 96 H 16 191/82 H 97 O2 Del Method 08/15/22 08:04 Room Air 08/15/22 05:00 Room Air 08/15/22 04:41 Room Air 08/15/22 04:00 Room Air 08/15/22 03:04 08/15/22 03:00 Room Air 08/15/22 02:22 08/15/22 01:00 Room Air 08/14/22 23:48 Room Air 08/14/22 23:48 Room Air Laboratory Results Laboratory Results - last 24 hr 10/26/22 10/26/22 10/26/22 00:05 00:05 00:05 WBC 11.40 H RBC 2.74 L Hgb 8.2 L Hct 25.1 L MCV 91.6 MCH 29.9 MCHC 32.7 RDW Std Deviation 46.5 H RDW Coeff of Nilda 14.1 Plt Count 188 MPV 9.5 Immature Gran % (Auto) 0.6 Neut % (Auto) 70.4 Lymph % (Auto) 12.1 Nelson % (Auto) 9.3 Eos % (Auto) 6.9 Baso % (Auto) 0.7 Neut # (Auto) 8.02 H Lymph # (Auto) 1.38 [place] # (Auto) 1.06 H Eos # (Auto) 0.79 H Baso # (Auto) 0.08 Immature Gran # (Auto) 0.07 H PT 10.8 INR 1.0 APTT 26.0 PTT Ratio 0.9 Sodium 126 L Potassium 4.1 Chloride 90 L Carbon Dioxide 25 Anion Gap 11 BUN 29 H Creatinine 3.09 H Est Cr Clr Drug Dosing 16.9 Est GFR ( Amer) 16.9 Est GFR (Non-Af Amer) 14.6 BUN/Creatinine Ratio 9.4 L Glucose 235 H POC Glucose Calcium 8.0 L Phosphorus 3.2 Magnesium 1.7 Total Bilirubin 0.7 AST 31 ALT 14 Alkaline Phosphatase 54 Troponin I High Sens 402.2 H* D Total Protein 6.6 Albumin 3.4 Globulin 3.2 Albumin/Globulin Ratio 1.1 Nasal Screen MRSA (PCR) SARS-CoV-2, RNA, NAAT 08/15/22 08/15/22 08/15/22 01:30 04:50 05:08 WBC RBC Hgb Hct MCV MCH MCHC RDW Std Deviation RDW Coeff of Nilda Plt Count MPV Immature Gran % (Auto) Neut % (Auto) Lymph % (Auto) Nelson % (Auto) Eos % (Auto) Baso % (Auto) Neut # (Auto) Lymph # (Auto) [place] # (Auto) Eos # (Auto) Baso # (Auto) Immature Gran # (Auto) PT INR APTT PTT Ratio Sodium Potassium Chloride Carbon Dioxide Anion Gap BUN Creatinine Est Cr Clr Drug Dosing Est GFR ( Amer) Est GFR (Non-Af Amer) BUN/Creatinine Ratio Glucose POC Glucose 202 H Calcium Phosphorus Magnesium Total Bilirubin AST ALT Alkaline Phosphatase Troponin I High Sens Total Protein Albumin Globulin Albumin/Globulin Ratio Nasal Screen MRSA (PCR) Negative SARS-CoV-2, RNA, NAAT NEGATIVE 08/15/22 08/15/22 08/15/22 06:40 06:40 07:25 WBC 10.43 RBC 2.58 L Hgb 7.6 L Hct 23.3 L MCV 90.3 MCH 29.5 MCHC 32.6 RDW Std Deviation 45.6 RDW Coeff of Nilda 13.9 Plt Count 186 MPV 9.7 Immature Gran % (Auto) 0.6 Neut % (Auto) 67.8 Lymph % (Auto) 15.3 [place] % (Auto) 9.5 Eos % (Auto) 6.3 Baso % (Auto) 0.5 Neut # (Auto) 7.07 H Lymph # (Auto) 1.60 [place] # (Auto) 0.99 H Eos # (Auto) 0.66 H Baso # (Auto) 0.05 Immature Gran # (Auto) 0.06 H PT INR APTT PTT Ratio Sodium 129 L Potassium 3.6 Chloride 93 L Carbon Dioxide 28 Anion Gap 8 BUN 30 H Creatinine 3.22 H Est Cr Clr Drug Dosing 16.3 Est GFR ( Amer) 16.1 Est GFR (Non-Af Amer) 13.9 BUN/Creatinine Ratio 9.3 L Glucose 160 H POC Glucose 149 H Calcium 7.9 L Phosphorus Magnesium 1.6 L Total Bilirubin 0.6 AST 21 ALT 12 Alkaline Phosphatase 52 Troponin I High Sens 419.3 H* Total Protein 6.2 Albumin 3.3 L Globulin 2.9 Albumin/Globulin Ratio 1.1 Nasal Screen MRSA (PCR) SARS-CoV-2, RNA, NAAT PG Care Time/CCT Total # of Minutes Spent Total Time Spent with Patient: Total time spent is greater than 50% in coordination of care (as documented) at patient's floor/unit and/or counseling patient: Coding Level of Care Code 16876 Inpt Consult Level 5 Diagnoses ESRD (end stage renal disease) on dialysis N18.6; Z99.2 Hypertensive urgency I16.0 Coronary artery disease I25.10 Anemia D64.9
--- NOTE | 2022-08-15 13:39 | Cardiology Consultation ---
Date of Consultation August 15, 2022 Assessment & Plan (1) Elevated troponin: (2) Hypertensive urgency: (3) Coronary artery disease: (4) Hyperlipemia: (5) Chest pain: (6) Paroxysmal ventricular tachycardia: (7) Paroxysmal atrial tachycardia: Plan ASSESSMENT/PLAN: 1. Elevated troponin: Likely due to severely elevated blood pressure in the setting of documented CAD. Likely demand ischemia. Given reported chest discomfort intermittently, although at rest and appearing atypical, recommend noninvasive ischemic evaluation. Myocardial perfusion study ordered. 2. CAD: Severe RCA CAD noted first in 2000. Chest discomfort reported but appears somewhat atypical. Myocardial perfusion study. Resume aspirin 81 mg once daily sufficient from a cardiac standpoint. Continue high intensity statin therapy and beta-sarika. 2. Paroxysmal ventricular tachycardia: Nonsustained. She did not receive full dose carvedilol this morning. She will receive her full dose this evening. Continue telemetry. Myocardial perfusion study. 4. Paroxysmal atrial tachycardia: Not new. She appears to be symptomatic from this or frequent PACs. Plan for beta-sarika as above. 5. Hypertensive urgency: Medications have been adjusted by nephrology and in general will defer blood pressure management to nephrology given that she is on dialysis. 6. Chest pain: As above. 7. Dyslipidemia: Continue high intensity statin therapy. 8. Pulmonary hypertension: Possible mild pulmonary hypertension noted on echo however measurements were performed during nonsustained ventricular tachycardia. Asymptomatic during our visit today. Etiology uncertain. 9. Blurry vision: One of her main complaints. Defer to primary hospitalist service. Had brain MRI without acute stroke. 10. Disposition: Cardiology will continue to follow. She should follow-up with her primary climbing guide, Dr. Carlos, on discharge. Patient care discussed with Dr. Melendrez, primary hospitalist. Today's visit was 52 minutes in duration, which includes time at the bedside discussing with patient, reviewing multiple records, coordinating care, discussing with primary hospitalist, and documentation. History of Present Illness Reason for Consultation: " Dialysis. Blurry vis. 200 systolic. Elevated trop" Requesting Physician: Dr. Mata Attending Physician: Stephen Kaplan History of Present Illness Ms. Doll is a very pleasant 71-year-old female with a history significant for CAD, carotid artery stenosis, renal artery stenosis, ESRD on HD, hypertension, dyslipidemia, type 2 diabetes ,and nonsustained SVT. Her primary climbing guide is Dr. Carlos. She was admitted on 08/15/2022 with initial complaint of blurry vision and lightheadedness. She recently started hemodialysis and states that she has had 3 or 4 sessions thus far. She had dialysis yesterday and states that she initially felt okay. She then felt fatigued and took a nap and woke up gasping for air. She felt weak and anxious. Her history was inconsistent and she states that she has been a bit confused. According to admitting note, she had reported lightheadedness, generalized weakness, fatigue, and palpitations. She also had a headache and blurry vision. On presentation her blood pressure was 191/82 mmHg. She states that before presenting, she had an episode of left-sided chest pressure while laying in bed at home without radiation of the pain. It spontaneously resolved within a couple of minutes. She was short of breath and had orthopnea. She admits that hemodialysis typically improves her breathing. She has had lower extremity edema which also improved after dialysis. She has had intermittent dyspnea on exertion. The blurry vision began in the ambulance and continues to this point when she was seen late this morning. She has had chronic palpitations. They are not overly bothersome to her other than being "annoying." She reports having an episode of chest pain 3 days ago. It was a left-sided pressure that persisted for a couple of hours and resolved spontaneously. She thought it was indigestion. It occurred at rest after eating [place] food that was prepared by her sister with hot and spicy ingredients. She does not exercise but is active at times including grocery shopping. She denies exertional chest discomfort. She denies active chest pain or shortness of breath. Her only complaint at this time is that she feels tired and has blurry vision. She has had the following studies/procedures: 1. Cardiac cath 10/23/2000: Coronary calcifications. Mild irregularities within the LAD and circumflex. Mid RCA 100%. Right to right and left to right collaterals. Posterior basal hypokinesis. EF 60%. 2. Cardiac cath 02/21/2004: Mild irregularities LAD. Proximal to mid circumflex 20%. Ostial to proximal RCA 30 to 40%. Distal RCA subtotal occlusion. Left to right collaterals. 3. Carotid duplex 07/31/2019: Chronic occlusion right common carotid artery. Patent right ICA filling via right external carotid. Chronic occlusion left ICA. Right and left vertebral arteries patent. Nuclear stress September 2017: No ischemia. EF 61%. 4. Holter 01/25/2021: Sinus rhythm with frequent atrial ectopy. Average heart rate 88. Frequent nonsustained SVT up to 12 seconds in duration. Atrial ectopy comprised 44.1% of recorded beats. 5. Holter 02/14/2022: Sinus rhythm average heart rate 67. Frequent PACs. Frequent episodes of nonsustained atrial tachycardia. Atrial ectopy/arrhythmia comprised 44% of recorded beats. Nonsustained AI VR. 6. Echo 08/04/2022: Normal LV systolic function. EF 55 to 60%. Akinesis involving basal septum and basal to mid inferior [place]. Moderate LVH. Mild to moderate MR. Normal RVSP. 7. Limited echo 08/15/2022: Normal LV size. EF 50 to 55%. Akinesis of the basal inferior and basal inferoseptal segments. Moderate LVH. Moderate left atrial dilation. Mild MR. RVSP 44. Review of systems: As above. Review of systems otherwise negative/unremarkable. Family history: Father from [place] at the age of 59. Social history: She denies tobacco, alcohol, or drug abuse. She lives alone with her dog. Her first . She is from her second . She has 2 daughters, 4 grandchildren, 2 great-grandchildren. She helps care for her mother. She is retired from [employer]. She was unaccompanied in her hospital room. Allergies Allergy/AdvReac Type Severity Reaction Status Date / Time amlodipine Allergy Intermediate Rash Verified 08/14/22 23:53 Sulfa (Sulfonamide Allergy Intermediate Hives Verified 08/14/22 23:53 Antibiotics) lisinopril AdvReac Intermediate Cough Verified 08/14/22 23:53 Home Medications Medication Instructions Recorded Confirmed Type aspirin 325 mg tablet,delayed 325 mg PO QAM 02/25/19 08/14/22 History release insulin NPH isoph U-100 human 100 30 units subcut BID 02/25/19 08/14/22 History unit/mL subcutaneous suspension (Novolin N NPH U-100 Insulin isophane) insulin regular human 100 unit/mL See Rx Instructions .Route .COMPLEX 02/25/19 08/14/22 History injection solution (Novolin R Regular U-100 Insulin) carvedilol 25 mg tablet (Coreg) 25 mg PO QAM #135 tabs 12/07/21 08/14/22 Rx atorvastatin 80 mg tablet 80 mg PO HS #90 tabs 04/30/22 08/14/22 Rx chlorthalidone 25 mg tablet 25 mg PO QAM #90 tabs 04/30/22 08/14/22 Rx losartan 50 mg tablet 100 mg PO QAM #135 tabs 08/03/22 08/14/22 Rx mirtazapine 7.5 mg tablet 7.5 mg PO HS 08/03/22 08/14/22 History cyanocobalamin (vitamin B-12) 1,000 mcg PO DAILY #30 caps 08/05/22 08/14/22 Rx 1,000 mcg capsule calcitriol 0.25 mcg capsule 0.25 mcg PO QAM 30 days #30 caps 08/08/22 08/14/22 Rx furosemide 40 mg tablet 40 mg PO DAILY 30 days #30 tabs 08/08/22 08/14/22 Rx sodium bicarbonate 650 mg tablet 650 mg PO BID 30 days #60 tabs 08/08/22 08/14/22 Rx Patient History Medical History Anemia Asymptomatic, chronic > monitoring per nephrology 08/2021 note Hgb 10-11 range per chart review Anemia due to chronic kidney disease Asthma Atrophy of left kidney Carotid stenosis, bilateral Chronic occlusion of the right CCA. Right ICA patent and flow is antegrade via retrograde flow from right ECA. Chronic occlusion of the left ICA. Less than 50% stenosis left ECA with antegrade flow. Right and left vertebrals a re patent with antegrade flow. No significant change compared to previous 07/31/2019 per report. Chronic sinusitis CMF (chondromyxoid fibroma) Coronary artery disease Follows with Dr. Carlos Depression with anxiety Diabetes IDDM [facility] Gout Hyperglycemia Hyperlipemia Hyperparathyroidism, secondary renal Hyperphosphatemia Hypertension Metabolic acidosis Myocardial infarction NSTEMI 09/2000, cath 10/2000 with total mid RCA occlusion, collaterals present, medically managed Obesity Pulmonary nodules Under surveillance Renal artery stenosis Restless legs syndrome Stage 4 chronic kidney disease Follows with [facility] Plan for future dialysis Surgical History History of bilateral carpal tunnel release 2001 History of bone marrow biopsy 03/18/12 Bx bone trocar or needle deep performed by Dr. Albin Saenz at [facility]. History of cardiac cath 2001 > with total mid RCA occlusion, collaterals present (medical management) 2003 > + collaterals (medical management) History of colonoscopy History of hip replacement, total 2009 History of hysterectomy History of knee surgery History of lumpectomy of both breasts History of open reduction and internal fixation (ORIF) procedure Open treatment femoral shaft fracture with plate performed by Albin Graham 06/10/12 [facility] Excision, tumor, soft tissue of thigh or knee area, subfascial Open treatment proximal femur with fixation or prosthesis History of sinus surgery 1995 Dr. Morrow Family History Mother Heart disease Hypertension Coronary heart disease Anxiety Cancer Father , Age 59 of [place]. Heart disease Diabetes Hypertension Coronary heart disease Stroke Myocardial infarction Brother Hypertension Sister Hypertension Denies family history of Ovarian cancer Prostate cancer Kidney disease Breast cancer Lung cancer Social History Smoking Status: Never smoker Second Hand Exposure: No; Hx Alcohol Use: No Hx Substance Use: No Preferred Language: Thai Communication Ability: Effective Visual Impairment: Limited Hearing Ability: Normal Digital Advertising Analyst Required: No Beliefs That Will Affect Care: None marital status: Current Living Situation: Spouse current occupational status: 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 Alert. HEENT: Anicteric sclera. Neck: Mild JVD. No bruits. Normal carotid upstrokes bilaterally. Cardiac: PMI was nondisplaced. No ventricular heave. Regular with frequent ectopy. Normal S1-S2. 2/6 systolic murmur. No rubs or gallops. Pulmonary: Clear to auscultation bilaterally without wheezes, rales, or rhonchi. Abdomen: Soft, nontender, nondistended, with normoactive bowel sounds. No bruits noted. Extremities: 2+ right radial pulse. Left upper extremity AV fistula with palpable thrill and audible bruit. 2+ posterior tibialis pulses bilaterally. Trace bilateral lower extremity edema. No cyanosis. Psychiatric: Affect appears appropriate. Results & Data ([facility]) Vital Signs (Past 12 Hours) Vital Signs Temp Pulse Pulse Resp BP BP Pulse Ox 08/15/22 11:36 36.9 C 67 18 154/68 H 98 08/15/22 08:00 96 H 08/15/22 11:02 96 H 191/82 H 08/15/22 08:04 36.8 C 83 20 129/66 98 08/15/22 05:00 08/15/22 04:41 36.7 C 103 H 20 189/65 H 95 08/15/22 04:00 76 18 171/97 H 97 08/15/22 03:04 156/85 H 08/15/22 03:00 90 18 138/109 H 97 08/15/22 02:22 184/96 H O2 Del Method 08/15/22 11:36 Room Air 08/15/22 08:00 08/15/22 11:02 08/15/22 08:04 Room Air 08/15/22 05:00 Room Air 08/15/22 04:41 Room Air 08/15/22 04:00 Room Air 08/15/22 03:04 08/15/22 03:00 Room Air 08/15/22 02:22 Laboratory Results Laboratory Results - last 24 hr 08/15/22 08/15/22 08/15/22 00:05 00:05 00:05 WBC 11.40 H RBC 2.74 L Hgb 8.2 L Hct 25.1 L MCV 91.6 MCH 29.9 MCHC 32.7 RDW Std Deviation 46.5 H RDW Coeff of Nilda 14.1 Plt Count 188 MPV 9.5 Immature Gran % (Auto) 0.6 Neut % (Auto) 70.4 Lymph % (Auto) 12.1 Pacific % (Auto) 9.3 Eos % (Auto) 6.9 Baso % (Auto) 0.7 Neut # (Auto) 8.02 H Lymph # (Auto) 1.38 [place] # (Auto) 1.06 H Eos # (Auto) 0.79 H Baso # (Auto) 0.08 Immature Gran # (Auto) 0.07 H ESR PT 10.8 INR 1.0 APTT 26.0 PTT Ratio 0.9 Sodium 126 L Potassium 4.1 Chloride 90 L Carbon Dioxide 25 Anion Gap 11 BUN 29 H Creatinine 3.09 H Est Cr Clr Drug Dosing 16.9 Est GFR ( Amer) 16.9 Est GFR (Non-Af Amer) 14.6 BUN/Creatinine Ratio 9.4 L Glucose 235 H POC Glucose Calcium 8.0 L Phosphorus 3.2 Magnesium 1.7 Total Bilirubin 0.7 AST 31 ALT 14 Alkaline Phosphatase 54 Troponin I High Sens 402.2 H* D C-Reactive Protein Total Protein 6.6 Albumin 3.4 Globulin 3.2 Albumin/Globulin Ratio 1.1 Nasal Screen MRSA (PCR) SARS-CoV-2, RNA, NAAT 08/15/22 08/15/22 08/15/22 01:30 04:50 05:08 WBC RBC Hgb Hct MCV MCH MCHC RDW Std Deviation RDW Coeff of Nilda Plt Count MPV Immature Gran % (Auto) Neut % (Auto) Lymph % (Auto) [place] % (Auto) Eos % (Auto) Baso % (Auto) Neut # (Auto) Lymph # (Auto) [place] # (Auto) Eos # (Auto) Baso # (Auto) Immature Gran # (Auto) ESR PT INR APTT PTT Ratio Sodium Potassium Chloride Carbon Dioxide Anion Gap BUN Creatinine Est Cr Clr Drug Dosing Est GFR ( Amer) Est GFR (Non-Af Amer) BUN/Creatinine Ratio Glucose POC Glucose 202 H Calcium Phosphorus Magnesium Total Bilirubin AST ALT Alkaline Phosphatase Troponin I High Sens C-Reactive Protein Total Protein Albumin Globulin Albumin/Globulin Ratio Nasal Screen MRSA (PCR) Negative SARS-CoV-2, RNA, NAAT NEGATIVE 08/15/22 08/15/22 08/15/22 06:40 06:40 06:40 WBC 10.43 RBC 2.58 L Hgb 7.6 L Hct 23.3 L MCV 90.3 MCH 29.5 MCHC 32.6 RDW Std Deviation 45.6 RDW Coeff of Nilda 13.9 Plt Count 186 MPV 9.7 Immature Gran % (Auto) 0.6 Neut % (Auto) 67.8 Lymph % (Auto) 15.3 [place] % (Auto) 9.5 Eos % (Auto) 6.3 Baso % (Auto) 0.5 Neut # (Auto) 7.07 H Lymph # (Auto) 1.60 [place] # (Auto) 0.99 H Eos # (Auto) 0.66 H Baso # (Auto) 0.05 Immature Gran # (Auto) 0.06 H ESR 28 PT INR APTT PTT Ratio Sodium 129 L Potassium 3.6 Chloride 93 L Carbon Dioxide 28 Anion Gap 8 BUN 30 H Creatinine 3.22 H Est Cr Clr Drug Dosing 16.3 Est GFR ( Amer) 16.1 Est GFR (Non-Af Amer) 13.9 BUN/Creatinine Ratio 9.3 L Glucose 160 H POC Glucose Calcium 7.9 L Phosphorus Magnesium 1.6 L Total Bilirubin 0.6 AST 21 ALT 12 Alkaline Phosphatase 52 Troponin I High Sens 419.3 H* C-Reactive Protein Total Protein 6.2 Albumin 3.3 L Globulin 2.9 Albumin/Globulin Ratio 1.1 Nasal Screen MRSA (PCR) SARS-CoV-2, RNA, NAAT 08/15/22 08/15/22 08/15/22 06:40 07:25 11:19 WBC RBC Hgb Hct MCV MCH MCHC RDW Std Deviation RDW Coeff of Nilda Plt Count MPV Immature Gran % (Auto) Neut % (Auto) Lymph % (Auto) [place] % (Auto) Eos % (Auto) Baso % (Auto) Neut # (Auto) Lymph # (Auto) [place] # (Auto) Eos # (Auto) Baso # (Auto) Immature Gran # (Auto) ESR PT INR APTT PTT Ratio Sodium Potassium Chloride Carbon Dioxide Anion Gap BUN Creatinine Est Cr Clr Drug Dosing Est GFR ( Amer) Est GFR (Non-Af Amer) BUN/Creatinine Ratio Glucose POC Glucose 149 H 207 H Calcium Phosphorus Magnesium Total Bilirubin AST ALT Alkaline Phosphatase Troponin I High Sens C-Reactive Protein 1.09 H Total Protein Albumin Globulin Albumin/Globulin Ratio Nasal Screen MRSA (PCR) SARS-CoV-2, RNA, NAAT Diagnostic Findings Telemetry personally reviewed: Predominantly sinus rhythm. Nonsustained atrial tachycardia. Frequent PACs. Nonsustained ventricular tachycardia of no more than 5 beats in duration. Echo report reviewed as noted above. Holter reports reviewed as noted above in HPI. Brain MRI 08/15/2022: No acute or subacute infarct. Chronic left anterior cerebral artery infarct redemonstrated along with chronic occlusion of the left ICA. Chest x-ray 08/14/2022: Pulmonary vascular congestion. ECGs personally reviewed: ECG 08/15/2022 at 8:39 AM: Sinus rhythm with frequent PACs. [address]/T wave abnormality. Septal infarct. ECG 08/14/2022 at 2343: Sinus rhythm with frequent and consecutive PACs. [address] abnormality. Septal infarct. Medications Administered Current Inpatient Medications Atorvastatin Calcium (Atorvastatin 40 Mg Tab) 80 mg PO HS MIKE Stop: 09/14/22 20:59 Calcitriol (Calcitriol 0.25 Mcg Capsule) 0.25 mcg PO QAM MIKE Stop: 09/14/22 08:59 Last Admin: 08/15/22 08:18 Dose: 0.25 mcg Carvedilol (Carvedilol 25 Mg Tab) 25 mg PO BID MIKE Stop: 09/14/22 20:59 Dextrose (Dextrose 50% 50 Ml Syringe) 25 - 50 ml IV UD PRN; Protocol PRN Reason: Hypoglycemia Protocol Stop: 09/14/22 03:46 Furosemide (Furosemide 80 Mg Tab) 80 mg PO DAILY MIKE Stop: 09/15/22 08:59 Glucagon (Glucagon For Inj 1 Mg Vial) 1 mg SQ UD PRN; Protocol PRN Reason: Hypoglycemia Protocol Stop: 09/14/22 03:46 Glucose (Glucose 40% Gel 15 Gm Tube) 15 - 30 gm PO UD PRN; Protocol PRN Reason: Hypoglycemia Protocol Stop: 09/14/22 03:46 Glucose (Glucose 10 Tab/Tube) 4 - 8 tab PO UD PRN; Protocol PRN Reason: Hypoglycemia Treatment Stop: 09/14/22 03:46 Heparin Sodium (Porcine) (Heparin Sod (Porcine) 1000 Unit/Ml) 500 units IV Q1H MIKE Stop: 08/16/22 08:01 Heparin Sodium (Porcine) (Heparin Sod (Porcine) 1000 Unit/Ml) 2,000 units IV ONE ONE Stop: 08/16/22 07:01 Sodium Chloride (Nss 1000ml) 1,000 mls @ 0 mls/hr IV .Q0M PRN PRN Reason: For Hemodialysis Use ONLY Stop: 08/16/22 12:59 Insulin Aspart (Insulin Aspart Per Unit) 0 units SC ACHS MIKE Stop: 09/14/22 07:29 Last Admin: 08/15/22 12:38 Dose: 2 units Insulin Glargine (Lantus Per Unit Charge) 15 units SQ BID MIKE Stop: 09/14/22 08:59 Last Admin: 08/15/22 08:18 Dose: 15 units Losartan Potassium (Losartan Potassium 50 Mg Tab) 100 mg PO QAM MIKE Stop: 09/14/22 08:59 Last Admin: 08/15/22 08:18 Dose: 100 mg Mirtazapine (Mirtazapine Tab 15 Mg Tab) 7.5 mg PO HS [facility] Stop: 09/14/22 20:59 Miscellaneous (Carbohydrates For Hypoglycemia ) 15 - 30 gm PO UD PRN PRN Reason: Hypoglycemia Protocol Stop: 09/14/22 03:46 PG Care Time/CCT Total # of Minutes Spent Total Time Spent with Patient: Total time spent is greater than 50% in coordination of care (as documented) at patient's floor/unit and/or counseling patient: Coding Level of Care Code 35812 Office/Outpt Visit, Est Diagnoses Elevated troponin R77.8 Hypertensive urgency I16.0 Coronary artery disease I25.10 Hyperlipemia E78.5 Chest pain R07.9 Paroxysmal ventricular tachycardia I47.29 Paroxysmal atrial tachycardia I47.1
[2022-08-15] MEDS: ASPIRIN 81 MG ECTAB PO SCH (18:11)
--- NOTE | 2022-08-15 19:05 | Hospitalist Progress Note ---
Date of Service August 15, 2022 Assessment & Plan (1) Hypertensive emergency: Plan: Presented with headache, blurred vision, dyspnea, mild confusion, elevated troponin. Symptoms all improved with improvement in BP today. Appreciate cardiology/nephrology input. Coreg has been increased to 25mg BID. Chlorthalidone has been d/c. Lasix increased to 80mg daily. Remains on losartan 100mg qam. Follow response to the above changes. (2) Blurry vision: Plan: Likely due to #1 above. Blurred vision improved in both eyes as her BPs have improved. MRI brain without any stroke of occipital region. No visual field cuts on exam. EOMI/PERRL. I spoke with on-call ophtho, Dr Leija. Since blurry vision is improving with Rx of BP can wait for full eye exam in office. On day of discharge patient can see him or his partners in the office for full, dilated eye exam. If blurred vision worsens formal consult can be done in hospital. (3) Cerebrovascular disease: Plan: chronic left frontal CVA on head imaging MRI brain NEGATIVE for acute stroke, however cont asa, statin, BP control for secondary prevention (4) Elevated troponin: Plan: Likely myocardial demand ischemia in the setting of #1 above. ESRD will also cause mild trop elevation. However, she does have known CAD, and it has been nearly 20 years since her last heart cath. Thus, high likelihood of obstructive CAD. Dr Wilson has seen today in consult, and recommends nuclear stress test and/or cath during this visit. Cont asa, BB, statin in meantime. Recheck trop in am to ensure it has peaked. (5) Dialysis patient: Plan: [facility] [place] Nephrology consult appreciated for HD needs and BP management/recs (6) Diabetes: Plan: Cont lantus Cont novolog (7) Paroxysmal ventricular tachycardia: Plan: as seen on tele this am cont BB echo findings noted; preserved EF likely nuclear stress test this admission (8) Anemia due to chronic kidney disease: Plan: Hemoglobin in the 7's now If Hb approaches 7 would consider PRBCs in light of elevated trop, dyspnea, known CAD, cerebrovascular disease, etc could be done while on HD tomorrow (9) ESRD (end stage renal disease) on dialysis: Plan: //Sat scheduled [facility] Nephro following (10) Coronary artery disease: Plan: Cont BB, asa, statin Probable stress test (nuclear) this admission Appreciate [facility] cardiology consultation last cath nearly 20 years ago in the setting of NSTEMI high likelihood of obstructive CAD (11) Carotid stenosis, bilateral: Plan: chronically occluded ICA on left disease also on right cont asa, statin (12) Renal artery stenosis: Plan: history of nephrology has ordered renal artery dopplers Plan updated pt's daughter by phone this evening Admission and Anticipated Discharge Date Admission Date: August 15, 2022 Subjective patient a little confused during my visit was having a hard time remembering names and events she herself said she felt a little confused patient states her headache has resolved she continues with blurry vision but it is improved from time of presentation the blurry vision is both eyes denies visual field cuts denies floaters 1-2 days ago she saw a distorted "light" but it wasn't a flash of light - she was having a very hard time describing it it lasted just briefly then resolved denies any chest pain this am denies any dyspnea appetite fair this am tele overnight - brief runs of NSVT, ectopy, PAT Review of Systems Review of Systems: gen - no fevers or chills cv - no orthopnea pulm - no cough GI - no abd pain Physical Exam Physical Exam: gen - NAD, modestly confused eyes - sclera nonicteric; PERRL; EOMI; visual gonzales full by direct confrontation mouth - MMM neck - no JVD heart - RRR, s1 s2, 2/6 SAURABH LSB lungs - CTA b/l abd - soft NT ND BS+ neuro - strength 5/5 x 4 exts ext - no edema, pulses 2+ b/l Results & Data Results & Data ([facility]) Vital Signs (Past 12 Hours) Vital Signs Temp Pulse Pulse Resp BP BP Pulse Ox 08/15/22 19:00 37.0 C 98 H 18 179/82 H 96 08/15/22 16:00 37.0 C 59 L 18 144/79 H 99 08/15/22 11:36 36.9 C 67 18 154/68 H 98 08/15/22 08:00 96 H 08/15/22 11:02 96 H 191/82 H 08/15/22 08:04 36.8 C 83 20 129/66 98 O2 Del Method 08/15/22 19:00 Room Air 08/15/22 16:00 08/15/22 11:36 Room Air 08/15/22 08:00 08/15/22 11:02 08/15/22 08:04 Room Air Laboratory Results Laboratory Results - last 24 hr 08/15/22 08/15/22 08/15/22 00:05 00:05 00:05 WBC 11.40 H RBC 2.74 L Hgb 8.2 L Hct 25.1 L MCV 91.6 MCH 29.9 MCHC 32.7 RDW Std Deviation 46.5 H RDW Coeff of Nilda 14.1 Plt Count 188 MPV 9.5 Immature Gran % (Auto) 0.6 Neut % (Auto) 70.4 Lymph % (Auto) 12.1 [place] % (Auto) 9.3 Eos % (Auto) 6.9 Baso % (Auto) 0.7 Neut # (Auto) 8.02 H Lymph # (Auto) 1.38 [place] # (Auto) 1.06 H Eos # (Auto) 0.79 H Baso # (Auto) 0.08 Immature Gran # (Auto) 0.07 H ESR PT 10.8 INR 1.0 APTT 26.0 PTT Ratio 0.9 Sodium 126 L Potassium 4.1 Chloride 90 L Carbon Dioxide 25 Anion Gap 11 BUN 29 H Creatinine 3.09 H Est Cr Clr Drug Dosing 16.9 Est GFR ( Amer) 16.9 Est GFR (Non-Af Amer) 14.6 BUN/Creatinine Ratio 9.4 L Glucose 235 H POC Glucose Calcium 8.0 L Phosphorus 3.2 Magnesium 1.7 Total Bilirubin 0.7 AST 31 ALT 14 Alkaline Phosphatase 54 Troponin I High Sens 402.2 H* D C-Reactive Protein Total Protein 6.6 Albumin 3.4 Globulin 3.2 Albumin/Globulin Ratio 1.1 Nasal Screen MRSA (PCR) SARS-CoV-2, RNA, NAAT 08/15/22 08/15/22 08/15/22 01:30 04:50 05:08 WBC RBC Hgb Hct MCV MCH MCHC RDW Std Deviation RDW Coeff of Nilda Plt Count MPV Immature Gran % (Auto) Neut % (Auto) Lymph % (Auto) [place] % (Auto) Eos % (Auto) Baso % (Auto) Neut # (Auto) Lymph # (Auto) [place] # (Auto) Eos # (Auto) Baso # (Auto) Immature Gran # (Auto) ESR PT INR APTT PTT Ratio Sodium Potassium Chloride Carbon Dioxide Anion Gap BUN Creatinine Est Cr Clr Drug Dosing Est GFR ( Amer) Est GFR (Non-Af Amer) BUN/Creatinine Ratio Glucose POC Glucose 202 H Calcium Phosphorus Magnesium Total Bilirubin AST ALT Alkaline Phosphatase Troponin I High Sens C-Reactive Protein Total Protein Albumin Globulin Albumin/Globulin Ratio Nasal Screen MRSA (PCR) Negative SARS-CoV-2, RNA, NAAT NEGATIVE 08/15/22 08/15/22 08/15/22 06:40 06:40 06:40 WBC 10.43 RBC 2.58 L Hgb 7.6 L Hct 23.3 L MCV 90.3 MCH 29.5 MCHC 32.6 RDW Std Deviation 45.6 RDW Coeff of Nilda 13.9 Plt Count 186 MPV 9.7 Immature Gran % (Auto) 0.6 Neut % (Auto) 67.8 Lymph % (Auto) 15.3 [place] % (Auto) 9.5 Eos % (Auto) 6.3 Baso % (Auto) 0.5 Neut # (Auto) 7.07 H Lymph # (Auto) 1.60 [place] # (Auto) 0.99 H Eos # (Auto) 0.66 H Baso # (Auto) 0.05 Immature Gran # (Auto) 0.06 H ESR 28 PT INR APTT PTT Ratio Sodium 129 L Potassium 3.6 Chloride 93 L Carbon Dioxide 28 Anion Gap 8 BUN 30 H Creatinine 3.22 H Est Cr Clr Drug Dosing 16.3 Est GFR ( Amer) 16.1 Est GFR (Non-Af Amer) 13.9 BUN/Creatinine Ratio 9.3 L Glucose 160 H POC Glucose Calcium 7.9 L Phosphorus Magnesium 1.6 L Total Bilirubin 0.6 AST 21 ALT 12 Alkaline Phosphatase 52 Troponin I High Sens 419.3 H* C-Reactive Protein Total Protein 6.2 Albumin 3.3 L Globulin 2.9 Albumin/Globulin Ratio 1.1 Nasal Screen MRSA (PCR) SARS-CoV-2, RNA, NAAT 08/15/22 08/15/22 08/15/22 06:40 07:25 11:19 WBC RBC Hgb Hct MCV MCH MCHC RDW Std Deviation RDW Coeff of Nilda Plt Count MPV Immature Gran % (Auto) Neut % (Auto) Lymph % (Auto) [place] % (Auto) Eos % (Auto) Baso % (Auto) Neut # (Auto) Lymph # (Auto) [place] # (Auto) Eos # (Auto) Baso # (Auto) Immature Gran # (Auto) ESR PT INR APTT PTT Ratio Sodium Potassium Chloride Carbon Dioxide Anion Gap BUN Creatinine Est Cr Clr Drug Dosing Est GFR ( Amer) Est GFR (Non-Af Amer) BUN/Creatinine Ratio Glucose POC Glucose 149 H 207 H Calcium Phosphorus Magnesium Total Bilirubin AST ALT Alkaline Phosphatase Troponin I High Sens C-Reactive Protein 1.09 H Total Protein Albumin Globulin Albumin/Globulin Ratio Nasal Screen MRSA (PCR) SARS-CoV-2, RNA, NAAT 08/15/22 16:56 WBC RBC Hgb Hct MCV MCH MCHC RDW Std Deviation RDW Coeff of Nilda Plt Count MPV Immature Gran % (Auto) Neut % (Auto) Lymph % (Auto) [place] % (Auto) Eos % (Auto) Baso % (Auto) Neut # (Auto) Lymph # (Auto) [place] # (Auto) Eos # (Auto) Baso # (Auto) Immature Gran # (Auto) ESR PT INR APTT PTT Ratio Sodium Potassium Chloride Carbon Dioxide Anion Gap BUN Creatinine Est Cr Clr Drug Dosing Est GFR ( Amer) Est GFR (Non-Af Amer) BUN/Creatinine Ratio Glucose POC Glucose 99 Calcium Phosphorus Magnesium Total Bilirubin AST ALT Alkaline Phosphatase Troponin I High Sens C-Reactive Protein Total Protein Albumin Globulin Albumin/Globulin Ratio Nasal Screen MRSA (PCR) SARS-CoV-2, RNA, NAAT Diagnostic Findings Chest X-Ray 08/14/22 23:49 XR chest 1V portable HISTORY: 71 years-old Female Chest Pain acute atypical chest pain COMPARISON: 08/03/2022 TECHNIQUE: AP view of the chest FINDINGS: Cardiac silhouette is enlarged. Pulmonary vascular congestion with mild interstitial coarsening. Dual lumen right IJ hemodialysis catheter is noted with distal tip in the expected location of the mid SVC. Atherosclerosis of the aorta. No pneumothorax. Question trace pleural effusions. Bones appear grossly intact. IMPRESSION: 1. Cardiomegaly with pulmonary vascular congestion. 2. Possible trace pleural effusions. 3. Dual lumen right IJ hemodialysis catheter in place. ACT 112: Negative or not required by law. The above report was generated using voice recognition software. It may contain grammatical, syntax or spelling errors. Electronically signed by: Markell Dowell M.D. 08/15/2022 8:[address] 08/15/22 00:04 CT head/brain wo con CLINICAL HISTORY: blurred vision Technique: Contiguous axial CT images of the head were acquired from the base of the skull to the vertex without intravenous contrast administration. Images were viewed in brain, subdural and bone windows. Automated dose lowering techniques and/or adjustment according to patient size were utilized for this exam. Comparison: Comparison is made to CT head 08/14/2017 Findings: The ventricles, basal cisterns, and cerebral sulci are normal. There is no acute intracranial hemorrhage or evidence of acute territorial infarction. Neither mass effect, shift of the midline structures, nor abnormal extra-axial fluid collections are shown. Old left frontal infarct is unchanged. Imaged portions of the paranasal sinuses and mastoid air cells are clear. The orbits appear normal. There are no acute fractures of the calvaria or scalp swelling. Impression: No acute intracranial hemorrhage, no evidence of acute territorial infarction or other acute intracranial disease process. ACT 112: Negative or not required by law. Electronically signed by: Marko Zaldivar M.D. 08/15/2022 9:01 AM Brain MRI 08/15/22 07:00 MR brain wo con HISTORY: 71 years-old Female blurry vision, headache acute dizziness with shortness of breath, and headache COMPARISON: Head CT of same day, brain MRI 01/13/2015 TECHNIQUE: Multiplanar multisequence MRI of the brain was obtained without use of IV contrast. FINDINGS: Encephalomalacia and gliosis related to chronic left anterior cerebral artery infarct redemonstrated. There is chronic occlusion of the left internal carotid artery with reconstitution of flow noted at the [place]. No restricted diffusion to suggest acute or subacute infarct. Study is mildly motion degraded. Degenerative changes of the imaged cervical spine. Midline structures are otherwise unremarkable. There is no acute intracranial hemorrhage, midline shift, abnormal extra axial collection, hydrocephalus or intracranial mass identified. No pathologic blooming artifact on the T2 star series. Involutional changes. Mild T2/FLAIR hyperintense foci noted throughout the white matter. Cerebral venous sinuses are patent. Skull, orbits and soft tissues are unremarkable. Postoperative changes of the paranasal sinuses. Leftward bowing and spurring the nasal septum. Mastoid air cells are clear. IMPRESSION: 1. No acute intracranial abnormality. No acute or subacute infarct. 2. Chronic left anterior cerebral artery infarct redemonstrated along with chronic occlusion of the left internal carotid artery. 3. Involutional changes with mild chronic microvascular ischemic disease. ACT 112: Negative or not required by law. The above report was generated using voice recognition software. It may contain grammatical, syntax or spelling errors. Electronically signed by: Markell Dowell M.D. 08/15/2022 7:53 AM PG Care Time/CCT Total # of Minutes Spent Total Time Spent with Patient: Total time spent is greater than 50% in coordination of care (as documented) at patient's floor/unit and/or counseling patient: Coding Level of Care Code 79920 Subseq Obs Care Lvl 3 Diagnoses Hypertensive emergency I16.1 Blurry vision H53.8 Cerebrovascular disease I67.9 Elevated troponin R77.8 Dialysis patient Z99.2 Diabetes E11.9 Paroxysmal ventricular tachycardia I47.29 Anemia due to chronic kidney disease N18.9; D63.1 ESRD (end stage renal disease) on dialysis N18.6; Z99.2 Coronary artery disease I25.10 Carotid stenosis, bilateral I65.23 Renal artery stenosis I70.1
--- NOTE | 2022-08-15 20:54 | Billing Data ---
Date of Service August 15, 2022 Coding Level of Care Code 25003 Initial Inpt Care Lvl 3
[2022-08-15] MEDS ORDERED: carvediloL 12.5 MG TAB PO SCH (21:00)
[2022-08-16] MEDS: carvediloL 25 MG TAB PO SCH ×3 (00:21→21:46)
[2022-08-16] MEDS: MIRTAZAPINE TAB 15 MG TAB PO SCH ×2 (00:21→21:46)
[2022-08-16] MEDS: ATORVASTATIN 40 MG TAB PO SCH ×2 (00:21→21:47)
--- NOTE | 2022-08-16 05:17 | Electrocardiogram Report ---
Test Reason : Blood Pressure : / mmHG Vent. Rate : 098 BPM Atrial Rate : 098 BPM P-R Int : 176 ms QRS Dur : 090 ms QT Int : 384 ms P-R-T Axes : 059 000 103 degrees QTc Int : 490 ms Sinus rhythm with Premature supraventricular complexes Septal infarct (cited on or before 04-MAR-2019) Nonspecific ST and T wave abnormality Abnormal ECG When compared with ECG of 03-AUG-2022 19:29, Premature ventricular complexes are no longer Present Confirmed by Twan Wilson ([id number]) on 08/16/2022 5:17:25 AM Referred By: REFERRED SELF Confirmed By:Twan Wilson
--- NOTE | 2022-08-16 05:39 | Electrocardiogram Report ---
Test Reason : Blood Pressure : / mmHG Vent. Rate : 085 BPM Atrial Rate : 119 BPM P-R Int : 192 ms QRS Dur : 088 ms QT Int : 412 ms P-R-T Axes : 069 -02 162 degrees QTc Int : 490 ms Sinus tachycardia with Premature atrial complexes Septal infarct (cited on or before 04-MAR-2019) Abnormal ECG When compared with ECG of 14-AUG-2022 23:43, No significant change Confirmed by Twan Wilson ([id number] on 08/16/2022 5:39:11 AM Referred By: REFERRED SELF Confirmed By:Twan Wilson
[2022-08-16] MEDS ORDERED: SODIUM CHLORIDE 0.9% 1000ML 1,000 ML IV PRN (07:00)
[2022-08-16] MEDS ORDERED: HEPARIN SOD (PORCINE) 1000 UNIT/ML IV ONE (07:00)
[2022-08-16 07:30] LABS: Basophils # (auto) 0.06 K/uL (0-0.2); Basophils % (auto) 0.8 %; Eosinophils # (auto) 0.62 K/uL (0-0.50); Eosinophils % (auto) 7.9 %; Hematocrit (blood only) 23.5 % (34.1-44.9); Hemoglobin 7.8 g/dl (12.0-16.0); Immature Granulocytes # (auto) 0.03 K/uL (0.00-0.02); Immature Granulocytes % (auto) 0.4 %; Lymphocytes # (auto) 1.37 K/uL (1.2-3.4); Lymphocytes % (auto) 17.4 %; Mean Corpuscular Hemoglobin 30.1 pg (25.0-34.0); Mean Corpuscular Hgb Conc 33.2 g/dL (32.0-36.0); Mean Corpuscular Volume 90.7 fL (80.0-100.0); Mean Platelet Volume 9.5 fL (9.4-12.3); Monocytes # (auto) 0.93 K/uL (0.24-0.82); Monocytes % (auto) 11.8 %; Neutrophils # (auto) 4.87 K/uL (1.4-6.5); Neutrophils % (auto) 61.7 %; Platelet Count 185 K/uL (130-400); RDW Coefficient of Variation 13.8 % (11.5-14.5); RDW Standard Deviation 45.8 fL (36.4-46.3); Red Blood Count 2.59 M/uL (3.93-5.22); White Blood Count 7.88 K/ul (4.8-10.8)
[2022-08-16] MEDS ORDERED: REGADENOSON 0.4 MG/5 ML SYR IV ONE (07:33)
[2022-08-16 07:51] LABS: Ovalocytes 1+; Polychromasia 1+
[2022-08-16 08:03] LABS: BUN Creatinine Ratio 9.9 (10-20); Calcium 8.3 mg/dl (8.5-10.1); Creatinine Clr Calc Pharmacy 13.2 ml/min; Est GFR (African American) 12.6 ml/min; Est GFR (Non-African American) 10.9 ml/min; Magnesium 1.8 mg/dl (1.7-2.4); Potassium 3.4 mmol/L (3.5-5.1)
[2022-08-16 08:08] LABS: Troponin I High Sensitivity 428.8 pg/ml (0-14)
[2022-08-16] MEDS: INSULIN ASPART PER UNIT SC SCH ×4 (08:37→21:43)
--- NOTE | 2022-08-16 09:07 | Nephrology Progress Note ---
Date of Service August 16, 2022 Assessment & Plan (1) ESRD (end stage renal disease) on dialysis: Plan: * Recent hospitalization w/ CHF. Presented this hospitalization w/ hypertensive urgency * 08/16/22 Renal US - mild renal asymmetry. Progressive cortical thinning compared to 2017 study * Will provide HD today. Orders placed in EMR and HD RN notified (2) Hypertensive urgency: Plan: * NaHCO3 tablets have been stopped * Patient reports that she does still make urine. Furosemide dose has been increased to 80 mg daily * Continue Losartan 100 mg each morning * Continue Carvedilol to 25 mg po BID * SBP 140 - 190 mm Hg last 24 hours. Patient appears euvolemic. Will add Procardia XL 90 mg daily (3) Coronary artery disease: Plan: * Elevated troponin on admission * Echocardiogram 08/15/22 with preserved LVEF. No WMA. Pulmonary HTN reported * Await result of nuclear stress test (4) Anemia: Plan: * Iron saturation < 20%, ferritin < 1200 * Will order IV Venofer * Will consider JOSE ELIAS once BP adequately controlled Admission and Anticipated Discharge Date Admission Date: August 15, 2022 Subjective Ms. Doll was evaluated in her hospital room this morning. She had just returned from nuclear echo study. She currently denies MELCHOR, angina, dyspnea or uremic symptoms Review of Systems Constitutional: no fever Eyes: + problem reported (blurred vision - now resolved) Ear, Nose, Mouth, Throat: no problem reported Respiratory: no cough and no dyspnea Cardiovascular: no chest pain Gastrointestinal: no abdominal pain, no nausea, no vomiting and no diarrhea/loose stools Genitourinary: no dysuria Physical Exam Constitutional: not in distress Eyes: PERRL, conjunctivae normal, anicteric sclerae ENMT: external ear and nose normal, oropharynx normal Neck: trachea midline, no thyromegaly Respiratory: normal respiratory effort, lungs clear to auscultation Cardiovascular: Rate/Rhythm: regular rate and regular rhythm Extremities: + edema (trace pretibial edema) Gastrointestinal (Abdomen): normal bowel sounds, soft, nontender, no hepatosplenomegaly Neurologic: Speech / Cognition: normal speech and normal cognition Results & Data ([facility]) Vital Signs (Past 12 Hours) Vital Signs Temp Pulse Resp BP Pulse Ox O2 Del Method 08/16/22 07:00 36.5 C 85 15 173/69 H 98 Room Air 08/16/22 03:00 36.7 C 60 18 162/77 H 98 Room Air 08/15/22 23:08 37.0 C 81 18 176/80 H 97 Room Air Laboratory Results Laboratory Tests 08/15/22 08/15/22 08/16/22 00:05 06:40 06:49 WBC 7.88 Hgb 7.8 L Hct 23.5 L Plt Count 185 Sodium Potassium Chloride Carbon Dioxide BUN Creatinine Calcium Transferrin % Sat Ferritin Troponin I High Sens 402.2 H* D 419.3 H* 08/16/22 06:49 WBC Hgb Hct Plt Count Sodium 132 L Potassium 3.4 L Chloride 95 L Carbon Dioxide 29 BUN 39 H Creatinine 3.94 H D Calcium 8.3 L Transferrin % Sat 14 L Ferritin 531.0 H Troponin I High Sens 428.8 H* PG Care Time/CCT Total # of Minutes Spent Total Time Spent with Patient: Total time spent is greater than 50% in coordination of care (as documented) at patient's floor/unit and/or counseling patient: Coding Level of Care Code 93797 Subseq Hosp Care Lvl 3 Diagnoses ESRD (end stage renal disease) on dialysis N18.6; Z99.2 Hypertensive urgency I16.0 Coronary artery disease I25.10 Anemia D64.9
--- NOTE | 2022-08-16 10:02 | Ultrasound Report ---
RENAL ULTRASOUND HISTORY: Chronic kidney disease. COMPARISON: Duplex renal artery ultrasound 08/15/2017. Renal ultrasound 07/29/2017. FINDINGS: Right kidney: 9.7 cm. No hydronephrosis. Moderate cortical thinning with increased cortical echogenic ity. This has slightly progressed in the interval. There are 2 cysts within the right kidney with the largest measuring 2.1 cm. Trace perinephric fluid is noted. Left kidney: 8.8 cm. No hydronephrosis. The left kidney remains atrophic with increased cortical echo genicity. There are a few cysts with the largest in the upper pole measuring 2.4 cm. Bladder: No bladder wall thickening. The bilateral ureteral jets were not identified. IMPRESSION: 1. No hydronephrosis. 2. Bilateral cortical renal thinning/atrophy most pronounced on the left with increased cortical echo genicity consistent with medical renal disease. This has slightly progressed in the interval. ACT 112: Negative or not required by law. Electronically signed by: Andrez Frank M.D. 08/16/2022 10:01 AM
[2022-08-16] MEDS: NIFEdipine EXTENDED REL 30 MG TABCR PO SCH (10:28)
[2022-08-16] MEDS: FUROSEMIDE 80 MG TAB PO SCH (10:28)
[2022-08-16] MEDS: CALCITRIOL 0.25 MCG CAPSULE PO SCH (10:29)
[2022-08-16] MEDS: LOSARTAN POTASSIUM 50 MG TAB PO SCH (10:29)
[2022-08-16] MEDS: ASPIRIN 81 MG ECTAB PO SCH (10:29)
[2022-08-16] MEDS: LANTUS PER UNIT CHARGE SQ SCH ×2 (10:30→21:44)
[2022-08-16] MEDS ORDERED: ACETAMINOPHEN 325 MG TAB PO PRN (11:48)
[2022-08-16] MEDS ORDERED: ACETAMINOPHEN 325 MG TAB ONE (11:56)
[2022-08-16] MEDS: IRON SUCROSE 200 MG in 0.9 % SODIUM CHLORIDE 100 ML IV SCH (12:03)
[2022-08-16] MEDS: HEPARIN SOD (PORCINE) 1000 UNIT/ML IV SCH ×2 (12:03→13:42)
--- NOTE | 2022-08-16 16:08 | Hospitalist Progress Note ---
Date of Service August 16, 2022 Assessment & Plan (1) Hypertensive emergency: Plan: Resolved. Nifedipine added by nephrology. Other medications remain the same except Coreg has been uptitrated and chlorthalidone discontinued. She is now on Lasix. (2) Blurry vision: Plan: Much improved from admission. Anticipate complete resolution. No evidence of CVA. MRI brain without any stroke of occipital region. (3) Cerebrovascular disease: Plan: chronic left frontal CVA on head imaging. MRI brain NEGATIVE for acute stroke. Cont asa, statin, BP control for secondary prevention (4) Elevated troponin: Plan: Likely myocardial demand ischemia in the setting of #1 above. ESRD will also cause mild trop elevation. However, she does have known CAD, and it has been nearly 20 years since her last heart cath. Dr Wilson has seen the patient and recommends nuclear stress test and/or cath during this visit. Cont asa, BB, statin in meantime. (5) Dialysis patient: Plan: [facility] [place] Nephrology consult appreciated for HD needs and BP management/recs (6) Diabetes: Plan: Cont lantus. Cont novolog . ADA diet (7) Paroxysmal ventricular tachycardia: Plan: cont BB. Echo findings noted; preserved EF. Likely nuclear stress test this admission . Telemetry (8) Anemia due to chronic kidney disease: Plan: Iron deficiency documented. Parenteral iron replacement ordered by nephrology. Serial labs (9) ESRD (end stage renal disease) on dialysis: Plan: //Sat scheduled. [facility] Nephro following (10) Coronary artery disease: Plan: Cont BB, asa, statin. Probable stress test (nuclear) this admission . Appreciate [facility] cardiology consultation. Last cath nearly 20 years ago in the setting of NSTEMI (11) Carotid stenosis, bilateral: Plan: chronically occluded ICA on left. Cont asa, statin (12) Renal artery stenosis: Plan: history of. Nephrology has ordered renal artery dopplers Plan Hopeful discharge to home tomorrow, August 17 Admission and Anticipated Discharge Date Admission Date: August 15, 2022 Subjective Alert and oriented. No distress. Nephrology entry noted. She is now on nifedipine. She also was noted to be iron deficient and parenteral iron replacement has been ordered. Anticipate discharge to home tomorrow, August 17 Review of Systems Review of Systems: Constitutional-no fever or chills ENT-no blurred vision, no double vision, no epistaxis, no sore throat Respiratory-no cough, no wheezing, no shortness of breath Cardiac-no palpitations, no chest pain, no syncope GI-no nausea, vomiting, diarrhea, melena, hematochezia -no urinary retention, no urinary incontinence, no dysuria, no hematuria Musculoskeletal-no joint pain, no muscle tenderness Skin-no bruising, no rashes, no pruritus Neuro-no isolated weakness, no paresthesia, no weakness Psych-no depression, no anxiety Physical Exam Physical Exam: General-alert and oriented x3, no fevers, no chills HEENT-head atraumatic and normocephalic, pupils equal and reactive to light, extraocular muscles intact Neck-no lymphadenopathy or thyromegaly, trachea midline Chest-clear to auscultation percussion. No rales wheezing or rhonchi Cardiac-regular rate and rhythm, normal S1 and S2, no murmurs Abdomen-normal bowel sounds, nontender, no hepatosplenomegaly Extremities-no cyanosis, clubbing, or edema Neuro-cranial nerves II through XII intact, motor and sensory function within normal limits, strength symmetrical , no focal deficits Psych-normal affect, normal mood Results & Data Results & Data ([facility]) Vital Signs (Past 12 Hours) Vital Signs Temp Pulse Pulse Pulse Pulse Resp BP 08/16/22 15:00 36.7 C 77 16 08/16/22 14:30 67 111/58 L 08/16/22 14:56 36.8 C 77 08/16/22 14:00 60 143/95 H 08/16/22 13:15 87 124/60 08/16/22 13:30 68 171/66 H 08/16/22 13:00 53 L 96/48 L 08/16/22 12:30 68 138/83 08/16/22 12:00 74 167/76 H 08/16/22 11:30 78 155/85 H 08/16/22 11:00 65 150/83 H 08/16/22 10:52 37.2 C 88 08/16/22 10:45 36.9 C 76 16 08/16/22 10:12 68 08/16/22 07:00 36.5 C 85 15 BP Pulse Ox O2 Del Method 08/16/22 15:00 140/58 L 98 Room Air 08/16/22 14:30 08/16/22 14:56 132/69 08/16/22 14:00 08/16/22 13:15 08/16/22 13:30 08/16/22 13:00 08/16/22 12:30 08/16/22 12:00 08/16/22 11:30 08/16/22 11:00 08/16/22 10:52 08/16/22 10:45 136/71 100 Room Air 08/16/22 10:12 08/16/22 07:00 173/69 H 98 Room Air Laboratory Results 08/16/22 06:49 08/16/22 06:49 PG Care Time/CCT Total # of Minutes Spent Total Time Spent with Patient: Total time spent is greater than 50% in coordination of care (as documented) at patient's floor/unit and/or counseling patient: Coding Level of Care Code 33819 Subseq Hosp Care Lvl 3 Diagnoses Hypertensive emergency I16.1 Blurry vision H53.8 Cerebrovascular disease I67.9 Elevated troponin R77.8 Dialysis patient Z99.2 Diabetes E11.9 Paroxysmal ventricular tachycardia I47.29 Anemia due to chronic kidney disease N18.9; D63.1 ESRD (end stage renal disease) on dialysis N18.6; Z99.2 Coronary artery disease I25.10 Carotid stenosis, bilateral I65.23 Renal artery stenosis I70.1
--- NOTE | 2022-08-16 16:16 | Ultrasound Report ---
DOPPLER ULTRASOUND OF THE RENAL ARTERIES CLINICAL HISTORY: Hypertension. COMPARISON STUDY: No priors. TECHNIQUE: Doppler sonography of the renal arteries was performed to assess renal artery stenosis. Im ages are reviewed in the transverse and longitudinal planes. The examination is degraded by lack of p atient cooperation and inability to breath-hold. FINDINGS: The kidneys lesser cortical atrophy. Echotexture is normal and there is no hydronephrosis. The right kidney measures 9.6 cm in length and the left kidney measures 8.5 cm in length. There is no hydroneph rosis. On the right, intrarenal arterial resistive indices measure 1.0 throughout. Intrarenal arterial wavef orms are normal with brisk upstrokes. The right renal arterial waveform is normal, and velocities wit hin the right renal artery measure up to 61 cm/sec. The right renal vein is patent. On the left, intrarenal arterial resistive indices range from 0.70 to 0.73. Intrarenal arterial wave forms are normal with brisk upstrokes. The proximal and mid portions of the left renal artery are not well visualized. Velocities within the distal left renal artery measure up to 48 cm/sec. The left re nal vein is patent. The abdominal aorta is patent. Velocities within the abdominal aorta measure up to 127 cm/s. IMPRESSION: 1. There is no sonographic evidence of renal artery stenosis. Note that the left renal artery was not well visualized. 2. Elevated resistive indices in the right kidney suggest medical renal disease. 3. The kidneys demonstrate cortical atrophy and are without hydronephrosis. ACT 112: Negative or not required by law. Electronically signed by: Fabio Shafer M.D. 08/16/2022 4:14 PM
--- NOTE | 2022-08-16 17:31 | Cardiology Progress Note ---
Date of Service August 16, 2022 Assessment & Plan (1) Coronary artery disease: (2) Hypertensive urgency: (3) Elevated troponin: (4) Hyperlipemia: (5) Chest pain: (6) Paroxysmal ventricular tachycardia: (7) Paroxysmal atrial tachycardia: Plan ASSESSMENT/PLAN: 1. Elevated troponin: Likely due to severely elevated blood pressure in the setting of documented CAD. Likely demand ischemia. Myocardial perfusion demonstrated no significant ischemic changes. 2. CAD: Severe RCA CAD noted first in 2000. Had atypical chest pain that has since resolved. Myocardial perfusion study without significant ischemia. Aspirin 81 mg once daily. Continue high intensity statin therapy and beta- sarika. 2. Paroxysmal ventricular tachycardia: No further VT. This was noted on 08/15/2022 but she had not received her full beta-sarika dose. Continue beta- sarika. 4. Paroxysmal atrial tachycardia: Chronic issue. No symptoms today. Continue beta-sarika. 5. Hypertensive urgency: Medications have been adjusted by nephrology during this hospital stay. Blood pressure much improved. 6. Chest pain: As above. Hypertension may have precipitated chest pain. No further pain. 7. Dyslipidemia: Continue high intensity statin therapy. 8. Pulmonary hypertension: Possible mild pulmonary hypertension noted on echo. Asymptomatic. Etiology uncertain, but could be related to hypervolemia, which is managed by diuretics and dialysis. 9. Blurry vision: One of her main complaints. Resolved. Had brain MRI without acute stroke. 10. Disposition: Cardiology will sign off at this time. She should follow-up with her primary early childhood special educator, Dr. Carlos, on discharge. Have contacted cardiology office to help set up this appointment. Admission and Anticipated Discharge Date Admission Date: August 15, 2022 Subjective She feels much better today. She denies any further chest pain. Blurry vision has completely resolved. She denies shortness of breath, despite ambulation in her room. She denies syncope, near syncope, palpitations, or bleeding. She underwent dialysis today. She was alone in her hospital room. Physical Exam Physical Exam: Gen.: No acute distress. Alert. HEENT: Anicteric sclera. Neck: No appreciated JVD. Cardiac: No ventricular heave. Regular. Normal S1-S2. 2/6 systolic murmur. No rubs or gallops. Pulmonary: Clear to auscultation bilaterally without wheezes, rales, or rhonchi. Abdomen: Soft, nontender, nondistended, with normoactive bowel sounds. No bruits noted. Extremities: 2+ right radial pulse. Left upper extremity AV fistula with palpable thrill and audible bruit. 2+ posterior tibialis pulses bilaterally. Trace left lower extremity edema. No cyanosis. Psychiatric: Affect appears appropriate. Results & Data ([facility]) Vital Signs (Past 12 Hours) Vital Signs Temp Pulse Pulse Pulse Pulse Resp BP 08/16/22 15:00 36.7 C 77 16 08/16/22 14:30 67 111/58 L 08/16/22 14:56 36.8 C 77 08/16/22 14:00 60 143/95 H 08/16/22 13:15 87 124/60 08/16/22 13:30 68 171/66 H 08/16/22 13:00 53 L 96/48 L 08/16/22 12:30 68 138/83 08/16/22 12:00 74 167/76 H 08/16/22 11:30 78 155/85 H 08/16/22 11:00 65 150/83 H 08/16/22 10:52 37.2 C 88 08/16/22 10:45 36.9 C 76 16 08/16/22 10:12 68 08/16/22 07:00 36.5 C 85 15 BP Pulse Ox O2 Del Method 08/16/22 15:00 140/58 L 98 Room Air 08/16/22 14:30 08/16/22 14:56 132/69 08/16/22 14:00 08/16/22 13:15 08/16/22 13:30 08/16/22 13:00 08/16/22 12:30 08/16/22 12:00 08/16/22 11:30 08/16/22 11:00 08/16/22 10:52 08/16/22 10:45 136/71 100 Room Air 08/16/22 10:12 08/16/22 07:00 173/69 H 98 Room Air Intake & Output 08/14/22 08/15/22 08/16/22 08/17/22 06:59 06:59 06:59 06:59 Intake Total 110 / 110 Output Total 200 / 200 2150 / 2150 325 / 325 Balance -200 / -200 -2150 / -2150 -215 / -215 Weight 183 lb 13.848 oz 180 lb 15.992 oz Laboratory Results Laboratory Results - last 24 hr 08/15/22 08/16/22 08/16/22 20:23 06:49 06:49 WBC 7.88 RBC 2.59 L Hgb 7.8 L Hct 23.5 L MCV 90.7 MCH 30.1 MCHC 33.2 RDW Std Deviation 45.8 RDW Coeff of Nilda 13.8 Plt Count 185 MPV 9.5 Immature Gran % (Auto) 0.4 Neut % (Auto) 61.7 Lymph % (Auto) 17.4 Sebastian % (Auto) 11.8 Eos % (Auto) 7.9 Baso % (Auto) 0.8 Neut # (Auto) 4.87 Lymph # (Auto) 1.37 Sebastian # (Auto) 0.93 H Eos # (Auto) 0.62 H Baso # (Auto) 0.06 Immature Gran # (Auto) 0.03 H Polychromasia 1+ Ovalocytes 1+ Sodium Potassium Chloride Carbon Dioxide Anion Gap BUN Creatinine Est Cr Clr Drug Dosing Est GFR ( Amer) Est GFR (Non-Af Amer) BUN/Creatinine Ratio Glucose POC Glucose 145 H Calcium Magnesium Iron Cancelled TIBC Cancelled Unsaturated IBC Cancelled Transferrin % Sat Cancelled Ferritin Cancelled Troponin I High Sens 08/16/22 08/16/22 08/16/22 06:49 07:05 16:26 WBC RBC Hgb Hct MCV MCH MCHC RDW Std Deviation RDW Coeff of Nilda Plt Count MPV Immature Gran % (Auto) Neut % (Auto) Lymph % (Auto) Sebastian % (Auto) Eos % (Auto) Baso % (Auto) Neut # (Auto) Lymph # (Auto) Sebastian # (Auto) Eos # (Auto) Baso # (Auto) Immature Gran # (Auto) Polychromasia Ovalocytes Sodium 132 L Potassium 3.4 L Chloride 95 L Carbon Dioxide 29 Anion Gap 8 BUN 39 H Creatinine 3.94 H D Est Cr Clr Drug Dosing 13.2 Est GFR ( Amer) 12.6 Est GFR (Non-Af Amer) 10.9 BUN/Creatinine Ratio 9.9 L Glucose 87 POC Glucose 80 90 Calcium 8.3 L Magnesium 1.8 Iron 31 L TIBC 228 L Unsaturated IBC 197 Transferrin % Sat 14 L Ferritin 531.0 H Troponin I High Sens 428.8 H* Diagnostic Findings Telemetry personally reviewed: Predominantly sinus rhythm. Short atrial runs. No ventricular tachycardia. PACs. Nuclear stress 08/16/2022: No significant ischemia. Medications Administered Current Inpatient Medications Acetaminophen (Acetaminophen 325 Mg Tab) 650 mg PO Q4H PRN PRN Reason: Fever or headache Stop: 09/15/22 11:47 Aspirin (Aspirin 81 Mg Ectab) 81 mg PO QAM MIKE Stop: 09/14/22 14:29 Last Admin: 08/16/22 10:29 Dose: 81 mg Atorvastatin Calcium (Atorvastatin 40 Mg Tab) 80 mg PO HS MIKE Stop: 09/14/22 20:59 Last Admin: 08/16/22 00:21 Dose: 80 mg Calcitriol (Calcitriol 0.25 Mcg Capsule) 0.25 mcg PO QAM MIKE Stop: 09/14/22 08:59 Last Admin: 08/16/22 10:29 Dose: 0.25 mcg Carvedilol (Carvedilol 25 Mg Tab) 25 mg PO BID MIKE Stop: 09/14/22 20:59 Last Admin: 08/16/22 10:29 Dose: 25 mg Dextrose (Dextrose 50% 50 Ml Syringe) 25 - 50 ml IV UD PRN; Protocol PRN Reason: Hypoglycemia Protocol Stop: 09/14/22 03:46 Furosemide (Furosemide 80 Mg Tab) 80 mg PO DAILY MIKE Stop: 09/15/22 08:59 Last Admin: 08/16/22 10:28 Dose: 80 mg Glucagon (Glucagon For Inj 1 Mg Vial) 1 mg SQ UD PRN; Protocol PRN Reason: Hypoglycemia Protocol Stop: 09/14/22 03:46 Glucose (Glucose 40% Gel 15 Gm Tube) 15 - 30 gm PO UD PRN; Protocol PRN Reason: Hypoglycemia Protocol Stop: 09/14/22 03:46 Glucose (Glucose 10 Tab/Tube) 4 - 8 tab PO UD PRN; Protocol PRN Reason: Hypoglycemia Treatment Stop: 09/14/22 03:46 Iron Sucrose 200 mg/ Sodium (Chloride) 110 mls @ 220 mls/hr IV DAILY MIKE Stop: 08/20/22 09:29 Last Infusion: 08/16/22 15:04 Dose: Infused Insulin Aspart (Insulin Aspart Per Unit) 0 units SC ACHS MIKE Stop: 09/14/22 07:29 Last Admin: 08/16/22 16:58 Dose: Not Given Insulin Glargine (Lantus Per Unit Charge) 15 units SQ BID [facility] Stop: 09/14/22 08:59 Last Admin: 08/16/22 10:30 Dose: 15 units Losartan Potassium (Losartan Potassium 50 Mg Tab) 100 mg PO QAM [facility] Stop: 09/14/22 08:59 Last Admin: 08/16/22 10:29 Dose: 100 mg Mirtazapine (Mirtazapine Tab 15 Mg Tab) 7.5 mg PO HS [facility] Stop: 09/14/22 20:59 Last Admin: 08/16/22 00:21 Dose: 7.5 mg Miscellaneous (Carbohydrates For Hypoglycemia ) 15 - 30 gm PO UD PRN PRN Reason: Hypoglycemia Protocol Stop: 09/14/22 03:46 Nifedipine (Nifedipine Extended Rel 30 Mg Tabcr) [facility] [place]: 09/15/22 09:29 Last Admin: 08/16/22 10:28 Dose: 30 mg PG Care Time/CCT Total # of Minutes Spent Total Time Spent with Patient: Total time spent is greater than 50% in coordination of care (as documented) at patient's floor/unit and/or counseling patient: Coding Level of Care Code 28868 Office/Outpt Visit, Est Diagnoses Coronary artery disease I25.10 Hypertensive urgency I16.0 Elevated troponin R77.8 Hyperlipemia E78.5 Chest pain R07.9 Paroxysmal ventricular tachycardia I47.29 Paroxysmal atrial tachycardia I47.1
--- NOTE | 2022-08-16 19:36 | Myocardial Perfusion Study ---
Date of Service August 16, 2022 Myocardial Perfusion Study [facility] Myocardial Perfusion Study Report Procedure: 1. Myocardial perfusion study performed in multiple views/images 2. Lexiscan pharmacologic stress ECG Indications: 1. Chest pain 2. Elevated troponin 3. CAD Consent: Informed written consent was obtained prior to the procedure. Ordering physician: Francisco Wilson Procedural details: For the stress portion of the study, Lexiscan 0.4 mg was intravenously administered followed by a saline flush. This was followed by 32.6 mCi of technetium 99m Cardiolite, injected at 9:03 AM on 08/16/22. 30 minutes following the injection, imaging of the heart was performed in multiple projections. For the rest portion of the study, 11 mCi technetium 99m Cardiolite was injected intravenously at 7:25 AM on 08/16/22. 1 hour following the injection, imaging of the heart was performed in the same projections. Lexiscan stress ECG: Resting ECG demonstrated: Sinus rhythm with frequent PACs. 84 bpm. Septal infarct. Nonspecific ST abnormality. Maximum heart rate: 107 bpm Maximal, age-predicted heart rate: 71% Resting blood pressure: 202/68 mmHg Maximum blood pressure: 202/[address] changes: none Arrhythmia: Short atrial runs Symptoms: None reported Findings: Rotating raw imaging demonstrated no significant lung uptake. There is no significant motion artifact. Heart size appeared normal. Myocardial perfusion demonstrated a small area of moderately reduced uptake involving the basal to distal inferior wall and basal to mid inferoseptal wall segments, which appeared mostly fixed and post-rest and rest images. There was no significant reversibility to suggest significant ischemia. There was significant intestinal uptake noted in both post-rest and rest images. Ejection fraction and wall motion analysis difficult as gated images are affected by heart rate variability and there were very frequent PACs and short atrial runs. Calculated ejection fraction was 33% and there appeared to be global hypokinesis. No significant transient ischemic dilation. Impression: 1. No significant ischemia suggested. 2. Possible RCA territory infarct. 3. Nondiagnostic Lexiscan ECG. 4. Calculated ejection fraction 33%, however heart rate variability limits LV systolic function and wall motion analysis. [facility] Myocardial perfusion code Procedure Code Procedure 1: Myocardial Perfusion Codes: 83188 Cardiovascular Stress Test, multiple Procedure 2: Myocardial Perfusion Codes: 95602 Cardiovascular Stress Test, supervision only Procedure 3: Myocardial Perfusion Codes: 64930 Cardiovascular Stress Test, interpretation and report
[2022-08-17] MEDS: carvediloL 25 MG TAB PO SCH (08:04)
[2022-08-17] MEDS: ASPIRIN 81 MG ECTAB PO SCH (08:04)
[2022-08-17 08:07] LABS: Basophils # (auto) 0.07 K/uL (0-0.2); Basophils % (auto) 0.9 %; Eosinophils % (auto) 8.1 %; Hematocrit (blood only) 25.8 % (34.1-44.9); Hemoglobin 8.3 g/dl (12.0-16.0); Immature Granulocytes # (auto) 0.03 K/uL (0.00-0.02); Immature Granulocytes % (auto) 0.4 %; Lymphocytes # (auto) 1.27 K/uL (1.2-3.4); Lymphocytes % (auto) 17.2 %; Mean Corpuscular Hemoglobin 29.5 pg (25.0-34.0); Mean Corpuscular Hgb Conc 32.2 g/dL (32.0-36.0); Mean Corpuscular Volume 91.8 fL (80.0-100.0); Mean Platelet Volume 9.8 fL (9.4-12.3); Monocytes # (auto) 0.95 K/uL (0.24-0.82); Monocytes % (auto) 12.9 %; Neutrophils # (auto) 4.45 K/uL (1.4-6.5); Neutrophils % (auto) 60.5 %; Platelet Count 208 K/uL (130-400); RDW Coefficient of Variation 13.8 % (11.5-14.5); RDW Standard Deviation 46.4 fL (36.4-46.3); Red Blood Count 2.81 M/uL (3.93-5.22); White Blood Count 7.37 K/ul (4.8-10.8)
[2022-08-17] MEDS: INSULIN ASPART PER UNIT SC SCH ×2 (08:28→12:14)
[2022-08-17] MEDS: IRON SUCROSE 200 MG in 0.9 % SODIUM CHLORIDE 100 ML IV SCH (08:29)
[2022-08-17] MEDS: LOSARTAN POTASSIUM 50 MG TAB PO SCH (08:32)
[2022-08-17] MEDS: CALCITRIOL 0.25 MCG CAPSULE PO SCH (08:32)
[2022-08-17] MEDS: NIFEdipine EXTENDED REL 30 MG TABCR PO SCH (08:32)
[2022-08-17] MEDS: FUROSEMIDE 80 MG TAB PO SCH (08:32)
[2022-08-17 08:33] LABS: BUN Creatinine Ratio 8.4 (10-20); Calcium 8.6 mg/dl (8.5-10.1); Creatinine Clr Calc Pharmacy 15.7 ml/min; Est GFR (African American) 15.5 ml/min; Est GFR (Non-African American) 13.4 ml/min; Potassium 3.5 mmol/L (3.5-5.1)
[2022-08-17] MEDS: LANTUS PER UNIT CHARGE SQ SCH (08:35)
--- NOTE | 2022-08-17 08:54 | Nephrology Progress Note ---
Date of Service August 17, 2022 Assessment & Plan (1) ESRD (end stage renal disease) on dialysis: Plan: * Recent hospitalization w/ CHF. Presented this hospitalization w/ hypertensive urgency * 08/16/22 Renal US - mild renal asymmetry. Progressive cortical thinning compared to 2017 study * No acute indication for HD today. If discharge is anticipated, please have patient resume TTS HD at [facility] (2) Hypertensive urgency: Plan: * NaHCO3 tablets have been stopped * Patient reports that she does still make urine. Furosemide dose has been increased to 80 mg daily * Continue Losartan 100 mg each morning * Continue Carvedilol to 25 mg po BID * If discharge is anticipated, recommend administering Procardia XL 90 mg at bedtime (3) Coronary artery disease: Plan: * Elevated troponin on admission * Echocardiogram 08/15/22 with preserved LVEF. No WMA. Pulmonary HTN reported * Nuclear stress test was negative for inducible ischemia (4) Anemia: Plan: * Iron saturation < 20%, ferritin < 1200 * Will order IV Venofer * Will consider JOSE ELIAS once BP adequately controlled Admission and Anticipated Discharge Date Admission Date: August 15, 2022 Subjective Ms. Doll was evaluated in her hospital room this morning. She currently denies MELCHOR, angina, dyspnea or uremic symptoms. She was dialyzed yesterday without complication Review of Systems Constitutional: no fever Eyes: no problem reported (blurred vision - now resolved) Ear, Nose, Mouth, Throat: no problem reported Respiratory: no cough and no dyspnea Cardiovascular: no chest pain Gastrointestinal: no abdominal pain, no nausea, no vomiting and no diarrhea/loose stools Genitourinary: no dysuria Physical Exam Constitutional: not in distress Eyes: PERRL, conjunctivae normal, anicteric sclerae ENMT: external ear and nose normal, oropharynx normal Neck: trachea midline, no thyromegaly Respiratory: normal respiratory effort, lungs clear to auscultation Cardiovascular: Rate/Rhythm: regular rate and regular rhythm Extremities: no edema Gastrointestinal (Abdomen): normal bowel sounds, soft, nontender, no hepatosplenomegaly Neurologic: Speech / Cognition: normal speech and normal cognition Results & Data ([facility]) Vital Signs (Past 12 Hours) Vital Signs Temp Pulse Pulse Resp BP Pulse Ox O2 Del Method 08/17/22 07:00 36.9 C 67 16 148/83 H 98 Room Air 08/17/22 07:40 76 08/17/22 03:00 36.9 C 76 18 155/70 H 98 Room Air 08/16/22 23:32 71 08/16/22 23:31 Room Air 08/16/22 23:00 37 C 86 20 155/70 H 99 Room Air Laboratory Results Laboratory Tests 08/17/22 08/17/22 07:03 07:03 WBC 7.37 Hgb 8.3 L Hct 25.8 L Plt Count 208 Sodium 137 Potassium 3.5 Chloride 102 Carbon Dioxide 28 BUN 28 H Creatinine 3.32 H D Glucose 78 Calcium 8.6 PG Care Time/CCT Total # of Minutes Spent Total Time Spent with Patient: Total time spent is greater than 50% in coordination of care (as documented) at patient's floor/unit and/or counseling patient: Coding Level of Care Code 02291 Subseq Hosp Care Lvl 3 Diagnoses ESRD (end stage renal disease) on dialysis N18.6; Z99.2 Hypertensive urgency I16.0 Coronary artery disease I25.10 Anemia D64.9
--- NOTE | 2022-08-17 12:08 | Discharge Summary ---
Date of Service August 17, 2022 Admission HPI Per Admitting Provider 71 y/o female w/ PMHx of ESRD, CAD (NSTEMI 2000), HTN, HLD, anxiety, depression, gout, and DM2 on insulinwho presents via EMS w/ shortness of breath. This started after a 4 hour dialysis session (longest she has had thus far) at [facility], and was accompanied by lightheadedness, palpitation, and generalized weakness/fatigue. Increased palpitations. Still has headache and blurry vision. 5/10 MELCHOR (was 7/10). occipital. She was recently admitted to [facility] 08/03-08/08 for dyspnea and BLE edema; HD cath was placed at R chest wall and dialysis was started at that admission. She does have a nonfunctioning AV fistul a at L arm. Her BP was 200s/100s in the ED. Manual BP was 180s/90s. Denies current SOB though at times "hard to catch breath." ED course: IV labetalol 10mg ordered by me. Improved BPs to 150s systolic w/ improvement in the headache and overall feeling better. After initial labetalol was starting to wear off (systolic 170), ordered PO Coreg 12.5mg. Head CT w/o acute changes. 3.5x1.8cm area of encephalomalacia and surrounding gliosis in L frontal lobe consistent w/ old infarct, unchanged. per statrad. Sinus 90s w/ pvcs. BP 197/100. 96% on room air. afeb. wbc 11.4. Hb 8.2, baseline. Na 126 (128-129 corrected). bsg 235. Corrected Ca 8.5. hstrop 402.2. cxr w/ cardiomegaly, unchanged from 08/03 Principal Diagnosis Hypertensive urgency, pulmonary vascular congestion, elevated troponin, blurred vision Discharge Exam General-alert and oriented x3, no fevers, no chills HEENT-head atraumatic and normocephalic, pupils equal and reactive to light, extraocular muscles intact Neck-no lymphadenopathy or thyromegaly, trachea midline Chest-clear to auscultation percussion. No rales wheezing or rhonchi Cardiac-regular rate and rhythm, normal S1 and S2, no murmurs Abdomen-normal bowel sounds, nontender, no hepatosplenomegaly Extremities-no cyanosis, clubbing, or edema Neuro-cranial nerves II through XII intact, motor and sensory function within normal limits, strength symmetrical , no focal deficits Psych-normal affect, normal mood Discharge Data Allergies Allergy/AdvReac Type Severity Reaction Status Date / Time amlodipine Allergy Intermediate Rash Verified 08/14/22 23:53 Sulfa (Sulfonamide Allergy Intermediate Hives Verified 08/14/22 23:53 Antibiotics) lisinopril AdvReac Intermediate Cough Verified 08/14/22 23:53 Consultations 08/15/22 01:59 ED Decision to Admit Stat 08/15/22 04:38 Consult Cardiology Routine Consult Nephrology Routine Ordered Studies 08/15/22 00:04 CT head/brain wo con Urgent 08/15/22 07:00 MRI Brain [MR brain wo con] Routine 08/15/22 11:07 US doppler renal [US duplex renal artery] Routine 08/15/22 11:08 US renal/blad retro comp Routine Hospital Course (1) Hypertensive emergency: Resolved. Nifedipine added by nephrology. Other medications remain the same except Coreg has been uptitrated and chlorthalidone discontinued. She is now on Lasix. (2) Blurry vision: Much improved from admission. Anticipate complete resolution. No evidence of CVA. MRI brain without any stroke of occipital region. (3) Cerebrovascular disease: chronic left frontal CVA on head imaging. MRI brain NEGATIVE for acute stroke. Cont asa, statin, BP control for secondary prevention (4) Elevated troponin: Likely myocardial demand ischemia in the setting of #1 above. ESRD will also cause mild trop elevation. However, she does have known CAD, and it has been nearly 20 years since her last heart cath. Dr Wilson has seen the patient and recommends nuclear stress test and/or cath during this visit. Cont asa, BB, statin in meantime. (5) Dialysis patient: [facility] Nephrology consult appreciated for HD needs and BP management/recs (6) Diabetes: Treated with lantus. Cont novolog . ADA diet. Resume usual home meds at discharge (7) Paroxysmal ventricular tachycardia: cont BB. Echo findings noted; preserved EF. Likely nuclear stress test this admission . Telemetry (8) Anemia due to chronic kidney disease: Iron deficiency documented. Parenteral iron replacement ordered by nephrology. Serial labs (9) ESRD (end stage renal disease) on dialysis: Tues/Th/Sat scheduled. [facility] Nephro following (10) Coronary artery disease: Cont BB, asa, statin. Probable stress test (nuclear) this admission . Appreciate [facility] cardiology consultation. Last cath nearly 20 years ago in the setting of NSTEMI (11) Carotid stenosis, bilateral: chronically occluded ICA on left. Cont asa, statin (12) Renal artery stenosis: history of. Nephrology has ordered renal artery dopplers Plan discharge to home today August 17 Total Time Total Time Spent Total Time Spent (In Minutes): 35 minutes Discharge Plan Discharge Items Patient Disposition: Home - Self-Care Reason For Visit: BLURRY VISION AND LIGHTHEADEDNESS Discharge Diagnosis: Hypertensive urgency, pulmonary vascular congestion, blurred vision, elevated troponin without acute myocardial infarction Activity: Resume your previous activity Non-emergency contact: Primary Care Provider Follow-up/Referrals: Jessika Rodriguez PA-C [Primary Care Provider] - Jb Carlos Jr, MD, [facility] [Physician] - 08/29/22 2:30 pm Diet: Carb Consistent or DM2, Dialysis Renal and Heart Healthy Addtl Attending Provider Instructions: Nifedipine has been added by nephrology for better blood pressure control Stand-Alone Forms: [employer], Smoking Cessation Medications and DC Order Prescriptions: New losartan 50 mg Tablet 100 mg PO QAM Qty: 30 0RF nifedipine [Procardia XL] 30 mg Tablet Extended Release 24hr 30 mg PO QAM Qty: 30 0RF carvedilol 25 mg Tablet 25 mg PO BID Qty: 60 0RF furosemide 80 mg Tablet 80 mg PO DAILY Qty: 30 0RF aspirin 81 mg Tablet,Delayed Release (Dr/Ec) 81 mg PO QAM Qty: 0 0RF Continued atorvastatin 80 mg tablet 80 mg PO HS Qty: 90 3RF aspirin 325 mg Tablet,Delayed Release (Dr/Ec) 325 mg PO QAM Novolin R Regular U-100 Insuln 100 unit/mL solution See Rx Instructions .ROUTE .COMPLEX Rx Instructions: sliding scale ...pt using when feels as though she needs it. but usually only checks her bsg at bedtime Novolin N NPH U-100 Insulin 100 unit/mL suspension 30 units subcut BID mirtazapine 7.5 mg tablet 7.5 mg PO HS cyanocobalamin (vitamin B-12) 1,000 mcg capsule 1,000 mcg PO DAILY Qty: 30 0RF sodium bicarbonate 650 mg Tablet 650 mg PO BID 30 Days Qty: 60 0RF calcitriol 0.25 mcg Capsule 0.25 mcg PO QAM 30 Days Qty: 30 0RF Discontinued carvedilol [Coreg] 25 mg tablet 25 mg PO QAM Qty: 135 3RF chlorthalidone 25 mg tablet 25 mg PO QAM Qty: 90 3RF losartan 50 mg tablet 100 mg PO QAM Qty: 135 1RF furosemide 40 mg tablet 40 mg PO DAILY 30 Days Qty: 30 0RF Discharge Orders: Discharge Order (Routine); Ordered 08/17/22 Ordered By: Arnold Enrique Admission Data Admit Date/Time: 08/15/22 03:18 Attending Provider: Arnold Enrique Admit Provider: Shawn Mata Primary Care Provider: Jessika Rodriguez Other Providers: Larry Manuel ; Twan Wilson ; Ab Denny Coding Level of Care Code D/C DAY MANAGEMENT >30 MINS Diagnoses Hypertensive emergency I16.1 Blurry vision H53.8 Cerebrovascular disease I67.9 Elevated troponin R77.8 Dialysis patient Z99.2 Diabetes E11.9 Paroxysmal ventricular tachycardia I47.29 Anemia due to chronic kidney disease N18.9; D63.1 ESRD (end stage renal disease) on dialysis N18.6; Z99.2 Coronary artery disease I25.10 Carotid stenosis, bilateral I65.23 Renal artery stenosis I70.1
[2022-08-18] MEDS ORDERED: HEPARIN SOD (PORCINE) 1000 UNIT/ML IV ONE (07:00)
[2022-08-18] MEDS ORDERED: SODIUM CHLORIDE 0.9% 1000ML 1,000 ML IV PRN (07:00)
[2022-08-18] MEDS ORDERED: HEPARIN SOD (PORCINE) 1000 UNIT/ML IV SCH (07:00)
== END 2022-08-17 12:50 | disposition home or self-care (01) ==
LOC: 2S 23:31 → ED 23:31 → SUATTDRO 08-15 03:18 → 2S 08-15 04:18 → 2N 08-16 23:48

== ENCOUNTER 2023-09-20 16:29 | Inpatient (IN) ==
--- NOTE | 2023-09-20 16:58 | Emergency Department Note ---
Impression & Plan Severe anemia, Balance problem, Insomnia, Generalized weakness ED Provider Note NAME: RUFUS HARTMAN AGE: 73 SEX: Female INFORMANT: Patient ED PROVIDER(S): Juma Pantoja MD CHIEF COMPLAINT: Strokelike symptoms PLAN: Disposition: Admit Outpatient prescription management: none Referral: None MEDICAL DECISION MAKING: Patient presented because of concerns for strokelike symptoms with weakness, balance disturbance. She also noted significant difficulty with sleeping and stress due to her mother's health. Her symptoms resolved once EMS arrived. She noted she felt relief and thoughts of safety seem to dissipate the symptoms. She had a nonfocal neurologic examination. She was mildly hypertensive. ECG was performed and showed a normal sinus rhythm without acute ischemia. The patient and I discussed her findings. Given the neurologic complaints especially with the balance issues MR imaging would be the ideal choice. Ideally I deferred CT contrast administration due to her renal status and the fact that there was questionable balance issues. MRI would be the study of choice. Patient's laboratory testing revealed elevated creatinine consistent with her end-stage renal disease. Patient was found to have a significant anemia within the transfusion threshold. I suspect that this may be contributing to her symptoms. The patient and I discussed this. Family was present. Patient was consented for transfusion. Discussed the case with Dr. Valdovinos of nephrology. She felt it was very reasonable for transfusion given the patient's symptomatology, hemoglobin, and also that the patient will need dialysis in the morning. The patient was transfused 1 unit. Consultation was made with internal medicine, Dr. Spencer. Patient was evaluated in the ER for further management. MR imaging reveals no acute findings. Care/management discussed with: Discussed with materials management manager. Level of care consideration(s): After review of the information above and other included data, I feel the patient requires escalation of care to admission. Triage Nursing notes: reviewed and agree them. Vital Signs: reviewed and remarkable for hypertension Additional History obtained from: EMS provider. They noted patient had a nonfocal neurologic examination in route and negative stroke score Chronic Medical/Social Conditions affecting care: End-stage renal disease Prior/ Outside/ External records reviewed: none Differential Diagnosis: CVA, TIA, insomnia, stress,Infection, dehydration, metabolic abnormality, hypo/hyperglycemia, electrolyte disturbance, anemia, hypoxia, cardiac sources, intracerebral event, toxicologic, neurologic, as well as other pathologies. Diagnostics, independently interpreted by me: ECG: Twelve-lead ECG reveals a normal sinus rhythm at 64 bpm. Anteroseptal Q waves present. No ST elevation or depression. Nonspecific ST. Cardiac Monitoring: Cardiac monitoring ordered by me: The patient was placed on continuous cardiac monitoring and observed. It revealed a normal sinus rhythm at 70 beats per minute without ectopy or evidence of dysrhythmia. Medical decision rules: none Imaging studies: MR imaging reveals chronic findings in the left frontal lobe but no acute ischemia HPI: 73 year old Female arrives for evaluation of strokelike symptoms. Patient notes issues with feeling balance and some irregular speech that started yesterday. Patient had concerned about possible TIA. She also felt that she was under significant stress due to the health of her mother. She notes sleeping very minimally over the last week or so due to taking care of her. She is also having issues with her family and her mother's health. She felt very nervous and stressed. EMS was summoned. Patient felt significant relief on their arrival and evaluation with no focal findings. She feels back to normal. She does note skipping dialysis yesterday due to being stressed. She is due for dialysis tomorrow. EMS did note that her blood sugar was mildly elevated at 256. Patient states she did not eat today again due to the stress and also that she no longer takes insulin. Her blood sugars typically range from borderline hypoglycemic to the 200 range per the patient. Pt denies LOC, headache, fevers, chills, diaphoresis, visual changes, neck pain, chest pain, breathing difficulties, nausea, vomiting, abdominal pain, back pain, melena, hematochezia, urinary symptoms, current numbness, current weakness or other complaints. PAST MEDICAL HISTORY: See Below, end-stage renal disease PAST SURGICAL HISTORY: See Below, AV fistula SOCIAL HISTORY: See Below, non-smoker HOME MEDICATIONS: See Below ALLERGIES: See Below VITALS: See Below PHYSICAL EXAMINATION: GENERAL: Awake, alert, anxious-appearing, in no distress HENT: Normocephalic, atraumatic. Oropharynx unremarkable. EYES: Normal conjunctiva. Sclera non-icteric. PERRLA., EOMI. NECK: Inspection normal. Non-tender. Supple. No nuchal rigidity. FROM. No masses. RESPIRATORY: Clear to auscultation. No wheezes. No rales. Normal respiratory effort. CARDIAC: Normal rate. Normal rhythm. No murmurs. No rubs. Extremities warm and well perfused. Pulses equal. No JVD. AV fistula in the left upper extremity. GI: Soft, non-distended. No tenderness to palpation. No rebound or guarding. No masses. RECTAL: Deferred. MUSCULOSKELETAL: Atraumatic. Chest examination reveals no tenderness. The back is symmetrical on inspection without obvious abnormality. There is no CVA tenderness to palpation. No joint edema. LOWER EXTREMITIES: Calves are equal size bilaterally and non-tender. No edema. No discoloration. NEURO: Normal sensorium. No sensory or motor deficits noted. Cranial nerves II through XII intact. Speech normal. No drift. Normal rapid alternating movements SKIN: No rash or jaundice noted. PROCEDURES: none CRITICAL CARE: I have personally 30 minutes of critical care time in the direct management of this patient. This includes bedside care, interpretation of diagnostic studies, and testing, discussion with consultants, patient, and family members, and other required patient management activities. These minutes are in excess of all separately billable procedures. OBSERVATION NOTE: none Past Med/Surg History Medical History Anemia due to chronic kidney disease Asthma AVF (arteriovenous fistula) Carotid stenosis, bilateral Chronic sinusitis CMF (chondromyxoid fibroma) Coronary artery disease Depression with anxiety Diabetes Gout Hyperlipemia Hyperparathyroidism, secondary renal Hyperphosphatemia Hypertension Myocardial infarction Obesity Pulmonary nodules Renal artery stenosis Restless legs syndrome Right knee pain Stage 4 chronic kidney disease Surgical History History of bilateral carpal tunnel release History of bone marrow biopsy History of cardiac cath History of colonoscopy History of hip replacement, total History of hysterectomy History of knee surgery History of lumpectomy of both breasts History of open reduction and internal fixation (ORIF) procedure History of sinus surgery Family History Mother Heart disease Hypertension Coronary heart disease Anxiety Cancer Father , Age 59 of [place]. Heart disease Diabetes Hypertension Coronary heart disease Stroke Myocardial infarction Brother Hypertension Sister Hypertension Denies family history of Ovarian cancer Prostate cancer Kidney disease Breast cancer Lung cancer Social History Smoking Status: Never smoker Second Hand Exposure: No; Do You Dip or Chew Tobacco: No; Hx Alcohol Use: No Hx Substance Use: No Preferred Language: Nepali Communication Ability: Effective Visual Impairment: Limited Hearing Ability: Normal Trader Required: No Beliefs That Will Affect Care: None marital status: Current Living Situation: Alone current occupational status: 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 Safe at Home: Yes Childhood Exposure to Second-Hand Smoke: No Diet: diabetic caffeine: Yes Dental Care, Regularly: Yes Physical Activity Frequency: Does not Exercise Seatbelt Use: always Sunscreen Use: Yes Assistive Devices: None Allergies Allergies Allergy/AdvReac Type Severity Reaction Status Date / Time amlodipine Allergy Intermediate Rash Verified 08/14/23 08:52 Sulfa (Sulfonamide Allergy Intermediate Hives Verified 08/14/23 08:52 Antibiotics) lisinopril AdvReac Intermediate Cough Verified 08/14/23 08:52 Home Meds Home Medications Medication Instructions Recorded Confirmed vit B,C-folic ac 800 mcg-zinc 12.5 2 tab PO DAILY 01/24/23 09/20/23 mg-selen-D3 2,000 unit-vit E tablet (RenaPlex-D) minoxidil 2.5 mg tablet 5 mg PO DAILY 02/07/23 09/20/23 carvedilol 25 mg tablet 25 mg PO TID 08/14/23 09/20/23 Previous Rx's Medication Instructions Recorded atorvastatin 80 mg tablet 80 mg PO HS #90 tabs 04/30/22 losartan 100 mg tablet 100 mg PO QAM #90 tabs 12/27/22 nifedipine 60 mg tablet,extended 60 mg PO QAM #90 tabs 12/27/22 release 24 hr aspirin 81 mg tablet,delayed 324 mg (4 x 81 mg) PO QAM #0 tabs 01/14/23 release Symbicort 80 mcg-4.5 mcg/actuation 2 puff inhalation BID #10.2 grams 01/18/23 HFA aerosol inhaler (budesonide-formoterol) metoprolol succinate 25 mg 25 mg PO BID #180 tabs 04/10/23 tablet,extended release 24 hr trazodone 100 mg tablet 100 mg PO DAILY PRN insomnia #90 05/28/23 tabs RSVPreF3 antigen 2 of 2 120 mcg IM 0.5 ml IM ONCE #1 ea 08/14/23 susp (Arexvy Antigen Component) lorazepam 0.5 mg tablet 0.5 mg PO DAILY PRN anxiety #45 08/14/23 tabs albuterol sulfate 90 mcg/actuation 2 puff inhalation QID PRN 08/15/23 aerosol inhaler shortness of breath or wheezing #8.5 grams Results & Data (ED) Vital Signs Vital Signs - 24 hr 09/20/23 16:47 09/20/23 17:03 09/20/23 17:13 Temperature 37.2 C Temperature Source Oral Pulse Rate 75 66 Pulse Rate [Right Finger] Respiratory Rate 18 Respiratory Effort / Characteristics Non-Labored Spontaneous Respiratory Depth Normal Blood Pressure 175/64 H Blood Pressure [Right Arm] Blood Pressure Mean 101 Blood Pressure Mean [Right Arm] Pulse Oximetry 99 100 Oxygen Delivery Method Room Air Room Air Sepsis Recent Fever Within 48 Hours No Sepsis New/Unexplained Change in Mental Status N/A Sepsis Action Taken by Nursing No Action Required 09/20/23 17:13 Temperature Temperature Source Pulse Rate Pulse Rate [Right Finger] 71 Respiratory Rate 20 Respiratory Effort / Characteristics Non-Labored Spontaneous Respiratory Depth Normal Blood Pressure Blood Pressure [Right Arm] 139/52 L Blood Pressure Mean Blood Pressure Mean [Right Arm] 81 Pulse Oximetry 99 Oxygen Delivery Method Room Air Sepsis Recent Fever Within 48 Hours Sepsis New/Unexplained Change in Mental Status Sepsis Action Taken by Nursing Laboratory Data 09/20/23 17:04 09/20/23 17:04 Lab Results 09/20/23 09/20/23 09/20/23 Range/Units 16:56 17:04 18:16 WBC 8.59 (4.8-10.8) K/ul RBC 2.14 L (4.20-5.40) M/uL Hgb 6.9 L* (12.0-16.0) g/dl Hct 20.6 L* (37.0-47.0) % MCV 96.3 (80.0-100.0) fL MCH 32.2 (25.0-34.0) pg MCHC 33.5 (32.0-36.0) g/dL RDW Std Deviation 50.1 H (36.4-46.3) fL RDW Coeff of Nilda 14.5 (11.5-14.5) % Plt Count 213 (130-400) K/uL MPV 9.8 (9.4-12.4) fL Immature Gran % (Auto) 0.7 % Neut % (Auto) 74.4 % Lymph % (Auto) 9.8 % [place] % (Auto) 8.4 % Eos % (Auto) 5.8 % Baso % (Auto) 0.9 % Reticulocyte % (Auto) 3.0 H (0.5-2.0) % Neut # (Auto) 6.39 (1.40-6.50) K/uL Lymph # (Auto) 0.84 L (1.20-3.40) K/uL [place] # (Auto) 0.72 H (0.11-0.59) K/uL Eos # (Auto) 0.50 (0.00-0.50) K/uL Baso # (Auto) 0.08 (0.00-0.20) K/uL Reticulocyte # 0.06 (0.02-0.10) 10^6/uL Immature Gran # (Auto) 0.06 (0.01-0.20) K/uL Polychromasia 1+ PT 11.9 (9.0-12.0) Seconds INR 1.1 (0.9-1.1) APTT 25.9 (21.0-31.0) Seconds PTT Ratio 0.9 Sodium 137 (136-145) mmol/L Potassium 4.9 (3.5-5.1) mmol/L Chloride 96 L (98-107) mmol/L Carbon Dioxide 25 (21-32) mmol/L Anion Gap 16 H (3-11) BUN 72 H (6-23) mg/dl Creatinine 9.45 H* (0.6-1.2) mg/dl Est Cr Clr Drug Dosing 5.1 ml/min Est GFR ( Amer) 4.3 ml/min Est GFR (Non-Af Amer) 3.7 ml/min BUN/Creatinine Ratio 7.6 L (10-20) Glucose 193 H (70-99(Fasting)) mg/dl POC Glucose 214 H (70-99) mg/dl Calcium 9.1 (8.6-10.3) mg/dl Magnesium 2.5 H (1.7-2.4) mg/dl Iron 50 (35-150) mcg/dl TIBC 237 L (250-450) mcg/dl Unsaturated IBC 187 (155-355) mcg/dl Transferrin % Sat 21 (15-50) % Ferritin 1425.3 H (8-388) ng/ml Total Bilirubin 0.4 (0.2-1.0) mg/dl AST 13 (13-39) U/L ALT 15 (7-52) U/L Alkaline Phosphatase 49 (34-104) U/L Troponin I High Sens 22.2 H (0-14) pg/ml Total Protein 7.1 (6.0-8.3) gm/dl Albumin 3.8 (3.4-5.0) gm/dl Globulin 3.3 (2.5-4.0) gm/dl Albumin/Globulin Ratio 1.2 (0.9-2) Vitamin B12 > 1500 H (180-914) pg/ml Folate > 22.30 (>5.38) ng/ml Blood Type O Positive Blood Type Recheck Antibody Screen NEGATIVE Crossmatch See Detail 09/20/23 09/20/23 Range/Units 18:17 19:11 WBC (4.8-10.8) K/ul RBC (4.20-5.40) M/uL Hgb (12.0-16.0) g/dl Hct (37.0-47.0) % MCV (80.0-100.0) fL MCH (25.0-34.0) pg MCHC (32.0-36.0) g/dL RDW Std Deviation (36.4-46.3) fL RDW Coeff of Nilda (11.5-14.5) % Plt Count (130-400) K/uL MPV (9.4-12.4) fL Immature Gran % (Auto) % Neut % (Auto) % Lymph % (Auto) % [place] % (Auto) % Eos % (Auto) % Baso % (Auto) % Reticulocyte % (Auto) (0.5-2.0) % Neut # (Auto) (1.40-6.50) K/uL Lymph # (Auto) (1.20-3.40) K/uL [place] # (Auto) (0.11-0.59) K/uL Eos # (Auto) (0.00-0.50) K/uL Baso # (Auto) (0.00-0.20) K/uL Reticulocyte # (0.02-0.10) 10^6/uL Immature Gran # (Auto) (0.01-0.20) K/uL Polychromasia PT (9.0-12.0) Seconds INR (0.9-1.1) APTT (21.0-31.0) Seconds PTT Ratio Sodium (136-145) mmol/L Potassium (3.5-5.1) mmol/L Chloride (98-107) mmol/L Carbon Dioxide (21-32) mmol/L Anion Gap (3-11) BUN (6-23) mg/dl Creatinine (0.6-1.2) mg/dl Est Cr Clr Drug Dosing ml/min Est GFR ( Amer) ml/min Est GFR (Non-Af Amer) ml/min BUN/Creatinine Ratio (10-20) Glucose (70-99(Fasting)) mg/dl POC Glucose (70-99) mg/dl Calcium (8.6-10.3) mg/dl Magnesium (1.7-2.4) mg/dl Iron (35-150) mcg/dl TIBC (250-450) mcg/dl Unsaturated IBC (155-355) mcg/dl Transferrin % Sat (15-50) % Ferritin (8-388) ng/ml Total Bilirubin (0.2-1.0) mg/dl AST (13-39) U/L ALT (7-52) U/L Alkaline Phosphatase (34-104) U/L Troponin I High Sens 21.1 H (0-14) pg/ml Total Protein (6.0-8.3) gm/dl Albumin (3.4-5.0) gm/dl Globulin (2.5-4.0) gm/dl Albumin/Globulin Ratio (0.9-2) Vitamin B12 (180-914) pg/ml Folate (>5.38) ng/ml Blood Type Blood Type Recheck O Positive Antibody Screen Crossmatch Imaging Data Radiologist's Impression: Brain MRI 09/20/23 16:46 Exam(s): MRI HEAD Without Contrast EXAM: MR Head Without Intravenous Contrast CLINICAL HISTORY: Reason for exam: Balance disturbance. TECHNIQUE: Magnetic resonance images of the head/brain without intravenous contrast in multiple planes. Mild motion artifact. COMPARISON: Head CT from earlier, MRI brain 08/15/22. FINDINGS: Brain: Stable encephalomalacia left frontal lobe. Occluded left ICA. No mass effect or acute infarct. No acute or chronic hemorrhage. Very minimal atrophy and chronic white matter disease. Ventricles: No hydrocephalus or midline shift. Bones/joints: No acute finding. Soft tissues: No scalp hematoma. Sinuses: Clear. Mastoid air cells: No mastoid effusion. IMPRESSION: 1. Stable left frontal encephalomalacia and left ICA occlusion. 2. No acute infarct, bleed, acute intracranial abnormality, or interval change. Electronically signed by: Nguyen Raman M.D. 09/20/23 20:49 PM Chest X-Ray 09/20/23 16:46 XR chest 1V portable HISTORY: 73 years-old Female neuro deficit, acute stroke suspected COMPARISON: July 22, 2023 TECHNIQUE: AP view of the chest FINDINGS: Cardiac silhouette is enlarged. Atherosclerosis of the aorta. No pneumothorax, pleural effusion, airspace consolidation or pulmonary edema. Degenerative changes of the shoulders and spine. IMPRESSION: Cardiomegaly without acute process. ACT 112: Negative or not required by law. The above report was generated using voice recognition software. It may contain grammatical, syntax or spelling errors. Electronically signed by: Markell Dowell M.D. 09/20/2023 5:[address] 09/20/23 18:13 CT head/brain wo con CLINICAL HISTORY: 73 years-old Female with Stroke like symtoms. Acute strokelike symptoms TECHNIQUE: Multiple axial CT images of the head were obtained without contrast. A dose lowering technique was utilized adhering to the principles of ALARA. CT DOSE: 547.75 mGy.cm COMPARISON: 03/20/2023. FINDINGS: No acute intracranial hemorrhage, midline shift, intracranial mass, hydrocephalus, territorial ischemia or abnormal extra-axial collection. Involutional changes with chronic microvascular ischemic disease. Encephalomalacia related to chronic left frontal lobe infarct. Streak artifact from the patient's earrings limit the study. The calvarium is intact. Chronic postoperative changes of the paranasal sinuses. Mastoid air cells are clear. IMPRESSION: No acute intracranial abnormality. ACT 112: Negative or not required by law. The above report was generated using voice recognition software. It may contain grammatical, syntax or spelling errors. Electronically signed by: Markell Dowell M.D. 09/20/2023 6:54 PM Discharge Plan Visit Data Chief Complaint: Stroke/CVA Symptoms Stated Complaint: STROKE SX ED Provider: Juma Pantoja Discharge Problem: Severe anemia, Balance problem, Insomnia, Generalized weakness Discharge Instructions Interventions: ED Discharge Assessment Last Done: 09/20/23 22:11
--- NOTE | 2023-09-20 17:13 | XRay Report ---
XR chest 1V portable HISTORY: 73 years-old Female neuro deficit, acute stroke suspected COMPARISON: July 22, 2023 TECHNIQUE: AP view of the chest FINDINGS: Cardiac silhouette is enlarged. Atherosclerosis of the aorta. No pneumothorax, pleural effusion, airs pace consolidation or pulmonary edema. Degenerative changes of the shoulders and spine. IMPRESSION: Cardiomegaly without acute process. ACT 112: Negative or not required by law. The above report was generated using voice recognition software. It may contain grammatical, syntax o r spelling errors. Electronically signed by: Markell Dowell M.D. 09/20/2023 5:11 PM
[2023-09-20 17:26] LABS: Hematocrit (blood only) 20.6 % (37.0-47.0); Hemoglobin 6.9 g/dl (12.0-16.0); Mean Corpuscular Hemoglobin 32.2 pg (25.0-34.0); Mean Corpuscular Hgb Conc 33.5 g/dL (32.0-36.0); Mean Corpuscular Volume 96.3 fL (80.0-100.0); Mean Platelet Volume 9.8 fL (9.4-12.4); Platelet Count 213 K/uL (130-400); RDW Coefficient of Variation 14.5 % (11.5-14.5); RDW Standard Deviation 50.1 fL (36.4-46.3); Red Blood Count 2.14 M/uL (4.20-5.40); White Blood Count 8.59 K/ul (4.8-10.8)
[2023-09-20 17:39] LABS: Basophils # (auto) 0.08 K/uL (0.00-0.20); Basophils % (auto) 0.9 %; Eosinophils % (auto) 5.8 %; Immature Granulocytes # (auto) 0.06 K/uL (0.01-0.20); Immature Granulocytes % (auto) 0.7 %; Lymphocytes # (auto) 0.84 K/uL (1.20-3.40); Lymphocytes % (auto) 9.8 %; Monocytes # (auto) 0.72 K/uL (0.11-0.59); Monocytes % (auto) 8.4 %; Neutrophils # (auto) 6.39 K/uL (1.40-6.50); Neutrophils % (auto) 74.4 %; Polychromasia 1+
[2023-09-20 17:50] LABS: INR 1.1 (0.9-1.1); Partial Thromboplastin Ratio 0.9; Partial Thromboplastin Time 25.9 Seconds (21.0-31.0); Prothrombin Time 11.9 Seconds (9.0-12.0)
[2023-09-20 17:52] LABS: Est GFR (African American) 4.3 ml/min; Est GFR (Non-African American) 3.7 ml/min; Potassium 4.9 mmol/L (3.5-5.1)
[2023-09-20 17:53] LABS: Albumin Globulin Ratio 1.2 (0.9-2); Albumin Level 3.8 gm/dl (3.4-5.0); BUN Creatinine Ratio 7.6 (10-20); Bilirubin,Total 0.4 mg/dl (0.2-1.0); Calcium 9.1 mg/dl (8.6-10.3); Creatinine Clr Calc Pharmacy 5.1 ml/min; Globulin 3.3 gm/dl (2.5-4.0); Magnesium 2.5 mg/dl (1.7-2.4); Total Protein 7.1 gm/dl (6.0-8.3); Troponin I High Sensitivity 22.2 pg/ml (0-14)
[2023-09-20] MEDS ORDERED: SODIUM CHLORIDE 0.9% 250 ML IV PRN (18:07)
[2023-09-20 18:52] LABS: Reticulocytes # 0.06 10^6/uL (0.02-0.10)
--- NOTE | 2023-09-20 18:55 | CT Scan Report ---
CT head/brain wo con CLINICAL HISTORY: 73 years-old Female with Stroke like symtoms. Acute strokelike symptoms TECHNIQUE: Multiple axial CT images of the head were obtained without contrast. A dose lowering tech nique was utilized adhering to the principles of ALARA. CT DOSE: 547.75 mGy.cm COMPARISON: 03/20/2023. FINDINGS: No acute intracranial hemorrhage, midline shift, intracranial mass, hydrocephalus, territorial ischem ia or abnormal extra-axial collection. Involutional changes with chronic microvascular ischemic disea se. Encephalomalacia related to chronic left frontal lobe infarct. Streak artifact from the patient's earrings limit the study. The calvarium is intact. Chronic postoperative changes of the paranasal sinuses. Mastoid air cells a re clear. IMPRESSION: No acute intracranial abnormality. ACT 112: Negative or not required by law. The above report was generated using voice recognition software. It may contain grammatical, syntax o r spelling errors. Electronically signed by: Markell Dowell M.D. 09/20/2023 6:54 PM
[2023-09-20 19:22] LABS: Folate (Folic Acid),Ser orPlas > 22.30 ng/ml (>5.38)
[2023-09-20 19:23] LABS: Vitamin B12 > 1500 pg/ml (180-914)
--- NOTE | 2023-09-20 19:23 | History & Physical Report ---
Date of Service September 20, 2023 Assessment & Plan (1) Generalized weakness: Plan: -Patient with stroke like symptoms, imbalance, bilateral lower and upper extremities weakness, slurred speech -Patient went back to baseline at ER -hx of chronic occlusion of the left internal carotid artery. -Ct head without contrast: negative for an acute intracranial findings. Encephalomalacia related to chronic left frontal lobe infarct. -MRI without contrast ordered -Likely secondary to missing dialysis and uremic status -Admit to PCU/ telemetry Follow CMP, CBc mag tomorrow am (2) Anemia: Plan: -acute on chronic -Hgb 6.9. Hct 20.6 -will transfuse now -patient give consent Anemia workup ordered Follow CBC am (3) ESRD (end stage renal disease) on dialysis: Plan: -Patient missed dialysis on -TTS schedule -Cr 9.45 -Uremic BUN 72 -Nephrology consulted: -transfuse now -Dialysis tomorrow Follow CMP,Mag am (4) Uncontrolled diabetes mellitus with hyperglycemia: Plan: Diet- controlled no medication Patient concern about glucose hypoglycemia episodes with insulin HA1C: 6.8 Scale insulin now with Corrector factor Monitor (5) Coronary artery disease: Plan: Continue Losartan, metoprolol, nifedipine, atorvastatin and carvedilol (all by cardiology) (6) Hypertension: Plan: On arrival BP 175/64 Continue Losartan, metoprolol, nifedipine, atorvastatin and carvedilol (all by cardiology) -Continue Monitor Plan Status: full code DVT prophylaxis: heparin 5,000 Q12 Diet: Dialysis renal, HH, DM2 Dispo: PCU/ telemetry History of Present Illness Primary Care Provider: Keri Sharma DO 73 y/o female with PMH of ESRD with dialysis, HTN, hyperlipidemia, DM2, CAD, Ischemic cardiomyopathy here due to generalized weakness. Patient refers this afternoon around 2 pm she felt linda tired and dizzy that felt that lost bilateral upper and lower extremities acute weakness. she also refers slurred speech. All symptoms resolved when she arrived at the hospital. She refers that she had been taking care her mom who has Alzheimer and that she is feeling very tire because of that. She is schedule for dialysis Saturday, and Saturday. Last dialysis was on Saturday, she missed due to tiredness. At evaluation she was found in NAD , no neuro deficits on physical exam. CT head without contrast without any acute intracranial findings, only chronic fi ndings, no bleeding. MRI w/o contrast was ordered. Patient found with Cr. 9.45, BUN 72 , Mag 2.5. Hgb found at 6.9, HCT 20.6. Patient will be transfuse 1 PRBCs now, consent given. Nephrology consulted, plan to dialysis tomorrow. Anemia work up ordered. Follow cbc am Allergies Allergy/AdvReac Type Severity Reaction Status Date / Time amlodipine Allergy Intermediate Rash Verified 08/14/23 08:52 Sulfa (Sulfonamide Allergy Intermediate Hives Verified 08/14/23 08:52 Antibiotics) lisinopril AdvReac Intermediate Cough Verified 08/14/23 08:52 Home Medications Medication Instructions Recorded Confirmed Type atorvastatin 80 mg tablet 80 mg PO HS #90 tabs 04/30/22 09/20/23 Rx losartan 100 mg tablet 100 mg PO QAM #90 tabs 12/27/22 09/20/23 Rx nifedipine 60 mg tablet,extended 60 mg PO QAM #90 tabs 12/27/22 09/20/23 Rx release 24 hr aspirin 81 mg tablet,delayed 324 mg (4 x 81 mg) PO QAM #0 tabs 01/14/23 09/20/23 Rx release Symbicort 80 mcg-4.5 mcg/actuation 2 puff inhalation BID #10.2 grams 01/18/23 09/20/23 Rx HFA aerosol inhaler (budesonide-formoterol) vit B,C-folic ac 800 mcg-zinc 12.5 2 tab PO DAILY 01/24/23 09/20/23 History mg-selen-D3 2,000 unit-vit E tablet (RenaPlex-D) minoxidil 2.5 mg tablet 5 mg PO DAILY 02/07/23 09/20/23 History metoprolol succinate 25 mg 25 mg PO BID #180 tabs 04/10/23 09/20/23 Rx tablet,extended release 24 hr trazodone 100 mg tablet 100 mg PO DAILY PRN insomnia #90 05/28/23 09/20/23 Rx tabs RSVPreF3 antigen 2 of 2 120 mcg IM 0.5 ml IM ONCE #1 ea 08/14/23 09/20/23 Rx susp (Arexvy Antigen Component) carvedilol 25 mg tablet 25 mg PO TID 08/14/23 09/20/23 History lorazepam 0.5 mg tablet 0.5 mg PO DAILY PRN anxiety #45 08/14/23 09/20/23 Rx tabs albuterol sulfate 90 mcg/actuation 2 puff inhalation QID PRN 08/15/23 09/20/23 Rx aerosol inhaler shortness of breath or wheezing #8.5 grams Past Med/Surg History Medical History Anemia due to chronic kidney disease Asthma AVF (arteriovenous fistula) Carotid stenosis, bilateral Chronic sinusitis CMF (chondromyxoid fibroma) Coronary artery disease Depression with anxiety Diabetes Gout Hyperlipemia Hyperparathyroidism, secondary renal Hyperphosphatemia Hypertension Myocardial infarction Obesity Pulmonary nodules Renal artery stenosis Restless legs syndrome Right knee pain Stage 4 chronic kidney disease Surgical History History of bilateral carpal tunnel release History of bone marrow biopsy History of cardiac cath History of colonoscopy History of hip replacement, total History of hysterectomy History of knee surgery History of lumpectomy of both breasts History of open reduction and internal fixation (ORIF) procedure History of sinus surgery Family History Mother Heart disease Hypertension Coronary heart disease Anxiety Cancer Father , Age 59 of [place]. Heart disease Diabetes Hypertension Coronary heart disease Stroke Myocardial infarction Brother Hypertension Sister Hypertension Denies family history of Ovarian cancer Prostate cancer Kidney disease Breast cancer Lung cancer Social History Smoking Status: Never smoker Second Hand Exposure: No; Do You Dip or Chew Tobacco: No; Hx Alcohol Use: No Hx Substance Use: No Preferred Language: Malaysian Communication Ability: Effective Visual Impairment: Limited Hearing Ability: Normal Mold Mover Required: No Beliefs That Will Affect Care: None marital status: Current Living Situation: Family current occupational status: 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 Other Information That Helps Us Care for You: No Feels Safe at Home: Yes Safety Concerns: Feels Safe At This Time Childhood Exposure to Second-Hand Smoke: No Diet: diabetic caffeine: Yes Dental Care, Regularly: Yes Physical Activity Frequency: Does not Exercise Seatbelt Use: always Sunscreen Use: Yes Assistive Devices: Glasses Review of Systems Review of Systems: as per hpi Physical Exam Constitutional: WD/WN, vitals as above Eyes: PERRL, conjunctivae normal, anicteric sclerae ENMT: external ear and nose normal, oropharynx normal Respiratory: normal respiratory effort, lungs clear to auscultation Cardiovascular: RRR, no murmur, no edema Gastrointestinal (Abdomen): normal bowel sounds, soft, nontender, no hepatosplenomegaly Neurologic: PERRL, EOMI, accommodation nl, no face palsy, no dysarthria CN's II-XI intact bilaterally and moves all extremities; no focal motor deficits Results & Data Results & Data Vital Signs (Past 12 Hours) Vital Signs Temp Pulse Pulse Resp BP BP Pulse Ox 09/20/23 17:13 71 20 139/52 L 99 09/20/23 17:13 100 09/20/23 17:03 66 09/20/23 16:47 37.2 C 75 18 175/64 H 99 O2 Del Method 09/20/23 17:13 Room Air 09/20/23 17:13 Room Air 09/20/23 17:03 09/20/23 16:47 Room Air Code Status & VTE Plan VTE Prophylaxis Plan VTE Prophylaxis will be ordered: Yes Supervising Physician Co-Signing Physician Notes I personally saw and examined the patient. I independently reviewed the labs, EKG, imaging, problem list, medication list, past medical history and family history. I verified all mondragon points and agree with resident physician Dr Apolinar Perez, with the following exceptions and/or additions: 73 year old female presents to the ER with concerns for slurred speech and expressive dysphasia. On further questioning she reports ongoing generalized illness since Saturday night with difficulty walking, talking and hearing. She has been looking after her mother who has Alzheimers and is awake for a lot of the night so she hasn't been getting much sleep. She missed dialysis the following day as she felt the same way. Only started to get better when she came in by ambulance. The expressive dysphasia was only this morning and lasted for 2 hours. Her sisters are now taking care of her mother at night so she can have a break. She is not routinely taking lorazepam but did take some yesterday afternoon. No melena or hematochezia. O/E A&Ox3, HS RRR, no murmurs, Chest CTAB, Abdo SNT, no pronator drift, 5/5 power in all 4 extremities, no sensation deficit. A/P Stroke-like symptoms - Brain MRI ordered due to concern for intermittent expressive dysphasia. Suspect symptoms more from missed dialysis, anemia and lack of sleep Normocytic anemia - Suspect due to ESRD. Iron sats, B12, folate, retic count. Transfuse 2 units packed RBCs. Low suspicion of acute GI bleed based on history. Resident Activity Tracking Resident Involvement: Resident Care Provided Care Provided: Adult Hospital Medicine
--- NOTE | 2023-09-20 20:50 | Magnetic Resonance Report ---
Exam(s): MRI HEAD Without Contrast EXAM: MR Head Without Intravenous Contrast CLINICAL HISTORY: Reason for exam: Balance disturbance. TECHNIQUE: Magnetic resonance images of the head/brain without intravenous contrast in multiple planes. Mild motion artifact. COMPARISON: Head CT from earlier, MRI brain 08/15/22. FINDINGS: Brain: Stable encephalomalacia left frontal lobe. Occluded left ICA. No mass effect or acute infarct. No acute or chronic hemorrhage. Very minimal atrophy and chronic white matter disease. Ventricles: No hydrocephalus or midline shift. Bones/joints: No acute finding. Soft tissues: No scalp hematoma. Sinuses: Clear. Mastoid air cells: No mastoid effusion. IMPRESSION: 1. Stable left frontal encephalomalacia and left ICA occlusion. 2. No acute infarct, bleed, acute intracranial abnormality, or interval change. Electronically signed by: Nguyen Raman M.D. 09/20/23 20:49 PM
[2023-09-20 21:14] LABS: Appearance Urine Clear (Clear); Bacteria Urine Automated Negative (Negative); Bilirubin Urine Negative (Negative); Blood Urine Negative (Negative); Color Urine Yellow; Epithelial Cell Urine Auto >30 /lpf (0-5); Glucose Urine UA Trace (Negative); Ketones Urine Negative (Negative); Leukocyte Esterase Urine Negative (Negative); Nitrite Urine Negative (Negative); Specific Gravity Urine 1.017 (1.000-1.030); Urobilinogen Urine Negative (Negative)
[2023-09-20 21:16] LABS: Protein Urine 3+ (Negative)
[2023-09-20 21:56] LABS: Ferritin 1425.3 ng/ml (8-388)
[2023-09-20] MEDS ORDERED: GLUCOSE 40% GEL 15 GM TUBE PO PRN (22:12)
[2023-09-20] MEDS ORDERED: CARBOHYDRATES FOR HYPOGLYCEMIA PO PRN (22:12)
[2023-09-20] MEDS ORDERED: ONDANSETRON INJ 2 MG/ML 2 ML VIAL IV PRN (22:12)
[2023-09-20] MEDS ORDERED: GLUCOSE 10 TAB/TUBE PO PRN (22:12)
[2023-09-20] MEDS ORDERED: ATORVASTATIN 40 MG TAB PO SCH (22:12)
[2023-09-20] MEDS ORDERED: POLYETHYLENE (MIRALAX) 17 GM PACK PO PRN (22:12)
[2023-09-20] MEDS ORDERED: ALBUTEROL HFA 8 GM INHALER INH PRN (22:12)
[2023-09-20] MEDS ORDERED: DEXTROSE 50% 50 ML SYRINGE IV PRN (22:12)
[2023-09-20] MEDS ORDERED: GLUCAGON FOR INJ 1 MG VIAL SQ PRN (22:12)
[2023-09-20] MEDS ORDERED: ACETAMINOPHEN 325 MG TAB PO PRN (22:12)
[2023-09-20] MEDS ORDERED: traZODone HCL 100 MG TAB PO PRN (22:12)
[2023-09-21] MEDS: INSULIN ASPART PER UNIT CHARGE SC SCH ×3 (01:07→12:35)
[2023-09-21] MEDS: FLUTICASONE/VILANTEROL 100/25MCG 14 PUFFS/INHALER INH SCH ×2 (01:11→09:29)
[2023-09-21] MEDS: carvediloL 25 MG TAB PO SCH ×2 (01:12→09:29)
[2023-09-21] MEDS: HEPARIN SOD 5,000 UNIT/0.5 ML VIAL SQ SCH ×2 (01:12→09:29)
[2023-09-21] MEDS: METOPROLOL SUCC 25MG EXT REL TAB PO SCH ×2 (01:12→09:28)
--- OUTSIDE RECORDS SUMMARY | 2023-09-21 03:03 | External Medical Summary | Summary of Care ---
Author Name Unknown Organization [facility] Address [address] [place] [address] Phone [phone] Care Team Providers Care Practicing Dermatologist Name Role Phone Kisha Cosby MD Primary Care Provide r Reason for Visit * Reason Onset Date Comments Appointment Canceled 07/02/2023 Pt cx'd x2 - giving her 30 days (sent letter 07/02) Encounter Details Date Type Department Care Team Description 07/02/2023 Telephone Transplant Clinic, [facility] [address] [place] [address] Lucio Montague MD [address] [place] [address] Appointment Canceled (Pt cx'd x2 - giving ... Allergies Active Allergy Reactions Severity Noted Date Comments Sulfa Antibiotics 02/16/2004 hives, rash documented as of this encounter (statuses as of 08/06/2023) Medications Medication Sig Dispensed Refills Start Date End Date Status ATENOLOL 100 MG OR TABS 1 TABLET DAILY 30 0 03/29/2004 Active CITALOPRAM HYDROBROMIDE 20 MG PO TABS 1 tab daily. 0 Active LORAZEPAM 1 MG PO TABS daily as needed 0 Active VITAMIN D3 2000 UNITS PO TABS 1 tablet daily 0 Active aspirin 325 MG Tablet Take 325 mg by mouth daily. 0 Active losartan-hctz 100-25 mg per tab (HYZAAR) 100-25 MG per tablet Take 1 Tab by mouth daily. 0 Active atorvaSTATin (LIPITOR) 80 MG Tablet Take 80 mg by mouth daily. 3 04/11/2017 Active HUMALOG KWIKPEN 100 UNIT/ML SOPN INJECT 30 UNITS TWICE DAILY 3 06/18/2017 Active LANTUS SOLOSTAR 100 UNIT/ML SOPN INJECT 34 UNITS TWICE DAILY 6 03/28/2017 Active Calcium 600 MG Tablet Take 600 mg by mouth daily. 0 Active Vitamin E 400 units Tablet Take 400 Units by mouth daily. 0 Active Ferrous Sulfate (IRON) 325 (65 Fe) MG TABS Take by mouth. 0 A ctive documented as of this encounter (statuses as of 08/06/2023) Active Problems Problem Noted Date Pathologic fx femur 06/25/2012 Chondromyxoid fibroma 03/28/2012 Osteoarthritis of knee 03/12/2012 Other specified pre-operative examinatio n 03/10/2012 DYSLIPIDEMIA, GOAL LDL BELOW 100 009 Overview: Per Lipid Taxonomy. Type 2 diabetes mellitus with hemoglobin A1c goal of less than 7.0% 08/04/2009 Overview: Modified per Diabetes protocol #14. ICD-10 update of inactive term Hip joint replacement status 02/14/2009 Primary localized osteoarthrosis of pelv ic region or thigh 02/03/2009 Carotid stenosis, non-symptomatic 2008 OLD MYOCARDIAL INFARCTION 01/18/2009 Iron deficiency anemia 01/10/2009 Giant cell arteritis 06/27/2007 ADVANCE DIRECTIVE INFORMATION 06/11/2006 Overview: No, Advance Directive brochure offered , patient declined. Chronic sinusitis 03/29/2004 ASCVD 02/16/2004 GENERALIZED ANXIETY DIS 02/16/2004 NONALLERGIC RHINITIS 02/16/2004 Deviated nasal septum 02/16/2004 OLD MYOCARDIAL INFARCTION documented as of this encounter (statuses as of 08/06/2023) Resolved Problems Problem Noted Date Resolved Date Neoplasm of uncertain behavior 03/10/2012 0 06/25/2012 DM type 2, not at goal 02/16/2004 9 Overview: Modified per Diabetes protocol #14. HYPERTENSION NOS 02/16/2004 09/13/2009 Overview: Modified per HTN protocol #16. Dyslipidemia, goal to be determined 02/16/2004 09/29/2009 Overview: Per Lipid Taxonomy. Asthma with severity to be determined 02/16/2004 06/19/2007 Overview: ICD-10 update of inactive term documented as of this encounter (statuses as of 08/06/2023) Immunizations No known immunizationsdocumented as of this encounter Social History Tobacco Use Types Packs/Day Years Used Date Smoking Tobacco: Never Smokeless Tobacco: Never Comments:no passive smoke Alcohol Use Standard Drinks/Week Comments No 0 (1 standard drink = 0.6 oz pur e alcohol) Sex Assigned at Date Recorded Not on file documented as of this encounter Miscellaneous Notes * Telephone Encounter - NELIDA Munson - 08/06/2023 12:15 PM EDT Referral has been closed, pt did not contact us to schedule. * Telephone Encounter - NELIDA Munson - 07/02/2023 3:52 PM EDT Pt canceled twice with the transplant team. I sent a letter to patient, giving her 30 days to respond to reschedule otherwise her referral will be closed. If not response by 08/01/2023, her referral will be closed and she can be re-referred. documented in this encounter Plan of Treatment Health Maintenance Due Date Last Done Comments DXA Scan 1951 Pneumococcal Vaccine: 65+ Years (1 - PCV) 1957 Depression Screening 1963 Albumin/Creatinine Ratio 1969 DIABETES-EYE EXAM 1969 Diabetic Foot Exam 1969 Hepatitis C Screening 1969 DTaP,Tdap,and Td Vaccines (1 - Tdap) 1970 Mammogram 1991 Cologuard 1996 Colonoscopy 1996 Colorectal Cancer Screening 1996 Fecal Occult Blood Test 1996 Sigmoidoscopy 1996 Zoster Vaccines (1 of 2) 2001 HbA1c 06/01/2016 12/02/2015, 02/15/2009 COVID-19 Vaccine ( season) 2023 01/25/2021, 01/04/2021 Influenza Vaccine (FLU shot) (#1) 2023 08/13/2019 GFR 11/23/2023 11/23/2022, 12/2022, 12/02/2015, Additional history exists GARDASIL-HPV IMMUNIZATION SERIES Aged Out No longer eligible based on patient's age to complete this topic Hepatitis B Aged Out No longer eligi ble based on patient's age to complete this topic MENINGOCOCCAL (MENACTRA/MENVEO) Aged Out No longer eligible based on patient's age to complete this topic documented as of this encounter Medical Devices Implanted Type Area [employer] Clerk Device Identifier Shelf Expiration Date Model / Serial / Lot Head Delta 10/03 36mm Plus1.5 - [id number] Implanted:Qty: 1 on 02/03/2009 at OR [facility] Left: Hip [employer] 10/21/2013 [id number] / / [id number] Beatriz Plate [id number] 2.344 - [id number] Implanted:Qty: 1 on 06/10/2012 at OR [facility] Right: Leg Upper SYNTHES [id number] / / documented as of this encounter Advance Directives Latest Code Status on File Code Status Date Activated Date Inactivated Comments Full Code 06/10/2012 3:03 PM 06/12/2012 3:36 PM . Question Answer Comments Discussion of Advance Direct dante occurred with: Not Discussed Code Status History Code Status Date Activated Date Inactivated Comments Full Code 05/01/2012 5:36 PM 05/02/2012 2:56 PM . Question Answer Comments Discussion of Advance Directives occurred with: Not Discussed Full Code 03/18/2012 8:18 AM 03/18/2012 1:35 PM This order reflects the patients wishes and were consensually agreed upon. Full Code 02/03/2009 9:30 AM 02/07/2009 7:33 PM Care Teams Practicing Dermatologist Relationship Specialty Start Date End Date Kisha Cosby MD [address] [place] [address] PCP - General Internal Medicine 05/17/23 documented as of this encounter
[2023-09-21 05:21] LABS: Albumin Globulin Ratio 1.2 (0.9-2); Albumin Level 3.4 gm/dl (3.4-5.0); BUN Creatinine Ratio 7.8 (10-20); Bilirubin,Total 0.4 mg/dl (0.2-1.0); Calcium 8.4 mg/dl (8.6-10.3); Creatinine Clr Calc Pharmacy 5.1 ml/min; Est GFR (African American) 4.3 ml/min; Est GFR (Non-African American) 3.7 ml/min; Globulin 2.9 gm/dl (2.5-4.0); Magnesium 2.4 mg/dl (1.7-2.4); Potassium 4.7 mmol/L (3.5-5.1); Total Protein 6.3 gm/dl (6.0-8.3)
[2023-09-21 06:46] LABS: Hematocrit (blood only) 24.7 % (37.0-47.0); Hemoglobin 8.6 g/dl (12.0-16.0); Mean Corpuscular Hemoglobin 31.7 pg (25.0-34.0); Mean Corpuscular Hgb Conc 34.8 g/dL (32.0-36.0); Mean Corpuscular Volume 91.1 fL (80.0-100.0); Mean Platelet Volume 9.5 fL (9.4-12.4); Platelet Count 182 K/uL (130-400); RDW Coefficient of Variation 15.9 % (11.5-14.5); RDW Standard Deviation 51.7 fL (36.4-46.3); Red Blood Count 2.71 M/uL (4.20-5.40); White Blood Count 7.44 K/ul (4.8-10.8)
[2023-09-21] MEDS ORDERED: LOSARTAN POTASSIUM 50 MG TAB PO SCH (09:00)
[2023-09-21] MEDS ORDERED: NIFEdipine EXTENDED REL 30 MG TABCR PO SCH (09:00)
[2023-09-21] MEDS ORDERED: NEPHROCAPS PO SCH (09:00)
[2023-09-21] MEDS ORDERED: ASPIRIN 325 MG ECTAB PO SCH (09:00)
[2023-09-21] MEDS ORDERED: minoxidiL 2.5 MG TAB PO SCH (09:00)
--- NOTE | 2023-09-21 09:25 | Billing Data ---
Date of Service September 20, 2023 Coding Level of Care Code 97363 INT INP/OBS CARE
[2023-09-21] MEDS ORDERED: EPOETIN ALFA 40,000 UNITS/ML VIAL IV STA (10:32)
--- NOTE | 2023-09-21 11:51 | Electrocardiogram Report ---
Test Reason : Blood Pressure : / mmHG Vent. Rate : 064 BPM Atrial Rate : 064 BPM P-R Int : 176 ms QRS Dur : 094 ms QT Int : 402 ms P-R-T Axes : 050 003 -25 degrees QTc Int : 414 ms Normal sinus rhythm Anteroseptal infarct (cited on or before 04-MAR-2019) Abnormal ECG When compared with ECG of 12-JUL-2023 13:13, Non-specific change in ST segment in Anterior leads Inverted T waves have replaced nonspecific T wave abnormality in Inferior leads Nonspecific T wave abnormality now evident in Lateral leads QT has shortened Confirmed by Santy Darby ([id number]) on 09/21/2023 11:50:50 AM Referred By: REFERRED SELF Confirmed By:Santy Darby
--- NOTE | 2023-09-21 12:23 | Hospitalist Progress Note ---
Date of Service September 21, 2023 Assessment & Plan (1) Generalized weakness: Plan: Due to severe anemia from end-stage renal disease. Improved after blood transfusion. OT and PT evaluations have been requested. (2) Anemia: Plan: acute on chronic. Appears to be due to end-stage renal disease. Hemoglobin 6.9 on admission. She received 2 units packed red blood cell transfusion and hemoglobin is now 8.6. No evidence of GI bleeding. Serial labs ordered. (3) ESRD (end stage renal disease) on dialysis: Plan: Dialysis schedule is Saturday. Nephrology consultation appreciated. She will undergo dialysis later today (4) Uncontrolled diabetes mellitus with hyperglycemia: Plan: Diet controlled. Sliding scale coverage as needed. Most recent HgbA1C: 6.8 (5) Coronary artery disease: Plan: Stable. Continue current medical management. (6) Hypertension: Plan: Stable. Continue current medical management Plan Hopeful discharge to home tomorrow, September 22 Admission and Anticipated Discharge Date Admission Date: September 20, 2023 Subjective Alert and oriented. No acute distress. Vital signs are stable. She received 2 units packed red blood cells for hemoglobin 6.9. Hemoglobin has improved to 8.6. She is awaiting dialysis treatment later today. OT and PT assessments have been ordered. Hopefully she can go home tomorrow, September 22 Review of Systems 2 Review of Systems: Constitutional-no fever or chills ENT-no blurred vision, no double vision, no epistaxis, no sore throat Respiratory-no cough, no wheezing, no shortness of breath Cardiac-no palpitations, no chest pain, no syncope GI-no nausea, vomiting, diarrhea, melena, hematochezia -no urinary retention, no urinary incontinence, no dysuria, no hematuria Musculoskeletal-no joint pain, no muscle tenderness Skin-no bruising, no rashes, no pruritus Neuro-no isolated weakness, no paresthesia, no weakness Psych-no depression, no anxiety Physical Exam 2 Physical Exam: General-alert and oriented x3, no fevers, no chills HEENT-head atraumatic and normocephalic, pupils equal and reactive to light, extraocular muscles intact Neck-no lymphadenopathy or thyromegaly, trachea midline Chest-clear to auscultation percussion. No rales, wheezing or rhonchi Cardiac-regular rate and rhythm, normal S1 and S2 Abdomen-normal bowel sounds, nontender, no hepatosplenomegaly Extremities-no cyanosis, clubbing, or edema Neuro-cranial nerves II through XII intact, motor and sensory function within normal limits, strength symmetrical, no focal deficits Psych-normal affect, normal mood Results & Data Results & Data Vital Signs (Past 12 Hours) Vital Signs Temp Pulse Pulse Resp BP BP Pulse Ox 09/21/23 09:27 65 17 139/55 L 97 09/21/23 08:06 71 09/21/23 07:26 63 17 128/52 L 97 09/21/23 04:35 36.8 C 62 15 124/47 L 94 09/21/23 03:26 37.3 C 62 18 112/45 L 96 09/21/23 03:00 64 18 124/58 L 96 09/21/23 02:42 37.4 C 64 18 120/51 L 96 09/21/23 01:47 37.6 C H 66 16 128/61 95 09/21/23 01:25 37.6 C H 66 16 138/62 97 09/21/23 01:02 37.4 C 68 18 141/59 H 97 09/21/23 00:44 37.2 C 66 18 136/52 L 96 O2 Del Method 09/21/23 09:27 09/21/23 08:06 09/21/23 07:26 09/21/23 04:35 Room Air 09/21/23 03:26 09/21/23 03:00 09/21/23 02:42 09/21/23 01:47 09/21/23 01:25 09/21/23 01:02 09/21/23 00:44 Laboratory Results 09/21/23 04:20 09/21/23 04:20 PG Care Time/CCT Total # of Minutes Spent Total Time Spent with Patient: Total time spent is greater than 50% in coordination of care (as documented) at patient's floor/unit and/or counseling patient: Coding Level of Care Code 37616 SUB INP/OBS CARE 3/50MIN Diagnoses Generalized weakness R53.1 Anemia D64.9 ESRD (end stage renal disease) on dialysis N18.6; Z99.2 Uncontrolled diabetes mellitus with hyperglycemia E11.65 Coronary artery disease I25.10 Hypertension I10
--- NOTE | 2023-09-21 13:36 | Nephrology Consultation ---
Date of Consultation September 21, 2023 Assessment & Plan (1) ESRD (end stage renal disease) on dialysis: (2) Anemia due to chronic kidney disease: (3) Hypertension: (4) Paroxysmal atrial tachycardia: (5) Generalized weakness: (6) Balance problem: (7) Depression with anxiety: (8) Hyperparathyroidism, secondary renal: Plan 73-year-old female with ESKD in the setting of hypertension, diabetes, PVD, nephrotic range proteinuria and left atrophic kidney, on HD at [facility] via left RC AVF. Admitted with strokelike symptoms and severe anemia, work-up unremarkable including negative CT and MRI of brain. No neurological findings. Received 1 unit of blood transfusion and hemoglobin improved to 8.6. Clinically otherwise asymptomatic. -- Will plan for today as she missed dialysis . We will get outpatient dialysis record and plan for UF to reach estimated dry weight. -- Epogen 02756 units x 1 dose with dialysis today --Continue renal vitamins and phosphate binder -- left arm nephrology precaution, dose medications for eGFR less than 10 --If clinically stable after dialysis, okay to be discharged from nephrology standpoint Will follow while inpatient. Thank you for allowing me to participate in your patient's care. It was a pleasure to see Jessika. History of Present Illness Reason for Consultation: ESKD, missed HD, Severe anemia Attending Physician: Stephen Spencer MD History of Present Illness Ms. Jessika Doll is a 73-year-old female with PMH significant for stage ESKD on HD TTS at [facility] admitted to the hospital with stroke like symptoms and profound anemia. Nephrology consult was requested for management of dialysis as she missed her regular dialysis treatment. Electronic medical records were reviewed in detail during patient's visit. Jessika was brought to ER by EMS for evaluation of strokelike symptoms. She was experiencing some feeling of imbalance and other nonspecific symptoms and was concerned that she may be having an episode stroke or TIA. By the time EMS arrived her symptoms are mostly resolved. She was mainly having significant s tresses with family and taking care for her elderly mother. On admission her hemoglobin was 6.9 is significant drop compared to before. She denied any active bleeding. Other work-up including chest x-ray, CT head and MRI was unremarkable for any acute CVA. Labs are otherwise acceptable with normal electrolyte blood pressure is acceptable. Did not have any respiratory distress or sign of volume overload although she missed dialysis . ESKD , on HD TTS at [facility], started on HD in August 2022. Considering left atrophic kidney no kidney biopsy was done and advanced CKD and high-grade proteinuria was thought to be secondary to underlying diabetes and vasculopathy. She had left radiocephalic AV fistula placed on 09/20/[address] Baltazar. Previous SPEP, UPEP was unremarkable. Hypertension, well controlled at home. History of diabetes for more than 20 years seems to be generally poorly control, on insulin, no known history of retinopathy. Non smoker. History of bilateral carotid stenosis status post carotid endarterectomy. This morning she reports feeling better although still stressed with many family issues, she just wants to go home. Hemoglobin improved to 8.6 with 1 unit of blood transfusion yesterday. Allergies Allergy/AdvReac Type Severity Reaction Status Date / Time amlodipine Allergy Intermediate Rash Verified 08/14/23 08:52 Sulfa (Sulfonamide Allergy Intermediate Hives Verified 08/14/23 08:52 Antibiotics) lisinopril AdvReac Intermediate Cough Verified 08/14/23 08:52 Home Medications Medication Instructions Recorded Confirmed Type atorvastatin 80 mg tablet 80 mg PO HS #90 tabs 04/30/22 09/20/23 Rx losartan 100 mg tablet 100 mg PO QAM #90 tabs 12/27/22 09/20/23 Rx nifedipine 60 mg tablet,extended 60 mg PO QAM #90 tabs 12/27/22 09/20/23 Rx release 24 hr aspirin 81 mg tablet,delayed 324 mg (4 x 81 mg) PO QAM #0 tabs 01/14/23 09/20/23 Rx release Symbicort 80 mcg-4.5 mcg/actuation 2 puff inhalation BID #10.2 grams 01/18/23 09/20/23 Rx HFA aerosol inhaler (budesonide-formoterol) vit B,C-folic ac 800 mcg-zinc 12.5 2 tab PO DAILY 01/24/23 09/20/23 History mg-selen-D3 2,000 unit-vit E tablet (RenaPlex-D) minoxidil 2.5 mg tablet 5 mg PO DAILY 02/07/23 09/20/23 History metoprolol succinate 25 mg 25 mg PO BID #180 tabs 04/10/23 09/20/23 Rx tablet,extended release 24 hr trazodone 100 mg tablet 100 mg PO DAILY PRN insomnia #90 05/28/23 09/20/23 Rx tabs RSVPreF3 antigen 2 of 2 120 mcg IM 0.5 ml IM ONCE #1 ea 08/14/23 09/20/23 Rx susp (Arexvy Antigen Component) carvedilol 25 mg tablet 25 mg PO TID 08/14/23 09/20/23 History lorazepam 0.5 mg tablet 0.5 mg PO DAILY PRN anxiety #45 08/14/23 09/20/23 Rx tabs albuterol sulfate 90 mcg/actuation 2 puff inhalation QID PRN 08/15/23 09/20/23 Rx aerosol inhaler shortness of breath or wheezing #8.5 grams Patient History Medical History Anemia due to chronic kidney disease Asthma AVF (arteriovenous fistula) Carotid stenosis, bilateral Chronic sinusitis CMF (chondromyxoid fibroma) Coronary artery disease Depression with anxiety Diabetes Gout Hyperlipemia Hyperparathyroidism, secondary renal Hyperphosphatemia Hypertension Myocardial infarction Obesity Pulmonary nodules Renal artery stenosis Restless legs syndrome Right knee pain Stage 4 chronic kidney disease Surgical History History of bilateral carpal tunnel release History of bone marrow biopsy History of cardiac cath History of colonoscopy History of hip replacement, total History of hysterectomy History of knee surgery History of lumpectomy of both breasts History of open reduction and internal fixation (ORIF) procedure History of sinus surgery Family History Mother Heart disease Hypertension Coronary heart disease Anxiety Cancer Father , Age 59 of [place]. 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: No Beliefs That Will Affect Care: None marital status: Current Living Situation: Family current occupational status: 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 Other Information That Helps Us Care for You: No Feels Safe at Home: Yes Safety Concerns: Feels Safe At This Time Childhood Exposure to Second-Hand Smoke: No Diet: diabetic caffeine: Yes Dental Care, Regularly: Yes Physical Activity Frequency: Does not Exercise Seatbelt Use: always Sunscreen Use: Yes Assistive Devices: Glasses Review of Systems Review of Systems: Detailed review of system was done and pertinent positives and negatives were mentioned above Physical Exam Constitutional: WD/WN, vitals as above no acute distress Eyes: + anicteric sclerae Neck: normal visual inspection Respiratory: no respiratory distress and no cough Auscultation: lungs clear to auscultation bilaterally Cardiovascular: RRR, no murmur, no edema Extremities: + AV fistula (left RC AVF with thrill and bruit) Gastrointestinal (Abdomen): Inspection/Auscultation: abdomen normal to inspection Musculoskeletal: Extremities: extremities normal to inspection Skin: no rashes, warm and dry Neurologic: no focal motor deficits Psychiatric: Orientation: alert and oriented x 3 Affect: euthymic affect Results & Data Vital Signs (Past 12 Hours) Vital Signs Temp Pulse Pulse Resp BP BP Pulse Ox 09/21/23 09:27 65 17 139/55 L 97 09/21/23 08:06 71 09/21/23 07:26 63 17 128/52 L 97 09/21/23 04:35 36.8 C 62 15 124/47 L 94 09/21/23 03:26 37.3 C 62 18 112/45 L 96 09/21/23 03:00 64 18 124/58 L 96 09/21/23 02:42 37.4 C 64 18 120/51 L 96 09/21/23 01:47 37.6 C H 66 16 128/61 95 O2 Del Method 09/21/23 09:27 09/21/23 08:06 09/21/23 07:26 09/21/23 04:35 Room Air 09/21/23 03:26 09/21/23 03:00 09/21/23 02:42 09/21/23 01:47 PG Care Time/CCT Total # of Minutes Spent Total Time Spent with Patient: Total time spent is greater than 50% in coordination of care (as documented) at patient's floor/unit and/or counseling patient: Coding Level of Care Code 65986 OFFICE CONSULT LVL Diagnoses ESRD (end stage renal disease) on dialysis N18.6; Z99.2 Anemia due to chronic kidney disease N18.9; D63.1 Hypertension I10 Paroxysmal atrial tachycardia I47.1 Generalized weakness R53.1 Balance problem R26.89 Depression with anxiety F41.8 Hyperparathyroidism, secondary renal N25.81
--- NOTE | 2023-09-21 16:43 | Discharge Summary ---
Date of Service September 21, 2023 Admission HPI Per Admitting Provider 73 y/o female with PMH of ESRD with dialysis, HTN, hyperlipidemia, DM2, CAD, Ischemic cardiomyopathy here due to generalized weakness. Patient refers this afternoon around 2 pm she felt linda tired and dizzy that felt that lost bilateral upper and lower extremities acute weakness. she also refers slurred speech. All symptoms resolved when she arrived at the hospital. She refers that she had been taking care her mom who has Alzheimer and that she is feeling very tire because of that. She is schedule for dialysis Saturday, and Saturday. Last dialysis was on Saturday, she missed due to tiredness. At evaluation she was found in NAD , no neuro deficits on physical exam. CT head without contrast without any acute intracranial findings, only chronic findings, no bleeding. MRI w/o contrast was ordered. Patient found with Cr. 9.45, BUN 72 , Mag 2.5. Hgb found at 6.9, HCT 20.6. Patient will be transfuse 1 PRBCs now, consent given. Nephrology consulted, plan to dialysis tomorrow. Anemia work up ordered. Follow cbc am Principal Diagnosis Acute on chronic anemia, weakness, strokelike symptoms Discharge Exam General-alert and oriented x3, no fevers, no chills HEENT-head atraumatic and normocephalic, pupils equal and reactive to light, extraocular muscles intact Neck-no lymphadenopathy or thyromegaly, trachea midline Chest-clear to auscultation percussion. No rales wheezing or rhonchi Cardiac-regular rate and rhythm, normal S1 and S2 Abdomen-normal bowel sounds, nontender, no hepatosplenomegaly Extremities-no cyanosis, clubbing, or edema Neuro-cranial nerves II through XII intact, motor and sensory function within normal limits, strength symmetrical, no focal deficits Psych-normal affect, normal mood Discharge Data Allergies Allergy/AdvReac Type Severity Reaction Status Date / Time amlodipine Allergy Intermediate Rash Verified 08/14/23 08:52 Sulfa (Sulfonamide Allergy Intermediate Hives Verified 08/14/23 08:52 Antibiotics) lisinopril AdvReac Intermediate Cough Verified 08/14/23 08:52 Consultations 09/20/23 18:20 ED Decision to Admit Stat 09/20/23 20:10 Consult Nephrology Routine 09/20/23 22:12 Consult Nephrology Routine Ordered Studies 09/20/23 16:46 MR brain wo con Stat 09/20/23 18:13 CT head/brain wo con Stat Hospital Course (1) Generalized weakness: Due to severe anemia from end-stage renal disease. Improved after blood transfusion. OT and PT evaluations have been requested. (2) Anemia: acute on chronic. Appears to be due to end-stage renal disease. Hemoglobin 6.9 on admission. She received 2 units packed red blood cell transfusion and hemoglobin is now 8.6. No evidence of GI bleeding. Serial labs ordered. (3) ESRD (end stage renal disease) on dialysis: Dialysis schedule is Saturday. Nephrology consultation appreciated. She will undergo dialysis later today (4) Uncontrolled diabetes mellitus with hyperglycemia: Diet controlled. Sliding scale coverage as needed. Most recent HgbA1C: 6.8 (5) Coronary artery disease: Stable. Continue current medical management. (6) Hypertension: Stable. Continue current medical management Plan The patient now insists on going home today, September 21. She is medically stable. No new medications at this time. Total Time Total Time Spent Total Time Spent (In Minutes): 45 minutes Discharge Plan Discharge Items Patient Disposition: Home - Self-Care Reason For Visit: STROKE LIKE SYMPTOMS, ESRD Discharge Diagnosis: Acute on chronic anemia, weakness, strokelike symptoms without CVA Activity: Resume your previous activity Non-emergency contact: Primary Care Provider Call non-emergency contact if: you have any medication questions and your symptoms worsen Follow-up/Referrals: Keri Sharma DO [Primary Care Provider] - Diet: Carb Consistent or DM2 and Dialysis Renal Addtl Attending Provider Instructions: All medications remain the same Pending Studies at Discharge: No Stand-Alone Forms: My [facility] [employer], Smoking Cessation Medications and DC Order Prescriptions: Continued atorvastatin 80 mg tablet 80 mg PO HS Qty: 90 3RF losartan 100 mg tablet 100 mg PO QAM Qty: 90 3RF nifedipine 60 mg tablet extended release 24hr 60 mg PO QAM Qty: 90 3RF RenaPlex-D 800 mcg-12.5 mg -2,000 unit tablet 2 tab PO DAILY Rx Instructions: on dialysis days take after dialysis minoxidil 2.5 mg tablet 5 mg PO DAILY trazodone 100 mg tablet 100 mg PO DAILY PRN (Reason: insomnia) Qty: 90 1RF albuterol sulfate 90 mcg/actuation HFA aerosol inhaler 2 puff inhalation QID PRN (Reason: shortness of breath or wheezing) Qty: 8.5 1RF aspirin 81 mg tablet,delayed release (DR/EC) 324 mg PO QAM Qty: 0 0RF carvedilol 25 mg tablet 25 mg PO TID Arexvy Antigen Component 120 mcg suspension for reconstitution 0.5 ml IM ONCE MDD done Qty: 1 0RF lorazepam 0.5 mg tablet 0.5 mg PO DAILY PRN (Reason: anxiety) Qty: 45 0RF budesonide-formoterol [Symbicort] 80-4.5 mcg/actuation HFA aerosol inhaler 2 puff inhalation BID Qty: 10.2 3RF metoprolol succinate 25 mg tablet extended release 24 hr 25 mg PO BID Qty: 180 3RF Rx Instructions: Take in addition to carvedilol Discharge Orders: Discharge Order (Routine); Ordered 09/21/23 Ordered By: Arnold Mckngiht/Other Patient Handouts: High Blood Sugar (Hyperglycemia), Managing Type 2 Diabetes Admission Data Admit Date/Time: 09/20/23 19:20 Attending Provider: Arnold Enrique Admit Provider: Apolinar Mendez Primary Care Provider: Keri Sharma Other Providers: Henrietta Soria; Stephen Spencer Coding Level of Care Code 57274 INP/OBS DISCH >30 MIN Diagnoses Generalized weakness R53.1 Anemia D64.9 ESRD (end stage renal disease) on dialysis N18.6; Z99.2 Uncontrolled diabetes mellitus with hyperglycemia E11.65 Coronary artery disease I25.10 Hypertension I10
== END 2023-09-21 17:16 | disposition home or self-care (01) | DRG 682 ==
LOC: ED 16:29 → EDINP 19:20 → SUATTDRO 19:20 → EDINP 22:11 → 2S 09-21 15:41

== ENCOUNTER 2024-07-14 07:09 | Inpatient (IN) ==
--- NOTE | 2024-07-14 07:51 | Emergency Department Note ---
Impression & Plan Severe anemia, ESRD (end stage renal disease) on dialysis, Generalized weakness ED Provider Note NAME: RUFUS HARTMAN AGE: 73 SEX: F : 1950 ARRIVES VIA: Ambulance INFORMANT: Patient ED PROVIDER(S): Yonis Garcia MD CHIEF COMPLAINT: Weakness PLAN: Disposition: Admit MEDICAL DECISION MAKING: The patient is a pleasant 73-year-old woman with a past medical history of end- stage renal disease on hemodialysis, Saturday (she does still urinate daily) who presents to the emergency department for evaluation of generalized weakness and dizziness where she reports she missed dialysis on due to feeling fatigued and then on Saturday went to have dialysis but her access had infiltrated and they could not proceed with dialysis. She reports she continues to feel weak and presents for evaluation. She denies any chest pain. She reports she has had a mild cough since Saturday. She denies nausea, vomiting or diarrhea. On evaluation the patient is fatigued appearing afebrile with stable vital signs. She appears euvolemic to slightly dry. EKG demonstrates sinus rhythm with PACs without overt acute ischemia. Chest x- ray demonstrates chronic interstitial thickening with suspicion for bibasilar opacities which are nonspecific. WBC within normal limits with neutrophilia but no left shift. H/H 6.3/19.1 with MCV of 97 which may be related to having missed dialysis and a component of hemodilution as well as having missed her treatments with dialysis. Chemistry without metabolic acidosis. Potassium is 5.6. Creatinine is 8 in the setting of known end-stage renal disease. HS troponin 31, nonspecific in setting of end-stage renal disease. Procalcitonin is mildly elevated at 0.69 and so ?pneumonia. TSH within normal limits. Respiratory BioFire was negative. Patient was consented for blood transfusion and 2 units of PRBCs was ordered. Nursing already communicating with dialysis nursing to arrange for dialysis today. CT head negative for acute abnormalities. Case was discussed with KARUNA Briggs PAC, with KARUNA Spencer hospitalist who will evaluate the patient for admission. Further management per admitting team. Triage Nursing notes reviewed and agree them. Prior/external medical records reviewed Vital Signs: reviewed Differential diagnosis: Infection, dehydration, metabolic abnormality, hypo/hyperglycemia, electrolyte disturbance, anemia, hypoxia, cardiac sources, intracerebral event, toxicologic, neurologic, as well as other pathologies. ER treatment provided: See below. Diagnostics interpreted by me: ECG: SR with PACs, 85 bpm, no overt ST elevation or depression, QTc 476, QRS 92. Cardiac Monitoring: An order for continuous cardiac monitoring was placed and demonstrated SR with PACs, 85 bpm Laboratory studies: See below Imaging studies: See below Consultation(s): Case was discussed with KARUNA Briggs PAC, with KARUNA Spencer hospitalist who will evaluate the patient for admission. HPI: The patient is a pleasant 73-year-old woman with a past medical history of end-stage renal disease on hemodialysis, Saturday (she does still urinate daily) who presents to the emergency department for evaluation of generalized weakness and dizziness where she reports she missed dialysis on due to feeling fatigued and then on Saturday went to have dialysis but her access had infiltrated and they could not proceed with dialysis. She reports she continues to feel weak and presents for evaluation. She denies any chest pain. She reports she has had a mild cough since Saturday. She denies nausea, vomiting or diarrhea. ROS: See above HPI for pertinent positives & negatives. A total of 10 systems reviewed and were otherwise negative. VITALS:See Below PHYSICAL EXAMINATION: GENERAL: Awake, alert, fatigued-appearing, in no distress, BMI 37.4. HENT: Normocephalic, atraumatic. Oropharynx with dry mucous membranes and otherwise unremarkable. EYES: Normal conjunctiva. Sclera non-icteric. EOMI. No nystamgus. PEARRL. NECK: Supple. No nuchal rigidity. FROM. No JVD. RESPIRATORY: Clear to auscultation. CARDIAC: Regular rate, normal rhythm. Extremities warm and well perfused. Pulses equal. Left forearm AV fistula with palpable thrill. ABDOMEN: Soft, non-distended. No tenderness to palpation. No rebound or guarding. No masses. MUSCULOSKELETAL: Chest examination reveals no tenderness. The back is symmetrical on inspection without obvious abnormality. There is no CVA tenderness to palpation. No joint edema. LOWER EXTREMITIES: Calves are equal size bilaterally and non-tender. No edema. No discoloration. NEURO: Normal sensorium. No sensory or motor deficits noted. 5/5 strength and SILT x 4 extremities. Intact [id number]. SKIN: Mild pallor. No rash or jaundice noted. ED COURSE: Critical Care: I have personally spent greater than 35 minutes of critical care time in the direct management of this patient. This includes bedside care, interpretation of diagnostic studies, and testing, discussion with consultants, patient, and family members, and other required patient management activities. This 35 minutes is in excess of all separately billable procedures. Yonis Garcia MD Past Med/Surg History Problem List (Updated 07/14/24 @ 20:05 by Yonis Garcia MD) Bronchitis Hyperkalemia ESRD (end stage renal disease) on dialysis (Acute) Insomnia Palpitations Severe anemia (Acute) Generalized weakness (Acute) Hypoxia (Acute) Pulmonary edema (Acute) Nausea Ischemic cardiomyopathy Cerebrovascular disease Dizziness (Acute) Hyperphosphatemia Diabetes IDDM ID Endocrinology Pulmonary nodules Under surveillance Osteopenia Environmental and seasonal allergies Premature atrial complexes Lung nodule Carotid atherosclerosis (Acute) Carotid stenosis, bilateral Chronic occlusion of the right CCA. Right ICA patent and flow is antegrade via retrograde flow from right ECA. Chronic occlusion of the left ICA. Less than 50% stenosis left ECA with antegrade flow. Right and left vertebrals are patent with antegrade flow. No significant change compared to previous 07/31/2019 per report. Uncontrolled type 2 diabetes mellitus with kidney complication, with long-term current use of insulin (Acute) Hyperlipemia BMI 38.0-38.9,adult (Acute) Gout Vitamin D deficiency (Chronic) Restless legs syndrome (Acute) Renal artery stenosis (Acute) Left knee pain (Acute) Chronic sinusitis (Acute) CMF (chondromyxoid fibroma) (Acute) Medical History Uncontrolled diabetes mellitus with hyperglycemia Hypertension Paroxysmal atrial tachycardia AVF (arteriovenous fistula) Right knee pain Anemia due to chronic kidney disease Obesity Myocardial infarction NSTEMI 09/2000, cath 10/2000 with total mid RCA occlusion, collaterals present, medically managed Asthma Stage 4 chronic kidney disease Follows with ID nephrology Plan for future dialysis Hypertension Hyperparathyroidism, secondary renal Depression with anxiety Coronary artery disease Follows with Dr. Carlos Surgical History History of bilateral carpal tunnel release 2001 History of open reduction and internal fixation (ORIF) procedure Open treatment femoral shaft fracture with plate performed by Albin Graham 06[place]10[place] [facility] [place]cision, tumor, soft tissue of thigh or knee area, subfascial Open treatment proximal femur with fixation or prosthesis History of hip replacement, total 2009 History of sinus surgery 1995 Dr. Morrow History of knee surgery History of hysterectomy History of colonoscopy History of cardiac cath 2000 > with total mid RCA occlusion, collaterals present (medical management) 2003 > + collaterals (medical management) History of lumpectomy of both breasts History of bone marrow biopsy 03/18/12 Bx bone trocar or needle deep [place] Dr. Albin Saenz [place] [facility] [place] Family History Mother Heart disease Hypertension Coronary heart disease Anxiety Cancer Father , Age 59 of [place]. Heart disease Diabetes Hypertension Coronary heart disease Stroke Myocardial infarction Brother Hypertension Sister Hypertension Denies family history of Ovarian cancer Prostate cancer Kidney disease Breast cancer Lung cancer Social History Smoking Status: Never smoker Second Hand Exposure: No; Do You Dip or Chew Tobacco: No; Hx Alcohol Use: No Hx Substance Use: No Preferred Language: Uzbek Communication Ability: Effective Visual Impairment: Limited Hearing Ability: Normal Relationship Management Lead Required: No Beliefs That Will Affect Care: None marital status: Current Living Situation: Alone Current Living Situation Comment: Daughter lives next door current occupational status: 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 Safe at Home: Yes Safety Concerns: Feels Safe At This Time Childhood Exposure to Second-Hand Smoke: No Diet: diabetic caffeine: Yes Dental Care, Regularly: Yes Physical Activity Frequency: Does not Exercise Seatbelt Use: always Sunscreen Use: Yes Assistive Devices: Glasses Allergies Allergies Allergy/AdvReac Type Severity Reaction Status Date / Time amlodipine Allergy Intermediate Rash Verified 04/15/24 10:06 Sulfa (Sulfonamide Allergy Intermediate Hives Verified 04/15/24 10:06 Antibiotics) lisinopril AdvReac Intermediate Cough Verified 04/15/24 10:06 Home Meds Home Medications Medication Instructions Recorded Confirmed aspirin 325 mg tablet 325 mg PO DAILY 04/13/24 07/14/24 Previous Rx's Medication Instructions Recorded atorvastatin 80 mg tablet 80 mg PO HS #90 tabs 04/30/22 Symbicort 80 mcg-4.5 mcg/actuation 2 puff inhalation BID #10.2 grams 01/18/23 HFA aerosol inhaler (budesonide-formoterol) albuterol sulfate 90 mcg/actuation 2 puff inhalation QID PRN 08/15/23 aerosol inhaler shortness of breath or wheezing #8.5 grams sacubitril 97 mg-valsartan 103 mg 1 tab PO BID #180 tabs 02/05/24 tablet nifedipine 90 mg tablet,extended 90 mg PO QAM #90 tabs 02/19/24 release 24 hr buspirone 5 mg tablet 5 mg PO TID #90 tabs 04/15/24 carvedilol 25 mg tablet 50 mg (2 x 25 mg) PO BID #360 tabs 05/01/24 lorazepam 0.5 mg tablet 0.5 mg PO DAILY PRN anxiety #30 05/21/24 tabs Results & Data (ED) Vital Signs Vital Signs - 24 hr 07/14/24 07:27 07/14/24 08:11 07/14/24 09:59 Temperature 36.7 C Temperature Source Oral Pulse Rate 78 80 Pulse Rate [Apical] 80 Respiratory Rate 20 20 Respiratory Effort / Characteristics Non-Labored Spontaneous Non-Labored Spontaneous Respiratory Depth Normal Normal Respiratory Pattern Regular Regular Blood Pressure 122/77 Blood Pressure [Right Arm] 151/78 H Blood Pressure Mean 92 Blood Pressure Mean [Right Arm] 102 Pulse Oximetry 96 96 Oxygen Delivery Method Room Air Room Air Sepsis Recent Fever Within 48 Hours No Sepsis New/Unexplained Change in Mental Status No Sepsis Action Taken by Nursing No Action Required Laboratory Data Attestation: I reviewed the patient's lab results. 07/14/24 07:24 07/14/24 07:24 Lab Results 07/14/24 07/14/24 07/14/24 Range/Units 07:24 08:06 08:14 WBC 10.66 (4.8-10.8) K/ul RBC 1.95 L (4.20-5.40) M/uL Hgb 6.3 L* (12.0-16.0) g/dl POC Hgb 6.1 L* (12.0-16.0) g/dl Hct 19.1 L* (37.0-47.0) % POC Hct 18 L* (37-47) % MCV 97.9 (80.0-100.0) fL MCH 32.3 (25.0-34.0) pg MCHC 33.0 (32.0-36.0) g/dL RDW Std Deviation 52.4 H (36.4-46.3) fL RDW Coeff of Nilda 14.8 H (11.5-14.5) % Plt Count 191 (130-400) K/uL MPV 10.0 (9.4-12.4) fL Immature Gran % (Auto) 0.8 % Neut % (Auto) 80.0 % Lymph % (Auto) 8.1 % [place] % (Auto) 6.8 % Eos % (Auto) 3.8 % Baso % (Auto) 0.5 % Reticulocyte % (Auto) 2.19 H (0.50-2.00) % Neut # (Auto) 8.53 H (1.40-6.50) K/uL Lymph # (Auto) 0.86 L (1.20-3.40) K/uL [place] # (Auto) 0.72 H (0.11-0.59) K/uL Eos # (Auto) 0.41 (0.00-0.50) K/uL Baso # (Auto) 0.05 (0.00-0.20) K/uL Reticulocyte # 0.040 (0.020-0.100) 10^6/uL Immature Gran # (Auto) 0.09 (0.01-0.20) K/uL RBC Morphology Unremarkable PT 10.8 (9.0-12.0) Seconds INR 1.0 (0.9-1.1) POC Sodium 134 L (135-144) mmol/L Sodium 136 (136-145) mmol/L POC Potassium 5.7 H (3.3-5.0) mmol/L Potassium 5.6 H (3.5-5.1) mmol/L POC Chloride 101 (101-112) mmol/L Chloride 98 (98-107) mmol/L Carbon Dioxide 22 (21-32) mmol/L POC Total CO2 21 L (24-31) mmol/L Anion Gap 16 H (3-11) POC Anion Gap 18.0 (16-25) mmol/L POC BUN 88 H (7-18) mg/dl BUN 80 H (6-23) mg/dl Creatinine 8.03 H* (0.6-1.2) mg/dl POC Creatinine 9.1 H* (0.6-1.3) mg/dl Est Cr Clr Drug Dosing 6.2 ml/min Est GFR ( Amer) 5.3 ml/min Est GFR (Non-Af Amer) 4.5 ml/min BUN/Creatinine Ratio 10.0 (10-20) Glucose 373 H* (70-99(Fasting)) mg/dl POC Glucose (other) 356 H* (70-99) mg/dl Calcium 9.0 (8.6-10.3) mg/dl POC Ioniz Calcium Rex 1.10 L (1.12-1.32) mmol/l Phosphorus 4.5 (2.5-4.9) mg/dl Magnesium 2.2 (1.7-2.4) mg/dl Iron 41 (35-150) mcg/dl Unsaturated IBC 191 (155-355) mcg/dl Transferrin 176 L (200-360) mg/dl Ferritin 1382.6 H (8-388) ng/ml Total Bilirubin 0.4 (0.2-1.0) mg/dl AST 12 L (13-39) U/L ALT 10 (7-52) U/L Alkaline Phosphatase 81 (34-104) U/L Troponin I High Sens 31.4 H (0-14) pg/ml Total Protein 7.0 (6.0-8.3) gm/dl Albumin 3.8 (3.4-5.0) gm/dl Globulin 3.2 (2.5-4.0) gm/dl Albumin/Globulin Ratio 1.2 (0.9-2) Lipase 30 (11-82) U/L Vitamin B12 496 (180-914) pg/ml Folate > 22.30 (>5.38) ng/ml Procalcitonin 0.69 H (0-0.5) ng/ml TSH 2.810 (0.300-4.500) uIu/ml Adenovirus (PCR) Not Detected (NotDetected) B. pertussis DNA (PCR) Not Detected (NotDetected) B.parapertussis DNA PCR Not Detected (NotDetected) C. pneumoniae DNA (PCR) Not Detected (NotDetected) Coronavirus OC43 (PCR) Not Detected (NotDetected) Coronavirus HKU1 (PCR) Not Detected (NotDetected) Coronavirus 229E (PCR) Not Detected (NotDetected) SARS-CoV-2 (PCR) Not Detected (NotDetected) Coronavirus NL63 (PCR) Not Detected (NotDetected) Human Metapneumovir PCR Not Detected (NotDetected) Influenza Type A (PCR) Not Detected (NotDetected) Influenza Type B (PCR) Not Detected (NotDetected) M. pneumoniae (PCR) Not Detected (NotDetected) Parainfluenza 1 (PCR) Not Detected (NotDetected) Parainfluenza 2 (PCR) Not Detected (NotDetected) Parainfluenza 3 (PCR) Not Detected (NotDetected) Parainfluenza 4 (PCR) Not Detected (NotDetected) RSV (PCR) Not Detected (NotDetected) Entero/Rhino (PCR) Not Detected (NotDetected) Blood Type O Positive Antibody Screen POSITIVE A Antibody Identification Anti-Fyb Antibody ID Comment Crossmatch See Detail 07/14/24 Range/Units 09:56 WBC (4.8-10.8) K/ul RBC (4.20-5.40) M/uL Hgb (12.0-16.0) g/dl POC Hgb (12.0-16.0) g/dl Hct (37.0-47.0) % POC Hct (37-47) % MCV (80.0-100.0) fL MCH (25.0-34.0) pg MCHC (32.0-36.0) g/dL RDW Std Deviation (36.4-46.3) fL RDW Coeff of Nilda (11.5-14.5) % Plt Count (130-400) K/uL MPV (9.4-12.4) fL Immature Gran % (Auto) % Neut % (Auto) % Lymph % (Auto) % [place] % (Auto) % Eos % (Auto) % Baso % (Auto) % Reticulocyte % (Auto) (0.50-2.00) % Neut # (Auto) (1.40-6.50) K/uL Lymph # (Auto) (1.20-3.40) K/uL [place] # (Auto) (0.11-0.59) K/uL Eos # (Auto) (0.00-0.50) K/uL Baso # (Auto) (0.00-0.20) K/uL Reticulocyte # (0.020-0.100) 10^6/uL Immature Gran # (Auto) (0.01-0.20) K/uL RBC Morphology PT (9.0-12.0) Seconds INR (0.9-1.1) POC Sodium (135-144) mmol/L Sodium (136-145) mmol/L POC Potassium (3.3-5.0) mmol/L Potassium (3.5-5.1) mmol/L POC Chloride (101-112) mmol/L Chloride (98-107) mmol/L Carbon Dioxide (21-32) mmol/L POC Total CO2 (24-31) mmol/L Anion Gap (3-11) POC Anion Gap (16-25) mmol/L POC BUN (7-18) mg/dl BUN (6-23) mg/dl Creatinine (0.6-1.2) mg/dl POC Creatinine (0.6-1.3) mg/dl Est Cr Clr Drug Dosing ml/min Est GFR ( Amer) ml/min Est GFR (Non-Af Amer) ml/min BUN/Creatinine Ratio (10-20) Glucose (70-99(Fasting)) mg/dl POC Glucose (other) (70-99) mg/dl Calcium (8.6-10.3) mg/dl POC Ioniz Calcium Rex (1.12-1.32) mmol/l Phosphorus (2.5-4.9) mg/dl Magnesium (1.7-2.4) mg/dl Iron (35-150) mcg/dl Unsaturated IBC (155-355) mcg/dl Transferrin (200-360) mg/dl Ferritin (8-388) ng/ml Total Bilirubin (0.2-1.0) mg/dl AST (13-39) U/L ALT (7-52) U/L Alkaline Phosphatase (34-104) U/L Troponin I High Sens 26.7 H (0-14) pg/ml Total Protein (6.0-8.3) gm/dl Albumin (3.4-5.0) gm/dl Globulin (2.5-4.0) gm/dl Albumin/Globulin Ratio (0.9-2) Lipase (11-82) U/L Vitamin B12 (180-914) pg/ml Folate (>5.38) ng/ml Procalcitonin (0-0.5) ng/ml TSH (0.300-4.500) uIu/ml Adenovirus (PCR) (NotDetected) B. pertussis DNA (PCR) (NotDetected) B.parapertussis DNA PCR (NotDetected) C. pneumoniae DNA (PCR) (NotDetected) Coronavirus OC43 (PCR) (NotDetected) Coronavirus HKU1 (PCR) (NotDetected) Coronavirus 229E (PCR) (NotDetected) SARS-CoV-2 (PCR) (NotDetected) Coronavirus NL63 (PCR) (NotDetected) Human Metapneumovir PCR (NotDetected) Influenza Type A (PCR) (NotDetected) Influenza Type B (PCR) (NotDetected) M. pneumoniae (PCR) (NotDetected) Parainfluenza 1 (PCR) (NotDetected) Parainfluenza 2 (PCR) (NotDetected) Parainfluenza 3 (PCR) (NotDetected) Parainfluenza 4 (PCR) (NotDetected) RSV (PCR) (NotDetected) Entero/Rhino (PCR) (NotDetected) Blood Type Antibody Screen Antibody Identification Antibody ID Comment Crossmatch Administered Medications Albuterol (Albuterol Hfa 8 Gm Inhaler) 2 puffs INH QID PRN PRN Reason: shortness of breath or wheezing Stop: 08/13/24 13:20 Last Admin: 07/14/24 17:42 Dose: 2 puffs Documented By: [facility] Buspirone HCl (Buspirone 5 Mg Tab) 5 mg PO TID [facility] Stop: 08/13/24 13:59 Last Admin: 07/14/24 18:06 Dose: Not Given Documented By: BRENDA Carvedilol (Carvedilol 25 Mg Tab) 50 mg PO BIDM MIKE Stop: 08/13/24 16:59 Last Admin: 07/14/24 18:07 Dose: 50 mg Documented By: BRENDA Insulin Aspart (Insulin Aspart Per Unit Charge) 0 units SC ACHS MIKE Stop: 08/13/24 13:20 Last Admin: 07/14/24 18:04 Dose: Not Given Documented By: Admin: 07/14/24 13:55 Dose: Not Given Documented By: EDMAR Lorazepam (Lorazepam 0.5 Mg Tab) 0.5 mg PO DAILY PRN PRN Reason: anxiety Stop: 08/13/24 13:20 Last Admin: 07/14/24 17:38 Dose: 0.5 mg Documented By: EDMAR Ondansetron HCl (Ondansetron Inj 2 Mg/Ml 2 Ml Vial) 4 mg IV Q4H PRN PRN Reason: Nausea Stop: 08/13/24 18:13 Last Admin: 07/14/24 18:24 Dose: 4 mg Documented By: BRENDA Sevelamer Carbonate (Sevelamer Carbonate 800 Mg Tab) 800 mg PO TIDM MIKE Stop: 08/13/24 16:59 Last Admin: 07/14/24 18:08 Dose: Not Given Documented By: BRENDA Discontinued Medications Epoetin Kaleb (Epoetin Kaleb 20,000 Units/Ml Vial) 20,000 units IV NOW STA Stop: 07/14/24 08:45 Last Admin: 07/14/24 16:44 Dose: 20,000 units Documented By: ROWAN Sodium Chloride (Nss) 250 mls @ 999 mls/hr IV .Q16M ONE Stop: 07/14/24 08:04 Last Infusion: 07/14/24 08:59 Dose: Infused Documented By: Admin: 07/14/24 08:09 Dose: 999 mls/hr Documented By: MITCHEL Insulin Aspart (Insulin Aspart Per Unit Charge) 4 units SC NOW STA Stop: 07/14/24 11:16 Last Admin: 07/14/24 11:33 Dose: 4 units Documented By: EDMAR Co-signed By: ANUSHA Menthol (Cough Drop (Sugar Free) Tee 24 Tee/1 Box) Confirm Administered Dose 24 tee BUCCAL .STK-MED ONE Stop: 07/14/24 16:50 Last Admin: 07/14/24 18:07 Dose: 24 tee Documented By: BRENDA Imaging Data Radiologist's Impression: Chest X-Ray 07/14/24 07:49 XR chest 1V portable HISTORY: 73 years-old Female Chest pain, nonspecific COMPARISON: 09/20/2023 TECHNIQUE: AP view of the chest FINDINGS: Cardiac silhouette is mildly enlarged. Atherosclerosis of the aorta. No pneumothorax, pleural effusion or pulmonary edema. There is mild chronic interstitial coarsening. There is suggestion of hazy ill-defined patchy lung predominant lung airspace opacities. IMPRESSION: 1. Cardiomegaly with mild chronic interstitial coarsening. 2. There is suggestion of hazy ill-defined bilateral airspace opacities suspicious for an infectious or inflammatory pneumonitis. ACT 112: Negative or not required by law. The above report was generated using voice recognition software. It may contain grammatical, syntax or spelling errors. Electronically signed by: Markell Dowell M.D. 07/14/2024 9:[address] 07/14/24 07:49 CT SCAN OF THE BRAIN WITHOUT IV CONTRAST CLINICAL HISTORY: Dizziness. COMPARISON STUDY: CT of the brain dated 09/20/2023. TECHNIQUE: Unenhanced axial CT scan of the brain is performed from the vertex to the skull base. A dose lowering technique was utilized adhering to the principles of ALARA. CT DOSE: 547.75 mGy.cm FINDINGS: Brain parenchyma: Left frontal encephalomalacia is unchanged and consistent with a remote insult. There is age-related involutional change noting mild subcortical and periventricular microangiopathic disease. There is no hemorrhage, mass effect, or evidence of acute territorial ischemia by CT criteria. [place]-white matter differentiation is preserved. No extra-axial fluid collection is seen. Ventricles, sulci, cisterns: Prominent secondary to involutional change. Intracranial vasculature: There is atherosclerotic calcification of the cavernous carotid and vertebral arteries. Calvarium: Unremarkable. Sinuses and mastoids: There is evidence of previous paranasal sinus surgery. The visualized paranasal sinuses are clear. The mastoid air cells are well pneumatized. Orbits: The bony orbits are grossly intact. There are bilateral ocular lens implants. IMPRESSION: There is no hemorrhage, mass effect, or evidence of acute territorial ischemia by CT criteria. ACT 112: Negative or not required by law. Electronically signed by: Fabio Shafer M.D. 07/14/2024 9:05 AM Discharge Plan Visit Data Chief Complaint: Lethargic Stated Complaint: LETHARGIC, ILLNESS ED Provider: Yonis Garcia Discharge Problem: Severe anemia, ESRD (end stage renal disease) on dialysis, Generalized weakness Patient Disposition: Admitted As Inpatient Discharge Instructions Interventions: ED Discharge Assessment Last Done: 07/14/24 12:53
[2024-07-14] MEDS: SODIUM CHLORIDE 0.9% 250 ML IV ONE (08:09)
[2024-07-14 08:33] LABS: iSTAT Creatinine 9.1 mg/dl (0.6-1.3); iSTAT Hemoglobin 6.1 g/dl (12.0-16.0); iSTAT Ionized Calcium 1.1 mmol/l (1.12-1.32); iSTAT Potassium 5.7 mmol/L (3.3-5.0)
[2024-07-14 08:39] LABS: Prothrombin Time 10.8 Seconds (9.0-12.0)
[2024-07-14 08:45] LABS: Hematocrit (blood only) 19.1 % (37.0-47.0); Hemoglobin 6.3 g/dl (12.0-16.0); Mean Corpuscular Hemoglobin 32.3 pg (25.0-34.0); Mean Corpuscular Volume 97.9 fL (80.0-100.0); Platelet Count 191 K/uL (130-400); RDW Coefficient of Variation 14.8 % (11.5-14.5); RDW Standard Deviation 52.4 fL (36.4-46.3); Red Blood Count 1.95 M/uL (4.20-5.40); White Blood Count 10.66 K/ul (4.8-10.8)
[2024-07-14] MEDS ORDERED: SODIUM CHLORIDE 0.9% 250 ML IV PRN ×2 (08:48→22:32)
[2024-07-14 08:51] LABS: Albumin Globulin Ratio 1.2 (0.9-2); Albumin Level 3.8 gm/dl (3.4-5.0); Bilirubin,Total 0.4 mg/dl (0.2-1.0); Creatinine Clr Calc Pharmacy 6.2 ml/min; Est GFR (African American) 5.3 ml/min; Est GFR (Non-African American) 4.5 ml/min; Globulin 3.2 gm/dl (2.5-4.0); Magnesium 2.2 mg/dl (1.7-2.4); Phosphorus 4.5 mg/dl (2.5-4.9); Potassium 5.6 mmol/L (3.5-5.1); Troponin I High Sensitivity 31.4 pg/ml (0-14)
[2024-07-14 08:52] LABS: Basophils # (auto) 0.05 K/uL (0.00-0.20); Basophils % (auto) 0.5 %; Eosinophils # (auto) 0.41 K/uL (0.00-0.50); Eosinophils % (auto) 3.8 %; Immature Granulocytes # (auto) 0.09 K/uL (0.01-0.20); Immature Granulocytes % (auto) 0.8 %; Lymphocytes # (auto) 0.86 K/uL (1.20-3.40); Lymphocytes % (auto) 8.1 %; Monocytes # (auto) 0.72 K/uL (0.11-0.59); Monocytes % (auto) 6.8 %; Neutrophils # (auto) 8.53 K/uL (1.40-6.50); RBC Morphology Unremarkable
[2024-07-14 09:01] LABS: Thyroid Stimulating Hormone 2.81 uIu/ml (0.300-4.500)
--- NOTE | 2024-07-14 09:03 | XRay Report ---
XR chest 1V portable HISTORY: 73 years-old Female Chest pain, nonspecific COMPARISON: 09/20/2023 TECHNIQUE: AP view of the chest FINDINGS: Cardiac silhouette is mildly enlarged. Atherosclerosis of the aorta. No pneumothorax, pleural effusio n or pulmonary edema. There is mild chronic interstitial coarsening. There is suggestion of hazy ill- defined patchy lung predominant lung airspace opacities. IMPRESSION: 1. Cardiomegaly with mild chronic interstitial coarsening. 2. There is suggestion of hazy ill-defined bilateral airspace opacities suspicious for an infectious or inflammatory pneumonitis. ACT 112: Negative or not required by law. The above report was generated using voice recognition software. It may contain grammatical, syntax o r spelling errors. Electronically signed by: Markell Dowell M.D. 07/14/2024 9:02 AM
--- NOTE | 2024-07-14 09:07 | CT Scan Report ---
CT SCAN OF THE BRAIN WITHOUT IV CONTRAST CLINICAL HISTORY: Dizziness. COMPARISON STUDY: CT of the brain dated 09/20/2023. TECHNIQUE: Unenhanced axial CT scan of the brain is performed from the vertex to the skull base. A do se lowering technique was utilized adhering to the principles of ALARA. CT DOSE: 547.75 mGy.cm FINDINGS: Brain parenchyma: Left frontal encephalomalacia is unchanged and consistent with a remote insult. The re is age-related involutional change noting mild subcortical and periventricular microangiopathic di sease. There is no hemorrhage, mass effect, or evidence of acute territorial ischemia by CT criteria. [place]-white matter differentiation is preserved. No extra-axial fluid collection is seen. Ventricles, sulci, cisterns: Prominent secondary to involutional change. Intracranial vasculature: There is atherosclerotic calcification of the cavernous carotid and vertebr al arteries. Calvarium: Unremarkable. Sinuses and mastoids: There is evidence of previous paranasal sinus surgery. The visualized paranasal sinuses are clear. The mastoid air cells are well pneumatized. Orbits: The bony orbits are grossly intact. There are bilateral ocular lens implants. IMPRESSION: There is no hemorrhage, mass effect, or evidence of acute territorial ischemia by CT eziot laxmi. ACT 112: Negative or not required by law. Electronically signed by: Fabio Shafer M.D. 07/14/2024 9:05 AM
[2024-07-14 09:20] LABS: Reticulocyte % 2.19 % (0.50-2.00); Reticulocytes # 0.04 10^6/uL (0.020-0.100)
[2024-07-14 09:21] LABS: Adenovirus PCR Not Detected (NotDetected); Bordetella parapertussis PCR Not Detected (NotDetected); Bordetella pertussis PCR Not Detected (NotDetected); Chlamydia pneumoniae PCR Not Detected (NotDetected); Coronavirus 229E PCR Not Detected (NotDetected); Coronavirus CoV-2 (COVID19)PCR Not Detected (NotDetected); Coronavirus HKU1 PCR Not Detected (NotDetected); Coronavirus NL63 PCR Not Detected (NotDetected); Coronavirus OC43PCR Not Detected (NotDetected); Human Metapneumovirus PCR Not Detected (NotDetected); Influenza A PCR Not Detected (NotDetected); Influenza B PCR Not Detected (NotDetected); Mycoplasma pneumoniae PCR Not Detected (NotDetected); Parainfluenza Virus 1 PCR Not Detected (NotDetected); Parainfluenza Virus 2 PCR Not Detected (NotDetected); Parainfluenza Virus 3 PCR Not Detected (NotDetected); Parainfluenza Virus 4 PCR Not Detected (NotDetected); Respiratory Syncytial VirusPCR Not Detected (NotDetected); Rhinovirus/Enterovirus PCR Not Detected (NotDetected)
[2024-07-14 09:45] LABS: Ferritin 1382.6 ng/ml (8-388)
--- NOTE | 2024-07-14 10:13 | History & Physical Report ---
Date of Service July 14, 2024 Assessment & Plan (1) Severe anemia: Plan: Hgb 6.3 on arrival Iron, B12, and folate all WNL Clinically, patient denies any recent falls or injuries; no signs of active bleeding on clinical exam; denies hemoptysis, melena, or blood in the urine/stool Suspect anemia of chronic disease and mild hemodilution in the setting of ESRD Patient received Procrit 20,000 units IV in the ED 2u pRBCs ordered; will plan to transfuse 1u following dialysis Patient requires special units from [facility] due to her antibodies; scheduled to arrive around 8pm on 07/14 H&H ordered for 1h post-transfusion; signed out to overnight team PT/OT evaluations appreciated for generalized weakness A.m. CBC, BMP (2) ESRD (end stage renal disease) on dialysis: Plan: HD on Last session was on Saturday 07/07 Patient reports she had missed her last 3 dialysis sessions Patient was feeling weak on , then reports her fistula infiltrated on Saturday She has not received dialysis yet on 07/14 Nephrology consulted for urgent dialysis (3) Hyperkalemia: Plan: Mild; K 5.6 on arrival Dialysis planned for 07/14 Continuous telemetry monitoring Recheck a.m. BMP (4) Diabetes: Plan: Last A1c at 6.8% on 08/03/2022 Glucose 373 on admission; insulin aspart SQ 4u x 1 Patient is not currently on diabetic medications Will hold Lantus in the setting of ESRD SSI with target BSG range 110-140mg/dL, CF 50, carb ratio 15 T2DM diet BSG ACHS Adjust regimen as needed (5) Bronchitis: Plan: Patient reports dry cough that began on Wednesday 07/11 CXR with hazy airspace opacities that may indicate infectious versus inflammatory pneumonitis No leukocytosis; afebrile BioFire negative Procalcitonin elevated slightly at 0.69; however this is in the setting of ESRD and dialysis Will defer antibiotics at this time and continue to trend CBC Patient reports she has not been using her Breo Ellipta lately Continue/restart home inhalers (6) Hyperlipemia: Plan: Patient reports she has not been taking her atorvastatin recently due to lower extremity myalgias Will plan to restart atorvastatin (7) Hypervolemia associated with renal insufficiency: (8) Acute on chronic heart failure with reduced ejection fraction (HFrEF, <= 40%): (9) Symptomatic anemia: Plan Disposition: Admit to PCU telemetry Full code Dialysis renal, T2DM, low potassium diet VTE PPx: SCDs History of Present Illness Chief Complaint: Lethargy Primary Care Provider: DO Jessika Broderick is a pleasant 73-year-old female with PMH of ESRD on HD, T2DM, carotid stenosis, chondromyxoid fibroma, HLD, and insomnia. She presented on 07/14 from dialysis at [facility] for lethargy; she did not receive dialysis this morning, but normally gets it on . She has missed her last 3 dialysis sessions. Prior to coming in, she last received dialysis on Saturday 07/07, but then missed it on 07/09 that she began to feel weak/sick. She was having difficulty walking and thinking, and she felt tired moving from one room to the next. She does not ambulate with a cane or walker at baseline. No recent falls, injuries, or syncope. She denies any fevers at home. However, she did develop a dry cough starting on Saturday. No sick contacts to her knowledge. No supplemental oxygen or CPAP at baseline. Patient did not take her regular morning medications today; no recent change in medications. She does manage her own medicine at home. She does note that she has not been taking her atorvastatin recently due to lower extremity myalgias. She also has not been using her Symbicort lately. She does have a history of blood transfusions with the last 1 being 1 year ago. Patient reports she is still producing urine. Patient denies smoking, tobacco use, or alcohol use. No history of A-fib. Patient is hypertensive at 151/78 at time of admission; vitals otherwise stable. ED course: Epoetin alpha 20,000 units IV ROS: Patient endorses generalized fatigue, feeling off-balance, dizziness/lightheadedness with movements, SOB at rest and with exertion (which is new for her), dry cough (started on Saturday), and nausea. Patient denies fever, chills, night-sweats, falls, headache, chest pain, chest palpitations, hemoptysis, pleuritic CP, abdominal pain, vomiting, diarrhea, melena, blood in urine/stool, or numbness/tingling in the arms or legs. Called patient's daughter (Felicity) and provided update regarding admission status. Allergies Allergy/AdvReac Type Severity Reaction Status Date / Time amlodipine Allergy Intermediate Rash Verified 04/15/24 10:06 Sulfa (Sulfonamide Allergy Intermediate Hives Verified 04/15/24 10:06 Antibiotics) lisinopril AdvReac Intermediate Cough Verified 04/15/24 10:06 Home Medications Medication Instructions Recorded Confirmed Type atorvastatin 80 mg tablet 80 mg PO HS #90 tabs 04/30/22 07/14/24 Rx Symbicort 80 mcg-4.5 mcg/actuation 2 puff inhalation BID #10.2 grams 01/18/23 07/14/24 Rx HFA aerosol inhaler (budesonide-formoterol) albuterol sulfate 90 mcg/actuation 2 puff inhalation QID PRN 08/15/23 07/14/24 Rx aerosol inhaler shortness of breath or wheezing #8.5 grams sacubitril 97 mg-valsartan 103 mg 1 tab PO BID #180 tabs 02/05/24 07/14/24 Rx tablet nifedipine 90 mg tablet,extended 90 mg PO QAM #90 tabs 02/19/24 07/14/24 Rx release 24 hr aspirin 325 mg tablet 325 mg PO DAILY 04/13/24 07/14/24 History buspirone 5 mg tablet 5 mg PO TID #90 tabs 04/15/24 07/14/24 Rx carvedilol 25 mg tablet 50 mg (2 x 25 mg) PO BID #360 tabs 05/01/24 07/14/24 Rx lorazepam 0.5 mg tablet 0.5 mg PO DAILY PRN anxiety #30 05/21/24 07/14/24 Rx tabs Past Med/Surg History Problem List (Updated 07/15/24 @ 02:11 by Stephen Spencer MD) Symptomatic anemia Acute on chronic heart failure with reduced ejection fraction (HFrEF, <= 40%) Hypervolemia associated with renal insufficiency Bronchitis Hyperkalemia ESRD (end stage renal disease) on dialysis (Acute) Insomnia Palpitations Severe anemia (Acute) Generalized weakness (Acute) Hypoxia (Acute) Pulmonary edema (Acute) Nausea Ischemic cardiomyopathy Cerebrovascular disease Dizziness (Acute) Hyperphosphatemia Diabetes IDDM [facility] Pulmonary nodules Under surveillance Osteopenia Environmental and seasonal allergies Premature atrial complexes Lung nodule Carotid atherosclerosis (Acute) Carotid stenosis, bilateral Chronic occlusion of the right CCA. Right ICA patent and flow is antegrade via retrograde flow from right ECA. Chronic occlusion of the left ICA. Less than 50% stenosis left ECA with antegrade flow. Right and left vertebrals are patent with antegrade flow. No significant change compared to previous 07/31/2019 per report. Uncontrolled type 2 diabetes mellitus with kidney complication, with long-term current use of insulin (Acute) Hyperlipemia BMI 38.0-38.9,adult (Acute) Gout Vitamin D deficiency (Chronic) Restless legs syndrome (Acute) Renal artery stenosis (Acute) Left knee pain (Acute) Chronic sinusitis (Acute) CMF (chondromyxoid fibroma) (Acute) Medical History Uncontrolled diabetes mellitus with hyperglycemia Hypertension Paroxysmal atrial tachycardia AVF (arteriovenous fistula) Right knee pain Anemia due to chronic kidney disease Obesity Myocardial infarction NSTEMI 09/2000, cath 10/2000 with total mid RCA occlusion, collaterals present, medically managed Asthma Stage 4 chronic kidney disease Follows with [facility] Plan for future dialysis Hypertension Hyperparathyroidism, secondary renal Depression with anxiety Coronary artery disease Follows with Dr. Carlos Surgical History History of bilateral carpal tunnel release 2001 History of open reduction and internal fixation (ORIF) procedure Open treatment femoral shaft fracture with plate performed by Albin Graham 06/10/12 [facility] [place] Excision, tumor, soft tissue of thigh or knee area, subfascial Open treatment proximal femur with fixation or prosthesis History of hip replacement, total 2008 History of sinus surgery 1995 Dr. Morrow History of knee surgery History of hysterectomy History of colonoscopy History of cardiac cath 2000 > with total mid RCA occlusion, collaterals present (medical management) 2003 > + collaterals (medical management) History of lumpectomy of both breasts History of bone marrow biopsy 03/18/12 Bx bone trocar or needle deep performed by Dr. Albin Saenz at [facility] [place]. Family History Mother Heart disease Hypertension Coronary heart disease Anxiety Cancer Father , Age 59 of [place]. Heart disease Diabetes Hypertension Coronary heart disease Stroke Myocardial infarction Brother Hypertension Sister Hypertension Denies family history of Ovarian cancer Prostate cancer Kidney disease Breast cancer Lung cancer Social History Smoking Status: Never smoker Second Hand Exposure: No; Do You Dip or Chew Tobacco: No; Hx Alcohol Use: No Hx Substance Use: No Preferred Language: Greek Communication Ability: Effective Visual Impairment: Limited Hearing Ability: Normal Marketing And Communications Officer Required: No Beliefs That Will Affect Care: None marital status: Current Living Situation: Alone Current Living Situation Comment: Daughter lives next door current occupational status: 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 Safe at Home: Yes Safety Concerns: Feels Safe At This Time Childhood Exposure to Second-Hand Smoke: No Diet: diabetic caffeine: Yes Dental Care, Regularly: Yes Physical Activity Frequency: Does not Exercise Seatbelt Use: always Sunscreen Use: Yes Assistive Devices: Glasses Review of Systems Review of Systems: See HPI above Physical Exam Physical Exam: General: no acute distress; pleasant affect; lethargic; non-toxic appearing; well-nourished; cooperative; SpO2 96% on RA HEENT: normocephalic, atraumatic; no scleral icterus; PERRLA; vision and hearing grossly intact Neck: supple; no lymphadenopathy; trachea midline Skin: Pallor; warm, dry without signs of tenting; no cyanosis; no rashes, bruising, lesions, or erythema noted CV: chest wall NTP; RRR; S1/S2 normal; no murmurs/rubs/gallops; pulses intact and symmetric at radial, DP, and PT Lungs: no acute respiratory distress; symmetrical chest wall expansion; clear breath sounds across all lung gonzales w/o adventitious sounds; no wheezing ABD: Soft, NTP; BS present; no rebound/guarding; no distention MSK: no tics or fasciculations; no edema noted in the LEs b/l, nonerythematous Neuro: A&Ox3; normal mood and affect; fluent speech; no focal deficits; patient reports that sensation is intact and symmetric in the lower extremities bi laterally assessed via light touch Results & Data Results & Data Vital Signs (Past 12 Hours) Vital Signs Temp Pulse Pulse Resp BP BP Pulse Ox 07/14/24 09:59 80 20 151/78 H 96 07/14/24 08:11 80 07/14/24 07:27 36.7 C 78 20 122/77 96 O2 Del Method 07/14/24 09:59 Room Air 07/14/24 08:11 07/14/24 07:27 Room Air Laboratory Results Abnormal lab results 07/14/24 07/14/24 07/14/24 Range/Units 07:24 08:06 08:14 RBC 1.95 L (4.20-5.40) M/uL Hgb 6.3 L* (12.0-16.0) g/dl POC Hgb 6.1 L* (12.0-16.0) g/dl Hct 19.1 L* (37.0-47.0) % POC Hct 18 L* (37-47) % RDW Std Deviation 52.4 H (36.4-46.3) fL RDW Coeff of Nilda 14.8 H (11.5-14.5) % Reticulocyte % (Auto) 2.19 H (0.50-2.00) % Neut # (Auto) 8.53 H (1.40-6.50) K/uL Lymph # (Auto) 0.86 L (1.20-3.40) K/uL [place] # (Auto) 0.72 H (0.11-0.59) K/uL POC Sodium 134 L (135-144) mmol/L POC Potassium 5.7 H (3.3-5.0) mmol/L Potassium 5.6 H (3.5-5.1) mmol/L POC Total CO2 21 L (24-31) mmol/L Anion Gap 16 H (3-11) POC BUN 88 H (7-18) mg/dl BUN 80 H (6-23) mg/dl Creatinine 8.03 H* (0.6-1.2) mg/dl POC Creatinine 9.1 H* (0.6-1.3) mg/dl Glucose 373 H* (70-99(Fasting)) mg/dl POC Glucose (other) 356 H* (70-99) mg/dl POC Ioniz Calcium Rex 1.10 L (1.12-1.32) mmol/l Transferrin 176 L (200-360) mg/dl Ferritin 1382.6 H (8-388) ng/ml AST 12 L (13-39) U/L Troponin I High Sens 31.4 H (0-14) pg/ml Procalcitonin 0.69 H (0-0.5) ng/ml Antibody Screen POSITIVE A Crossmatch See Detail Diagnostic Findings Chest X-Ray 07/14/24 07:49 XR chest 1V portable HISTORY: 73 years-old Female Chest pain, nonspecific COMPARISON: 09/20/2023 TECHNIQUE: AP view of the chest FINDINGS: Cardiac silhouette is mildly enlarged. Atherosclerosis of the aorta. No pneumothorax, pleural effusion or pulmonary edema. There is mild chronic interstitial coarsening. There is suggestion of hazy ill-defined patchy lung predominant lung airspace opacities. IMPRESSION: 1. Cardiomegaly with mild chronic interstitial coarsening. 2. There is suggestion of hazy ill-defined bilateral airspace opacities suspicious for an infectious or inflammatory pneumonitis. ACT 112: Negative or not required by law. The above report was generated using voice recognition software. It may contain grammatical, syntax or spelling errors. Electronically signed by: Markell Dowell M.D. 07/14/2024 9:[address] 07/14/24 07:49 CT SCAN OF THE BRAIN WITHOUT IV CONTRAST CLINICAL HISTORY: Dizziness. COMPARISON STUDY: CT of the brain dated 09/20/2023. TECHNIQUE: Unenhanced axial CT scan of the brain is performed from the vertex to the skull base. A dose lowering technique was utilized adhering to the principles of ALARA. CT DOSE: 547.75 mGy.cm FINDINGS: Brain parenchyma: Left frontal encephalomalacia is unchanged and consistent with a remote insult. There is age-related involutional change noting mild subcortical and periventricular microangiopathic disease. There is no hemorrhage, mass effect, or evidence of acute territorial ischemia by CT criteria. [place]-white matter differentiation is preserved. No extra-axial fluid collection is seen. Ventricles, sulci, cisterns: Prominent secondary to involutional change. Intracranial vasculature: There is atherosclerotic calcification of the cavernous carotid and vertebral arteries. Calvarium: Unremarkable. Sinuses and mastoids: There is evidence of previous paranasal sinus surgery. The visualized paranasal sinuses are clear. The mastoid air cells are well pneumatized. Orbits: The bony orbits are grossly intact. There are bilateral ocular lens implants. IMPRESSION: There is no hemorrhage, mass effect, or evidence of acute territorial ischemia by CT criteria. ACT 112: Negative or not required by law. Electronically signed by: Fabio Shafer M.D. 07/14/2024 9:05 AM ECG Additional Comments: ECG revealed atrial fibrillation at 85 bpm; QTc 476 P waves present on EKG; no history of atrial fibrillation on prior EKGs; suspect this is not true A-fib, however will repeat EKG Code Status & VTE Plan Code Status Full code VTE Prophylaxis Plan VTE Prophylaxis will be ordered: Yes Supervising Physician Co-Signing Physician Notes I personally saw and examined the patient. I independently reviewed the labs, EKG, imaging, problem list, medication list, past medical history and family history. I verified all mondragon points and agree with Andrez Reyes PA-C with the following exceptions and/or additions: 73 year old presents to the ER with generalized weakness, dry cough and chest tightness with missed multiple dialysis sessions because she hasn't been feeling unwell O/E HS RRR, systolic murmur, Chest CTAB, Abdo SNT, trace b/l pedal edema A/P Symptomatic anemia - acute on chronic (no acute bleed suspected), will defer chronic treatment to nephrology, transfuse if < 7 overnight, < 9 during the day time if she remains symptomatic. If still symptomatic and Hgb > 9 possible alternative etiology such as infection causing her symptoms. UA pending collection (she still produces some urine ESRD on dialysis with hypervolemia and hyperkalemia - consult nephrology for dialysis T2DM - HbA1C cancelled as not accurate in setting of blood transfusions and ESRD, HTN/HFrEF (40%) - ok to restart Entresto, continue carvedilol and nifedipine PG Care Time/CCT Total # of Minutes Spent Total Time Spent with Patient: Total time spent is greater than 50% in coordination of care (as documented) at patient's floor/unit and/or counseling patient: Coding [place] [address] INT INP/OBS CARE 3/75MIN Patient Type Established Medical Decision Making High Complexity Diagnoses Severe anemia D64.9 ESRD (end stage renal disease) on dialysis N18.6; Z99.2 Hyperkalemia E87.5 Diabetes E11.9 Bronchitis J40 Hyperlipemia E78.5 Hypervolemia associated with renal insufficiency E87.70; N28.9 Acute on chronic heart failure with reduced ejection fraction (HFrEF, <= 40%) I50.23 Symptomatic anemia D64.9
[2024-07-14 10:30] LABS: Folate (Folic Acid),Ser orPlas > 22.30 ng/ml (>5.38)
[2024-07-14 10:31] LABS: Vitamin B12 496 pg/ml (180-914)
[2024-07-14] MEDS: INSULIN ASPART PER UNIT CHARGE SC STA (11:33)
--- NOTE | 2024-07-14 11:37 | Nephrology Consultation ---
Date of Consultation July 14, 2024 Assessment & Plan (1) ESRD (end stage renal disease) on dialysis: (2) Severe anemia: (3) Hyperkalemia: (4) Generalized weakness: Plan 73-year-old female with ESKD in the setting of hypertension, diabetes, PVD, nephrotic range proteinuria and left atrophic kidney, on HD at [facility] via left RC AVF. Admitted with severe anemia, generalized weakness. work-up unremarkable including negative CT brain. --Will plan for today as she missed dialysis , potassium elevated. --Waiting on 2 PRBC, will plan to give during dialysis. Epogen 46527 units x 1 dose with dialysis today --start on renal vitamins and phosphate binder --left arm nephrology precaution, dose medications for eGFR less than 10 Thank you for allowing me to participate in your patient's care. It was a pleasure to see Jessika. History of Present Illness Reason for Consultation: ESKD on HD, admitted with anemia, generalized weakness. History of Present Illness Ms. Jessika Doll is a 73-year-old female with PMH significant for stage ESKD on HD TTS at [facility] admitted to the hospital with profound anemia. Nephrology consult was requested for management of dialysis as she missed her regular dialysis treatment. Electronic medical records were reviewed in detail during patient's visit. Jessika was brought to ER by EMS presented on 07/14 from dialysis at [facility] for overall feeling poorly, generalized weakness and lethargy. Her last full dialysis treatment was last Saturday, she missed dialysis as she did not feel well. Saturday she did go for dialysis but she had only 2 hours dialysis because of infiltration of dialysis needle. Over the weekend she continued to feel weak and lethargy but came to the dialysis this morning anyway. However, while she was at dialysis she did not feel she can have the dialysis and with ongoing feeling of profound weakness and lethargy she requested EMS to be called and brought to ER. Lab in ER showed hemoglobin 6.1. Potassium was 5.8. She denied any active GI bleeding, any blood with urine. Dialysis unit record showed that her hemoglobin was above 11 3 weeks ago and over last few weeks her hemoglobin has been slowly dropping. She has been getting Epogen and maintenance IV iron at dialysis. Other work-up including chest x-ray, CT head was unremarkable. Did not have any respiratory distress or sign of volume overload. 2 units of PRBC was ordered in ER but still waiting for it to arrive. ESKD, on HD TTS at [facility], started on HD in August 2022. Considering left atrophic kidney no kidney biopsy was done and advanced CKD and high-grade proteinuria was thought to be secondary to underlying diabetes and vasculopathy. She had left radiocephalic AV fistula placed on 09/20/[address] Baltazar. Previous SPEP, UPEP was unremarkable. Follows with [facility] transplant. Hypertension, well controlled at home. History of diabetes for more than 20 years seems to be generally poorly control, on insulin, no known history of retinopathy. Non smoker. History of bilateral carotid stenosis status post carotid endarterectomy. She reports ongoing feeling of fatigue and generalized weakness but denied chest pain or shortness of breath. Blood pressure was acceptable. Allergies Allergy/AdvReac Type Severity Reaction Status Date / Time amlodipine Allergy Intermediate Rash Verified 04/15/24 10:06 Sulfa (Sulfonamide Allergy Intermediate Hives Verified 04/15/24 10:06 Antibiotics) lisinopril AdvReac Intermediate Cough Verified 04/15/24 10:06 Home Medications Medication Instructions Recorded Confirmed Type atorvastatin 80 mg tablet 80 mg PO HS #90 tabs 04/30/22 07/14/24 Rx Symbicort 80 mcg-4.5 mcg/actuation 2 puff inhalation BID #10.2 grams 01/18/23 07/14/24 Rx HFA aerosol inhaler (budesonide-formoterol) albuterol sulfate 90 mcg/actuation 2 puff inhalation QID PRN 08/15/23 07/14/24 Rx aerosol inhaler shortness of breath or wheezing #8.5 grams sacubitril 97 mg-valsartan 103 mg 1 tab PO BID #180 tabs 02/05/24 07/14/24 Rx tablet nifedipine 90 mg tablet,extended 90 mg PO QAM #90 tabs 02/19/24 07/14/24 Rx release 24 hr aspirin 325 mg tablet 325 mg PO DAILY 04/13/24 07/14/24 History buspirone 5 mg tablet 5 mg PO TID #90 tabs 04/15/24 07/14/24 Rx carvedilol 25 mg tablet 50 mg (2 x 25 mg) PO BID #360 tabs 05/01/24 07/14/24 Rx lorazepam 0.5 mg tablet 0.5 mg PO DAILY PRN anxiety #30 05/21/24 07/14/24 Rx tabs Patient History Medical History (Updated 07/14/24 @ 10:59 by Andrez Reyes PA-C) Uncontrolled diabetes mellitus with hyperglycemia Hypertension Paroxysmal atrial tachycardia AVF (arteriovenous fistula) Right knee pain Anemia due to chronic kidney disease Obesity Myocardial infarction NSTEMI 09/2000, cath 10/2000 with total mid RCA occlusion, collaterals present, medically managed Asthma Stage 4 chronic kidney disease Follows with [facility] Plan for future dialysis Hypertension Hyperparathyroidism, secondary renal Depression with anxiety Coronary artery disease Follows with Dr. Carlos Surgical History History of bilateral carpal tunnel release 2001 History of open reduction and internal fixation (ORIF) procedure Open treatment femoral shaft fracture with plate performed by Albin Graham 06/10/[place] [facility] [place]cision, tumor, soft tissue of thigh or knee area, subfascial Open treatment proximal femur with fixation or prosthesis History of hip replacement, total 2008 History of sinus surgery 1995 Dr. Morrow History of knee surgery History of hysterectomy History of colonoscopy History of cardiac cath 2000 > with total mid RCA occlusion, collaterals present (medical management) 2003 > + collaterals (medical management) History of lumpectomy of both breasts History of bone marrow biopsy 03/18/12 Bx bone trocar or needle deep [place] Dr. Albin Saenz [place] [facility]. Family History Mother Heart disease Hypertension Coronary heart disease Anxiety Cancer Father , Age 59 of [place]. Heart disease Diabetes Hypertension Coronary heart disease Stroke Myocardial infarction Brother Hypertension Sister Hypertension Denies family history of Ovarian cancer Prostate cancer Kidney disease Breast cancer Lung cancer Social History Smoking Status: Never smoker Second Hand Exposure: No; Do You Dip or Chew Tobacco: No; Hx Alcohol Use: No Hx Substance Use: No Preferred Language: Canadian Communication Ability: Effective Visual Impairment: Limited Hearing Ability: Normal Electrologist Required: No Beliefs That Will Affect Care: None marital status: Current Living Situation: Alone Current Living Situation Comment: Daughter lives next door current occupational status: 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 Physical Exam Constitutional: WD/WN, vitals as above no acute distress Eyes: + anicteric sclerae Respiratory: no respiratory distress Auscultation: lungs clear to auscultation bilaterally Cardiovascular: Rate/Rhythm: regular rate and regular rhythm Heart Sounds: normal S1 and normal S2 Extremities: no edema Gastrointestinal (Abdomen): Inspection/Auscultation: abdomen normal to inspection Musculoskeletal: Extremities: extremities normal to inspection Skin: no rashes, warm and dry Neurologic: no focal motor deficits Psychiatric: Orientation: alert and oriented x 3 Affect: euthymic affect Results & Data Vital Signs (Past 12 Hours) Vital Signs Temp Pulse Pulse Resp BP BP Pulse Ox 07/14/24 11:00 83 25 H 121/73 95 07/14/24 09:59 80 20 151/78 H 96 07/14/24 08:11 80 07/14/24 07:27 36.7 C 78 20 122/77 96 O2 Del Method 07/14/24 11:00 Room Air 07/14/24 09:59 Room Air 07/14/24 08:11 07/14/24 07:27 Room Air PG Care Time/CCT Total # of Minutes Spent Total Time Spent with Patient: Total time spent is greater than 50% in coordination of care (as documented) at patient's floor/unit and/or counseling patient: Coding Level of Care Code 28534 INT INP/OBS CARE 3/75MIN Diagnoses ESRD (end stage renal disease) on dialysis N18.6; Z99.2 Severe anemia D64.9 Hyperkalemia E87.5 Generalized weakness R53.1
--- OUTSIDE RECORDS SUMMARY | 2024-07-14 12:10 | External Medical Summary | Summary of Care ---
Author Name Unknown Organization [facility] Address [address] [place] [address] Phone [phone] Care Team Providers Care Fire Control Assistant Name Role Phone Kisha Cosby MD Primary Care Provide r Reason for Referral * Precert (Within 10 days (routine)) - Authorized Specialty Diagnoses / Procedures Referred By Contac t Referred To Contact Cardiac Studies Diagnoses Type 2 diabetes mellitus with hemoglobin A1c goal of less than 7.0% (HCC) ESRD (end stage renal disease) on dialysis (HCC) Pre-transplant evaluation for ESRD (end stage renal disease) Procedures ECHO, STRESS (DOBUTAMINE) W/ PHYSICIAN Lucio Montague MD [address] [place] [address] Referral ID Status Reason Start Date Expiration Date V isits Requested Visits Authorized [id number] Authorized Precert 04/27/2024 999 [id number] Reason for Visit * Precert (Within 10 days (routine)) - Authorized Specialty Diagnoses / Procedures Referred By Contac t Referred To Contact Cardiac Studies Diagnoses Type 2 diabetes mellitus with hemoglobin A1c goal of less than 7.0% (HCC) ESRD (end stage renal disease) on dialysis (HCC) Pre-transplant evaluation for ESRD (end stage renal disease) Procedures ECHO, STRESS (DOBUTAMINE) W/ PHYSICIAN Lucio Montague MD [address] [place] [address] Referral ID Status Reason Start Date Expiration Date V isits Requested Visits Authorized [id number] Authorized Precert 04/27/2024 999 [id number] Encounter Details Date Type Department Care Team (Latest Contact Info) Description 07/03/2024 10:52 AM EDT - 07/03/2024 11:59 PM EDT Hospital Encounter Cardiac Studies [address] [phone] Discharge Disposition: Home - Self Care Allergies Active Allergy Reactions Criticality Noted Date Comments Amlodipine Rash High 08/03/2022 Lisinopril Cough High 08/03/2022 Sulfa Antibiotics 02/16/2004 hives, rash documented as of this encounter (statuses as of 07/04/2024) Medications Medication Sig Dispensed Refills Start Date End Date Status CITALOPRAM HYDROBROMIDE 20 MG PO TABS 1 tab daily. Active LORAZEPAM 1 MG PO TABS daily as needed Active VITAMIN D3 2000 UNITS PO TABS 1 tablet daily Active aspirin 325 MG Tablet Take 1 Tablet by mouth in the morning. Active losartan-hctz 100-25 mg per tab (HYZAAR) 100-25 MG per tablet Take 1 Tablet by mouth in the morning. Active HUMALOG KWIKPEN 100 UNIT/ML SOPN INJECT 30 UNITS TWICE DAILY 3 06/18/2017 Active LANTUS SOLOSTAR 100 UNIT/ML SOPN INJECT 34 UNITS TWICE DAILY 6 03/28/2017 Active Calcium 600 MG Tablet Take 600 mg by mouth daily. Active Vitamin E 400 units Tablet Take 400 Units by mouth daily. Active Ferrous Sulfate (IRON) 325 (65 Fe) MG TABS Take by mouth. Active ATENOLOL 100 MG OR TABS 1 TABLET DAILY 30 0 03/29/2004 07/03/2024 Discontinued( Patient preference/di scontinuation ) atorvaSTATin (LIPITOR) 80 MG Tablet Take 80 mg by mouth daily. 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 Type 2 diabetes mellitus wit h hemoglobin A1c goal of less than 7.0% 08/04/2009 Overview: Modified per Diabetes protocol #14. ICD-10 update of inactive term Hip joint replacement status 02/14/2009 Primary localized osteoarthrosis of pelvic regio n or thigh 02/03/2009 Carotid stenosis, non-symptomatic 01/18/2009 OLD MYOCARDIAL INFARCTION 01/18/2009 Iron deficiency anemia 01/10/2009 Giant cell arteritis 06/27/2007 ADVANCE DIRECTIVE INFORMATION 06/11/2006 Overview: No, Advance Directive brochure offered , patient declined. Chronic sinusitis 03/29/2004 ASCVD 02/16/2004 GENERALIZED ANXIETY DIS 02/16/2004 NONALLERGIC RHINITIS 02/16/2004 Deviated nasal septum 02/16/2004 OLD MYOCARDIAL INFARCTION documented as of this encounter (statuses as of 07/04/2024) Resolved Problems Problem Noted Date Diagnosed Date Resolved Date Neoplasm of uncertain behavior 03/10/2012 06/25/2012 DM type 2, not at goal 02/16/200408/04 Overview: Modified per Diabetes protocol #14. HYPERTENSION NOS 02/16/2004 09/13/2009 Overview: Modified per HTN protocol #16. Dyslipidemia, goal to be determined 02/16/2004 09/29/2009 Overview: Per Lipid Taxonomy. Asthma with severity to be determined 02/16/2004 06/19/2007 Overview: ICD-10 update of inactive term documented as of this encounter (statuses as of 07/04/2024) Immunizations No known immunizationsdocumented as of this encounter Social History Tobacco Use Types Packs/Day Years Used Date Smoking Tobacco: Never Smokeless Tobacco: Never Comments:no passive smoke Alcohol Use Standard Drinks/Week Comments No 0 (1 standard drink = 0.6 oz pur e alcohol) Sex and Gender Information Value Date Recorded Sex Assigned at Not on file Gender Identity Not on file Sexual Orientation Not on file Job Start Date Occupation Industry Not on file Not on file Not on file documented as of this encounter Last Filed Vital Signs Vital Sign Reading Time Taken Comments Blood Pressure 122/54 07/03/2024 1:43 PM EDT Pulse 84 07/03/2024 1:43 PM EDT Temperature - - Respiratory Rate - - Oxygen Saturation - - Inhaled Oxygen Concentration - - Weight 68 kg (150 lb) 07/03/2024 12:43 PM EDT Height 157.5 cm (5' 2") 07/03/2024 12:43 PM EDT Body Mass Index 27.44 07/03/2024 12:43 PM EDT documented in this encounter Plan of Treatment Upcoming Encounters Date Type Department Care Team (Late st Contact Info) Description 08/10/2024 9:00 AM EDT Office Visit Transplant Clinic, [place] [address] [place] [address] Sita Koroma MD [facility] [place] [phone] Lucio Montague MD [facility] [address] [place] Nurse Dami Renal Transplant [facility] [address] Dot Carlin LSW [address], [place] 08/10/2024 1:30 PM EDT Laboratory Outpatient Laboratory, [place] [address] [place] [phone] [place], Lab B[address]a [facility] [address] [place] 08/10/2024 2:30 PM EDT Appointment Radiology, [address] [phone] 07/02/2025 2:00 PM EDT Office Visit Cardiology [facility], [address] [phone] Madie Caballero, DO [address] [facility] [place] [address] Health Maintenance Due Date Last Done Comments DXA Scan 1951 Depression Screening 1963 Albumin/Creatinine Ratio 1969 Diabetic Foot Exam 1969 Hepatitis C Screening 1969 DTap/Tdap Vaccines (1 - Tdap) 1970 Mammogram 1991 Cologuard 1996 Colonoscopy 1996 Colorectal Cancer Screening 1996 Fecal Occult Blood Test 1996 Sigmoidoscopy 1996 Zoster Vaccines (1 of 2) 2001 HbA1c 06/01/2016 12/02/2015, 02/15/2009 Diabetic Eye Exam 10/19/2023 10/19/2022 GFR 11/23/2023 11/23/2022, 12/2022, 12/02/2015, Additional history exists COVID-19 Vaccine ( season) 2024 01/25/2021, 01/04/2021 Influenza Vaccine (FLU shot) (#1) 2024 08/13/2019 Pneumococcal Vaccine: 65+ Years Completed 11/27/2022, 05/28/2017 Hepatitis B Vaccine Completed 01/03/2023, 10/30/2022, 10/02/2022, Additional history exists HPV (Gardasil) Vaccine Aged Out No lo nger eligible based on patient's age to complete this topic MENINGOCOCCAL (MENACTRA/MENVEO) Aged Out No longer eligible based on patient's age to complete this topic documented as of this encounter Medical Devices Implanted Type Area Pan Operator Device Identifier Shelf Expiration Date Model / Serial / Lot Multihole Acetabular Cup Implanted:Qty: 1 on 02/03/2009 at [place] [facility] Left: Hip 05/21/2018 [id number] / / [id number] Screw Canc Cascade 6.5x25mm - [id number] Implanted:Qty: 1 on 02/03/2009 at OR [facility] Left: Hip [employer] 04/20/2018 [id number] / / [id number] Screw Canc Cascade 6.5x25mm - [id number] Implanted:Qty: 1 on 02/03/2009 at OR [facility] Left: Hip [employer] 12/19/2018 [id number] / / [id number] Neutral Acetabular Liner Implanted:Qty: 1 on 02/03/2009 at OR [facility] Left: Hip 10/21/2013 [id number] / / [id number] High Offset Femoral Stem W/O Collar Implanted:Qty: 1 on 02/03/2009 at OR [facility] Left: Hip 08/21/2012 [id number] / / [id number] Head Delta 10/03 36mm Plus1.5 - [id number] Implanted:Qty: 1 on 02/03/2009 at OR [facility] Left: Hip [employer] 10/21/2013 [id number] / / [id number] Screw Self-Drilling5 5m 422.394 - [id number] Implanted:Qty: 1 on 06/10/2012 at OR [facility] Right: Leg Upper SYNTHES 422.394 / / Screw Self-Drilling4 0m 422.393 - [id number] Implanted:Qty: 1 on 06/10/2012 at OR [facility] Right: Leg Upper SYNTHES 422.393 / / Screw Self-Drilling2 6m 422.392 - [id number] Implanted:Qty: 1 on 06/10/2012 at OR [facility] Right: Leg Upper SYNTHES 422.392 / / Beatriz Plate 9holes/[id number] 2.344 - [id number] Implanted:Qty: 1 on 06/10/2012 at OR [facility] Right: Leg Upper SYNTHES 422.344 / / Screw 5.0 Lock Ti 34 412.211 - [id number] Implanted:Qty: 1 on 06/10/2012 at OR [facility] Right: Leg Upper SYNTHES 412.211 / / Screw 5.0 Lock Ti 36 412.212 - [id number] Implanted:Qty: 2 on 06/10/2012 at OR [facility] Right: Leg Upper SYNTHES 412.212 / / Screw Self-Drilling6 5m 422.395 - [id number] Implanted:Qty: 3 on 06/10/2012 at OR [facility] Right: Leg Upper SYNTHES 422.395 / / documented as of this encounter Procedures Procedure Name Priority Date/Time Associated Diagnosis Comments HC 2D TTE W OR W/O CONTR CONT ECG Routine 07/03/2024 1:43 PM EDT Type 2 diabetes mellitus with hemoglobin A1c goal of less than 7.0% (HCC) ESRD (end stage renal disease) on dialysis (HCC) Pre-transplant evaluation for ESRD (end stage renal disease) documented in this encounter Results * ECHO, STRESS (DOBUTAMINE) W/ PHYSICIAN (07/03/2024 1:43 PM EDT) LEFT VENTRICULAR EJECTION FRACTION 55 % [facility] 07/03/2024 12:4 4 PM EDT Lucio Montague MD ECHOCARDIOLOGY [facility] documented in this encounter Visit Diagnoses Diagnosis Type 2 diabetes mellitus with hemoglobin A1c goal of less than 7.0% (HCC) ESRD (end stage renal disease) on dialysis (HCC) End stage renal disease Pre-transplant evaluation for ESRD (end stage renal disease) Other specified pre-operative examination Other cerebrovascular disease Other ill-defined cerebrovascular disease documented in this encounter Administered Medications Inactive Administered Medications - up to 3 most recent administrations Medication Order MAR Action Action Date Dose Rate Site atropine sulfate inj 2 mg 2 mg, IV Push, ONCE, On Sat07/03/24 at 1315, For 1 dose, May repeat up to 2mg total for Dobutamine Stress Only, Cardiac Studies_HODHOV Given 07/03/2024 1:30 PM EDT 2 mg DOBUTamine 250 mg in D5W 250 mL (peripheral) final conc 1000 mcg/mL Peripheral IV, 10 mcg/kg/min, For Dobutamine Stress ONLY -- Start at 10 mcg/kg/min and titrate up to 40 mcg/kg/min in 3 min intervals., CONTINUOUS, Starting on Sat07/03/24 at 1315, Until Sat07/03/24 at 1314, Cardiac Studies_HODHOV New Bag 07/03/2024 1:11 PM EDT 5 mL/hr DOBUTamine 250 mg in D5W 250 mL (peripheral) final conc 1000 mcg/mL Peripheral IV, 10 mcg/kg/min 68 kg (40.8 mL/hr), For Dobutamine Stress ONLY -- Start at 10 mcg/kg/min and titrate up to 40 mcg/kg/min in 3 min intervals., CONTINUOUS, Starting on Sat07/03/24 at 1345, Until Sat07/03/24 at 1544 New Bag 07/03/2024 1:17 PM EDT 10 mcg/kg/min 40.8 mL/hr Metoprolol Tartrate (Lopressor) inj 5 mg 5 mg, IV Push, Q5 MIN PRN Other, For Dobutamine Stress Only - For Hypertension, Tachycardia or Arrhythmias, Starting on Sat07/03/24 at 1243, Until Sat07/03/24 at 1442, For 2 hours, May repeat up to 10mg total for Dobutamine Stress Only, Cardiac Studies_HODHOV Given 07/03/2024 1:32 PM EDT 5 mg perflutren lipid microsphere inj SUSP 1.956 mg 1.956 mg, Intravenous, ONCE PRN Other, For Echo Only - Suboptimal Echo Images, Starting on Sat07/03/24 at 1243, Until Sat07/03/24 at 1442, For 2 hours, Administer IVP over 45 seconds, Cardiac Studies_HODHOV Given 07/03/2024 1:03 PM EDT 1.956 mg documented in this encounter Advance Directives * Full Code (Latest Code Status on File) Date Activated Date Inactivated Comments 06/10/2012 3:03 PM 06/12/2012 3:36 PM . Question Answer Comments Discussion of Advance Directives occurred with: Not Discussed * Full Code Date Activated Date Inactivated Comments 05/01/2012 5:36 PM 05/02/2012 2:56 PM . Question Answer Comments Discussion of Advance Directives occurred with: Not Discussed * Full Code Date Activated Date Inactivated Comments 03/18/2012 8:18 AM 03/18/2012 1:35 PM This order r eflects the patients wishes and were consensually agreed upon. * Full Code Date Activated Date Inactivated Comments 02/03/2009 9:30 AM 02/07/2009 7:33 PM Care Teams Fire Control Assistant Relationship Specialty Start Date End Date Kisha Cosby MD [address] [facility] [place] [address] PCP - General Internal Medicine 05/17/23 documented as of this encounter
[2024-07-14] MEDS ORDERED: GLUCAGON FOR INJ 1 MG VIAL SQ PRN (13:21)
[2024-07-14] MEDS ORDERED: GLUCOSE 40% GEL 15 GM TUBE PO PRN (13:21)
[2024-07-14] MEDS ORDERED: CARBOHYDRATES FOR HYPOGLYCEMIA PO PRN (13:21)
[2024-07-14] MEDS ORDERED: GLUCOSE 10 TAB/TUBE PO PRN (13:21)
[2024-07-14] MEDS ORDERED: ACETAMINOPHEN 325 MG TAB PO PRN (13:21)
[2024-07-14] MEDS ORDERED: DEXTROSE 50% 50 ML SYRINGE IV PRN (13:21)
[2024-07-14] MEDS: INSULIN ASPART PER UNIT CHARGE SC SCH (13:55)
[2024-07-14] MEDS: EPOETIN ALFA 20,000 UNITS/ML VIAL IV STA (16:44)
[2024-07-14] MEDS: LORazepam 0.5 MG TAB PO PRN (17:38)
[2024-07-14] MEDS: ALBUTEROL HFA 8 GM INHALER INH PRN (17:42)
[2024-07-14] MEDS: busPIRone 5 MG TAB PO SCH (18:06)
[2024-07-14] MEDS: COUGH DROP (SUGAR FREE) LOZ 24 LOZ/1 BOX BUCCAL ONE (18:07)
[2024-07-14] MEDS: carvediloL 25 MG TAB PO SCH (18:07)
[2024-07-14] MEDS: SEVELAMER CARBONATE 800 MG TAB PO SCH (18:08)
[2024-07-14] MEDS: ONDANSETRON INJ 2 MG/ML 2 ML VIAL IV PRN (18:24)
[2024-07-14] MEDS: ATORVASTATIN 40 MG TAB PO SCH (21:14)
[2024-07-14] MEDS: FLUTICASONE/VILANTEROL 100/25MCG 14 PUFFS/INHALER INH SCH (21:16)
--- NOTE | 2024-07-14 21:53 | Electrocardiogram Report ---
Test Reason : Blood Pressure : */* mmHG Vent. Rate : 85 BPM Atrial Rate : * BPM P-R Int : * ms QRS Dur : 92 ms QT Int : 400 ms P-R-T Axes : * 52 24 degrees QTcB Int : 476 ms Sinus rhythm with frequent Premature atrial complexes Anteroseptal infarct (cited on or before 04-Mar-2019) Nonspecific ST abnormality Abnormal ECG When compared with ECG of 19-Feb-2024 08:28, Questionable change in initial forces of Anterior leads Premature atrial complexes are now Present Confirmed by Twan Wilson ([id number]) on 07/14/2024 9:53:23 PM Referred By: REFERRED SELF Confirmed By: Tawn Wilson
--- NOTE | 2024-07-14 21:54 | Electrocardiogram Report ---
Test Reason : Blood Pressure : */* mmHG Vent. Rate : 76 BPM Atrial Rate : 76 BPM P-R Int : 184 ms QRS Dur : 90 ms QT Int : 398 ms P-R-T Axes : 62 43 16 degrees QTcB Int : 447 ms Sinus rhythm with Premature atrial complexes Low voltage QRS Septal infarct (cited on or before 04-Mar-2019) Nonspecific ST abnormality Abnormal ECG When compared with ECG of 14-Jul-2024 07:17, No significant change Confirmed by Twan Wilson ([id number]) on 07/14/2024 9:53:54 PM Referred By: REFERRED SELF Confirmed By: Twan Wilson
[2024-07-14 22:03] LABS: Hematocrit (blood only) 17.6 % (37.0-47.0); Hemoglobin 5.9 g/dl (12.0-16.0); Mean Corpuscular Hemoglobin 32.4 pg (25.0-34.0); Mean Corpuscular Hgb Conc 33.5 g/dL (32.0-36.0); Mean Corpuscular Volume 96.7 fL (80.0-100.0); Mean Platelet Volume 9.3 fL (9.4-12.4); Platelet Count 165 K/uL (130-400); RDW Coefficient of Variation 14.6 % (11.5-14.5); RDW Standard Deviation 50.9 fL (36.4-46.3); Red Blood Count 1.82 M/uL (4.20-5.40); White Blood Count 10.43 K/ul (4.8-10.8)
[2024-07-15] MEDS ORDERED: PHARMACY GLYCEMIC MGMT CONSULT PRN (01:58)
[2024-07-15 03:03] LABS: Basophils # (auto) 0.04 K/uL (0.00-0.20); Basophils % (auto) 0.5 %; Eosinophils # (auto) 0.28 K/uL (0.00-0.50); Eosinophils % (auto) 3.4 %; Hematocrit (blood only) 21.8 % (37.0-47.0); Hemoglobin 7.1 g/dl (12.0-16.0); Immature Granulocytes # (auto) 0.07 K/uL (0.01-0.20); Immature Granulocytes % (auto) 0.8 %; Lymphocytes # (auto) 1.17 K/uL (1.20-3.40); Mean Corpuscular Hemoglobin 30.9 pg (25.0-34.0); Mean Corpuscular Hgb Conc 32.6 g/dL (32.0-36.0); Mean Corpuscular Volume 94.8 fL (80.0-100.0); Mean Platelet Volume 9.6 fL (9.4-12.4); Monocytes # (auto) 0.75 K/uL (0.11-0.59); Neutrophils # (auto) 6.02 K/uL (1.40-6.50); Neutrophils % (auto) 72.3 %; Nucleated RBC # (auto) 0.02 K/uL (0.00-0.12); Nucleated RBC % (auto) 0.2 %; Platelet Count 181 K/uL (130-400); RDW Standard Deviation 57.5 fL (36.4-46.3); White Blood Count 8.33 K/ul (4.8-10.8)
[2024-07-15 03:35] LABS: BUN Creatinine Ratio 8.2 (10-20); Calcium 8.9 mg/dl (8.6-10.3); Est GFR (African American) 7.5 ml/min; Est GFR (Non-African American) 6.5 ml/min; Potassium 4.9 mmol/L (3.5-5.1)
[2024-07-15 04:06] LABS: Polychromasia 1+
[2024-07-15] MEDS: NEPHROCAPS PO SCH (08:05)
[2024-07-15] MEDS: NIFEdipine EXTENDED REL 30 MG TABCR PO SCH (08:06)
[2024-07-15] MEDS: ASPIRIN 325 MG ECTAB PO SCH (08:06)
[2024-07-15 08:43] LABS: Basophils # (auto) 0.06 K/uL (0.00-0.20); Basophils % (auto) 0.7 %; Eosinophils # (auto) 0.39 K/uL (0.00-0.50); Eosinophils % (auto) 4.5 %; Hematocrit (blood only) 22.9 % (37.0-47.0); Hemoglobin 7.7 g/dl (12.0-16.0); Immature Granulocytes # (auto) 0.09 K/uL (0.01-0.20); Lymphocytes # (auto) 0.93 K/uL (1.20-3.40); Lymphocytes % (auto) 10.8 %; Mean Corpuscular Hemoglobin 31.7 pg (25.0-34.0); Mean Corpuscular Hgb Conc 33.6 g/dL (32.0-36.0); Mean Corpuscular Volume 94.2 fL (80.0-100.0); Mean Platelet Volume 9.6 fL (9.4-12.4); Monocytes # (auto) 0.79 K/uL (0.11-0.59); Monocytes % (auto) 9.2 %; Neutrophils # (auto) 6.32 K/uL (1.40-6.50); Neutrophils % (auto) 73.8 %; Platelet Count 185 K/uL (130-400); RDW Coefficient of Variation 17.3 % (11.5-14.5); RDW Standard Deviation 58.9 fL (36.4-46.3); Red Blood Count 2.43 M/uL (4.20-5.40); White Blood Count 8.58 K/ul (4.8-10.8)
[2024-07-15 09:11] LABS: Polychromasia 1+
[2024-07-15 09:36] LABS: Appearance Urine Clear (Clear); Bacteria Urine Automated None Seen (None Seen); Bilirubin Urine Negative (Negative); Blood Urine Negative (Negative); Cast Urine Automated 0-2 /lpf (0-2); Color Urine Yellow; Epithelial Cell Urine Auto 0-2 /hpf (0-2); Glucose Urine UA Trace (Negative); Ketones Urine Negative (Negative); Leukocyte Esterase Urine Negative (Negative); Nitrite Urine Negative (Negative); Protein Urine 3+ (Negative); RBC Urine Automated 0-2 /hpf (0-2); Specific Gravity Urine 1.015 (1.000-1.030); Urobilinogen Urine Negative (Negative); WBC Urine Automated 0-5 /hpf (0-5); pH Urine >= 9.0 (4.5-7.5)
[2024-07-15] MEDS: VALSARTAN/SACUBITRIL 103/97MG TAB PO SCH (10:39)
--- NOTE | 2024-07-15 10:45 | XCELERA ---
[id number] \\[id number]
--- NOTE | 2024-07-15 10:55 | Nephrology Progress Note ---
Date of Service July 15, 2024 Assessment & Plan (1) ESRD (end stage renal disease) on dialysis: (2) Severe anemia: (3) Hyperkalemia: (4) Generalized weakness: Plan 73-year-old female with ESKD in the setting of hypertension, diabetes, PVD, nephrotic range proteinuria and left atrophic kidney, on HD at [facility] via left RC AVF. Admitted with severe anemia, generalized weakness. work-up unremarkable including negative CT brain. --Will plan for next dialysis tomorrow as regular schedule, okay to give PRBC 1 unit today, volume status seems acceptable, no respiratory distress or significant volume overload. Advised to maintain fluid restriction to less than 1 L/day --Epogen 98650 units x 1 dose given with dialysis on 07/14 --Continue on renal vitamins and phosphate binder --left arm nephrology precaution, dose medications for eGFR less than 10 Admission and Anticipated Discharge Date Admission Date: July 14, 2024 Subjective Jessika was seen and evaluated this morning. Reports overall feeling better. Dialysis yesterday but she came off of dialysis 45 minutes early as she was not feeling well. Volume status otherwise acceptable. Electrolyte acceptable. Hemoglobin 7.5, received 1 unit of blood transfusion. No sign of active blood loss. Review of Systems Review of Systems: Detailed review of system was otherwise unremarkable. Physical Exam Constitutional: WD/WN, vitals as above no acute distress Eyes: + anicteric sclerae Respiratory: no respiratory distress Auscultation: lungs clear to auscultation bilaterally Cardiovascular: Rate/Rhythm: regular rate and regular rhythm Heart Sounds: normal S1 and normal S2 Extremities: no edema Musculoskeletal: Extremities: extremities normal to inspection Skin: no rashes, warm and dry Neurologic: no focal motor deficits Psychiatric: Orientation: alert and oriented x 3 Affect: euthymic affect Results & Data Vital Signs (Past 12 Hours) Vital Signs Temp Pulse Pulse Resp BP BP Pulse Ox 07/15/24 07:47 37.3 C 71 18 156/67 H 97 07/15/24 02:53 37.1 C 80 18 143/66 H 99 07/15/24 00:43 36.9 C 83 16 161/72 H 98 07/14/24 23:59 37.1 C 83 18 156/70 H 98 07/14/24 22:59 37.6 C H 82 16 151/68 H 98 O2 Del Method O2 Flow Rate 07/15/24 07:47 Nasal Cannula 2 07/15/24 02:53 Room Air 07/15/24 00:43 2 07/14/24 23:59 2 07/14/24 22:59 2 PG Care Time/CCT Total # of Minutes Spent Total Time Spent with Patient: Total time spent is greater than 50% in coordination of care (as documented) at patient's floor/unit and/or counseling patient: Coding Level of Care Code 78754 SUB INP/OBS CARE 2/35MIN Diagnoses ESRD (end stage renal disease) on dialysis N18.6; Z99.2 Severe anemia D64.9 Hyperkalemia E87.5 Generalized weakness R53.1
[2024-07-15] MEDS ORDERED: SODIUM CHLORIDE 0.9% 250 ML IV PRN (12:13)
--- NOTE | 2024-07-15 12:38 | Hospitalist Progress Note ---
Date of Service July 15, 2024 Assessment & Plan (1) Severe anemia: Plan: Etiology is uncertain, patient denies bloody stool could be from ESRD Hgb 6.3 on arrival Iron, B12, and folate all WNL Patient received Procrit 20,000 units IV in the ED Has been transfused with 2 units of blood Check hemoglobin and hematocrit (2) ESRD (end stage renal disease) on dialysis: Plan: HD on Last session was on Saturday 07/07 Patient reports she had missed her last 3 dialysis sessions Nephrology consulted, no need HD today, planned Hd tomorrow (3) Hyperkalemia: Plan: resolved (4) Diabetes: Plan: Last A1c at 6.8% on 08/03/2022 Glucose 373 on admission; insulin aspart SQ 4u x 1 Patient is not currently on diabetic medications Will hold Lantus in the setting of ESRD SSI with target BSG range 110-140mg/dL, CF 50, carb ratio 15 T2DM diet BSG ACHS Adjust regimen as needed (5) Bronchitis: Plan: Patient reports dry cough that began on Wednesday 07/11 CXR with hazy airspace opacities that may indicate infectious versus inflammatory pneumonitis No leukocytosis; afebrile BioFire negative Procalcitonin elevated slightly at 0.69; however this is in the setting of ESRD and dialysis Will defer antibiotics at this time and continue to trend CBC Patient reports she has not been using her Breo Ellipta lately Continue/restart home inhalers (6) Hyperlipemia: Plan: Patient reports she has not been taking her atorvastatin recently due to lower extremity myalgias Will plan to restart atorvastatin (7) Hypervolemia associated with renal insufficiency: (8) Symptomatic anemia: Plan Disposition: Hopefully discharge in next 24 hours Full code Dialysis renal, T2DM, low potassium diet VTE PPx: SCDs Admission and Anticipated Discharge Date Admission Date: July 14, 2024 Subjective Patient seen and examined today, received a unit of blood, feels a lot better Review of Systems Review of Systems: All systems reviewed are negative, apart from the ones contained in the history. Physical Exam Physical Exam: The patient is awake, alert and oriented 3, well developed and well nourished, normocephalic and atraumatic, lying in bed and in no acute distress. HEENT--PERRL, EOMI, mucous membranes and oropharynx mildly dry Neck--supple. No JVD. No bruits. Thyroid normal, trachea midline, no adenopathy. Heart--normal S1 and S2. No murmurs, rubs or gallops. Lungs--clear bilaterally, no respiratory distress, no accessory muscle use. Abdomen--normal bowel sounds and soft. Extremities--no cyanosis or clubbing. No edema. Dermatologic--normal skin turgor, normal color, no abnormal lymph nodes, no rash. Neurologic--cranial nerves II through XII grossly intact. Rheumatologic--normal range of motion. Psychiatric--normal affect. Results & Data Results & Data Vital Signs (Past 12 Hours) Vital Signs Temp Pulse Pulse Resp BP BP Pulse Ox 07/15/24 11:25 99.9 F H 57 L 18 148/65 H 98 07/15/24 11:12 70 07/15/24 07:47 99.1 F 71 18 156/67 H 97 07/15/24 02:53 98.8 F 80 18 143/66 H 99 07/15/24 00:43 98.4 F 83 16 161/72 H 98 O2 Del Method O2 Flow Rate 07/15/24 11:25 Nasal Cannula 2 07/15/24 11:12 07/15/24 07:47 Nasal Cannula 2 07/15/24 02:53 Room Air 07/15/24 00:43 2 PG Care Time/CCT Total # of Minutes Spent Total Time Spent with Patient: Total time spent is greater than 50% in coordination of care (as documented) at patient's floor/unit and/or counseling patient: Coding Level of Care Code 58946 SUB INP/OBS CARE 2/35MIN Diagnoses Severe anemia D64.9 ESRD (end stage renal disease) on dialysis N18.6; Z99.2 Hyperkalemia E87.5 Diabetes E11.9 Bronchitis J40 Hyperlipemia E78.5 Hypervolemia associated with renal insufficiency E87.70; N28.9 Symptomatic anemia D64.9 Time Spent (min) 35
--- NOTE | 2024-07-15 13:26 | Pharmacy Report ---
Pharmacy Glycemic Short Note 2 - Date of Service July 15, 2024 - Glycemic Short BSG Results (Last 24 hours): 07/14/24 07/14/24 07/15/24 17:21 20:26 02:21 Glucose 112 H POC Glucose 139 H 194 H 07/15/24 07/15/24 07:47 11:24 Glucose POC Glucose 125 H 188 H OUTPATIENT ANTIDIABETIC REGIMEN: * None ASSESSMENT: * 73 y/o F with history or ESRD and hemodialysis admitted yesterday with severe anemia. She was not on any outpatient anti-diabetic meds at home. * Blood sugars elevated on admission yesterday but trended down with only Novolog bolus insulin. * Fasting BSG today was 125 mg/dl. Patient was feeling weak yesterday during dialysis session. * Will continue with Novolog with stress of 1 parameters for conservative management to avoid hypoglycemia symptoms. Holding basal insulin for now. * HD planned for tomorrow. PLAN FOR INPATIENT GLYCEMIC CONTROL: * Hold outpatient oral diabetes medications * Basal insulin * None * Bolus insulin * NovoLog per scale ACHS or Q6hrs while NPO * Goal Range: Low 110 mg/dL - High 150 mg/dL * Correction Factor: 50 mg/dL/unit * Nutritional / Prandial insulin per carb ratio of 1 unit per 15 grams CHO c onsumed
[2024-07-16 08:10] VITALS: RESP 18; O2SAT 97
[2024-07-16 08:39] LABS: Basophils # (auto) 0.07 K/uL (0.00-0.20); Basophils % (auto) 0.8 %; Eosinophils # (auto) 0.54 K/uL (0.00-0.50); Eosinophils % (auto) 6.3 %; Hematocrit (blood only) 25.1 % (37.0-47.0); Hemoglobin 8.5 g/dl (12.0-16.0); Immature Granulocytes # (auto) 0.13 K/uL (0.01-0.20); Immature Granulocytes % (auto) 1.5 %; Lymphocytes # (auto) 0.92 K/uL (1.20-3.40); Lymphocytes % (auto) 10.8 %; Mean Corpuscular Hemoglobin 32.1 pg (25.0-34.0); Mean Corpuscular Hgb Conc 33.9 g/dL (32.0-36.0); Mean Corpuscular Volume 94.7 fL (80.0-100.0); Mean Platelet Volume 9.7 fL (9.4-12.4); Monocytes # (auto) 0.76 K/uL (0.11-0.59); Monocytes % (auto) 8.9 %; Neutrophils # (auto) 6.09 K/uL (1.40-6.50); Neutrophils % (auto) 71.7 %; Nucleated RBC # (auto) 0.03 K/uL (0.00-0.12); Nucleated RBC % (auto) 0.4 %; Platelet Count 176 K/uL (130-400); RDW Coefficient of Variation 15.9 % (11.5-14.5); Red Blood Count 2.65 M/uL (4.20-5.40); White Blood Count 8.51 K/ul (4.8-10.8)
[2024-07-16 10:06] LABS: BUN Creatinine Ratio 8.4 (10-20); Creatinine Clr Calc Pharmacy 6.4 ml/min; Est GFR (African American) 5.7 ml/min; Est GFR (Non-African American) 4.9 ml/min
[2024-07-16] MEDS: EPOETIN ALFA 10,000 UNITS/ML VIAL IV STA (11:08)
--- NOTE | 2024-07-16 12:20 | Nephrology Progress Note ---
Date of Service July 16, 2024 Assessment & Plan (1) ESRD (end stage renal disease) on dialysis: (2) Severe anemia: (3) Hyperkalemia: (4) Generalized weakness: Plan 73-year-old female with ESKD in the setting of hypertension, diabetes, PVD, nephrotic range proteinuria and left atrophic kidney, on HD at [facility] via left RC AVF. Admitted with severe anemia, generalized weakness. work-up unremarkable including negative CT brain. --tolerating dialysis, aim for 3 L UF to reach her EDW, maintain fluid restriction to less than 1.2 L/day --Epogen 01814 units with dialysis --Continue on renal vitamins and phosphate binder --left arm nephrology precaution, dose medications for eGFR less than 10 Admission and Anticipated Discharge Date Admission Date: July 14, 2024 Subjective Jessika was seen and evaluated during dialysis this morning. Reports overall feeling better. Volume status otherwise acceptable. Electrolyte acceptable. Hemoglobin >8, s/p 2unit of blood transfusion. No sign of active blood loss. Review of Systems Review of Systems: Detailed review of system was otherwise unremarkable. Physical Exam Constitutional: WD/WN, vitals as above no acute distress Eyes: + anicteric sclerae Respiratory: no respiratory distress Auscultation: lungs clear to auscultation bilaterally Cardiovascular: Rate/Rhythm: regular rate and regular rhythm Heart Sounds: normal S1 and normal S2 Extremities: no edema Musculoskeletal: Extremities: extremities normal to inspection Skin: no rashes, warm and dry Neurologic: no focal motor deficits Psychiatric: Orientation: alert and oriented x 3 Affect: euthymic affect Results & Data Vital Signs (Past 12 Hours) Vital Signs Temp Pulse Pulse Pulse Resp BP BP 07/16/24 11:30 77 156/61 H 07/16/24 11:00 71 150/58 H 07/16/24 10:30 69 138/55 L 07/16/24 10:14 07/16/24 10:00 74 133/47 L 07/16/24 09:30 73 133/54 L 07/16/24 09:15 77 153/65 H 07/16/24 09:06 36.8 C 78 07/16/24 08:09 36.9 C 77 88 18 125/63 07/16/24 03:42 36.9 C 67 14 137/64 Pulse Ox O2 Del Method O2 Flow Rate 07/16/24 11:30 07/16/24 11:00 07/16/24 10:30 07/16/24 10:14 Nasal Cannula 1 07/16/24 10:00 07/16/24 09:30 07/16/24 09:15 07/16/24 09:06 07/16/24 08:09 97 Nasal Cannula 2 07/16/24 03:42 98 Nasal Cannula 2.0 PG Care Time/CCT Total # of Minutes Spent Total Time Spent with Patient: Total time spent is greater than 50% in coordination of care (as documented) at patient's floor/unit and/or counseling patient: Coding Level of Care Code 71298 SUB INP/OBS CARE 235MIN Diagnoses ESRD (end stage renal disease) on dialysis N18.6; Z99.2 Severe anemia D64.9 Hyperkalemia E87.5 Generalized weakness R53.1
--- NOTE | 2024-07-16 13:43 | Discharge Summary ---
Date of Service July 16, 2024 Admission HPI Per Admitting Provider Jessika is a pleasant 73-year-old female with PMH of ESRD on HD, T2DM, carotid stenosis, chondromyxoid fibroma, HLD, and insomnia. She presented on 07/14 from dialysis at [place] for lethargy; she did not receive dialysis this morning, but normally gets it on . She has missed her last 3 dialysis sessions. Prior to coming in, she last received dialysis on Saturday 07/07, but then missed it on 07/09 that she began to feel weak/sick. She was having difficulty walking and thinking, and she felt tired moving from one room to the next. She does not ambulate with a cane or walker at baseline. No recent falls, injuries, or syncope. She denies any fevers at home. However, she did develop a dry cough starting on Saturday. No sick contacts to her knowledge. No supplemental oxygen or CPAP at baseline. Patient did not take her regular morning medications today; no recent change in medications. She does manage her own medicine at home. She does note that she has not been taking her atorvastatin recently due to lower extremity myalgias. She also has not been using her Symbicort lately. She does have a history of blood transfusions with the last 1 being 1 year ago. Patient reports she is still producing urine. Patient denies smoking, tobacco use, or alcohol use. No history of A-fib. Patient is hypertensive at 151/78 at time of admission; vitals otherwise stable. ED course: Epoetin alpha 20,000 units IV ROS: Patient endorses generalized fatigue, feeling off-balance, dizziness/lightheadedness with movements, SOB at rest and with exertion (which is new for her), dry cough (started on Saturday), and nausea. Patient denies fever, chills, night-sweats, falls, headache, chest pain, chest palpitations, hemoptysis, pleuritic CP, abdominal pain, vomiting, diarrhea, melena, blood in urine/stool, or numbness/tingling in the arms or legs. Called patient's daughter (Felicity) and provided update regarding admission status. Admission Exam (Per Admitting) Constitutional The patient is awake, alert and oriented 3, well developed and well nourished, normocephalic and atraumatic, lying in bed and in no acute distress. HEENT--PERRL, EOMI, mucous membranes and oropharynx mildly dry Neck--supple. No JVD. No bruits. Thyroid normal, trachea midline, no adenopathy. Heart--normal S1 and S2. No murmurs, rubs or gallops. Lungs--clear bilaterally, no respiratory distress, no accessory muscle use. Abdomen--normal bowel sounds and soft. Extremities--no cyanosis or clubbing. No edema. Dermatologic--normal skin turgor, normal color, no abnormal lymph nodes, no rash. Neurologic--cranial nerves II through XII grossly intact. Rheumatologic--normal range of motion. Psychiatric--normal affect. Discharge Data Consultations 07/14/24 10:44 Consult Nephrology Routine Hospital Course (1) Severe anemia: Etiology is uncertain, patient denies bloody stool could be from ESRD Hgb 6.3 on arrival, now 8.5 s/p 2 units of blood Iron, B12, and folate all WNL Patient received Procrit 20,000 units IV in the ED (2) ESRD (end stage renal disease) on dialysis: HD on Last session was on Saturday 07/07 Patient reports she had missed her last 3 dialysis sessions Nephrology consulted, no need HD today, planned Hd tomorrow (3) Hyperkalemia: resolved (4) Diabetes: Last A1c at 6.8% on 08/03/2022 Glucose 373 on admission; insulin aspart SQ 4u x 1 Patient is not currently on diabetic medications Will hold Lantus in the setting of ESRD SSI with target BSG range 110-140mg/dL, CF 50, carb ratio 15 T2DM diet BSG ACHS Adjust regimen as needed (5) Bronchitis: Patient reports dry cough that began on Wednesday 07/11 CXR with hazy airspace opacities that may indicate infectious versus inflammatory pneumonitis No leukocytosis; afebrile BioFire negative Procalcitonin elevated slightly at 0.69; however this is in the setting of ESRD and dialysis Will defer antibiotics at this time and continue to trend CBC Patient reports she has not been using her Breo Ellipta lately Continue/restart home inhalers (6) Hyperlipemia: Patient reports she has not been taking her atorvastatin recently due to lower extremity myalgias Will plan to restart atorvastatin (7) Hypervolemia associated with renal insufficiency: (8) Symptomatic anemia: Plan Disposition: Hopefully discharge in next 24 hours Full code Dialysis renal, T2DM, low potassium diet VTE PPx: SCDs Coding Level of Care Code 86446 INP/OBS DISCH >30 MIN Diagnoses Severe anemia D64.9 ESRD (end stage renal disease) on dialysis N18.6; Z99.2 Hyperkalemia E87.5 Diabetes E11.9 Bronchitis J40 Hyperlipemia E78.5 Hypervolemia associated with renal insufficiency E87.70; N28.9 Symptomatic anemia D64.9 Time Spent (min) 35
[2024-07-16 14:02] VITALS: BP 165/59; TEMP 98.1
[2024-07-16 14:28] VITALS: PULSE 66
== END 2024-07-16 15:49 | disposition home or self-care (01) | DRG 811 ==
LOC: ED 07:09 → SUATTDRO 10:51 → 2S 10:51

== ENCOUNTER 2025-01-06 22:15 | Inpatient (IN) ==
[2025-01-06 23:00] LABS: Basophils # (auto) 0.07 K/uL (0.00-0.20); Basophils % (auto) 0.6 %; Eosinophils # (auto) 0.19 K/uL (0.00-0.50); Eosinophils % (auto) 1.5 %; Hematocrit (blood only) 27.1 % (37.0-47.0); Hemoglobin 9.2 g/dl (12.0-16.0); Immature Granulocytes # (auto) 0.05 K/uL (0.01-0.20); Immature Granulocytes % (auto) 0.4 %; Lymphocytes # (auto) 0.88 K/uL (1.20-3.40); Mean Corpuscular Hemoglobin 33.9 pg (25.0-34.0); Mean Corpuscular Hgb Conc 33.9 g/dL (32.0-36.0); Mean Platelet Volume 10.1 fL (9.4-12.4); Monocytes # (auto) 0.74 K/uL (0.11-0.59); Monocytes % (auto) 5.9 %; Neutrophils % (auto) 84.6 %; Platelet Count 165 K/uL (130-400); RDW Coefficient of Variation 16.3 % (11.5-14.5); RDW Standard Deviation 58.6 fL (36.4-46.3); Red Blood Count 2.71 M/uL (4.20-5.40); White Blood Count 12.63 K/ul (4.8-10.8)
[2025-01-06 23:13] LABS: Albumin Globulin Ratio 1.3 (0.9-2); Albumin Level 4.2 gm/dl (3.4-5.0); BUN Creatinine Ratio 9.2 (10-20); Bilirubin,Total 0.8 mg/dl (0.2-1.0); Calcium 9.1 mg/dl (8.6-10.3); Creatinine Clr Calc Pharmacy 5.6 ml/min; Globulin 3.2 gm/dl (2.5-4.0); Potassium 5.1 mmol/L (3.5-5.1); Total Protein 7.4 gm/dl (6.0-8.3)
--- NOTE | 2025-01-06 23:40 | XRay Report ---
Exam(s): XR CXR 1 VIEW EXAM: XR Chest, 1 View CLINICAL HISTORY: Reason for exam: Dyspnea. TECHNIQUE: Frontal view of the chest. COMPARISON: No relevant prior studies available. FINDINGS: Lungs: Unremarkable. No acute infiltration, atelectasis or mass. Pleural space: Unremarkable. No pneumothorax or pleural fluid. Heart: The heart appears prominent. Mediastinum: Unremarkable. Normal mediastinal contour. Bones/joints: No acute findings. IMPRESSION: No acute findings in the chest. Electronically signed by: Arnold Alcantara MD 01/06/25 23:39 PM
[2025-01-07 01:45] LABS: Adenovirus PCR Not Detected (NotDetected); Bordetella parapertussis PCR Not Detected (NotDetected); Bordetella pertussis PCR Not Detected (NotDetected); Chlamydia pneumoniae PCR Not Detected (NotDetected); Coronavirus 229E PCR Not Detected (NotDetected); Coronavirus CoV-2 (COVID19)PCR Not Detected (NotDetected); Coronavirus HKU1 PCR Not Detected (NotDetected); Coronavirus NL63 PCR Not Detected (NotDetected); Coronavirus OC43PCR Not Detected (NotDetected); Human Metapneumovirus PCR Not Detected (NotDetected); Influenza A PCR Not Detected (NotDetected); Influenza B PCR Not Detected (NotDetected); Mycoplasma pneumoniae PCR Not Detected (NotDetected); Parainfluenza Virus 1 PCR Not Detected (NotDetected); Parainfluenza Virus 2 PCR Not Detected (NotDetected); Parainfluenza Virus 3 PCR Not Detected (NotDetected); Parainfluenza Virus 4 PCR Not Detected (NotDetected); Respiratory Syncytial VirusPCR Not Detected (NotDetected); Rhinovirus/Enterovirus PCR Not Detected (NotDetected)
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
[2025-01-07] MEDS: ALBUTEROL HFA 8 GM INHALER INH ONE (02:18)
[2025-01-07] MEDS: BENZONATATE 100 MG CAPSULE PO ONE (02:19)
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
[2025-01-07] MEDS ORDERED: GLUCOSE 40% GEL 15 GM TUBE PO PRN ×2 (04:17→08:00)
[2025-01-07] MEDS ORDERED: ONDANSETRON INJ 2 MG/ML 2 ML VIAL IV PRN (04:17)
[2025-01-07] MEDS ORDERED: DEXTROSE 50% 50 ML SYRINGE IV PRN ×2 (04:17→08:00)
[2025-01-07] MEDS ORDERED: POLYETHYLENE (MIRALAX) 17 GM PACK PO PRN (04:17)
[2025-01-07] MEDS ORDERED: BENZONATATE 100 MG CAPSULE PO PRN (04:17)
[2025-01-07] MEDS ORDERED: CARBOHYDRATES FOR HYPOGLYCEMIA PO PRN ×2 (04:17→08:00)
[2025-01-07] MEDS ORDERED: GLUCOSE 10 TAB/TUBE PO PRN ×2 (04:17→08:00)
[2025-01-07] MEDS ORDERED: GLUCAGON FOR INJ 1 MG VIAL SQ PRN ×2 (04:17→08:00)
[2025-01-07] MEDS ORDERED: PHARMACY GLYCEMIC MGMT CONSULT PRN (04:17)
[2025-01-07] MEDS ORDERED: ALBUT/IPRATROP 3MG/0.5MG NEB 3 ML VIAL NEB PRN (04:17)
[2025-01-07] MEDS: Patient's ALLERGY Info needs ENTERED STA (05:02)
[2025-01-07] MEDS: ALBUT/IPRATROP 3MG/0.5MG NEB 3 ML VIAL NEB STA (05:02)
[2025-01-07] MEDS ORDERED: methylPREDNISolone 10 mg/mL (For Ped Dose < 7mg) IV SCH (08:00)
[2025-01-07 08:40] LABS: Appearance Urine Cloudy (Clear); Bacteria Urine Automated 1+ (None Seen); Bilirubin Urine Negative (Negative); Blood Urine Negative (Negative); Cast Urine Automated 0-2 /lpf (0-2); Color Urine Yellow; Glucose Urine UA Negative (Negative); Ketones Urine Trace (Negative); Leukocyte Esterase Urine 1+ (Negative); Nitrite Urine Negative (Negative); Protein Urine 3+ (Negative); RBC Urine Automated 0-2 /hpf (0-2); Specific Gravity Urine 1.017 (1.000-1.030); Urobilinogen Urine Negative (Negative); WBC Urine Automated 0-5 /hpf (0-5)
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
--- NOTE | 2025-01-07 08:44 | Electrocardiogram Report ---
Test Reason : Blood Pressure : */* mmHG Vent. Rate : 83 BPM Atrial Rate : 83 BPM P-R Int : 152 ms QRS Dur : 92 ms QT Int : 412 ms P-R-T Axes : * -1 43 degrees QTcB Int : 484 ms Sinus rhythm with frequent PACs Low voltage QRS Cannot rule out Anteroseptal infarct , age undetermined Abnormal ECG No previous ECGs available Confirmed by Shay Johnson ([id number]) on 01/07/2025 8:44:03 AM Referred By: REFERRED SELF Confirmed By: Shay Johnson
--- NOTE | 2025-01-07 08:45 | Electrocardiogram Report ---
Test Reason : Blood Pressure : */* mmHG Vent. Rate : 87 BPM Atrial Rate : 87 BPM P-R Int : 152 ms QRS Dur : 90 ms QT Int : 390 ms P-R-T Axes : 52 -21 73 degrees QTcB Int : 469 ms Sinus rhythm with Premature atrial complexes possible Anteroseptal infarct (cited on or before 06-Jan-2025) Abnormal ECG When compared with ECG of 06-Jan-2025 22:08, (unconfirmed) Premature atrial complexes are now Present Confirmed by Shay Johnson ([id number] on 01/07/2025 8:44:44 AM Referred By: REFERRED SELF Confirmed By: Shay Johnson
[2025-01-07] MEDS: METOPROLOL SUCC 50MG EXT REL TAB PO SCH (08:52)
[2025-01-07] MEDS: NIFEdipine EXTENDED REL 30 MG TABCR PO SCH (08:52)
[2025-01-07] MEDS: carvediloL 25 MG TAB PO SCH (08:52)
[2025-01-07] MEDS: SEVELAMER CARBONATE 800 MG TAB PO SCH (08:52)
[2025-01-07] MEDS ORDERED: LANTUS PER UNIT CHARGE SC SCH (09:00)
[2025-01-07] MEDS: INSULIN ASPART PER UNIT CHARGE SC SCH ×2 (09:05→12:39)
[2025-01-07] MEDS: VALSARTAN/SACUBITRIL 103/97MG TAB PO SCH (09:35)
[2025-01-07] MEDS: methylPREDNISolone 40 MG in SYRINGE 0 ML IV SCH (09:35)
[2025-01-07] MEDS: LIDOCAINE 4% CREAM 15 GM TUBE EXT PRN (12:32)
[2025-01-07] MEDS: EPOETIN ALFA 20,000 UNITS/ML VIAL IV ONE (12:33)
--- NOTE | 2025-01-07 12:47 | Hospitalist Progress Note ---
Date of Service January 07, 2025 Assessment & Plan (1) Viral illness: Plan: Suspected. Supportive care. Parenteral steroid therapy. (2) Type 2 diabetes mellitus: Plan: ADA diet. Sliding scale coverage. Parenteral steroids are likely to increase her glucose levels temporarily. (3) Acute hypoxic respiratory failure: Plan: Mild on admission. Supplemental oxygen per nasal cannula to keep saturation greater than 90%. Wean oxygen off as tolerated. Plan Hopeful discharge to home tomorrow, January 08 Admission and Anticipated Discharge Date Admission Date: January 07, 2025 Subjective Clinically, the patient looks fine. I suspect she has a viral illness. She is now on parenteral steroid therapy. Nephrology has been consulted because she is on hemodialysis on a regular basis. Hopefully she can go home tomorrowJanuary 08 Review of Systems 2 Review of Systems: Constitutionalno fever or chills ENTno blurred vision, no double vision, no epistaxis, no sore throat Respiratorynonproductive cough. No hemoptysis. No pleuritic pain. No wheezing, no shortness of breath Cardiacno palpitations, no chest pain, no syncope Lorrie nausea, vomiting, diarrhea, melena, hematochezia GUno urinary retention, no urinary incontinence, no dysuria, no hematuria Musculoskeletalno joint pain, no muscle tenderness Skinno bruising, no rashes, no pruritus Neurono isolated weakness, no paresthesia, no weakness Psychno depression, no anxiety Physical Exam 2 Physical Exam: General-alert and oriented x3, no fever, no chills HEENT-head atraumatic and normocephalic, pupils equal and reactive to light, extraocular muscles intact Neck-no lymphadenopathy or thyromegaly, trachea midline Chest-clear to auscultation. No rales, wheezing or rhonchi Cardiac-regular rate and rhythm, normal S1 and S2 Abdomen-normal bowel sounds, no hepatosplenomegaly Extremities-no cyanosis, clubbing, or edema Neuro-cranial nerves II through XII intact, motor and sensory function within normal limits, strength symmetrical, no focal deficits Psych-normal affect, normal mood Results & Data Results & Data Vital Signs (Past 12 Hours) Vital Signs Temp Pulse Pulse Pulse Resp BP BP 01/07/25 11:15 37.3 C 91 H 20 170/66 H 01/07/25 08:50 77 01/07/25 08:50 01/07/25 08:45 37.2 C 78 19 163/54 H 01/07/25 08:18 81 21 159/58 H 01/07/25 06:03 78 19 131/57 L 01/07/25 05:14 36.9 C 82 20 135/52 L 01/07/25 04:29 01/07/25 03:23 88 01/07/25 03:06 83 24 01/07/25 03:00 151/87 H 01/07/25 02:30 86 14 154/60 H 01/07/25 02:22 01/07/25 02:21 90 18 01/07/25 02:20 155/96 H 01/07/25 02:15 93 H 01/07/25 02:03 132/98 01/07/25 01:54 87 27 H 01/07/25 01:30 79 30 H 01/07/25 01:21 80 27 H 01/07/25 01:03 84 26 H Pulse Ox Pulse Ox O2 Del Method O2 Del Method O2 Flow Rate O2 Flow Rate 01/07/25 11:15 94 Nasal Cannula 01/07/25 08:50 01/07/25 08:50 Nasal Cannula 1 01/07/25 08:45 96 Nasal Cannula 2 01/07/25 08:18 95 Nasal Cannula 2 01/07/25 06:03 97 Nasal Cannula 01/07/25 05:14 98 Nasal Cannula 2 01/07/25 04:29 98 Nasal Cannula 2 01/07/25 03:23 01/07/25 03:06 98 Nasal Cannula 2 01/07/25 03:00 01/07/25 02:30 97 Nasal Cannula 2 01/07/25 02:22 99 Nasal Cannula 2 01/07/25 02:21 85 L Room Air 01/07/25 02:20 01/07/25 02:15 01/07/25 02:03 01/07/25 01:54 92 Room Air 01/07/25 01:30 92 01/07/25 01:21 93 01/07/25 01:03 92 Laboratory Results 01/06/25 22:27 01/06/25 22:27 PG Care Time/CCT Total # of Minutes Spent Total Time Spent with Patient: Total time spent is greater than 50% in coordination of care (as documented) at patient's floor/unit and/or counseling patient: Coding Level of Care Code 14938 SUB INP/OBS CARE 50MIN Diagnoses Viral illness B34.9 Type 2 diabetes mellitus E11.9 Acute hypoxic respiratory failure J96.01
[2025-01-07] MEDS: LORazepam 0.5 MG TAB PO PRN (20:52)
[2025-01-07] MEDS: ACETAMINOPHEN 500 MG TAB PO PRN (21:26)
[2025-01-08 07:14] LABS: Hematocrit (blood only) 29.5 % (37.0-47.0); Mean Corpuscular Hemoglobin 33.8 pg (25.0-34.0); Mean Corpuscular Hgb Conc 33.9 g/dL (32.0-36.0); Mean Corpuscular Volume 99.7 fL (80.0-100.0); Mean Platelet Volume 10.3 fL (9.4-12.4); Platelet Count 182 K/uL (130-400); RDW Coefficient of Variation 15.7 % (11.5-14.5); RDW Standard Deviation 57.4 fL (36.4-46.3); Red Blood Count 2.96 M/uL (4.20-5.40); White Blood Count 13.11 K/ul (4.8-10.8)
[2025-01-08 07:34] LABS: BUN Creatinine Ratio 9.2 (10-20); Calcium 9.7 mg/dl (8.6-10.3); Creatinine Clr Calc Pharmacy 8.5 ml/min; Potassium 3.9 mmol/L (3.5-5.1)
[2025-01-08 08:36] VITALS: RESP 16
--- NOTE | 2025-01-08 10:32 | Nephrology Progress Note ---
Date of Service January 08, 2025 Assessment & Plan (1) ESRD (end stage renal disease) on dialysis: Plan: ESRD on HD TTS at [facility]. Rx 3.5 hrs, 180 optiflux, 350/800, 2K 2.5Ca. EDW 72. Jessika missed treatment on 01/05/25. Jessika presented to the ER with symptomatic accelerated hypertension and volume overload. This improved with HD - UF 3 kg. BP and volume status are acceptable. Next HD planned for tomorrow. Jessika should attend her outpatient treatment as s cheduled. Medications are appropriate for IHD. Renal diet with sodium, potassium, and fluid restriction. Sevelamer QAC for hyperphosphatemia. (2) Ischemic cardiomyopathy: (3) Hypertension: Plan: Improved. Continue home medications as Rx. (4) Anemia due to chronic kidney disease: Plan: Epogen 67107 units with HD provided yesterday. Admission and Anticipated Discharge Date Admission Date: January 07, 2025 Subjective No acute events overnight. Jessika tolerated HD well yesterday. No complications with treatment. She feels well this AM. Discharge is expected later this afternoon. I discussed the plan of care with Dr. Enrique this AM. Review of Systems Review of Systems: All systems reviewed & are unremarkable except as noted in HPI & below Physical Exam Constitutional: well developed; no acute distress Eyes: no scleral abnormality and no corneal abnormality ENMT: Mouth: no oral mucosal abnormality and oral mucous membranes not dry Neck: normal visual inspection and trachea midline Respiratory: normal respiratory effort Auscultation: lungs clear to auscultation bilaterally Cardiovascular: Rate/Rhythm: regular rate Heart Sounds: normal S1, normal S2 and + murmur Extremities: + AV fistula Musculoskeletal: Extremities: no cyanosis and no clubbing Skin: normal turgor; no lesions Neurologic: Motor/Sensory: no tremor and no asterixis Psychiatric: Orientation: alert and oriented x 3 Results & Data Vital Signs (Past 12 Hours) Vital Signs Temp Pulse Pulse Pulse Resp BP Pulse Ox 01/08/25 08:33 37.1 C 80 16 138/66 97 01/08/25 06:45 79 01/08/25 02:34 36.5 C 84 18 150/65 H 95 01/07/25 23:05 37.6 C H 87 18 136/68 94 O2 Del Method 01/08/25 08:33 Room Air 01/08/25 06:45 01/08/25 02:34 Room Air 01/07/25 23:05 Room Air Laboratory Results Laboratory Results - last 24 hr 01/07/25 01/07/25 01/08/25 16:47 20:24 06:26 WBC 13.11 H RBC 2.96 L Hgb 10.0 L Hct 29.5 L MCV 99.7 MCH 33.8 MCHC 33.9 RDW Std Deviation 57.4 H RDW Coeff of Nilda 15.7 H Plt Count 182 MPV 10.3 Sodium 136 Potassium 3.9 D Chloride 95 L Carbon Dioxide 25 Anion Gap 16 H BUN 52 H D Creatinine 5.68 H* D Est Cr Clr Drug Dosing 8.5 eGFR 7.40 BUN/Creatinine Ratio 9.2 L Glucose 342 H* POC Glucose 224 H 291 H Calcium 9.7 01/08/25 01/08/25 08:00 08:01 WBC RBC Hgb Hct MCV MCH MCHC RDW Std Deviation RDW Coeff of Nilda Plt Count MPV Sodium Potassium Chloride Carbon Dioxide Anion Gap BUN Creatinine Est Cr Clr Drug Dosing eGFR BUN/Creatinine Ratio Glucose POC Glucose 386 H* 375 H* Calcium PG Care Time/CCT Total # of Minutes Spent Total Time Spent with Patient: Total time spent is greater than 50% in coordination of care (as documented) at patient's floor/unit and/or counseling patient: Coding Level of Care Code 30976 SUB INP/OBS CARE 3/50MIN Diagnoses ESRD (end stage renal disease) on dialysis N18.6; Z99.2 Ischemic cardiomyopathy I25.5 Hypertension I10 Anemia due to chronic kidney disease N18.9; D63.1
--- NOTE | 2025-01-08 10:47 | Discharge Summary ---
Discharge Summary Date of Service January 08, 2025 Principal Dx & Hospital Course #1 = Principal Diagnosis (1) Viral illness: Suspected. Supportive care. Parenteral steroid therapy. (2) Type 2 diabetes mellitus: ADA diet. Sliding scale coverage. Parenteral steroids have increased her glucose levels but they will return to baseline now that parenteral steroids have been discontinued. (3) Acute hypoxic respiratory failure: Now resolved. She is on room air Plan Home today, January 08 Admission HPI Per Admitting Provider 74-year-old female PMHx ESRD on HD, T2DM, carotid stenosis,chondromyxoid fibroma, HLD, and insomnia presenting for SOB starting day of arrival. Patient states that she had an onset of SOB after feeling under the weather throughout the weekend prior to arrival. Also noticed that she has continued to feel weak but that this is at her baseline. She was concerned that the SOB was secondary to low blood counts because this has happened in the past. She has not had any fever or chills but she does admit to some rhinorrhea. Does have sick contacts within the family. States that she decided to come in because she felt that she was "catching "" and was having some chest tightness because she was coughing. She does have a slightly productive cough with white phlegm, but this does not occur all the time. Patient admits to missing dialysis on the Saturday [employer] because there was no power and she said she could not get ready without power so she did not go to dialysis. Otherwise denying chest pain, palpitations, abdominal pain, N/V/D/C, numbness/tingling, LUTS, or syncope. Patient goes to HD on Saturday//Saturday, still makes urine but in small amounts. ED evaluation reveals leukocytosis 12.63, H&H 9.2/27.1; CMP sodium 135, chloride 94, anion gap 15, BUN 82, creatinine 8.87, ratio 9.2, glucose 296; BioFire negative; CXR without acute findings. Provided with benzonatate and albuterol inhaler in ED. Please see Dr. Poole's attestation for adjustments/additions to treatment plan. Discharge Exam General-alert and oriented x3, no fever, no chills HEENT-head atraumatic and normocephalic, pupils equal and reactive to light, extraocular muscles intact Neck-no lymphadenopathy or thyromegaly, trachea midline Chest-clear to auscultation. No rales, wheezing or rhonchi Cardiac-regular rate and rhythm, normal S1 and S2 Abdomen-normal bowel sounds, no hepatosplenomegaly Extremities-no cyanosis, clubbing, or edema Neuro-cranial nerves II through XII intact, motor and sensory function within normal limits, strength symmetrical, no focal deficits Psych-normal affect, normal mood Discharge Plan Discharge Items Patient Disposition: Home - Self-Care Reason For Visit: SOB, LORI Discharge Diagnosis: Suspected viral illness, transient hypoxia, hyperglycemia secondary to parenteral steroid therapy Activity: Resume your previous activity Non-emergency contact: Primary Care Provider Call non-emergency contact if: your symptoms worsen Follow-up/Referrals: Jessika Rodriguez PA-C [Primary Care Provider] - Diet: Carb Consistent or DM2 and Dialysis Renal Addtl Attending Provider Instructions: All medications remain the same. Glucose will return to baseline level now that IV steroid therapy has been stopped Pending Studies at Discharge: No Stand-Alone Forms: My [facility] Appear, Smoking Cessation Medications and DC Order Prescriptions: Continued aspirin 325 mg tablet 325 mg PO DAILY albuterol sulfate 90 mcg/actuation HFA aerosol inhaler 2 puff inhalation QID PRN (Reason: shortness of breath or wheezing) Qty: 8.5 1RF carvedilol 25 mg Tablet 50 mg PO BID metoprolol succinate 50 mg Tablet Extended Release 24 Hr 50 mg PO DAILY lorazepam 0.5 mg Tablet 0.5 mg PO DAILY PRN (Reason: Anxiety) sevelamer carbonate 800 mg Tablet 2,400 mg PO TID Rx Instructions: must administer with a meal/food Entresto 97-103 mg Tablet 1 tab PO BID atorvastatin 40 mg tablet 0 mg PO HS Rx Instructions: Pt states she has not been taking this consistently as it is causing severe leg pains/cramps. Original Directions: 40mg by mouth at bedtime buspirone 5 mg tablet 0 mg PO TID Rx Instructions: Per patient, she has not been taking this because it's not working properly. Original Directions: 5mg by mouth TID budesonide-formoterol [Symbicort] 80-4.5 mcg/actuation HFA aerosol inhaler 0 puff inhalation BID Rx Instructions: Per patient, she would take this if she had it. Is currently out of med. Original Directions: 1 puff twice daily nifedipine 60 mg tablet extended release 60 mg PO BID Rx Instructions: Pt states she is not sure she still takes this. But Pharmacy is showing it as being filled consistently. Discharge Orders: Discharge Order (Routine); Ordered 01/08/25 Ordered By: Arnold Mcknight/Other Patient Handouts: Managing Type 2 Diabetes, How to Check Your Blood Sugar Admission Data Admit Date/Time: 01/07/25 03:25 Attending Provider: Arnold Enrique Admit Provider: Meredith Poole Primary Care Provider: Jessika Rodriguez Other Providers: Ion Frye Hospital Stay Data Consultations 01/07/25 04:17 Consult Nephrology Routine Pending Results Patient Have Any Pending Studies at Discharge: No Discharge Instructions Given to Patient (Per Discharging Provider) All medications remain the same. Glucose will return to baseline level now that IV steroid therapy has been stopped Total Time Total Time Spent Total Time Spent (In Minutes): 45 minutes Coding Level of Care Code 24277 INP/OBS DISCH >30 MIN Diagnoses Viral illness B34.9 Type 2 diabetes mellitus E11.9 Acute hypoxic respiratory failure J96.01
[2025-01-08 11:57] VITALS: BP 144/62; PULSE 77; TEMP 98.1; O2SAT 99
== END 2025-01-08 13:48 | disposition home or self-care (01) | DRG 865 ==
LOC: ED 22:15 → SUATTDRO 01-07 03:25 → MERGE 01-07 03:25 → EDINP 01-07 03:25 → 2N 01-07 04:17